=== PATIENT | female | born 1950 | race Caucasian/White ===

== ENCOUNTER 2017-03-19 12:15 | Emergency (ER) | payer MEDICARE ==
--- NOTE | 2017-03-19 12:39 | ERPHSYRPT ---
- History of Present Illness Time Seen by Provider: 03/19/17 12:31 Historian: patient, EMS Exam Limitations: no limitations Patient Subjective Stated Complaint: PT BROUGHT TO ED PER EMS-REPORTS ABD PAIN- DARK RED TO BLACK BLOOD IN STOOL YESTERDAY-BOWELS HAVE NOT MOVED SINCE THEN- REPORTS NAUSEA BUT DENIES VOMITING Triage Nursing Assessment: PT PALE WARM ET [id number] NONLABORED-ABD TENDER TO PALP-BOWEL SOUNDS HYPERACTIVE Physician History: The patient is a 66-year-old female brought in by ambulance from home complaining of 4 days of epigastric abdominal pain that was worsening today. She's had nausea without vomiting. She states she had dark red/black stools yesterday but none today. She says she's had a history of a GI bleed years ago and nothing was done. She says her father had colon cancer and she has never had a colonoscopy. The abdominal pain is relieved by eating but she has not eaten today. EMS gave her Phenergan and she is now feeling better. Her past medical history is significant for diabetes, stroke with left sided hemiparesis , congestive heart failure, hypertension, and cellulitis. Past medical surgeries include cholecystectomy and hysterectomy. Timing/Duration: day(s) (4) Activities at Onset: none Quality: aching Abdominal Pain Onset Location: epigastric Pain Radiation: no radiation Severity of Pain-Max: moderate Severity of Pain-Current: mild Associated Symptoms: nausea, No vomiting Previous symptoms: no prior history Allergies/Adverse Reactions: codeine Allergy (Intermediate, Verified 03/19/17 12:36) Nausea and Vomiting allergies validated with patient morphine Allergy (Intermediate, Verified 03/19/17 12:36) Nausea and Vomiting oxycodone [Oxycodone] Allergy (Intermediate, Verified 03/19/17 12:36) Nausea and Vomiting Home Medications: Alendronate Sodium 70 mg [Fosamax 70 MG] 70 mg PO WEEKLY 08/22/13 [History ] Clopidogrel Bisulfate 75 mg [PLAVIX 75 MG Tablet] 75 mg PO DAILY 08/22/13 [History] Fluoxetine HCl 20 mg [Prozac 20 MG] 20 mg PO DAILY 08/22/13 [History] Furosemide 20 mg [Lasix 20 mg] 20 mg PO DAILY 08/22/13 [History] Insulin Glargine [Lantus Insulin] 15 unit SQ HS 08/22/13 [History] Calcium Carbonate/Vitamin D3 [Calcium 500 + Vit D Caplet] 1 each PO BID [History] Loratadine 10 mg PO DAILY 02/18/14 [History] Potassium Chloride 10 Meq Tab* [Klor Con 10 MEQ] 10 meq PO BID 06/23/15 [ History] Fluticasone Propionate [Flonase NASAL] 2 puffs NS DAILY 03/14/16 [History] Insulin Lispro [Humalog] 10 unit SQ AC 03/14/16 [History] Naproxen [Naprosyn] 250 mg PO BID 03/14/16 [History] Hydrocodone Bit/Acetaminophen [Hydrocodon-Acetaminophen 5-325] 1 each PO UD 12/05 [History] Linagliptin [Tradjenta] 5 mg PO HS 03/19/17 [History] Metformin HCl 500 mg [Glucophage 500 MG] 500 mg PO DAILY 03/19/17 [History ] Zolpidem Tartrate [Ambien] 5 mg PO HS 03/19/17 [History] Hx Tetanus, Diphtheria Vaccination/Date Given: No Hx Influenza Vaccination/Date Given: No Hx Pneumococcal Vaccination/Date Given: No Immunizations Up to Date: Yes - Review of Systems Constitutional: No Fever, No Chills Eyes: No Symptoms Ears, Nose, & Throat: No Symptoms Respiratory: No Cough, No Dyspnea Cardiac: No Chest Pain, No Edema, No Syncope Abdominal/Gastrointestinal: Abdominal Pain, Nausea, Melena Genitourinary Symptoms: No Dysuria Musculoskeletal: No Back Pain, No Neck Pain Skin: No Rash Neurological: No Dizziness, No Focal Weakness, No Sensory Changes Psychological: No Symptoms Endocrine: No Symptoms Hematologic/Lymphatic: No Symptoms Immunological/Allergic: No Symptoms All Other Systems: Reviewed and Negative - Past Medical History Pertinent Past Medical History: Yes Neurological History: Stroke ENT History: No Pertinent History Cardiac History: Hypertension Respiratory History: No Pertinent History Endocrine Medical History: Diabetes Type II Musculoskeletal History: Arthritis, Fractures GI Medical History: No Pertinent History History: No Pertinent History Psycho-Social History: Depression Female Reproductive Disorders: No Pertinent History Other Medical History: Femur fractuce, Hip fracture, Wrist fracture, Shoulder fracture. - Past Surgical History Past Surgical History: Yes Neuro Surgical History: No Pertinent History Cardiac: No Pertinent History Respiratory: No Pertinent History Gastrointestinal: Cholecystectomy Genitourinary: No Pertinent History Musculoskeletal: Orthopedic Surgery, Other Female Surgical History: Hysterectomy Other Surgical History: left shoulder and wrist surg. - LEFT HIP PER FX - Social History Smoking Status: Never smoker Exposure to second hand smoke: No Drug Use: none Patient Lives Alone: No Significant Family History: hypertension - Female History Hx Now: No - Nursing Vital Signs Nursing Vital Signs: Initial Vital Signs Temperature 98.0 F Temperature Source Oral Pulse Rate 89 Respiratory Rate 16 Blood Pressure [Right Arm] 140/72 Pain Intensity 3 - Physical Exam General Appearance: no apparent distress, alert Eye Exam: PERRL/EOMI, eyes nml inspection Ears, Nose, Throat Exam: normal ENT inspection, pharynx normal, moist mucous membranes Neck Exam: normal inspection, non-tender, supple, full range of motion Respiratory Exam: normal breath sounds, lungs clear, No respiratory distress Cardiovascular Exam: regular rate/rhythm, normal heart sounds Gastrointestinal/Abdomen Exam: tenderness (epigastric), other (hyperactive bowel sounds) Pelvic Exam: not done Back Exam: normal inspection, normal range of motion, No CVA tenderness, No vertebral tenderness Extremity Exam: normal range of motion, pelvis stable, paralysis (There is left- sided paralysis secondary to stroke.), other (Examination of the lower extremities reveals bilateral erythema of the lower legs consistent with chronic stasis dermatitis.) Neurologic Exam: alert, oriented x 3, cooperative, normal mood/affect, nml cerebellar function, sensation nml, No motor deficits Skin Exam: normal color, warm, dry SpO2 Interpretation: normal SpO2: 94 Oxygen Delivery: Room Air - Radiology Exams Abdomen X-ray Interpretation: Teleradiologist Report, Other (nonacute nonobstructed abdomen with mild fecal stasis per Dr Bobo.) Ordered Tests: Active Orders 24 hr Category Date Time Status IV Insertion STAT Care 03/19/17 12:45 Active OBSTR/ACUTE ABDOMEN SERIES Stat Exams 03/19/17 12:45 Completed CBC W DIFF Stat Lab 03/19/17 12:55 Completed CMP Stat Lab 03/19/17 12:55 Completed LIPASE Stat Lab 03/19/17 12:55 Completed Occult Blood,Stool Other Stat Lab 03/19/17 15:00 Completed TROPONIN Stat Lab 03/19/17 12:55 Completed UA W/ MICROSCOPIC Stat Lab 03/19/17 14:00 Completed Lab/Rad Data: Laboratory Result Diagrams 03/19/17 12:55 03/19/17 12:55 Laboratory Results 03/19/17 03/19/17 03/19/17 Range/Units 15:00 14:00 12:55 WBC (4.0-10.5) K/mm3 RBC (4.1-5.4) M/mm3 Hgb (12.0-16.0) gm/dl Hct (35-47) % MCV (78-100) fl MCH (26-32) pg MCHC (32-36) g/dl RDW (11.5-14.0) % Plt Count (150-450) K/mm3 MPV (6-9.5) fl Gran % (36.0-66.0) % Lymphocytes % (24.0-44.0) % Monocytes % (0.0-12.0) % Eosinophils % (0.00-5.0) % Basophils % (0.0-0.4) % Basophils # (0-0.4) Sodium 140 (136-145) mEq/L Potassium 4.4 (3.5-5.1) mEq/L Chloride 103 (98-107) mEq/L Carbon Dioxide 29.5 (21-32) mEq/L Anion Gap 11.7 (5-15) MEQ/L BUN 28 H (9-20) mg/dL Creatinine 1.37 H (0.55-1.30) mg/dl Estimated GFR 41 ML/MIN Glucose 340 H (70-110) MG/DL Calcium 9.4 (8.5-10.1) mg/dL Total Bilirubin 0.3 (0.2-1.0) mg/dL AST 24 (15-37) U/L ALT 26 (12-78) U/L Alkaline Phosphatase 85 (46-116) U/L Troponin I < 0.017 (0.000-0.056) ng/ml Serum Total Protein 7.0 (6.4-8.2) gm/dL Albumin 2.9 L (3.4-5.0) g/dL Lipase 350 (73-393) U/L Ur Collection Type VOID Urine Color YELLOW (YELLOW) Urine Appearance CLEAR (CLEAR) Urine pH 6.5 (5-6) Ur Specific Milo 1.010 (1.005-1.025) Urine Protein TRACE (Negative) Urine Glucose (UA) 500 (NEGATIVE) mg/dL Urine Ketones NEGATIVE (NEGATIVE) Urine Nitrite NEGATIVE (NEGATIVE) Urine Bilirubin NEGATIVE (NEGATIVE) Urine Urobilinogen 0.2 (0-1) mg/dL Urine WBC (Auto) NEGATIVE (NEGATIVE) Urine RBC (Auto) NEGATIVE (0-5) Keith/ul Ur Epithelial Cells FEW (FEW) /HPF Urine Bacteria FEW (NEGATIVE) /HPF Stool Occult Blood NEGATIVE (Negative) Specimen Received 03/19/17 1400 03/19/17 Range/Units 12:55 WBC 7.8 (4.0-10.5) K/mm3 RBC 3.99 L (4.1-5.4) M/mm3 Hgb 11.0 L (12.0-16.0) gm/dl Hct 34.5 L (35-47) % MCV 86.5 (78-100) fl MCH 27.5 (26-32) pg MCHC 31.9 L (32-36) g/dl RDW 14.1 H (11.5-14.0) % Plt Count 188 (150-450) K/mm3 MPV 11.2 H (6-9.5) fl Gran % 52.8 (36.0-66.0) % Lymphocytes % 35.7 (24.0-44.0) % Monocytes % 7.1 (0.0-12.0) % Eosinophils % 4.1 (0.00-5.0) % Basophils % 0.3 (0.0-0.4) % Basophils # 0.02 (0-0.4) Sodium (136-145) mEq/L Potassium (3.5-5.1) mEq/L Chloride (98-107) mEq/L Carbon Dioxide (21-32) mEq/L Anion Gap (5-15) MEQ/L BUN (9-20) mg/dL Creatinine (0.55-1.30) mg/dl Estimated GFR ML/MIN Glucose (70-110) MG/DL Calcium (8.5-10.1) mg/dL Total Bilirubin (0.2-1.0) mg/dL AST (15-37) U/L ALT (12-78) U/L Alkaline Phosphatase (46-116) U/L Troponin I (0.000-0.056) ng/ml Serum Total Protein (6.4-8.2) gm/dL Albumin (3.4-5.0) g/dL Lipase (73-393) U/L Ur Collection Type Urine Color (YELLOW) Urine Appearance (CLEAR) Urine pH (5-6) Ur Specific Milo (1.005-1.025) Urine Protein (Negative) Urine Glucose (UA) (NEGATIVE) mg/dL Urine Ketones (NEGATIVE) Urine Nitrite (NEGATIVE) Urine Bilirubin (NEGATIVE) Urine Urobilinogen (0-1) mg/dL Urine WBC (Auto) (NEGATIVE) Urine RBC (Auto) (0-5) Keith/ul Ur Epithelial Cells (FEW) /HPF Urine Bacteria (NEGATIVE) /HPF Stool Occult Blood (Negative) Specimen Received - Progress Progress: improved Progress Note: 03/19/17 15:34 Pt feels fine and wants to go home. - Departure Time of Disposition: 15:35 Departure Disposition: Home Clinical Impression: Abdominal pain, Diabetes, Anemia Condition: Stable Critical Care Time: No
[2017-03-19 13:01] LABS: BASOPHIL % 0.3 % (0.0-0.4); Eosinophil % 4.1 % (0.00-5.0); Granulocytes % 52.8 % (36.0-66.0); Lymphocytes % 35.7 % (24.0-44.0); Mean Cell Volume 86.5 fl (78-100); Mean Platelet Volume 11.2 fl (6-9.5); Monocytes % 7.1 % (0.0-12.0); Platelet Count 188 K/mm3 (150-450); Red Blood Count 3.99 M/mm3 (4.1-5.4); Red Cell Distribution Width 14.1 % (11.5-14.0); White Blood Count 7.8 K/mm3 (4.0-10.5)
[2017-03-19 13:02] LABS: Mean Corpuscular Hemoglobin 27.5 pg (26-32)
[2017-03-19 13:46] LABS: ALBUMIN 2.9 g/dL (3.4-5.0); ALKALINE PHOSPHATASE 85 U/L (46-116); ANION GAP 11.7 MEQ/L (5-15); BILIRUBIN,TOTAL 0.3 mg/dL (0.2-1.0); BLOOD UREA NITROGEN 28 mg/dL (9-20); CHLORIDE 103 mEq/L (98-107); Carbon Dioxide 29.5 mEq/L (21-32); Glucose 340 MG/DL (70-110); LIPASE 350 U/L (73-393); Potassium 4.4 mEq/L (3.5-5.1); SGOT/AST 24 U/L (15-37); SGPT/ALT 26 U/L (12-78); SODIUM 140 mEq/L (136-145)
--- NOTE | 2017-03-19 13:51 | XRAY ---
Indication: Abdominal pain. Comparison: Portable chest March 15, 2016. Supine and left lateral decubitus abdomen demonstrates mild diffuse scattered colonic fecal debris without focal bowel dilatation or obstruction. Previous cholecystectomy. Small well-circumscribed density in the right epigastric region felt to be ingested medication/food in the GI system. Remaining solid organs unremarkable. Osseous structures intact with mild osteopenia, multilevel spinal degenerative spondylosis, and old proximal left femur fracture with intact hardware. Single AP chest demonstrates left lung base calcified granuloma. Remaining heart and lungs normal. Bony thorax intact with mild osteopenia, degenerative changes, and old left humeral fracture with intact hardware. Impression: 1. Nonacute nonobstructed abdomen with mild fecal stasis. 2. Nonacute 1 view chest with chronic findings.
[2017-03-19 13:52] LABS: TROPONIN < 0.017 ng/ml (0.000-0.056)
[2017-03-19 14:03] LABS: COMPLETE URINE MICROSCOPIC? YES; Collection Type VOID; Ph 6.5 (5-6)
[2017-03-19 14:12] LABS: Bacteria FEW /HPF (NEGATIVE); Epithelial Cells FEW /HPF (FEW)
[2017-03-19 16:47] VITALS: BP 120/71; PULSE 70; O2SAT 97
== END 2017-03-19 16:25 | disposition home or self-care (01) ==
LOC: ED 12:15
DX: R10.9 Unspecified abdominal pain (principal); E11.9 Type 2 diabetes mellitus without complications; D64.9 Anemia, unspecified; Z79.4 Long term (current) use of insulin; Z79.899 Other long term (current) drug therapy
CPT/HCPCS: 36415; 74022; 80053; 81000; 82272; 83690; 84484; 85025; 96360; 99284

== ENCOUNTER 2017-04-06 14:17 | Emergency (ER) | payer MEDICARE ==
[2017-04-06] MEDS ORDERED: Sodium Chloride 0.9% 1000 ML 1,000 ML ONE (14:28)
--- NOTE | 2017-04-06 14:29 | ERPHSYRPT ---
- History of Present Illness Time Seen by Provider: 04/06/17 14:19 Historian: patient, EMS Exam Limitations: no limitations Patient Subjective Stated Complaint: N/V/D AND LOWER ABD PAIN FOR TWO DAYS. Triage Nursing Assessment: TO ROOM PER EMS COT. SKIN W/D, COLOR NORMAL, RESP EASY. ABD SOFT, NORMAL BOWEL SOUNDS. A/O TIMES THREE Physician History: abdominal pain with N&V that started last night - 9 pm; ate hamburger at 6 pm; tasted ok; no travel; no exposure; no prior hx; no fever or chills; no prior hx ; comes and goes; epigastric without radiation; voiding ok; light liquid diarrhea today x 1; city water; N&V meds today; takes sprite ok; no trauma pain N&V gone after meds by ems; pain was 4/10 Timing/Duration: today (diarrhea x 1), yesterday (onset last night), intermittent, gradual onset, improved (after meds) Activities at Onset: rest Quality: cramping Abdominal Pain Onset Location: epigastric Pain Radiation: no radiation Severity of Pain-Max: moderate Severity of Pain-Current: none Modifying Factors: Improves With: vomiting Associated Symptoms: diarrhea, nausea, vomiting Previous symptoms: no prior history Allergies/Adverse Reactions: codeine Allergy (Intermediate, Verified 04/06/17 14:23) Nausea and Vomiting allergies validated with patient morphine Allergy (Intermediate, Verified 04/06/17 14:23) Nausea and Vomiting oxycodone [Oxycodone] Allergy (Intermediate, Verified 04/06/17 14:23) Nausea and Vomiting Home Medications: Alendronate Sodium 70 mg [Fosamax 70 MG] 70 mg PO WEEKLY 08/22/13 [History ] Clopidogrel Bisulfate 75 mg [PLAVIX 75 MG Tablet] 75 mg PO DAILY 08/22/13 [History] Fluoxetine HCl 20 mg [Prozac 20 MG] 20 mg PO DAILY 08/22/13 [History] Furosemide 20 mg [Lasix 20 mg] 20 mg PO DAILY 08/22/13 [History] Insulin Glargine [Lantus Insulin] 15 unit SQ HS 08/22/13 [History] Calcium Carbonate/Vitamin D3 [Calcium 500 + Vit D Caplet] 1 each PO BID [History] Loratadine 10 mg PO DAILY 02/18/14 [History] Potassium Chloride 10 Meq Tab* [Klor Con 10 MEQ] 10 meq PO BID 06/23/15 [ History] Fluticasone Propionate [Flonase NASAL] 2 puffs NS DAILY 03/14/16 [History] Insulin Lispro [Humalog] 10 unit SQ AC 03/14/16 [History] Naproxen [Naprosyn] 250 mg PO BID 03/14/16 [History] Hydrocodone Bit/Acetaminophen [Hydrocodon-Acetaminophen 5-325] 1 each PO UD 12/05 [History] Linagliptin [Tradjenta] 5 mg PO HS 03/19/17 [History] Metformin HCl 500 mg [Glucophage 500 MG] 500 mg PO DAILY 03/19/17 [History ] Zolpidem Tartrate [Ambien] 5 mg PO HS 03/19/17 [History] Hx Tetanus, Diphtheria Vaccination/Date Given: No Hx Influenza Vaccination/Date Given: No Hx Pneumococcal Vaccination/Date Given: No - Review of Systems Constitutional: No Symptoms Eyes: No Symptoms Ears, Nose, & Throat: No Symptoms Respiratory: No Cough, No Dyspnea, No Wheezing Cardiac: No Chest Pain, No Palpitations, No Syncope Abdominal/Gastrointestinal: Abdominal Pain, Nausea, Vomiting, Diarrhea, No Constipation, No Hematemesis, No Hematochezia, No Melena Genitourinary Symptoms: No Symptoms Musculoskeletal: No Symptoms Skin: No Symptoms Neurological: Paralysis (left side - old cva), Parasthesia (left side; old cva) Psychological: No Symptoms Endocrine: No Symptoms Hematologic/Lymphatic: No Symptoms Immunological/Allergic: No Symptoms - Past Medical History Pertinent Past Medical History: Yes Neurological History: Stroke ENT History: No Pertinent History Cardiac History: Hypertension Respiratory History: No Pertinent History Endocrine Medical History: Diabetes Type II Musculoskeletal History: Arthritis, Fractures GI Medical History: No Pertinent History History: No Pertinent History Psycho-Social History: Depression Female Reproductive Disorders: No Pertinent History Other Medical History: Femur fractuce, Hip fracture, Wrist fracture, Shoulder fracture. - Past Surgical History Past Surgical History: Yes Neuro Surgical History: No Pertinent History Cardiac: No Pertinent History Respiratory: No Pertinent History Gastrointestinal: Cholecystectomy Genitourinary: No Pertinent History Musculoskeletal: Orthopedic Surgery, Other Female Surgical History: Hysterectomy Other Surgical History: left shoulder and wrist surg. - LEFT HIP PER FX - Social History Smoking Status: Never smoker Exposure to second hand smoke: No Alcohol Use: None Drug Use: none Patient Lives Alone: No Significant Family History: hypertension - Female History Hx Now: No - Nursing Vital Signs Nursing Vital Signs: Initial Vital Signs Temperature 98.3 F Temperature Source Oral Pulse Rate 86 Respiratory Rate 16 Blood Pressure [Right Arm] 146/76 Pain Intensity 0 - Physical Exam General Appearance: mild distress, alert, obese Eye Exam: PERRL/EOMI, eyes nml inspection, No photophobia Ears, Nose, Throat Exam: normal ENT inspection, TMs normal, pharynx normal, dry mucous membranes Neck Exam: normal inspection, non-tender, supple, full range of motion, No meningismus, No JVD Respiratory Exam: normal breath sounds, lungs clear, airway intact, No chest tenderness, No respiratory distress Cardiovascular Exam: regular rate/rhythm, normal heart sounds, normal peripheral pulses, capillary refill 2-3 sec, No murmur Gastrointestinal/Abdomen Exam: soft, normal bowel sounds, No tenderness, No distention, No mass, No guarding, No pulsatile mass, No rebound, No hernia, No organomegaly Pelvic Exam: deferred Rectal Exam: deferred Back Exam: normal inspection, normal range of motion, No CVA tenderness, No vertebral tenderness, No rash Extremity Exam: normal inspection (right), normal range of motion (right), paralysis (left old cva residual) Neurologic Exam: alert, oriented x 3, cooperative, normal mood/affect, sensation nml, motor weakness (left old cva), facial droop (left old), abnormal facilities maintenance assistant II-XII (left face old cva) Skin Exam: normal color, warm, dry, No rash SpO2 Interpretation: normal SpO2: 97 - Course Nursing assessment & vital signs reviewed: Yes - Radiology Exams Abdomen X-ray Interpretation: Reviewed by me, Teleradiologist Report, Negative Ordered Tests: Active Orders 24 hr Category Date Time Status IV Insertion STAT Care 04/06/17 14:22 Active NPO (ED) STAT Care 04/06/17 14:22 Active OBSTR/ACUTE ABDOMEN SERIES Stat Exams 04/06/17 15:02 Completed AMYLASE Stat Lab 04/06/17 14:36 Completed CBC W DIFF Stat Lab 04/06/17 14:36 Completed CMP Stat Lab 04/06/17 14:36 Completed LIPASE Stat Lab 04/06/17 14:36 Completed Medication Summary Generic Name Dose Route Start Last Admin Trade Name Cassy PRN Reason Stop Dose Admin Sodium Chloride 1,000 mls @ 100 mls/hr 04/06/17 14:30 04/06/17 14:28 Sodium Chloride 0.9% 1000 Ml IV 05/06/17 14:29 100 mls/hr .Q10H EDDIE Administration Lab/Rad Data: Laboratory Result Diagrams 04/06/17 14:36 04/06/17 14:36 Laboratory Results 04/06/17 04/06/17 Range/Units 14:36 14:36 WBC 8.8 (4.0-10.5) K/mm3 RBC 3.74 L (4.1-5.4) M/mm3 Hgb 10.0 L (12.0-16.0) gm/dl Hct 32.3 L (35-47) % MCV 86.4 (78-100) fl MCH 26.7 (26-32) pg MCHC 31.0 L (32-36) g/dl RDW 15.0 H (11.5-14.0) % Plt Count 335 (150-450) K/mm3 MPV 10.4 H (6-9.5) fl Gran % 62.0 (36.0-66.0) % Lymphocytes % 30.0 (24.0-44.0) % Monocytes % 5.1 (0.0-12.0) % Eosinophils % 2.6 (0.00-5.0) % Basophils % 0.3 (0.0-0.4) % Basophils # 0.03 (0-0.4) Sodium 139 (136-145) mEq/L Potassium 3.8 (3.5-5.1) mEq/L Chloride 105 (98-107) mEq/L Carbon Dioxide 28.4 (21-32) mEq/L Anion Gap 9.0 (5-15) MEQ/L BUN 12 (9-20) mg/dL Creatinine 1.28 (0.55-1.30) mg/dl Estimated GFR 44 ML/MIN Glucose 261 H (70-110) MG/DL Calcium 8.8 (8.5-10.1) mg/dL Total Bilirubin 0.3 (0.2-1.0) mg/dL AST 19 (15-37) U/L ALT 18 (12-78) U/L Alkaline Phosphatase 80 (46-116) U/L Serum Total Protein 7.6 (6.4-8.2) gm/dL Albumin 2.9 L (3.4-5.0) g/dL Amylase 22 L (25-115) U/L Lipase 426 H (73-393) U/L reviewed - Progress Progress: improved (after meds), re-examined (after recheck) Progress Note: 04/06/17 14:30 patient with no pain now and no N&V post ems meds; will observe; check labs and recheck 04/06/17 15:00 recheck shows patient resting comfortably; no pain ; No N&V; vs ok; CBC ok wiht chronic anemia; other labs pending 04/06/17 16:38 patient continues to be pain free and no N&V and wants to go home; reviewed findings which showed a mildly elevated lipase; no hx of pancreatitis; she wants to go home and follow up with lmd; instructions given; reexamined and no abdominal tenderness Counseled pt/family regarding: lab results, diagnosis, need for follow-up, rad results - Departure Time of Disposition: 16:40 Departure Disposition: Home Clinical Impression: Abdominal pain Condition: Stable Critical Care Time: No Referrals: BENNY HUGHES [Primary Care Provider] - Instructions: Abdominal Pain-Adult Additional Instructions: clear liquids 12- 24 hours then bland diet 24 hours; follow up lmd recheck Follow-up with family doctor as directed. Call for appointment. Return if any problems. If you smoke please stop. Call or follow up with your family doctor for assistance if you need it to stop. Please wear your seatbelt when driving. Have a nice day. Thank you for allowing us to participate in your care today. :o) Dr Casey Almendarez Prescriptions: Nizatidine [Axid] 150 mg PO BID #14 capsule Ondansetron [Zofran Odt] 4 mg PO Q4-6HPRN PRN #14 tab.rapdis PRN Reason: Nausea
[2017-04-06] MEDS ORDERED: Sodium Chloride 0.9% 1000 ML 1,000 ML IV SCH (14:30)
[2017-04-06 14:41] LABS: BASOPHIL % 0.3 % (0.0-0.4); Eosinophil % 2.6 % (0.00-5.0); Mean Cell Volume 86.4 fl (78-100); Mean Corpuscular Hemoglobin 26.7 pg (26-32); Mean Platelet Volume 10.4 fl (6-9.5); Monocytes % 5.1 % (0.0-12.0); Platelet Count 335 K/mm3 (150-450); Red Blood Count 3.74 M/mm3 (4.1-5.4); White Blood Count 8.8 K/mm3 (4.0-10.5)
[2017-04-06 15:23] LABS: ALBUMIN 2.9 g/dL (3.4-5.0); BILIRUBIN,TOTAL 0.3 mg/dL (0.2-1.0); Carbon Dioxide 28.4 mEq/L (21-32); Potassium 3.8 mEq/L (3.5-5.1); Total Protein 7.6 gm/dL (6.4-8.2)
--- NOTE | 2017-04-06 16:08 | XRAY ---
Indication: Nausea and vomiting. Comparison: March 19, 2017. 2 views of the abdomen nonacute and nonobstructed with note of cholecystectomy. Stable small well-circumscribed density in the right epigastric abdominal wall as seen on CT abdomen July 15, 2015. Remaining solid organs unremarkable. Osseous structures intact with mild osteopenia, multilevel spinal degenerative spondylosis, and old proximal left femur fracture with intact hardware. Single AP chest again demonstrates normal heart and lungs with left base calcified granuloma. Bony thorax intact with mild osteopenia, degenerative changes, and old left humeral fracture with intact hardware. Impression: 1. Nonacute nonobstructed abdomen. 2. Nonacute 1 view chest with chronic findings.
[2017-04-06 18:02] VITALS: BP 124/70; PULSE 76; O2SAT 100
== END 2017-04-06 18:03 | disposition home or self-care (01) ==
LOC: ED 14:17
DX: R10.30 Lower abdominal pain, unspecified (principal); R11.2 Nausea with vomiting, unspecified; R19.7 Diarrhea, unspecified; Z79.899 Other long term (current) drug therapy; E11.9 Type 2 diabetes mellitus without complications; I10 Essential (primary) hypertension
CPT/HCPCS: 36415; 74022; 80053; 82150; 83690; 85025; 87631; 96360; 96361; 99284

== ENCOUNTER 2017-05-29 09:24 | Emergency (ER) | payer MEDICARE ==
--- NOTE | 2017-05-29 09:47 | ERPHSYRPT ---
- History of Present Illness Time Seen by Provider: 05/29/17 09:42 Historian: patient Exam Limitations: no limitations Patient Subjective Stated Complaint: PT REPORTS LEFT UPPER ABD PAIN BEGINNING LAST [id number] OF DIARHHEA-REPORTS WOKE THIS MORNING TO INTERMITTANT [facility] PAIN-VOMITED X 1 Triage Nursing Assessment: PT PINK WARM ET [id number]-SAPI EASY ET NONLABORED-NO REBOUND TENDERNESS NOTED-BOWEL SOUNDS PRESENT-AND SOFT ET NONTENDER TO PALP-PT DROWSY DURING TRIAGE Physician History: The patient is a 66-year-old female brought in by ambulance from home where she states she vomited day before yesterday and this morning had left-sided abdominal pain that has completely resolved. She doesn't hurt anywhere. She's not nauseated. She is sleepy. She said she wants to go to sleep right now. She is in no acute distress. EMS gave the patient Zofran 4 mg IV. Her past medical history is significant for diabetes, stroke with left-sided hemiparesis , congestive heart failure, hypertension, and cellulitis. Her past surgeries include cholecystectomy and hysterectomy. Timing/Duration: today Activities at Onset: none Quality: aching Abdominal Pain Onset Location: [facility] Pain Radiation: no radiation Severity of Pain-Max: mild Severity of Pain-Current: none Modifying Factors: Improves With: nothing Associated Symptoms: denies symptoms Previous symptoms: no prior history Allergies/Adverse Reactions: codeine Allergy (Intermediate, Verified 05/29/17 09:32) Nausea and Vomiting allergies validated with patient morphine Allergy (Intermediate, Verified 05/29/17 09:32) Nausea and Vomiting oxycodone [Oxycodone] Allergy (Intermediate, Verified 05/29/17 09:32) Nausea and Vomiting Home Medications: Alendronate Sodium 70 mg [Fosamax 70 MG] 70 mg PO WEEKLY 08/22/13 [History ] Clopidogrel Bisulfate 75 mg [PLAVIX 75 MG Tablet] 75 mg PO DAILY 08/22/13 [History] Fluoxetine HCl 20 mg [Prozac 20 MG] 20 mg PO DAILY 08/22/13 [History] Furosemide 20 mg [Lasix 20 mg] 20 mg PO DAILY 08/22/13 [History] Insulin Glargine [Lantus Insulin] 15 unit SQ HS 08/22/13 [History] Calcium Carbonate/Vitamin D3 [Calcium 500 + Vit D Caplet] 1 each PO BID [History] Loratadine 10 mg PO DAILY 02/18/14 [History] Potassium Chloride 10 Meq Tab* [Klor Con 10 MEQ] 10 meq PO BID 06/23/15 [ History] Fluticasone Propionate [Flonase NASAL] 2 puffs NS DAILY 03/14/16 [History] Insulin Lispro [Humalog] 10 unit SQ AC 03/14/16 [History] Naproxen [Naprosyn] 250 mg PO BID 03/14/16 [History] Hydrocodone Bit/Acetaminophen [Hydrocodon-Acetaminophen 5-325] 1 each PO UD 12/05 [History] Linagliptin [Tradjenta] 5 mg PO HS 03/19/17 [History] Metformin HCl 500 mg [Glucophage 500 MG] 500 mg PO DAILY 03/19/17 [History ] Zolpidem Tartrate [Ambien] 5 mg PO HS 03/19/17 [History] Hx Tetanus, Diphtheria Vaccination/Date Given: No Hx Influenza Vaccination/Date Given: No Hx Pneumococcal Vaccination/Date Given: No Immunizations Up to Date: Yes - Review of Systems Constitutional: No Fever, No Chills Eyes: No Symptoms Ears, Nose, & Throat: No Symptoms Respiratory: No Cough, No Dyspnea Cardiac: No Chest Pain, No Edema, No Syncope Abdominal/Gastrointestinal: Abdominal Pain, Vomiting Genitourinary Symptoms: No Dysuria Musculoskeletal: No Back Pain, No Neck Pain Skin: No Rash Neurological: No Dizziness, No Focal Weakness, No Sensory Changes Psychological: No Symptoms Endocrine: No Symptoms Hematologic/Lymphatic: No Symptoms Immunological/Allergic: No Symptoms All Other Systems: Reviewed and Negative - Past Medical History Pertinent Past Medical History: Yes Neurological History: Stroke ENT History: No Pertinent History Cardiac History: Hypertension Respiratory History: No Pertinent History Endocrine Medical History: Diabetes Type II Musculoskeletal History: Arthritis, Fractures GI Medical History: No Pertinent History History: No Pertinent History Psycho-Social History: Depression Female Reproductive Disorders: No Pertinent History Other Medical History: Femur fractuce, Hip fracture, Wrist fracture, Shoulder fracture. - Past Surgical History Past Surgical History: Yes Neuro Surgical History: No Pertinent History Cardiac: No Pertinent History Respiratory: No Pertinent History Gastrointestinal: Cholecystectomy Genitourinary: No Pertinent History Musculoskeletal: Orthopedic Surgery, Other Female Surgical History: Hysterectomy Other Surgical History: left shoulder and wrist surg. - LEFT HIP PER FX - Social History Smoking Status: Never smoker Exposure to second hand smoke: No Alcohol Use: None Drug Use: none Patient Lives Alone: No Significant Family History: hypertension - Female History Hx Now: No - Nursing Vital Signs Nursing Vital Signs: Initial Vital Signs Temperature 97.9 F Temperature Source Oral Pulse Rate 82 Respiratory Rate 16 Blood Pressure [Right Arm] 144/69 Pain Intensity 0 - Physical Exam General Appearance: no apparent distress, alert Eye Exam: PERRL/EOMI, eyes nml inspection Ears, Nose, Throat Exam: normal ENT inspection, pharynx normal, moist mucous membranes Neck Exam: normal inspection, non-tender, supple, full range of motion Respiratory Exam: normal breath sounds, lungs clear, No respiratory distress Cardiovascular Exam: regular rate/rhythm, normal heart sounds Gastrointestinal/Abdomen Exam: soft, No tenderness, No mass Pelvic Exam: not done Rectal Exam: not done Back Exam: normal inspection, normal range of motion, No CVA tenderness, No vertebral tenderness Extremity Exam: pedal edema (There is very mild pedal edema with chronic skin changes consistent with chronic stasis dermatitis.) Neurologic Exam: alert, oriented x 3, cooperative, normal mood/affect, nml cerebellar function, sensation nml, No motor deficits Skin Exam: normal color, warm, dry SpO2 Interpretation: normal SpO2: 94 Oxygen Delivery: Room Air - Radiology Exams Abdomen X-ray Interpretation: Interpreted by me, Negative (neg chest. non acute, nonobstructed abd) Ordered Tests: Active Orders 24 hr Category Date Time Status IV Insertion STAT Care 05/29/17 09:51 Active OBSTR/ACUTE ABDOMEN SERIES Stat Exams 05/29/17 09:51 Taken CBC W DIFF Stat Lab 05/29/17 10:44 Completed CMP Stat Lab 05/29/17 10:44 Completed LIPASE Stat Lab 05/29/17 10:44 Completed Lactic Acid Stat Lab 05/29/17 09:51 Completed Manual Differential NC Stat Lab 05/29/17 10:44 Completed TROPONIN Stat Lab 05/29/17 10:44 Completed UA W/RFX UR CULTURE Stat Lab 05/29/17 10:45 Completed Medication Summary Discontinued Medications Generic Name Dose Route Start Last Admin Trade Name Cassy PRN Reason Stop Dose Admin Sodium Chloride 500 mls @ 500 mls/hr 05/29/17 09:52 05/29/17 09:58 Sodium Chloride 0.9% 500 Ml IV 05/29/17 10:51 500 mls/hr .Q1H ONE Administration Sodium Chloride Confirm 05/29/17 09:55 Sodium Chloride 0.9% 1000 Ml Administered 05/29/17 09:56 Dose 1,000 mls @ ud .ROUTE .STK-MED ONE Lab/Rad Data: Laboratory Result Diagrams 05/29/17 10:44 05/29/17 10:44 Laboratory Results 05/29/17 05/29/17 05/29/17 Range/Units 10:45 10:44 10:44 WBC 8.0 (4.0-10.5) K/mm3 RBC 3.15 L (4.1-5.4) M/mm3 Hgb 7.3 L (12.0-16.0) gm/dl Hct 25.5 L (35-47) % MCV 81.0 (78-100) fl MCH 23.1 L (26-32) pg MCHC 28.6 L (32-36) g/dl RDW 16.8 H (11.5-14.0) % Plt Count 351 (150-450) K/mm3 MPV 10.6 H (6-9.5) fl Sodium 140 (136-145) mEq/L Potassium 4.6 (3.5-5.1) mEq/L Chloride 105 (98-107) mEq/L Carbon Dioxide 26.5 (21-32) mEq/L Anion Gap 12.9 (5-15) MEQ/L BUN 10 (9-20) mg/dL Creatinine 1.11 (0.55-1.30) mg/dl Estimated GFR 52 ML/MIN Glucose 239 H (70-110) MG/DL Lactic Acid (0.4-2.0) Calcium 8.5 (8.5-10.1) mg/dL Total Bilirubin 0.20 (0.2-1.0) mg/dL AST 22 (15-37) U/L ALT 12 (12-78) U/L Alkaline Phosphatase 92 (46-116) U/L Troponin I < 0.017 (0.000-0.056) ng/ml Serum Total Protein 6.9 (6.4-8.2) gm/dL Albumin 2.6 L (3.4-5.0) g/dL Lipase 133 (73-393) U/L Ur Collection Type CCMS Urine Color YELLOW (YELLOW) Urine Appearance CLEAR (CLEAR) Urine pH 7.0 (5-6) Ur Specific [place] 1.005 (1.005-1.025) Urine Protein NEGATIVE (Negative) Urine Ketones NEGATIVE (NEGATIVE) Urine Blood NEGATIVE (0-5) Keith/ul Urine Nitrite NEGATIVE (NEGATIVE) Urine Bilirubin NEGATIVE (NEGATIVE) Urine Urobilinogen NORMAL (0-1) mg/dL Ur Leukocyte Esterase NEGATIVE (NEGATIVE) Urine Glucose NEGATIVE (NEGATIVE) mg/dL Specimen Received 05/29 1115 05/29/17 Range/Units 09:51 WBC (4.0-10.5) K/mm3 RBC (4.1-5.4) M/mm3 Hgb (12.0-16.0) gm/dl Hct (35-47) % MCV (78-100) fl MCH (26-32) pg MCHC (32-36) g/dl RDW (11.5-14.0) % Plt Count (150-450) K/mm3 MPV (6-9.5) fl Sodium (136-145) mEq/L Potassium (3.5-5.1) mEq/L Chloride (98-107) mEq/L Carbon Dioxide (21-32) mEq/L Anion Gap (5-15) MEQ/L BUN (9-20) mg/dL Creatinine (0.55-1.30) mg/dl Estimated GFR ML/MIN Glucose (70-110) MG/DL Lactic Acid 1.3 (0.4-2.0) Calcium (8.5-10.1) mg/dL Total Bilirubin (0.2-1.0) mg/dL AST (15-37) U/L ALT (12-78) U/L Alkaline Phosphatase (46-116) U/L Troponin I (0.000-0.056) ng/ml Serum Total Protein (6.4-8.2) gm/dL Albumin (3.4-5.0) g/dL Lipase (73-393) U/L Ur Collection Type Urine Color (YELLOW) Urine Appearance (CLEAR) Urine pH (5-6) Ur Specific [place] (1.005-1.025) Urine Protein (Negative) Urine Ketones (NEGATIVE) Urine Blood (0-5) Keith/ul Urine Nitrite (NEGATIVE) Urine Bilirubin (NEGATIVE) Urine Urobilinogen (0-1) mg/dL Ur Leukocyte Esterase (NEGATIVE) Urine Glucose (NEGATIVE) mg/dL Specimen Received - Progress Progress: improved Counseled pt/family regarding: lab results, diagnosis, need for follow-up, rad results - Departure Time of Disposition: 11:59 Departure Disposition: Home Clinical Impression: Abdominal pain, Vomiting Condition: Stable Critical Care Time: No Additional Instructions: Last night you had abdominal pain that has completely resolved. 2 days ago you had vomiting that has resolved. You were given normal saline 500 mL by IV in the ER. He did not sleep well last night. You now states that you are completely pain free and you no longer have vomiting. All of your labs and your x-ray were normal. Take Zofran 4 mg ODT every 6 hours as needed for nausea and vomiting. Follow-up in one to 2 days. Prescriptions: Ondansetron [Zofran Odt] 4 mg PO Q6HPRN PRN #10 tab.rapdis PRN Reason: Nausea/Vomiting
[2017-05-29] MEDS ORDERED: Sodium Chloride 0.9% 500 ML 500 ML IV ONE (09:52)
[2017-05-29] MEDS ORDERED: Sodium Chloride 0.9% 1000 ML 1,000 ML ONE (09:55)
[2017-05-29 10:54] LABS: Mean Platelet Volume 10.6 fl (6-9.5); Platelet Count 351 K/mm3 (150-450); Red Blood Count 3.15 M/mm3 (4.1-5.4); Red Cell Distribution Width 16.8 % (11.5-14.0)
[2017-05-29 10:57] LABS: Mean Corpuscular Hemoglobin 23.1 pg (26-32)
[2017-05-29 11:17] LABS: ALBUMIN 2.6 g/dL (3.4-5.0); ALKALINE PHOSPHATASE 92 U/L (46-116); ANION GAP 12.9 MEQ/L (5-15); BLOOD UREA NITROGEN 10 mg/dL (9-20); CHLORIDE 105 mEq/L (98-107); Carbon Dioxide 26.5 mEq/L (21-32); Glucose 239 MG/DL (70-110); LIPASE 133 U/L (73-393); Potassium 4.6 mEq/L (3.5-5.1); SGOT/AST 22 U/L (15-37); SGPT/ALT 12 U/L (12-78); SODIUM 140 mEq/L (136-145); Total Protein 6.9 gm/dL (6.4-8.2)
[2017-05-29 11:18] LABS: TROPONIN < 0.017 ng/ml (0.000-0.056)
[2017-05-29 11:29] LABS: ADD URINE CULTURE? NO (NO); Bilirubin NEGATIVE (NEGATIVE); Blood NEGATIVE Ery/ul (0-5); COMPLETE URINE MICROSCOPIC? NO; Collection Type CCMS; Glucose NEGATIVE (NEGATIVE); Leukocyte Esterase NEGATIVE (NEGATIVE)
[2017-05-29 12:06] VITALS: BP 138/72; PULSE 76; O2SAT 98
--- NOTE | 2017-05-29 12:06 | XRAY ---
Exam: Acute abdominal series from 05/29/2017. Comparison: Acute abdominal series from 04/06/2017. Indication: Abdominal pain, vomiting. Findings: A frontal chest film, upright abdomen film, and 2 supine films of the abdomen were obtained. The transverse heart size is normal. Mild atherosclerotic vascular calcification is seen within the aortic knob. The jeremiah and mediastinal structures appear unremarkable. The lungs are adequately inflated. A small stable calcified granuloma is seen within the left costophrenic angle. No infiltrates, vascular congestion, pneumothorax, or pleural fluid is seen. A portion of a miranda with adjoining screws is seen within the left shoulder and proximal humerus shaft representing no change. Mild osteoarthritic changes are seen within the right shoulder girdle. Lower thoracic lateral osteophyte formation is seen. There is minimal mid thoracic dextroscoliosis. The bowel gas pattern appears nonspecific with a few scattered air-fluid levels within the lower left hemiabdomen on the upright image. Some gas and stool are seen distally extending to the level of the rectum. Surgical clips consistent with prior cholecystectomy are noted within the right upper quadrant. There is no free intraperitoneal air. There is an oval-shaped radiodensity noted about 6 cm to the right of midline of T12 which is unchanged from a CT abdomen and pelvis from 04/06/2017 and was previously demonstrated to represent a stable high attenuation density within the upper anterior abdominal wall to the right of midline. This is not related to the right kidney. No hepatosplenomegaly is seen. No other suspicious abdominal calcifications or calculi are seen. There is a mild rotary levoscoliosis centered at L1-L2. Moderate diffuse lower thoracolumbar spondylosis is seen. There is again an old healed fracture of the intertrochanteric region of the left hip with stable internal orthopedic gamma nail hardware partially seen. Impression: 1. No acute cardiopulmonary disease is seen. 2. Nonspecific bowel gas pattern with a few scattered air-fluid levels within the lower left hemiabdomen and upper left pelvis. Consider enteritis versus focal ileus. Gas is seen distally within the small bowel and colon which speaks against bowel obstruction. 3. No free intraperitoneal air is seen. 4. Evidence of prior cholecystectomy. Also, prior orthopedic hardware is partially seen within the proximal left humerus and proximal left femur representing no change. 5. A 2.1 cm ovoid radiodensity is seen projected over the medial aspect of the right upper quadrant which is known to lie within the anterior abdominal wall in this projection. This can be seen on a prior CT study dating back to 07/15/2015. Correlate clinically. 6. Moderately advanced degenerative changes are seen within the thoracolumbar spine. There is also mild S-shaped scoliosis.
[2017-05-29 15:13] LABS: BAND 1 % (0.0-2.0); Hypochromia 2+; Total Cells Counted 100
[2017-05-29 15:14] LABS: ANISOCYTOSIS 2+; Platelet Estimate NORMAL (NORMAL); Poikilocytosis 1+; Polychromasia 1+
== END 2017-05-29 13:19 | disposition home or self-care (01) ==
LOC: ED 09:24
DX: R10.12 Left upper quadrant pain (principal); R11.10 Vomiting, unspecified; E11.9 Type 2 diabetes mellitus without complications; I50.9 Heart failure, unspecified; I10 Essential (primary) hypertension; Z79.899 Other long term (current) drug therapy; Z79.84 Long term (current) use of oral hypoglycemic drugs; Z79.4 Long term (current) use of insulin
CPT/HCPCS: 36415; 74022; 80053; 81002; 83605; 83690; 84484; 85025; 96360; 99284

== ENCOUNTER 2017-06-02 07:41 | Emergency (ER) | payer MEDICARE ==
[2017-06-02] MEDS ORDERED: Pepcid 20 MG VIAL IV ONE ×2 (07:54→08:20)
[2017-06-02] MEDS ORDERED: Phenergan 25 MG INJ IM ONE (07:54)
[2017-06-02] MEDS ORDERED: Sodium Chloride 0.9% 1000 ML 1,000 ML IV SCH (08:00)
--- NOTE | 2017-06-02 08:01 | ERPHSYRPT ---
- History of Present Illness Time Seen by Provider: 06/02/17 07:53 Historian: patient, EMS Patient Subjective Stated Complaint: PT COMES IN BY EMS PER PT SHE HAS BEEN HAVING NAUSEA. FOR A COUPLE DAYS STATES THAT THIS AM SHE BEGAN VOMIING COMPLAINS OF SOME RIGHT AND LEFT UPPER QUAD PAIN DENIES DIARRHEA OR FEVER STATES SHE IS A DIABETIC STATES SHE WAS. HERE A COUPLE OF OF DAYS AGO FOR THE SAME THING. PT STATES SHE TOOK A ZOFRAN THIS AM Triage Nursing Assessment: PT ALERT WARM AND DRY RESP EASY NON LABORED WET [employer] NOTED. Physician History: CC: abd pain and vomiting Hx: 66 y/o patient of Dr Hughes who lives in [facility]. She has abd pain and vomiting since last night. No fever or chills or diarrhea. No chest pain. She had prior cholecystectomy. She took a zofran at 3AM without relief. Symptoms moderate. Pt arrived per EMS. Timing/Duration: yesterday Abdominal Pain Onset Location: generalized abdomen Severity of Pain-Max: moderate Severity of Pain-Current: moderate Allergies/Adverse Reactions: codeine Allergy (Intermediate, Verified 05/29/17 09:32) Nausea and Vomiting allergies validated with patient morphine Allergy (Intermediate, Verified 05/29/17 09:32) Nausea and Vomiting oxycodone [Oxycodone] Allergy (Intermediate, Verified 05/29/17 09:32) Nausea and Vomiting Home Medications: Alendronate Sodium 70 mg [Fosamax 70 MG] 70 mg PO WEEKLY 08/22/13 [History ] Clopidogrel Bisulfate 75 mg [PLAVIX 75 MG Tablet] 75 mg PO DAILY 08/22/13 [History] Fluoxetine HCl 20 mg [Prozac 20 MG] 20 mg PO DAILY 08/22/13 [History] Furosemide 20 mg [Lasix 20 mg] 20 mg PO DAILY 08/22/13 [History] Insulin Glargine [Lantus Insulin] 15 unit SQ HS 08/22/13 [History] Calcium Carbonate/Vitamin D3 [Calcium 500 + Vit D Caplet] 1 each PO BID [History] Loratadine 10 mg PO DAILY 02/18/14 [History] Potassium Chloride 10 Meq Tab* [Klor Con 10 MEQ] 10 meq PO BID 06/23/15 [ History] Fluticasone Propionate [Flonase NASAL] 2 puffs NS DAILY 03/14/16 [History] Insulin Lispro [Humalog] 10 unit SQ AC 03/14/16 [History] Naproxen [Naprosyn] 250 mg PO BID 03/14/16 [History] Hydrocodone Bit/Acetaminophen [Hydrocodon-Acetaminophen 5-325] 1 each PO UD 12/05 [History] Linagliptin [Tradjenta] 5 mg PO HS 03/19/17 [History] Metformin HCl 500 mg [Glucophage 500 MG] 500 mg PO DAILY 03/19/17 [History ] Zolpidem Tartrate [Ambien] 5 mg PO HS 03/19/17 [History] Hx Tetanus, Diphtheria Vaccination/Date Given: Yes Hx Influenza Vaccination/Date Given: No Hx Pneumococcal Vaccination/Date Given: No Immunizations Up to Date: Yes - Review of Systems Constitutional: Malaise, No Fever, No Chills Eyes: No Symptoms Ears, Nose, & Throat: No Symptoms Respiratory: No Cough, No Dyspnea Cardiac: No Chest Pain Abdominal/Gastrointestinal: Abdominal Pain, Nausea, Vomiting, No Diarrhea Genitourinary Symptoms: No Dysuria Skin: No Rash Neurological: No Headache All Other Systems: Reviewed and Negative - Past Medical History Pertinent Past Medical History: Yes Neurological History: Stroke ENT History: No Pertinent History Cardiac History: Hypertension Respiratory History: No Pertinent History Endocrine Medical History: Diabetes Type II Musculoskeletal History: Arthritis, Fractures GI Medical History: No Pertinent History History: No Pertinent History Psycho-Social History: Depression Female Reproductive Disorders: No Pertinent History Other Medical History: Femur fractuce, Hip fracture, Wrist fracture, Shoulder fracture. - Past Surgical History Past Surgical History: Yes Neuro Surgical History: No Pertinent History Cardiac: No Pertinent History Respiratory: No Pertinent History Gastrointestinal: Cholecystectomy Genitourinary: No Pertinent History Musculoskeletal: Orthopedic Surgery, Other Female Surgical History: Hysterectomy Other Surgical History: left shoulder and wrist surg. - LEFT HIP PER FX - Social History Smoking Status: Never smoker Exposure to second hand smoke: No Alcohol Use: None Drug Use: none Patient Lives Alone: No Significant Family History: hypertension - Female History Hx Last Menstrual Period: N/A Hx Now: No - Nursing Vital Signs Nursing Vital Signs: Initial Vital Signs Temperature 97.7 F Temperature Source Rectal Pulse Rate 86 Respiratory Rate 18 Blood Pressure [] 174/78 - Physical Exam General Appearance: alert Eye Exam: PERRL/EOMI Ears, Nose, Throat Exam: normal ENT inspection, moist mucous membranes Neck Exam: normal inspection, non-tender, supple Respiratory Exam: normal breath sounds, lungs clear Cardiovascular Exam: regular rate/rhythm Gastrointestinal/Abdomen Exam: soft, tenderness (RLQ with mild guarding) Extremity Exam: normal inspection, normal range of motion, pedal edema (trace) Neurologic Exam: alert, oriented x 3, cooperative, sensation nml, other (weak on left side) Skin Exam: warm, dry, No rash SpO2 Interpretation: normal SpO2: 99 Oxygen Delivery: Room Air - Course Nursing assessment & vital signs reviewed: Yes EKG Interpreted by Me: RATE (87), Sinus Rhythm, NORMAL AXIS, NORMAL INTERVALS ( QTc 457), NORMAL QRS, NORMAL ST-T - CT Exams abd/pelvis CT Interpretation: Discussed w/radiologist (stable colonic diverticulosis, artifact, otherwise negative.) Ordered Tests: Active Orders 24 hr Category Date Time Status Cath for Specimen-Straight STAT Care 06/02/17 07:54 Active EKG-ER Only STAT Care 06/02/17 07:54 Active IV Insertion STAT Care 06/02/17 07:54 Active NPO (ED) STAT Care 06/02/17 07:54 Active ABDOMEN AND PELVIS W/0 CONTRAS [CT] Stat Exams 06/02/17 07:54 Taken CBC W DIFF Stat Lab 06/02/17 08:05 Completed CMP Stat Lab 06/02/17 08:05 Completed LIPASE Stat Lab 06/02/17 08:05 Completed Lactic Acid Stat Lab 06/02/17 07:54 Completed Lactic Acid Stat Lab 06/02/17 10:14 Completed Occult Blood,Stool Other Stat Lab 06/02/17 08:45 Completed PROTIME WITH INR Stat Lab 06/02/17 08:26 Completed PTT Stat Lab 06/02/17 08:26 Completed TROPONIN Stat Lab 06/02/17 08:05 Completed UA W/ MICROSCOPIC Stat Lab 06/02/17 07:54 Completed Medication Summary Generic Name Dose Route Start Last Admin Trade Name Freq PRN Reason Stop Dose Admin Sodium Chloride 1,000 mls @ 100 mls/hr 06/02/17 08:00 06/02/17 08:22 Sodium Chloride 0.9% 1000 Ml IV 07/02/17 07:59 100 mls/hr .Q10H EDDIE Administration Discontinued Medications Generic Name Dose Route Start Last Admin Trade Name Cassy PRN Reason Stop Dose Admin Famotidine 20 mg 06/02/17 07:54 06/02/17 08:24 Pepcid 20 Mg Vial IV 06/02/17 07:55 20 mg STAT ONE Administration Famotidine Confirm 06/02/17 08:20 Pepcid 20 Mg Vial Administered 06/02/17 08:21 Dose 20 mg IV .STK-MED ONE Promethazine HCl 12.5 mg 06/02/17 07:54 06/02/17 08:25 Phenergan 25 Mg Inj IM 06/02/17 07:55 12.5 mg STAT ONE Administration Promethazine HCl Confirm 06/02/17 08:20 Phenergan 25 Mg Inj Administered 06/02/17 08:21 Dose 25 mg .ROUTE .STK-MED ONE Lab/Rad Data: Laboratory Result Diagrams 06/02/17 08:05 06/02/17 08:05 Laboratory Results 06/02/17 06/02/17 06/02/17 Range/Units 10:14 08:45 08:40 WBC (4.0-10.5) K/mm3 RBC (4.1-5.4) M/mm3 Hgb (12.0-16.0) gm/dl Hct (35-47) % MCV (78-100) fl MCH (26-32) pg MCHC (32-36) g/dl RDW (11.5-14.0) % Plt Count (150-450) K/mm3 MPV (6-9.5) fl Gran % (36.0-66.0) % Lymphocytes % (24.0-44.0) % Monocytes % (0.0-12.0) % Eosinophils % (0.00-5.0) % Basophils % (0.0-0.4) % Basophils # (0-0.4) INR (0.8-3.0) APTT (25.3-37.0) SECONDS Sodium (136-145) mEq/L Potassium (3.5-5.1) mEq/L Chloride (98-107) mEq/L Carbon Dioxide (21-32) mEq/L Anion Gap (5-15) MEQ/L BUN (9-20) mg/dL Creatinine (0.55-1.30) mg/dl Estimated GFR ML/MIN Glucose (70-110) MG/DL Lactic Acid 1.4 (0.4-2.0) Calcium (8.5-10.1) mg/dL Total Bilirubin (0.2-1.0) mg/dL AST (15-37) U/L ALT (12-78) U/L Alkaline Phosphatase (46-116) U/L Troponin I (0.000-0.056) ng/ml Serum Total Protein (6.4-8.2) gm/dL Albumin (3.4-5.0) g/dL Lipase (73-393) U/L Ur Collection Type Urine Color (YELLOW) Urine Appearance (CLEAR) Urine pH (5-6) Ur Specific [place] (1.005-1.025) Urine Protein (Negative) Urine Ketones (NEGATIVE) Urine Blood (0-5) Keith/ul Urine Nitrite (NEGATIVE) Urine Bilirubin (NEGATIVE) Urine Urobilinogen (0-1) mg/dL Ur Leukocyte Esterase (NEGATIVE) Urine Microscopic RBC (0-2) /HPF Urine Microscopic WBC (0-5) /HPF Ur Epithelial Cells (FEW) /HPF Urine Bacteria (NEGATIVE) /HPF Urine Glucose (NEGATIVE) mg/dL Stool Occult Blood NEGATIVE (Negative) Slides for Path Review Specimen Received ABO Group AB Rh Factor NEGATIVE Antibody Screen NEGATIVE (NEGATIVE) 06/02/17 06/02/17 06/02/17 Range/Units 08:26 08:05 08:05 WBC 7.5 (4.0-10.5) K/mm3 RBC 3.11 L (4.1-5.4) M/mm3 Hgb 7.1 L (12.0-16.0) gm/dl Hct 24.7 L (35-47) % MCV 79.4 (78-100) fl MCH 22.8 L (26-32) pg MCHC 28.7 L (32-36) g/dl RDW 16.4 H (11.5-14.0) % Plt Count 364 (150-450) K/mm3 MPV 10.0 H (6-9.5) fl Gran % 56.1 (36.0-66.0) % Lymphocytes % 32.0 (24.0-44.0) % Monocytes % 8.3 (0.0-12.0) % Eosinophils % 3.3 (0.00-5.0) % Basophils % 0.3 (0.0-0.4) % Basophils # 0.02 (0-0.4) INR 1.01 (0.8-3.0) APTT 28.7 (25.3-37.0) SECONDS Sodium 139 (136-145) mEq/L Potassium 4.0 (3.5-5.1) mEq/L Chloride 103 (98-107) mEq/L Carbon Dioxide 29.5 (21-32) mEq/L Anion Gap 10.9 (5-15) MEQ/L BUN 8 L (9-20) mg/dL Creatinine 1.21 (0.55-1.30) mg/dl Estimated GFR 47 ML/MIN Glucose 237 H (70-110) MG/DL Lactic Acid (0.4-2.0) Calcium 8.4 L (8.5-10.1) mg/dL Total Bilirubin 0.20 (0.2-1.0) mg/dL AST 20 (15-37) U/L ALT 16 (12-78) U/L Alkaline Phosphatase 87 (46-116) U/L Troponin I < 0.017 (0.000-0.056) ng/ml Serum Total Protein 6.6 (6.4-8.2) gm/dL Albumin 2.5 L (3.4-5.0) g/dL Lipase 161 (73-393) U/L Ur Collection Type Urine Color (YELLOW) Urine Appearance (CLEAR) Urine pH (5-6) Ur Specific [place] (1.005-1.025) Urine Protein (Negative) Urine Ketones (NEGATIVE) Urine Blood (0-5) Keith/ul Urine Nitrite (NEGATIVE) Urine Bilirubin (NEGATIVE) Urine Urobilinogen (0-1) mg/dL Ur Leukocyte Esterase (NEGATIVE) Urine Microscopic RBC (0-2) /HPF Urine Microscopic WBC (0-5) /HPF Ur Epithelial Cells (FEW) /HPF Urine Bacteria (NEGATIVE) /HPF Urine Glucose (NEGATIVE) mg/dL Stool Occult Blood (Negative) Slides for Path Review YES Specimen Received ABO Group Rh Factor Antibody Screen (NEGATIVE) 06/02/17 06/02/17 Range/Units 07:54 07:54 WBC (4.0-10.5) K/mm3 RBC (4.1-5.4) M/mm3 Hgb (12.0-16.0) gm/dl Hct (35-47) % MCV (78-100) fl MCH (26-32) pg MCHC (32-36) g/dl RDW (11.5-14.0) % Plt Count (150-450) K/mm3 MPV (6-9.5) fl Gran % (36.0-66.0) % Lymphocytes % (24.0-44.0) % Monocytes % (0.0-12.0) % Eosinophils % (0.00-5.0) % Basophils % (0.0-0.4) % Basophils # (0-0.4) INR (0.8-3.0) APTT (25.3-37.0) SECONDS Sodium (136-145) mEq/L Potassium (3.5-5.1) mEq/L Chloride (98-107) mEq/L Carbon Dioxide (21-32) mEq/L Anion Gap (5-15) MEQ/L BUN (9-20) mg/dL Creatinine (0.55-1.30) mg/dl Estimated GFR ML/MIN Glucose (70-110) MG/DL Lactic Acid 2.0 (0.4-2.0) Calcium (8.5-10.1) mg/dL Total Bilirubin (0.2-1.0) mg/dL AST (15-37) U/L ALT (12-78) U/L Alkaline Phosphatase (46-116) U/L Troponin I (0.000-0.056) ng/ml Serum Total Protein (6.4-8.2) gm/dL Albumin (3.4-5.0) g/dL Lipase (73-393) U/L Ur Collection Type CATH Urine Color YELLOW (YELLOW) Urine Appearance HAZY (CLEAR) Urine pH 7.0 (5-6) Ur Specific [place] 1.010 (1.005-1.025) Urine Protein TRACE (Negative) Urine Ketones NEGATIVE (NEGATIVE) Urine Blood NEGATIVE (0-5) Keith/ul Urine Nitrite NEGATIVE (NEGATIVE) Urine Bilirubin NEGATIVE (NEGATIVE) Urine Urobilinogen NORMAL (0-1) mg/dL Ur Leukocyte Esterase NEGATIVE (NEGATIVE) Urine Microscopic RBC 0-2 (0-2) /HPF Urine Microscopic WBC 0-2 (0-5) /HPF Ur Epithelial Cells FEW (FEW) /HPF Urine Bacteria RARE (NEGATIVE) /HPF Urine Glucose 500 (NEGATIVE) mg/dL Stool Occult Blood (Negative) Slides for Path Review Specimen Received 06/02/17 0900 ABO Group Rh Factor Antibody Screen (NEGATIVE) - Progress Progress Note: 06/02/17 12:04 Hg low but stable. She has no vomiting here. She has some aide, help at home, educational coordinator services, and a nurse check her. Consulted foreign exchange services manager Zander Rosen who met with pt. Pt does not meet IP criteria. She does not want to go to the MD. She likely needs colonoscopy and EGD. She reports fam hx of colonc CA in her father. Will release to home. Discussed with : Balbir Will see patient in: office Counseled pt/family regarding: lab results, diagnosis, need for follow-up, rad results - Departure Time of Disposition: 12:05 Departure Disposition: Home Clinical Impression: Diabetes, Left hemiparesis, Vomiting, Anemia Condition: Stable Critical Care Time: No Referrals: BENNY HUGHES [Primary Care Provider] - Instructions: Vomiting -- Adult, Prevent Falls Additional Instructions: Take care not to fall. You likely need EGD and colonoscopy. Continue your zofran as needed. Continue axid.
[2017-06-02 08:19] LABS: BASOPHIL % 0.3 % (0.0-0.4); Eosinophil % 3.3 % (0.00-5.0); Granulocytes % 56.1 % (36.0-66.0); Mean Cell Volume 79.4 fl (78-100); Mean Corpuscular Hemoglobin 22.8 pg (26-32); Monocytes % 8.3 % (0.0-12.0); Platelet Count 364 K/mm3 (150-450); Red Blood Count 3.11 M/mm3 (4.1-5.4); Red Cell Distribution Width 16.4 % (11.5-14.0); White Blood Count 7.5 K/mm3 (4.0-10.5)
[2017-06-02] MEDS ORDERED: Sodium Chloride 0.9% 1000 ML 1,000 ML ONE (08:20)
[2017-06-02] MEDS ORDERED: Phenergan 25 MG INJ ONE (08:20)
[2017-06-02 08:33] LABS: INR 1.01 (0.8-3.0); PROTIME 11.4 SECONDS (9.95-12.35)
[2017-06-02 08:35] LABS: PTT 28.7 SECONDS (25.3-37.0)
[2017-06-02 08:44] LABS: ALBUMIN 2.5 g/dL (3.4-5.0); ALKALINE PHOSPHATASE 87 U/L (46-116); ANION GAP 10.9 MEQ/L (5-15); BLOOD UREA NITROGEN 8 mg/dL (9-20); CHLORIDE 103 mEq/L (98-107); Carbon Dioxide 29.5 mEq/L (21-32); Glucose 237 MG/DL (70-110); LIPASE 161 U/L (73-393); SGOT/AST 20 U/L (15-37); SGPT/ALT 16 U/L (12-78); SODIUM 139 mEq/L (136-145); Total Protein 6.6 gm/dL (6.4-8.2)
[2017-06-02 08:52] LABS: TROPONIN < 0.017 ng/ml (0.000-0.056)
[2017-06-02 09:30] LABS: Bacteria RARE /HPF (NEGATIVE); Bilirubin NEGATIVE (NEGATIVE); Blood NEGATIVE Ery/ul (0-5); COMPLETE URINE MICROSCOPIC? YES; Collection Type CATH; Epithelial Cells FEW /HPF (FEW); Glucose 500 mg/dL (NEGATIVE); Leukocyte Esterase NEGATIVE (NEGATIVE); WBC 0-2 /HPF (0-5)
[2017-06-02 09:31] LABS: ADD URINE CULTURE? NO (NO)
[2017-06-02 13:41] VITALS: BP 167/75; PULSE 80; O2SAT 97
--- NOTE | 2017-06-02 16:15 | XRAY ---
Indication: Abdominal pain and vomiting. Multiple contiguous axial images obtained through the abdomen and pelvis without contrast as ordered. Comparison: July 15, 2015. There is beam artifact from patient's left wrist and proximal left femur orthopedic hardware. Lung bases demonstrate again minimal bibasilar atelectasis and left lung base calcified granuloma. No consolidation or large effusion. The heart is not enlarged. Noncontrasted stomach and bowel loops appear nonobstructed. Again scattered descending and sigmoid diverticulosis without diverticulitis. Normal appendix. No free fluid or air. Again previous cholecystectomy, hysterectomy, and stable small fatty umbilical hernia. Remaining liver, pancreas, spleen, adrenal glands, kidneys, ureters, and bladder appear unremarkable for noncontrast exam. There remains mild scattered calcifications of the aortoiliac vessels without AAA. Osseous structures intact again with degenerative changes throughout the spine. IMPRESSION: Stable colonic diverticulosis and small fatty umbilical hernia. No new or acute intra-abdominal/pelvic abnormalities on this noncontrast exam. CTDI 23.68
== END 2017-06-02 13:41 | disposition home or self-care (01) ==
LOC: ED 07:41
DX: E11.9 Type 2 diabetes mellitus without complications (principal); G81.94 Hemiplegia, unspecified affecting left nondominant side; R11.10 Vomiting, unspecified; D64.9 Anemia, unspecified; R11.2 Nausea with vomiting, unspecified; R10.12 Left upper quadrant pain; R10.11 Right upper quadrant pain; Z79.899 Other long term (current) drug therapy; Z79.84 Long term (current) use of oral hypoglycemic drugs; Z79.4 Long term (current) use of insulin
CPT/HCPCS: 96372; 96374; 99284; 96360; 96361; 93005; 81000; 85610; 85730; 36415; 82272; 83690; 85025; 80053; 84484; 86850; 86900; 86901; 74176; 83605; P9612; J2550

== ENCOUNTER 2017-06-12 21:02 | Inpatient (IN) | payer MEDICARE ==
[2017-06-12] MEDS ORDERED: Pepcid 20 MG VIAL IV ONE ×2 (21:20→21:28)
--- NOTE | 2017-06-12 21:27 | ERPHSYRPT ---
- History of Present Illness Time Seen by Provider: 06/12/17 21:16 Historian: patient, EMS (FD gave 4 baby ASA tonite) Patient Subjective Stated Complaint: chest pain began @ 6 pm tonite no nausea or vomitting states she had abdominal pain and diarhea last nite Triage Nursing Assessment: pt ambualtes with walker, alert and orientedx3, skin warm dry and intact, bruising to left ac, pulses present bilateral radius , pupils perrla2, lung sounds clear, bowel sounds present x4, pitting edema noted lower extremities. Physician History: CC: chest pain Hx: 66 y/o patient of Dr Hughes. She has known anemia. Prior heart disease. She reports chest pain around 6:30 PM. FD gave ASA. Pain better now. She has had some black stools and is not on iron. No abd pain. No diarrhea. EMS reported some abd pain but pt denies at present. No fever or chills. She has been here recently for vomiting. She has zofran to use. She declined [facility] admission at last visit and lives at her [facility] with [facility]. Timing/Duration: today Severity of Pain-Max: moderate Severity of Pain-Current: none Nitro Today/Relief: no nitro taken today Aspirin Treatment Today: 81 mg x 4, provided by EMS Allergies/Adverse Reactions: codeine Allergy (Intermediate, Verified 05/29/17 09:32) Nausea and Vomiting allergies validated with patient morphine Allergy (Intermediate, Verified 05/29/17 09:32) Nausea and Vomiting oxycodone [Oxycodone] Allergy (Intermediate, Verified 05/29/17 09:32) Nausea and Vomiting Home Medications: Alendronate Sodium 70 mg [Fosamax 70 MG] 70 mg PO WEEKLY 08/22/13 [History ] Clopidogrel Bisulfate 75 mg [PLAVIX 75 MG Tablet] 75 mg PO DAILY 08/22/13 [History] Fluoxetine HCl 20 mg [Prozac 20 MG] 20 mg PO DAILY 08/22/13 [History] Furosemide 20 mg [Lasix 20 mg] 20 mg PO DAILY 08/22/13 [History] Insulin Glargine [Lantus Insulin] 15 unit SQ HS 08/22/13 [History] Calcium Carbonate/Vitamin D3 [Calcium 500 + Vit D Caplet] 1 each PO BID [History] Loratadine 10 mg PO DAILY 02/18/14 [History] Potassium Chloride 10 Meq Tab* [Klor Con 10 MEQ] 10 meq PO BID 06/23/15 [ History] Fluticasone Propionate [Flonase NASAL] 2 puffs NS DAILY 03/14/16 [History] Insulin Lispro [Humalog] 10 unit SQ AC 03/14/16 [History] Naproxen [Naprosyn] 250 mg PO BID 03/14/16 [History] Hydrocodone Bit/Acetaminophen [Hydrocodon-Acetaminophen 5-325] 1 each PO UD 12/05 [History] Linagliptin [Tradjenta] 5 mg PO HS 03/19/17 [History] Metformin HCl 500 mg [Glucophage 500 MG] 500 mg PO DAILY 03/19/17 [History ] Zolpidem Tartrate [Ambien] 5 mg PO HS 03/19/17 [History] Hx Tetanus, Diphtheria Vaccination/Date Given: Yes Hx Influenza Vaccination/Date Given: No Hx Pneumococcal Vaccination/Date Given: No Immunizations Up to Date: Yes - Review of Systems Constitutional: Malaise, No Fever, No Chills Eyes: No Symptoms Ears, Nose, & Throat: No Symptoms Respiratory: No Cough, No Dyspnea Cardiac: Chest Pain, Edema, No Syncope Abdominal/Gastrointestinal: Nausea, Melena (black stools), No Abdominal Pain, No Diarrhea Musculoskeletal: No Fall Skin: No Rash Neurological: No Headache All Other Systems: Reviewed and Negative - Past Medical History Pertinent Past Medical History: Yes Neurological History: Stroke ENT History: No Pertinent History Cardiac History: Hypertension Respiratory History: No Pertinent History Endocrine Medical History: Diabetes Type II Musculoskeletal History: Arthritis, Fractures GI Medical History: No Pertinent History History: No Pertinent History Psycho-Social History: Depression Female Reproductive Disorders: No Pertinent History Other Medical History: Femur fractuce, Hip fracture, Wrist fracture, Shoulder fracture. - Past Surgical History Past Surgical History: Yes Neuro Surgical History: No Pertinent History Cardiac: No Pertinent History Respiratory: No Pertinent History Gastrointestinal: Cholecystectomy Genitourinary: No Pertinent History Musculoskeletal: Orthopedic Surgery, Other Female Surgical History: Hysterectomy Other Surgical History: left shoulder and wrist surg. - LEFT HIP PER FX - Social History Smoking Status: Never smoker Exposure to second hand smoke: No Alcohol Use: None Drug Use: none Patient Lives Alone: No Significant Family History: hypertension - Female History Hx Now: No - Nursing Vital Signs Nursing Vital Signs: Initial Vital Signs Temperature 98.2 F 06/12/17 21:02 Pulse Rate 88 06/12/17 21:02 Respiratory Rate 16 06/12/17 21:02 Blood Pressure 184/84 06/12/17 21:02 O2 Sat by Pulse Oximetry 96 06/12/17 21:02 Pain Scale Pain Intensity 0 - Physical Exam General Appearance: alert Eye Exam: PERRL/EOMI Ears, Nose, Throat Exam: normal ENT inspection, moist mucous membranes Neck Exam: normal inspection, non-tender, supple Respiratory Exam: lungs clear, diminished breath sounds Cardiovascular Exam: regular rate/rhythm Gastrointestinal/Abdomen Exam: soft, No tenderness, No distention Extremity Exam: normal inspection, pedal edema Neurologic Exam: alert, oriented x 3, cooperative, sensation nml, No motor deficits Skin Exam: warm, dry, No rash SpO2 Interpretation: normal SpO2: 96 Oxygen Delivery: Room Air - Course Nursing assessment & vital signs reviewed: Yes EKG Interpreted by Me: RATE (95), Sinus Rhythm, NORMAL AXIS, NORMAL INTERVALS ( QTc 456), NORMAL QRS, NORMAL ST-T - Radiology Exams cxr X-ray Interpretation: Reviewed by me (low lung volumes) Ordered Tests: Active Orders 24 hr Category Date Time Status Clean Catch Urine Specimen STAT Care 06/12/17 21:20 Active EKG-ER Only STAT Care 06/12/17 21:20 Active IV Insertion STAT Care 06/12/17 21:20 Active CHEST 1 VIEW (PORTABLE) Stat Exams 06/12/17 21:20 Taken CBC W DIFF Stat Lab 06/12/17 22:00 Completed CMP Stat Lab 06/12/17 22:00 Completed LIPASE Stat Lab 06/12/17 22:00 Completed NT PRO BNP Stat Lab 06/12/17 22:00 Completed Occult Blood,Stool Other Stat Lab 06/12/17 22:10 Completed TROPONIN Q3H Lab 06/12/17 22:00 Completed TROPONIN Q3H Lab 06/13/17 00:30 Ordered TROPONIN Q3H Lab 06/13/17 03:30 Ordered TROPONIN Q3H Lab 06/13/17 06:30 Ordered TROPONIN Q3H Lab 06/13/17 09:30 Ordered UA W/RFX UR CULTURE Stat Lab 06/12/17 21:20 Completed Medication Summary Discontinued Medications Generic Name Dose Route Start Last Admin Trade Name Cassy PRN Reason Stop Dose Admin Famotidine 20 mg 06/12/17 21:20 06/12/17 21:57 Pepcid 20 Mg Vial IV 06/12/17 21:21 20 mg STAT ONE Administration Famotidine Confirm 06/12/17 21:28 Pepcid 20 Mg Vial Administered 06/12/17 21:29 Dose 20 mg IV .STMy Dog Bowl-MED ONE Lab/Rad Data: Laboratory Result Diagrams 06/12/17 22:00 06/12/17 22:00 Laboratory Results 06/12/17 06/12/17 06/12/17 Range/Units 22:10 22:00 22:00 WBC (4.0-10.5) K/mm3 RBC (4.1-5.4) M/mm3 Hgb (12.0-16.0) gm/dl Hct (35-47) % MCV (78-100) fl MCH (26-32) pg MCHC (32-36) g/dl RDW (11.5-14.0) % Plt Count (150-450) K/mm3 MPV (6-9.5) fl Gran % (36.0-66.0) % Lymphocytes % (24.0-44.0) % Monocytes % (0.0-12.0) % Eosinophils % (0.00-5.0) % Basophils % (0.0-0.4) % Basophils # (0-0.4) Sodium (136-145) mEq/L Potassium (3.5-5.1) mEq/L Chloride (98-107) mEq/L Carbon Dioxide (21-32) mEq/L Anion Gap (5-15) MEQ/L BUN (9-20) mg/dL Creatinine (0.55-1.30) mg/dl Estimated GFR ML/MIN Glucose (70-110) MG/DL Calcium (8.5-10.1) mg/dL Total Bilirubin (0.2-1.0) mg/dL AST (15-37) U/L ALT (12-78) U/L Alkaline Phosphatase (46-116) U/L Troponin I < 0.017 (0.000-0.056) ng/ml NT-Pro-B Natriuret Pep 498 H (0-125) pg/ml Serum Total Protein (6.4-8.2) gm/dL Albumin (3.4-5.0) g/dL Lipase (73-393) U/L Ur Collection Type Urine Color (YELLOW) Urine Appearance (CLEAR) Urine pH (5-6) Ur Specific [place] (1.005-1.025) Urine Protein (Negative) Urine Ketones (NEGATIVE) Urine Blood (0-5) Keith/ul Urine Nitrite (NEGATIVE) Urine Bilirubin (NEGATIVE) Urine Urobilinogen (0-1) mg/dL Ur Leukocyte Esterase (NEGATIVE) Urine Glucose (NEGATIVE) mg/dL Stool Occult Blood NEGATIVE (Negative) Specimen Received 06/12/17 06/12/17 06/12/17 Range/Units 22:00 22:00 21:20 WBC 8.9 (4.0-10.5) K/mm3 RBC 3.31 L (4.1-5.4) M/mm3 Hgb 7.4 L (12.0-16.0) gm/dl Hct 25.9 L (35-47) % MCV 78.2 (78-100) fl MCH 22.3 L (26-32) pg MCHC 28.6 L (32-36) g/dl RDW 17.7 H (11.5-14.0) % Plt Count 394 (150-450) K/mm3 MPV 9.9 H (6-9.5) fl Gran % 58.7 (36.0-66.0) % Lymphocytes % 30.7 (24.0-44.0) % Monocytes % 7.8 (0.0-12.0) % Eosinophils % 2.6 (0.00-5.0) % Basophils % 0.2 (0.0-0.4) % Basophils # 0.02 (0-0.4) Sodium 141 (136-145) mEq/L Potassium 3.7 (3.5-5.1) mEq/L Chloride 104 (98-107) mEq/L Carbon Dioxide 28.9 (21-32) mEq/L Anion Gap 11.3 (5-15) MEQ/L BUN 11 (9-20) mg/dL Creatinine 1.16 (0.55-1.30) mg/dl Estimated GFR 50 ML/MIN Glucose 228 H (70-110) MG/DL Calcium 8.7 (8.5-10.1) mg/dL Total Bilirubin 0.30 (0.2-1.0) mg/dL AST 22 (15-37) U/L ALT 19 (12-78) U/L Alkaline Phosphatase 106 (46-116) U/L Troponin I (0.000-0.056) ng/ml NT-Pro-B Natriuret Pep (0-125) pg/ml Serum Total Protein 7.4 (6.4-8.2) gm/dL Albumin 2.8 L (3.4-5.0) g/dL Lipase 119 (73-393) U/L Ur Collection Type CLEAN CATCH Urine Color LT.YELLOW (YELLOW) Urine Appearance CLEAR (CLEAR) Urine pH 7.0 (5-6) Ur Specific [place] 1.010 (1.005-1.025) Urine Protein NEGATIVE (Negative) Urine Ketones NEGATIVE (NEGATIVE) Urine Blood NEGATIVE (0-5) Keith/ul Urine Nitrite NEGATIVE (NEGATIVE) Urine Bilirubin NEGATIVE (NEGATIVE) Urine Urobilinogen NORMAL (0-1) mg/dL Ur Leukocyte Esterase NEGATIVE (NEGATIVE) Urine Glucose 1000 (NEGATIVE) mg/dL Stool Occult Blood (Negative) Specimen Received 06/12/172119 - Progress Progress Note: 06/12/17 22:04 sono guided PIV right upper arm 20 ga X 2 sticks. Blood drawn and lab placed blood band. 06/12/17 22:49 Pt stable. She is very weak when up to commode. Hg stable and actually a little improved. No more chest pain. She is agreeable to go to the rehab. Called Dr Chadwick for [facility] and will place in obs. Counseled pt/family regarding: lab results, diagnosis, need for follow-up, rad results - Departure Time of Disposition: 22:51 Departure Disposition: Observation Clinical Impression: Uncontrolled type 2 diabetes mellitus, Chest pain Condition: Fair Critical Care Time: No Referrals: BENNY HUGHES [Primary Care Provider] -
[2017-06-12 22:07] LABS: BASOPHIL % 0.2 % (0.0-0.4); Eosinophil % 2.6 % (0.00-5.0); Granulocytes % 58.7 % (36.0-66.0); Lymphocytes % 30.7 % (24.0-44.0); Mean Cell Volume 78.2 fl (78-100); Mean Platelet Volume 9.9 fl (6-9.5); Monocytes % 7.8 % (0.0-12.0); Platelet Count 394 K/mm3 (150-450); Red Blood Count 3.31 M/mm3 (4.1-5.4); Red Cell Distribution Width 17.7 % (11.5-14.0); White Blood Count 8.9 K/mm3 (4.0-10.5)
[2017-06-12 22:09] LABS: Mean Corpuscular Hemoglobin 22.3 pg (26-32)
[2017-06-12 22:28] LABS: Collection Type CLEAN CATCH
[2017-06-12 22:29] LABS: ADD URINE CULTURE? NO (NO); Bilirubin NEGATIVE (NEGATIVE); Blood NEGATIVE Ery/ul (0-5); COMPLETE URINE MICROSCOPIC? NO; Glucose 1000 mg/dL (NEGATIVE); Leukocyte Esterase NEGATIVE (NEGATIVE)
[2017-06-12 22:30] LABS: ALBUMIN 2.8 g/dL (3.4-5.0); ANION GAP 11.3 MEQ/L (5-15); BILIRUBIN,TOTAL 0.3 mg/dL (0.2-1.0); Carbon Dioxide 28.9 mEq/L (21-32); Potassium 3.7 mEq/L (3.5-5.1); Total Protein 7.4 gm/dL (6.4-8.2)
[2017-06-12] MEDS ORDERED: Senokot-S Tablet PO PRN (23:45)
[2017-06-12] MEDS ORDERED: Zofran 4 MG/2 ML VIAL IV PRN (23:45)
[2017-06-12] MEDS ORDERED: MAALOX ES 30 ML UNIT DOSE PO PRN (23:45)
[2017-06-12] MEDS ORDERED: MILK OF MAGNESIA 30 ML PO PRN (23:45)
[2017-06-13] MEDS: TYLENOL 325 MG PO PRN (01:33)
[2017-06-13 07:18] LABS: Cholesterol 141 mg/dL (100-200); LDL, DIRECT 81 mg/dL (5-99); TRIGLYCERIDE 152 mg/dL (30-200)
[2017-06-13 07:21] LABS: TROPONIN < 0.017 ng/ml (0.000-0.056)
[2017-06-13] MEDS: NovoLOG Insulin SQ PRN ×3 (07:53→18:00)
--- NOTE | 2017-06-13 08:22 | PCM.HP ---
History of Present Illness - Chief Complaint Chief Complaint: Symptomatic anemia, GI bleeding Date: 06/13/17 History of Present Illness: is a 66 year old female. who has right hemiparesis after an old stroke and is noncompliant at home with her diabetes care and has htn. She was having black bloody stools for the last several weeks and vomiting. She actually came to the ED twice for similar symptoms in the last month and was d/ c home with zofran and doing better and the stools were actually less black the last few days but last night she developed sudden chest pain on the left side radiating around the abdomen. She has had some weakness no shortness of breath or diaphoresis. She has improved since last night with no chest pain now and is tolerating po. - Review of Systems Constitutional: No Fever, No Chills Eyes: No Symptoms Ears, Nose, & Throat: No Symptoms Respiratory: No Cough, No Short Of Breath Cardiac: Chest Pain, No Edema, No Syncope Abdominal/Gastrointestinal: Nausea, Vomiting, Melena, No Abdominal Pain, No Diarrhea Genitourinary Symptoms: No Dysuria Musculoskeletal: No Back Pain, No Neck Pain Skin: No Rash Neurological: No Dizziness, No Focal Weakness, No Sensory Changes Psychological: No Symptoms Endocrine: No Symptoms Hematologic/Lymphatic: No Symptoms Immunological/Allergic: No Symptoms Medications & Allergies Home Medications: Home Medication List Alendronate Sodium 70 mg [Fosamax 70 MG] 70 mg PO WEEKLY 08/22/13 [ History Confirmed 06/13/17] Clopidogrel Bisulfate 75 mg [PLAVIX 75 MG Tablet] 75 mg PO DAILY 08/22/13 [History Confirmed 06/13/17] Fluoxetine HCl 20 mg [Prozac 20 MG] 20 mg PO DAILY 08/22/13 [History Confirmed 06/13/17] Furosemide 20 mg [Lasix 20 mg] 20 mg PO DAILY 08/22/13 [History Confirmed 06/13/17] Insulin Glargine [Lantus Insulin] 15 unit SQ HS 08/22/13 [History Confirmed 06/13/17] Calcium Carbonate/Vitamin D3 [Calcium 500 + Vit D Caplet] 1 tablet PO BID [History Confirmed 06/13/17] Loratadine 10 mg PO DAILY 02/18/14 [History Confirmed 06/13/17] Potassium Chloride 10 Meq Tab* [Klor Con 10 MEQ] 10 meq PO BID 06/23/15 [ History Confirmed 06/13/17] Fluticasone Propionate [Flonase NASAL] 2 puffs NS DAILY 03/14/16 [History Confirmed 06/13/17] Naproxen [Naprosyn] 250 mg PO BID 03/14/16 [History Confirmed 06/13/17] Hydrocodone Bit/Acetaminophen [Hydrocodon-Acetaminophen 5-325] 5 - 325 tablet PO BID PRN PRN 03/19/17 [History Confirmed 06/13/17] Linagliptin [Tradjenta] 5 mg PO HS 03/19/17 [History Confirmed 06/13/17] Metformin HCl 500 mg [Glucophage 500 MG] 500 mg PO BID 03/19/17 [History Confirmed 06/13/17] Zolpidem Tartrate [Ambien] 5 mg PO HS 03/19/17 [History Confirmed 06/13/17] Ondansetron [Zofran Odt] 4 mg PO Q6HPRN PRN #10 tab.rapdis 05/29/17 [Rx Confirmed 06/13/17] Amlodipine Besylate 5 mg [Norvasc 5 mg] 10 mg PO DAILY 06/13/17 [History Confirmed 06/13/17] Insulin Lispro [Humalog] 4 units SUBDERMAL BREAKFAST 06/13/17 [History Confirmed 06/13/17] Insulin Lispro [Humalog] 6 units SUBDERMAL EVENING MEAL 06/13/17 [History Confirmed 06/13/17] Nizatidine [Axid] 150 mg PO Q12H PRN PRN 06/13/17 [History Confirmed 06/13/17] Allergies/Adverse Reactions: Allergies Allergy/AdvReac Type Severity Reaction Status Date / Time lisinopril Allergy Severe Swelling Verified 06/13/17 01:25 codeine Allergy Intermediate Nausea and Verified 06/12/17 23:52 Vomiting morphine Allergy Intermediate Nausea and Verified 06/12/17 23:52 Vomiting oxycodone [Oxycodone] Allergy Intermediate Nausea and Verified 06/12/17 23:52 Vomiting - Past Medical History Past Medical History: Yes Neurological History: Stroke ENT History: Other Cardiac History: Angina, Hypertension Respiratory History: No Pertinent History Endocrine Medical History: Diabetes Type II Musculoskelatal History: Other GI Medical History: Gallbladder Disease History: Other Pyscho-Social History: No Pertinent History Reproductive Disorders: No Pertinent History Comment: wears glasses, full set of dentures (not at bedside), incontinence, left arm flaccid and contracted, left hand contracture - Female History Are you now?: No - Past Surgical History Past Surgical History: Yes Neuro Surgical History: No Pertinent History Cardiac History: No Pertinent History Respiratory Surgery: No Pertinent History GI Surgical History: Cholecystectomy Genitourinary Surgical Hx: No Pertinent History Musculskeletal Surgical Hx: No Pertinent History Female Surgical History: Section Other Surgical History: left shoulder and wrist surg. - LEFT HIP PER FX - Social History Smoking Status: Never smoker Exposure to second hand smoke: No Alcohol: None Drug Use: none Significant Family History: hypertension - Physical Exam Vital Signs: Vital Signs - 24 hr Temp Pulse Pulse Resp BP Pulse Ox 06/13/17 07:02 97.8 F 80 20 146/68 96 06/13/17 04:00 98.5 F 75 16 145/65 98 06/12/17 23:33 98 F 85 12 193/91 98 06/12/17 23:04 80 16 138/64 97 06/12/17 22:51 96 06/12/17 22:47 88 18 165/79 98 06/12/17 21:52 89 12 150/69 98 06/12/17 21:02 98.2 F 95 H 88 16 184/84 96 General Appearance: no apparent distress, alert Neurologic Exam: alert, oriented x 3, cooperative, normal mood/affect, other ( right hemiparesis) Eye Exam: PERRL/EOMI, eyes nml inspection Ears, Nose, Throat Exam: normal ENT inspection, pharynx normal, moist mucous membranes Neck Exam: normal inspection, non-tender, supple, full range of motion Respiratory Exam: normal breath sounds, lungs clear, No respiratory distress Cardiovascular Exam: regular rate/rhythm, normal heart sounds, normal peripheral pulses Gastrointestinal/Abdomen Exam: soft, normal bowel sounds, No tenderness, No mass Back Exam: normal inspection, normal range of motion, No CVA tenderness, No vertebral tenderness Extremity Exam: normal inspection, normal range of motion, pelvis stable Skin Exam: normal color, warm, dry, No rash Lymphatic Exam: No adenopathy Results - Labs Lab/Micro Results: Accuchecks Accucheck Value: 168 Lab Results-Last 24 Hours 06/13/17 06/13/17 06/13/17 Range/Units 01:00 03:39 06:47 Troponin I < 0.017 < 0.017 < 0.017 (0.000-0.056) ng/ml Triglycerides 152 (30-200) mg/dL Cholesterol 141 (100-200) mg/dL LDL Cholesterol 81 (5-99) mg/dL HDL Cholesterol 43 (35-60) mg/dL Heart Disease Risk Ratio 3.3 Accuchecks Accucheck Value: 168 - Other Procedures and Tests Respiratory Therapy 06/14/17 05:00 EKG ROUTINE 06/15/17 05:00 EKG ROUTINE 06/16/17 05:00 EKG ROUTINE Assessment/Plan (1) Symptomatic anemia Current Visit: Yes Status: Acute Assessment & Plan: she had sudden drop prior to this month and has been at 7 with nausea and vomiting and black stools that improved the chest pain is improved now. With the pain more typical of possible GI origin stop nsaid and restart ppi. troponins were negative type and cross transfuse for <7 or <8 with any persistent symptoms she has never had upper or lower scope. With her hemiparesis she would not be able to do the prep at home on her own. will consult surgery see if we can get upper and lower scopes with her inpatient Continue to work on diabetes control she is noncompliant with her injections at home but otherwise ususally does well at home with home health will continue to evaluate if needs rehab stay or back home with home health after evaluation for the scopes. Code(s): D64.9 - ANEMIA, UNSPECIFIED (2) Uncontrolled type 2 diabetes mellitus Current Visit: Yes Status: Acute Code(s): E11.65 - TYPE 2 DIABETES MELLITUS WITH HYPERGLYCEMIA (3) Hemiparesis Current Visit: Yes Status: Chronic Code(s): G81.90 - HEMIPLEGIA, UNSPECIFIED AFFECTING UNSPECIFIED SIDE (4) Hypertension Current Visit: Yes Status: Acute Code(s): I10 - ESSENTIAL (PRIMARY) HYPERTENSION (5) Coronary artery disease Current Visit: Yes Status: Acute Code(s): I25.10 - ATHSCL HEART DISEASE OF [place] CORONARY ARTERY W/O ANG PCTRS (6) Chest pain Current Visit: Yes Status: Acute Code(s): R07.9 - CHEST PAIN, UNSPECIFIED (7) GERD (gastroesophageal reflux disease) Current Visit: Yes Status: Acute Code(s): K21.9 - GASTRO-ESOPHAGEAL REFLUX DISEASE WITHOUT ESOPHAGITIS
--- NOTE | 2017-06-13 08:42 | XRAY ---
Indication: Chest pain. Comparison: May 29, 2017. Portable chest is underinflated today again without focal infiltrate, consolidation, or large effusion. Heart is not enlarged. No new/acute findings. Impression: Nonacute underinflated chest.
[2017-06-13] MEDS ORDERED: ZOFRAN ODT 4 MG PO PRN (08:49)
[2017-06-13] MEDS ORDERED: MEDICATION INTERVENTION MC PRN (09:00)
[2017-06-13 09:42] LABS: Platelet Count 344 K/mm3 (150-450); Red Blood Count 3.09 M/mm3 (4.1-5.4); Red Cell Distribution Width 17.6 % (11.5-14.0); White Blood Count 6.3 K/mm3 (4.0-10.5)
[2017-06-13 09:43] LABS: Mean Corpuscular Hemoglobin 22.6 pg (26-32)
[2017-06-13] MEDS: PLAVIX 75 MG Tablet PO SCH (11:18)
[2017-06-13] MEDS: Ecotrin 325 MG PO SCH (11:18)
[2017-06-13] MEDS: NORVASC 5 MG PO SCH (11:20)
[2017-06-13] MEDS: Pepcid 20 MG PO SCH ×2 (11:20→21:35)
[2017-06-13] MEDS: Prozac 20 MG PO SCH (11:20)
[2017-06-13] MEDS: FEOSOL 325 MG PO SCH ×3 (11:21→21:35)
[2017-06-13] MEDS: Klor Con 10 MEQ PO SCH ×2 (11:21→21:35)
[2017-06-13] MEDS: Flonase NASAL NS SCH (11:21)
[2017-06-13] MEDS: LASIX 20 MG PO SCH (11:21)
[2017-06-13] MEDS: CLARITIN 10 MG PO SCH (11:21)
[2017-06-13] MEDS: Glucophage 500 MG PO SCH ×2 (11:24→17:01)
[2017-06-13] MEDS: Sodium Chloride 0.9% 500 ML 500 ML IV SCH ×2 (11:27→14:15)
[2017-06-13] MEDS ORDERED: DULCOLAX 5 MG PO ONE (12:00)
[2017-06-13] MEDS ORDERED: Golytely Solution 4000 ML PO ONE (14:00)
[2017-06-13] MEDS ORDERED: CITROMA 296 ML PO ONE (16:09)
[2017-06-13] MEDS: NORCO 5/325 MG PO PRN (16:40)
[2017-06-13] MEDS: NovoLOG Insulin SQ SCH (17:59)
[2017-06-13] MEDS ORDERED: INSULIN LISPRO 6 UNIT SUBDERMAL SCH (18:00)
[2017-06-13] MEDS: Lantus Insulin SQ SCH (21:15)
[2017-06-13] MEDS: Ambien 5 MG Tablet PO SCH (21:35)
[2017-06-13] MEDS ORDERED: NON-FORMULARY ITEM (Linagliptin [Tradjenta] 5 MG) PO SCH (22:00)
[2017-06-13] MEDS: NYSTOP POWDER 15 GM TP SCH (23:30)
[2017-06-14] MEDS: TYLENOL 325 MG PO PRN ×2 (02:41→23:04)
[2017-06-14 05:20] LABS: Mean Cell Volume 78.8 fl (78-100); Mean Platelet Volume 9.8 fl (6-9.5); Platelet Count 347 K/mm3 (150-450); Red Cell Distribution Width 17.7 % (11.5-14.0); White Blood Count 6.9 K/mm3 (4.0-10.5)
[2017-06-14 05:43] LABS: ANION GAP 9.6 MEQ/L (5-15); Carbon Dioxide 30.3 mEq/L (21-32); Potassium 3.4 mEq/L (3.5-5.1)
[2017-06-14] MEDS ORDERED: Pepcid 20 MG VIAL IV SCH (06:00)
[2017-06-14] MEDS ORDERED: Lactated Ringers 1,000 ML IV SCH (06:00)
[2017-06-14] MEDS ORDERED: INSULIN LISPRO 4 UNIT SUBDERMAL SCH (08:00)
--- NOTE | 2017-06-14 08:52 | PCM.NOTE ---
Date and Time: 06/14/17 0847 Subjective Assessment: Pt not complaining of abdominal pain this morning. Initially on exam she was difficult to awaken, eventually she does open her eyes briefly, cooperates with rolling to the side for lung auscultation, but complains throughout "I'm tired, " and asking me to leave. Blood glucose wnl, BP 150s systolic, pulse ox 94-96% on room air. Pt did have 5mg ambien last night. She was also up going to the bathroom much of the day yesterday, and RN from yesterday notes she was already tired. Pt knows she is getting and EGD and colonoscopy today. - Review of Systems Constitutional: No Fever Objective Exam General Appearance: no apparent distress, other (somnolent, but does wake to voice briefly) Neurologic Exam: cooperative, disoriented (not oriented to place) Skin Exam: normal color, warm, dry Respiratory Exam: normal breath sounds, lungs clear, No crackles/rales, No rhonchi, No wheezing Cardiovascular Exam: regular rate/rhythm, normal heart sounds, No murmur Gastrointestinal/Abdomen Exam: soft, normal bowel sounds, No tenderness (but tells me "stop that"), No distention Extremity Exam: No pedal edema, No swelling Back Exam: normal inspection OBJECTIVE DATA Vital Signs: Vital Signs - 24 hr Temp Pulse Resp BP Pulse Ox 06/14/17 04:47 98.4 F 86 16 141/67 92 L 06/14/17 04:00 98.4 F 80 16 141/67 91 L 06/14/17 00:00 16 06/13/17 23:40 98.4 F 80 16 153/70 96 06/13/17 20:00 98.5 F 68 18 149/67 96 06/13/17 17:10 175/79 06/13/17 17:09 98 F 06/13/17 13:49 98.1 F 81 20 194/85 97 06/13/17 12:17 97.4 F 78 20 140/68 97 Pain Assessment - Last Documented Pain Intensity 4 Pain Scale Used 0-10 Pain Scale Intake and Output: Intake & Output 06/11/17 06/12/17 06/13/17 06/14/17 11:59 11:59 11:59 11:59 Intake Total 120 360 Output Total 200 Balance -80 360 Weight 86.727 kg Lab Results: Accuchecks Date 06/14/17 Date 06/13/17 Time 21:30 Time 11:30 Accucheck Value: 85 Accucheck Value: 213 Lab Results-Last 24 Hours 06/13/17 06/13/17 06/13/17 Range/Units 09:38 09:38 09:38 WBC 6.3 (4.0-10.5) K/mm3 RBC 3.09 L (4.1-5.4) M/mm3 Hgb 7.0 L (12.0-16.0) gm/dl Hct 24.4 L (35-47) % MCV 79.0 (78-100) fl MCH 22.6 L (26-32) pg MCHC 28.7 L (32-36) g/dl RDW 17.6 H (11.5-14.0) % Plt Count 344 (150-450) K/mm3 MPV 10.0 H (6-9.5) fl Sodium (136-145) mEq/L Potassium (3.5-5.1) mEq/L Chloride (98-107) mEq/L Carbon Dioxide (21-32) mEq/L Anion Gap (5-15) MEQ/L BUN (9-20) mg/dL Creatinine (0.55-1.30) mg/dl Estimated GFR ML/MIN Glucose (70-110) MG/DL Calcium (8.5-10.1) mg/dL Iron (50-175) ug/dl TIBC (250-450) ug/dl Iron Saturation (20-39) % Ferritin 8 (8-388) Troponin I < 0.017 (0.000-0.056) ng/ml Vitamin B12 121 L (193-986) Folic Acid 18.2 (8.6-58.9) Slides for Path Review YES Crossmatch (COMPATIBLE) 06/13/17 06/13/17 06/13/17 Range/Units 09:38 09:46 09:46 WBC (4.0-10.5) K/mm3 RBC (4.1-5.4) M/mm3 Hgb (12.0-16.0) gm/dl Hct (35-47) % MCV (78-100) fl MCH (26-32) pg MCHC (32-36) g/dl RDW (11.5-14.0) % Plt Count (150-450) K/mm3 MPV (6-9.5) fl Sodium (136-145) mEq/L Potassium (3.5-5.1) mEq/L Chloride (98-107) mEq/L Carbon Dioxide (21-32) mEq/L Anion Gap (5-15) MEQ/L BUN (9-20) mg/dL Creatinine (0.55-1.30) mg/dl Estimated GFR ML/MIN Glucose (70-110) MG/DL Calcium (8.5-10.1) mg/dL Iron 17 L (50-175) ug/dl TIBC 278 (250-450) ug/dl Iron Saturation 6.1 L (20-39) % Ferritin (8-388) Troponin I (0.000-0.056) ng/ml Vitamin B12 (193-986) Folic Acid (8.6-58.9) Slides for Path Review Crossmatch COMPATIBLE COMPATIBLE (COMPATIBLE) 06/13/17 06/14/17 06/14/17 Range/Units 18:25 05:08 05:08 WBC 6.9 (4.0-10.5) K/mm3 RBC 4.00 L (4.1-5.4) M/mm3 Hgb 10.8 L 9.6 L (12.0-16.0) gm/dl Hct 35.5 31.5 L (35-47) % MCV 78.8 (78-100) fl MCH 24.0 L (26-32) pg MCHC 30.5 L (32-36) g/dl RDW 17.7 H (11.5-14.0) % Plt Count 347 (150-450) K/mm3 MPV 9.8 H (6-9.5) fl Sodium 141 (136-145) mEq/L Potassium 3.4 L (3.5-5.1) mEq/L Chloride 104 (98-107) mEq/L Carbon Dioxide 30.3 (21-32) mEq/L Anion Gap 9.6 (5-15) MEQ/L BUN 8 L (9-20) mg/dL Creatinine 1.21 (0.55-1.30) mg/dl Estimated GFR 47 ML/MIN Glucose 129 H (70-110) MG/DL Calcium 8.6 (8.5-10.1) mg/dL Iron (50-175) ug/dl TIBC (250-450) ug/dl Iron Saturation (20-39) % Ferritin (8-388) Troponin I (0.000-0.056) ng/ml Vitamin B12 (193-986) Folic Acid (8.6-58.9) Slides for Path Review Crossmatch (COMPATIBLE) Multi-Disciplinary Progress Notes: Multi-Disciplinary Progress Notes 06/13/17 10:00 (created 06/13/17 10:25) Case Management Note by Rin Rosen DISCHARGE PLAN REVIEWED, INTERESTED IN SKILLED REHAB STAY ON DISCHARGE. REQUESTS REFERRAL TO [facility]. REFERRAL MADE AT THIS TIME. SPOKE WITH [employer]. FAXED PERTINENT DOCUMENTS TO [phone]. Initialized on 06/13/17 10:25 - END OF NOTE Assessment/Plan (1) Symptomatic anemia Current Visit: Yes Status: Acute Assessment & Plan: EGD and colonoscopy today. Code(s): D64.9 - ANEMIA, UNSPECIFIED (2) Chest pain Current Visit: Yes Status: Resolved Qualifiers: Chest pain type: unspecified Qualified Code(s): R07.9 - Chest pain, unspecified Assessment & Plan: no complaint this morning. PR ruled out yesterday. On telemetry. Code(s): R07.9 - CHEST PAIN, UNSPECIFIED (3) GERD (gastroesophageal reflux disease) Current Visit: Yes Status: Chronic Qualifiers: Esophagitis presence: esophagitis presence not specified Qualified Code(s) : K21.9 - Gastro-esophageal reflux disease without esophagitis Code(s): K21.9 - GASTRO-ESOPHAGEAL REFLUX DISEASE WITHOUT ESOPHAGITIS (4) Hypertension Current Visit: Yes Status: Acute Assessment & Plan: not out of control currently; on home meds. Code(s): I10 - ESSENTIAL (PRIMARY) HYPERTENSION (5) Uncontrolled type 2 diabetes mellitus Current Visit: Yes Status: Acute Qualifiers: Diabetes mellitus complication status: with unspecified complications Diabetes mellitus assisted insulin use: with keno terminal operator use Qualified Code(s) : E11.8 - Type 2 diabetes mellitus with unspecified complications; E11.65 - Type 2 diabetes mellitus with hyperglycemia; Z79.4 - computer terminal operator (current) use of insulin Assessment & Plan: insulin held yesterday as pt NPO today. Code(s): E11.65 - TYPE 2 DIABETES MELLITUS WITH HYPERGLYCEMIA (6) Hemiparesis Current Visit: Yes Status: Chronic Qualifiers: Hemiparesis etiology: cerebrovascular etiology Cerebrovascular disease type : unspecified Code(s): G81.90 - HEMIPLEGIA, UNSPECIFIED AFFECTING UNSPECIFIED SIDE
[2017-06-14] MEDS: CLARITIN 10 MG PO SCH (10:35)
[2017-06-14] MEDS: Prozac 20 MG PO SCH (10:35)
[2017-06-14] MEDS: NORVASC 5 MG PO SCH (10:35)
[2017-06-14] MEDS: Klor Con 10 MEQ PO SCH ×2 (10:35→21:34)
[2017-06-14] MEDS: FEOSOL 325 MG PO SCH ×3 (10:35→21:34)
[2017-06-14] MEDS: Flonase NASAL NS SCH (10:36)
[2017-06-14] MEDS: Vitamin B-12 500 MCG PO SCH (10:36)
[2017-06-14] MEDS: NYSTOP POWDER 15 GM TP SCH ×2 (10:36→21:34)
[2017-06-14] MEDS: NovoLOG Insulin SQ SCH ×2 (10:45→17:56)
[2017-06-14] MEDS: Ecotrin 325 MG PO SCH (10:46)
[2017-06-14] MEDS: Pepcid 20 MG PO SCH ×2 (10:46→21:34)
[2017-06-14] MEDS: Glucophage 500 MG PO SCH ×2 (10:46→17:53)
[2017-06-14] MEDS: PLAVIX 75 MG Tablet PO SCH (10:47)
[2017-06-14] MEDS: Sodium Chloride 0.9% 10 ML FLUSH Syringe IV SCH ×2 (10:47→21:55)
[2017-06-14] MEDS: Sodium Chloride 0.9% 500 ML 500 ML IV SCH ×2 (10:58→18:57)
[2017-06-14] MEDS: LASIX 20 MG PO SCH (10:59)
[2017-06-14] MEDS ORDERED: VERSED 5 MG/5 ML IV ONE (15:00)
[2017-06-14] MEDS ORDERED: DEMEROL 50 MG IV ONE (15:00)
[2017-06-14] MEDS: Lantus Insulin SQ SCH (21:34)
[2017-06-14] MEDS: Ambien 5 MG Tablet PO SCH (21:34)
[2017-06-14] MEDS: NovoLOG Insulin SQ PRN (21:35)
[2017-06-15] MEDS: Sodium Chloride 0.9% 10 ML FLUSH Syringe IV SCH ×3 (05:21→21:18)
[2017-06-15 05:31] LABS: BASOPHIL % 0.3 % (0.0-0.4); Eosinophil % 3.6 % (0.00-5.0); Granulocytes % 55.6 % (36.0-66.0); Lymphocytes % 32.1 % (24.0-44.0); Mean Cell Volume 80.2 fl (78-100); Mean Corpuscular Hemoglobin 23.8 pg (26-32); Mean Platelet Volume 9.9 fl (6-9.5); Monocytes % 8.4 % (0.0-12.0); Platelet Count 354 K/mm3 (150-450); Red Blood Count 3.99 M/mm3 (4.1-5.4); Red Cell Distribution Width 17.8 % (11.5-14.0); White Blood Count 7.2 K/mm3 (4.0-10.5)
[2017-06-15 05:45] LABS: ANION GAP 13.1 MEQ/L (5-15); Carbon Dioxide 26.7 mEq/L (21-32); Potassium 3.7 mEq/L (3.5-5.1)
--- NOTE | 2017-06-15 07:38 | CONS ---
CONSULT DATE: 06/13/2017 HISTORY: This is a 66 year-old female who presents to the hospital with anemia as well as some epigastric abdominal pain. She has had pain in this region as well as some epigastric abdominal pain. She has had pain in this region off and on. She also had noted some blood intermittently in her stool. She did present to the hospital for work up approximately one to two weeks ago as well and her hemoglobin appears to be relatively stable in comparison to one week ago. However a few months ago her hemoglobin was higher at 10 and now it is around 7 so over the past few months she has decreased in blood count. The patient has no vomiting. She does not have any other bowel symptoms. She has never had a colonoscopy before. She does have a family history of colon cancer. PAST MEDICAL/SURGICAL HISTORY: Includes diabetes, hypertension, stroke, hysterectomy, open cholecystectomy. She has residual let-sided weakness from her stroke. MEDICATIONS: Includes Plavix and aspirin. The rest of her medications were reviewed in the medication reconciliation. ALLERGIES: Allergies are reviewed as well. SOCIAL HISTORY: No current alcohol use. FAMILY HISTORY: Father with colon cancer. PHYSICAL EXAMINATION: GENERAL: No acute distress. Her vitals are all stable. CVS: Regular. ABDOMEN: Soft, mild tenderness to palpation epigastric region. No rebound, no guarding. Well healed midline as well as right upper quadrant incision. NEURO: The patient is alert, awake, does not appear to be in any distress. She is very stable. EXTREMITIES: Normal at baseline for patient. LAB DATA AND TESTS: White blood cell count 8.9, hemoglobin 7.4 and now 7. She is currently getting transfused. PLT count 394,000. Occult stool was negative. CT scan approximately one and a half weeks ago was negative from a GI standpoint. ASSESSMENT AND PLAN: This is a 66 year-old female who has had some bleeding in her bowel movements as well as epigastric pain. She has been tolerating clear liquids today. We will start a bowel prep and plan for EGD and colonoscopy tomorrow with my partner, Dr. Dennis Webber. I have discussed all the risks, benefits, alternatives regarding the procedure with the patient. She would like to proceed. She is getting a unit of blood currently. She will have labs as well in the morning. She has had her Plavix and aspirin held as well.
--- NOTE | 2017-06-15 07:52 | OP ---
SURGERY DATE/TIME: 06/14/2017 1550 PREOPERATIVE DIAGNOSIS: Anemia. Family history of colon cancer. POSTOPERATIVE DIAGNOSES: 1) Major duodenal ulcer with healing and is getting to the major healing stage now with probably no possibility of bleeding currently but this has a very large duodenal ulcer and has bled substantially in the very near past. 2) Active ileocolonic valve ulceration which has bled substantially. It looks like it is majorly trying to resolve at this time probably minimal bleeding at this time. 3) Large sigmoid polyp. 4) Small cecal polyp. PROCEDURES: 1) Colonoscopy complete to cecum with hot snare polypectomy x1 and hot forceps polyp x1 and biopsy cold x1. 2) EGD for DRAKE-test. SURGEON: Dennis Webber M.D. ANESTHESIA: IV sedation. COMPLICATIONS: None. CONDITION: Stable. INDICATION: The patient has anemia. She is on the floor and presents for evaluation. DESCRIPTION OF PROCEDURE: Taken to the endoscopy. Left lateral decubitus position. After suitable sedation obtained the scope introduced. The esophagus is normal down to gastroesophageal junction. The gastroesophageal junction satisfactory. No hiatal hernia. The fundus, body and antrum normal. Pylorus normal. The duodenal bulb there was a 1 cm ulcer certainly has been bleeding recently but not bleeding now and it looks like there is a pinpoint bleeder in the bottom of this ulcer which is just about to cover over at this location. Second portion satisfactory. The scope was withdrawn. Anal digital examination satisfactory. The scope advanced to the cecum. On the anterior leading edge of the ileocecal valve is a large 1 cm ulceration. It is also trying to heal. There was an 8 mm polyp at the base of the cecum taken with hot biopsy forceps. The ileocecal ulceration area was biopsied for pathology. On circumferential withdraw the rest of the colon was satisfactory. In the mid sigmoid a 1.4 cm polypoid mass was taken with hot snare biopsy. Rectal satisfactory. Anus satisfactory. The patient tolerated the procedure satisfactorily. No family present.
[2017-06-15] MEDS: NovoLOG Insulin SQ SCH ×2 (07:57→18:53)
[2017-06-15] MEDS: Glucophage 500 MG PO SCH ×2 (07:57→16:07)
[2017-06-15] MEDS: NovoLOG Insulin SQ PRN (07:58)
--- NOTE | 2017-06-15 09:33 | PCM.DS ---
Discharge Summary Date of Admission: 06/13/17 08:15 Admitting Physician: BENNY HUGHES Primary Care Provider: BENNY HUGHES Allergies Allergies lisinopril Allergy (Severe, Verified 06/13/17 01:25) Swelling codeine Allergy (Intermediate, Verified 06/12/17 23:52) Nausea and Vomiting allergies validated with patient morphine Allergy (Intermediate, Verified 06/12/17 23:52) Nausea and Vomiting oxycodone [Oxycodone] Allergy (Intermediate, Verified 06/12/17 23:52) Nausea and Vomiting Hospital Summary - Hospital Course Hospital Course: Pt was admitted with GI bleed and Hgb around 7 - transfused 2 units PRBC and EGD /colonoscopy done. There was a note of healing duodenal ulcer; await final surgery report. She is denying any abdominal pain at this time. Hgb stable since transfusion. She would like to be discharged home today. - Vitals & Intake/Output Vital Signs: Vital Signs Temperature 98 F 06/15/17 07:07 Pulse Rate 71 06/15/17 07:07 Respiratory Rate 22 06/15/17 07:50 Blood Pressure 160/70 06/15/17 07:07 O2 Sat by Pulse Oximetry 95 06/15/17 07:07 Intake & Output: Intake & Output 06/12/17 06/13/17 06/14/17 06/15/17 11:59 11:59 11:59 11:59 Intake Total 120 360 730 Output Total 200 450 450 Balance -80 -90 280 Weight 91.898 kg 92.079 kg - Lab Result Diagrams: 06/15/17 05:08 06/15/17 05:08 Lab Results-Last 24 Hrs: Accuchecks Date 06/15/17 Date 06/14/17 Date 06/14/17 Date 06/14/17 Time 07:30 Time 21:23 Time 17:58 Time 11:30 Accucheck Value: 194 Accucheck Value: 183 Accucheck Value: 152 Lab Results-Last 24 Hours 06/15/17 06/15/17 Range/Units 05:08 05:08 WBC 7.2 (4.0-10.5) K/mm3 RBC 3.99 L (4.1-5.4) M/mm3 Hgb 9.5 L (12.0-16.0) gm/dl Hct 32.0 L (35-47) % MCV 80.2 (78-100) fl MCH 23.8 L (26-32) pg MCHC 29.7 L (32-36) g/dl RDW 17.8 H (11.5-14.0) % Plt Count 354 (150-450) K/mm3 MPV 9.9 H (6-9.5) fl Gran % 55.6 (36.0-66.0) % Lymphocytes % 32.1 (24.0-44.0) % Monocytes % 8.4 (0.0-12.0) % Eosinophils % 3.6 (0.00-5.0) % Basophils % 0.3 (0.0-0.4) % Basophils # 0.02 (0-0.4) Sodium 141 (136-145) mEq/L Potassium 3.7 (3.5-5.1) mEq/L Chloride 105 (98-107) mEq/L Carbon Dioxide 26.7 (21-32) mEq/L Anion Gap 13.1 (5-15) MEQ/L BUN 9 (9-20) mg/dL Creatinine 1.23 (0.55-1.30) mg/dl Estimated GFR 47 ML/MIN Glucose 186 H (70-110) MG/DL Calcium 9.0 (8.5-10.1) mg/dL Micro Results-Entire Visit: Accuchecks Date 06/15/17 Date 06/14/17 Date 06/14/17 Date 06/14/17 Time 07:30 Time 21:23 Time 17:58 Time 11:30 Accucheck Value: 194 Accucheck Value: 183 Accucheck Value: 152 Discharge Exam General Appearance: no apparent distress (sitting up on side of bed, drinking coffee) Neurologic Exam: alert (conversant; pleasant), oriented x 3, cooperative Skin Exam: normal color, warm, dry Respiratory Exam: normal breath sounds, lungs clear, No crackles/rales, No rhonchi, No wheezing Cardiovascular Exam: regular rate/rhythm, normal heart sounds, No murmur Gastrointestinal/Abdomen Exam: soft, No tenderness, No distention, No guarding, No rebound Extremity Exam: swelling (trace LE edema on L, none on R) Final Diagnosis/Problem List - Final Discharge Diagnosis/Problem (1) Duodenal ulcer Current Visit: Yes Status: Chronic Assessment & Plan: Healing. will send pt home today on po carafate. (2) Symptomatic anemia Current Visit: Yes Status: Acute Assessment & Plan: Hgb 9+ consistently after transfusion. Will have it rechecked in 1 wk. (3) Chest pain Current Visit: Yes Status: Resolved (4) GERD (gastroesophageal reflux disease) Current Visit: Yes Status: Chronic (5) Hypertension Current Visit: Yes Status: Chronic Assessment & Plan: Some elevated BP today in the 160s systolic. Would have her monitor this at home, call or go to ER for BP > 180 systolic or > 110 diastolic. Otherwise f/u outpatient with Dr. Hughes in 1 week. (6) Uncontrolled type 2 diabetes mellitus Current Visit: Yes Status: Chronic (7) Hemiparesis Current Visit: Yes Status: Chronic - Discharge Disposition: Home, Self-Care Condition: Stable Prescriptions: New Sucralfate 1 gm [Carafate 1 GM] 1 g PO QID #60 tablet Ferrous Sulfate 325 mg [Feosol 325 mg] 325 mg PO BID #60 tablet Nystatin Powder 15 gm [Nystop Powder 15 gm] 1 gm TP BID #1 powder Cyanocobalamin 500 Mcg [Vitamin B-12 500 MCG] 1,000 mcg PO DAILY #0 tablet Continue Clopidogrel Bisulfate 75 mg [PLAVIX 75 MG Tablet] 75 mg PO DAILY Insulin Glargine [Lantus Insulin] 15 unit SQ HS Furosemide 20 mg [Lasix 20 mg] 20 mg PO DAILY Fluoxetine HCl 20 mg [Prozac 20 MG] 20 mg PO DAILY Loratadine 10 mg PO DAILY Calcium Carbonate/Vitamin D3 [Calcium 500 + Vit D Caplet] 1 tablet PO BID Potassium Chloride 10 Meq Tab* [Klor Con 10 MEQ] 10 meq PO BID Fluticasone Propionate [Flonase NASAL] 2 puffs NS DAILY Zolpidem Tartrate [Ambien] 5 mg PO HS Linagliptin [Tradjenta] 5 mg PO HS Hydrocodone Bit/Acetaminophen [Hydrocodon-Acetaminophen 5-325] 5 - 325 tablet PO BID PRN PRN PRN Reason: Pain Metformin HCl 500 mg [Glucophage 500 MG] 500 mg PO BID Ondansetron [Zofran Odt] 4 mg PO Q6HPRN PRN #10 tab.rapdis PRN Reason: Nausea/Vomiting Insulin Lispro [Humalog] 4 units SUBDERMAL BREAKFAST Nizatidine [Axid] 150 mg PO Q12H PRN PRN PRN Reason: UPSET STOMACH Insulin Lispro [Humalog] 6 units SUBDERMAL EVENING MEAL Amlodipine Besylate 5 mg [Norvasc 5 mg] 10 mg PO DAILY Discontinued Alendronate Sodium 70 mg [Fosamax 70 MG] 70 mg PO WEEKLY Naproxen [Naprosyn] 250 mg PO BID Follow up with: BENNY HUGHES [Primary Care Provider] - JANAY ZUNIGA [ACTIVE STAFF] - 1 Week
[2017-06-15] MEDS: Flonase NASAL NS SCH (10:55)
[2017-06-15] MEDS: NORVASC 5 MG PO SCH (10:56)
[2017-06-15] MEDS: Ecotrin 325 MG PO SCH (10:56)
[2017-06-15] MEDS: Klor Con 10 MEQ PO SCH ×2 (10:56→21:17)
[2017-06-15] MEDS: CLARITIN 10 MG PO SCH (10:56)
[2017-06-15] MEDS: Pepcid 20 MG PO SCH ×2 (10:56→21:17)
[2017-06-15] MEDS: Prozac 20 MG PO SCH (10:56)
[2017-06-15] MEDS: PLAVIX 75 MG Tablet PO SCH (10:57)
[2017-06-15] MEDS: LASIX 20 MG PO SCH (10:57)
[2017-06-15] MEDS: NYSTOP POWDER 15 GM TP SCH ×2 (10:57→21:18)
[2017-06-15] MEDS: FEOSOL 325 MG PO SCH ×3 (10:57→21:17)
[2017-06-15] MEDS: Vitamin B-12 500 MCG PO SCH (10:58)
[2017-06-15] MEDS ORDERED: Sodium Chloride 0.9% 1000 ML 1,000 ML IV SCH (13:00)
[2017-06-15] MEDS: Ambien 5 MG Tablet PO SCH (21:17)
[2017-06-15] MEDS: Lantus Insulin SQ SCH (21:17)
[2017-06-15] MEDS: NORCO 5/325 MG PO PRN (21:18)
[2017-06-15] MEDS ORDERED: Januvia 50 MG PO SCH (22:00)
[2017-06-16] MEDS: Sodium Chloride 0.9% 10 ML FLUSH Syringe IV SCH (05:55)
[2017-06-16] MEDS: NORCO 5/325 MG PO PRN (06:00)
[2017-06-16] MEDS: Glucophage 500 MG PO SCH (07:58)
[2017-06-16] MEDS: NovoLOG Insulin SQ SCH (07:59)
[2017-06-16] MEDS: NovoLOG Insulin SQ PRN ×2 (07:59→12:20)
--- NOTE | 2017-06-16 10:54 | PCM.DS ---
Discharge Summary Date of Admission: 06/13/17 08:15 Admitting Physician: BENNY HUGHES Primary Care Provider: BENNY HUGHES Allergies Allergies lisinopril Allergy (Severe, Verified 06/13/17 01:25) Swelling codeine Allergy (Intermediate, Verified 06/12/17 23:52) Nausea and Vomiting allergies validated with patient morphine Allergy (Intermediate, Verified 06/12/17 23:52) Nausea and Vomiting oxycodone [Oxycodone] Allergy (Intermediate, Verified 06/12/17 23:52) Nausea and Vomiting Hospital Summary - Hospital Course Hospital Course: Pt admitted with Hgb around 7, given 2 units of PRBC with good response. hgb has been stable at 9.5-10. EGD and colonoscopy done; she has a healing duodenal ulcer. She has hx CVA and HTN, had BP up to 170 systolic so coreg po is being started on discharge. Home on plavix but not aspirin. - Vitals & Intake/Output Vital Signs: Vital Signs Temperature 98.2 F 06/16/17 07:05 Pulse Rate 77 06/16/17 07:05 Respiratory Rate 18 06/16/17 08:00 Blood Pressure 149/70 06/16/17 07:05 O2 Sat by Pulse Oximetry 93 L 06/16/17 07:05 Intake & Output: Intake & Output 06/13/17 06/14/17 06/15/17 06/16/17 11:59 11:59 11:59 11:59 Intake Total [phone] [id number] Output Total 200 450 450 900 Balance -80 -90 280 280 Weight 91.898 kg 92.079 kg - Lab Result Diagrams: 06/16/17 05:21 06/15/17 05:08 Lab Results-Last 24 Hrs: Accuchecks Date 06/16/17 Date 06/15/17 Date 06/15/17 Date 06/15/17 Time 07:30 Time 22:00 Time 17:16 Time 11:30 Accucheck Value: 155 Accucheck Value: 146 Accucheck Value: 162 Accucheck Value: 116 Lab Results-Last 24 Hours 06/15/17 06/16/17 Range/Units 20:14 05:21 Hgb 9.8 L 10.4 L (12.0-16.0) gm/dl Hct 33.2 L 34.8 L (35-47) % Micro Results-Entire Visit: Accuchecks Date 06/16/17 Date 06/15/17 Date 06/15/17 Date 06/15/17 Time 07:30 Time 22:00 Time 17:16 Time 11:30 Accucheck Value: 155 Accucheck Value: 146 Accucheck Value: 162 Accucheck Value: 116 Discharge Exam General Appearance: no apparent distress Neurologic Exam: alert, oriented x 3, cooperative Skin Exam: normal color, warm, dry Respiratory Exam: normal breath sounds, lungs clear, No crackles/rales, No rhonchi, No wheezing Cardiovascular Exam: regular rate/rhythm, normal heart sounds, No murmur Gastrointestinal/Abdomen Exam: soft, No tenderness, No distention Extremity Exam: swelling (1+ pretibial edema bilat) Final Diagnosis/Problem List - Final Discharge Diagnosis/Problem (1) Duodenal ulcer Current Visit: Yes Status: Chronic Assessment & Plan: Stop aspirin, re-evaluate in the next month or two by PCP. Continue plavix. Carafate. (2) Symptomatic anemia Current Visit: Yes Status: Acute Assessment & Plan: Stable since transfusion. Hgb 10.4 this morning. (3) Chest pain Current Visit: Yes Status: Resolved (4) GERD (gastroesophageal reflux disease) Current Visit: Yes Status: Chronic (5) Hypertension Current Visit: Yes Status: Chronic Assessment & Plan: adding coreg 3.125 mg po BID to her amlodipine regimen. (6) Uncontrolled type 2 diabetes mellitus Current Visit: Yes Status: Chronic (7) Hemiparesis Current Visit: Yes Status: Chronic - Discharge Disposition: Home, Self-Care Condition: Stable Prescriptions: New Sucralfate 1 gm [Carafate 1 GM] 1 g PO QID #60 tablet Ferrous Sulfate 325 mg [Feosol 325 mg] 325 mg PO BID #60 tablet Nystatin Powder 15 gm [Nystop Powder 15 gm] 1 gm TP BID #1 powder Cyanocobalamin 500 Mcg [Vitamin B-12 500 MCG] 1,000 mcg PO DAILY #0 tablet Carvedilol 3.125 mg [Coreg 3.125 MG] 3.125 mg PO BID #60 tablet Continue Clopidogrel Bisulfate 75 mg [PLAVIX 75 MG Tablet] 75 mg PO DAILY Insulin Glargine [Lantus Insulin] 15 unit SQ HS Furosemide 20 mg [Lasix 20 mg] 20 mg PO DAILY Fluoxetine HCl 20 mg [Prozac 20 MG] 20 mg PO DAILY Loratadine 10 mg PO DAILY Calcium Carbonate/Vitamin D3 [Calcium 500 + Vit D Caplet] 1 tablet PO BID Potassium Chloride 10 Meq Tab* [Klor Con 10 MEQ] 10 meq PO BID Fluticasone Propionate [Flonase NASAL] 2 puffs NS DAILY Zolpidem Tartrate [Ambien] 5 mg PO HS Linagliptin [Tradjenta] 5 mg PO HS Hydrocodone Bit/Acetaminophen [Hydrocodon-Acetaminophen 5-325] 5 - 325 tablet PO BID PRN PRN PRN Reason: Pain Metformin HCl 500 mg [Glucophage 500 MG] 500 mg PO BID Ondansetron [Zofran Odt] 4 mg PO Q6HPRN PRN #10 tab.rapdis PRN Reason: Nausea/Vomiting Insulin Lispro [Humalog] 4 units SUBDERMAL BREAKFAST Nizatidine [Axid] 150 mg PO Q12H PRN PRN PRN Reason: UPSET STOMACH Insulin Lispro [Humalog] 6 units SUBDERMAL EVENING MEAL Amlodipine Besylate 5 mg [Norvasc 5 mg] 10 mg PO DAILY Discontinued Alendronate Sodium 70 mg [Fosamax 70 MG] 70 mg PO WEEKLY Naproxen [Naprosyn] 250 mg PO BID Instructions: [place] Diet, Iron Deficiency Anemia Additional Instructions: Follow up with at [facility] on 06/28/17@ 3:05p.m. Follow up with: BENNY HUGHES [Primary Care Provider] - 06/25/17 10:00 am JANAY ZUNIGA [ACTIVE STAFF] - 06/28/17 3:05 pm (at specialty clinic) Forms: Patient Portal Information
[2017-06-16] MEDS: Prozac 20 MG PO SCH (11:04)
[2017-06-16] MEDS: Ecotrin 325 MG PO SCH (11:04)
[2017-06-16] MEDS: NORVASC 5 MG PO SCH (11:04)
[2017-06-16] MEDS: Pepcid 20 MG PO SCH (11:05)
[2017-06-16] MEDS: Klor Con 10 MEQ PO SCH (11:05)
[2017-06-16] MEDS: PLAVIX 75 MG Tablet PO SCH (11:05)
[2017-06-16] MEDS: Flonase NASAL NS SCH (11:05)
[2017-06-16] MEDS: CLARITIN 10 MG PO SCH (11:05)
[2017-06-16] MEDS: FEOSOL 325 MG PO SCH (11:05)
[2017-06-16] MEDS: Vitamin B-12 500 MCG PO SCH (11:06)
[2017-06-16] MEDS: LASIX 20 MG PO SCH (11:11)
[2017-06-16] MEDS: NYSTOP POWDER 15 GM TP SCH (11:14)
[2017-06-16 11:28] VITALS: BP 172/77; PULSE 88; O2SAT 94
== END 2017-06-16 12:25 | DRG 384 ==
LOC: ED 21:02 → MED SURG 23:33 → OBSVTOIN 06-13 08:15
PROVIDERS: ADMIT Family Medicine; ATTEND Family Medicine
PROC: 0DBN8ZX Excision of Sigmoid Colon, Via Natural or Artificial Opening Endoscopic, Diagnostic (ICD-10-PCS; principal; 2017-06-14)
PROC: 0DBH8ZX Excision of Cecum, Via Natural or Artificial Opening Endoscopic, Diagnostic (ICD-10-PCS; 2017-06-14)
PROC: 0DBC8ZX Excision of Ileocecal Valve, Via Natural or Artificial Opening Endoscopic, Diagnostic (ICD-10-PCS; 2017-06-14)
PROC: 0DB78ZX Excision of Stomach, Pylorus, Via Natural or Artificial Opening Endoscopic, Diagnostic (ICD-10-PCS; 2017-06-14)
DX: K26.9 Duodenal ulcer, unspecified as acute or chronic, without hemorrhage or perforation (principal); K63.3 Ulcer of intestine; G81.91 Hemiplegia, unspecified affecting right dominant side; D64.9 Anemia, unspecified; R07.9 Chest pain, unspecified; K21.9 Gastro-esophageal reflux disease without esophagitis; I10 Essential (primary) hypertension; K92.2 Gastrointestinal hemorrhage, unspecified; K82.9 Disease of gallbladder, unspecified; I25.10 Atherosclerotic heart disease of native coronary artery without angina pectoris; E11.65 Type 2 diabetes mellitus with hyperglycemia; Z79.4 Long term (current) use of insulin; Z79.899 Other long term (current) drug therapy; Z80.0 Family history of malignant neoplasm of digestive organs; D12.0 Benign neoplasm of cecum; D12.5 Benign neoplasm of sigmoid colon; Z86.73 Personal history of transient ischemic attack (TIA), and cerebral infarction without residual deficits
CPT/HCPCS: 36000; 36415; 36430; 71010; 80048; 80053; 80061; 81002; 82272; 82607; 82728; 82746; 82962; 83540; 83550; 83690; 83721; 83880; 84484; 85014; 85018; 85025; 85027; 86850; 86900; 86901; 86922; 87081; 88305; 93005; 93268; 96374; 99284; G0378; J2175; J2250; J2405; P9016; Q0162; A9270-GY

== ENCOUNTER 2017-07-13 11:14 | Emergency (ER) | payer MEDICARE ==
[2017-07-13] MEDS ORDERED: BACIGUENT PACKET TP ONE (11:17)
[2017-07-13] MEDS ORDERED: Adacel Vial IM ONE ×2 (11:17→11:31)
--- NOTE | 2017-07-13 11:24 | ERPHSYRPT ---
- History of Present Illness Time Seen by Provider: 07/13/17 11:16 Source: patient, EMS (E4) Physician History: CC: fall Hx: 66 y/o patient of Dr [facility] She fell while on commode. She still needs to urinate. She hit her head and has some head and neck pain. Cut to the back of the head. C-collar placed per EMS. No active bleeding from cut on head. Denies other pain or injury. In the past she has had anemia from PUD and required transfusion last month. Unsure last tetanus vaccine. Occurred: just prior to arrival Loss of Consciousness: no loss of consciousness Allergies/Adverse Reactions: lisinopril Allergy (Severe, Verified 07/13/17 11:25) Swelling codeine Allergy (Intermediate, Verified 07/13/17 11:25) Nausea and Vomiting allergies validated with patient morphine Allergy (Intermediate, Verified 07/13/17 11:25) Nausea and Vomiting oxycodone [Oxycodone] Allergy (Intermediate, Verified 07/13/17 11:25) Nausea and Vomiting Home Medications: Clopidogrel Bisulfate 75 mg [PLAVIX 75 MG Tablet] 75 mg PO DAILY 08/22/13 [History] Fluoxetine HCl 20 mg [Prozac 20 MG] 20 mg PO DAILY 08/22/13 [History] Furosemide 20 mg [Lasix 20 mg] 20 mg PO DAILY 08/22/13 [History] Insulin Glargine [Lantus Insulin] 15 unit SQ HS 08/22/13 [History] Calcium Carbonate/Vitamin D3 [Calcium 500 + Vit D Caplet] 1 tablet PO BID [History] Loratadine 10 mg PO DAILY 02/18/14 [History] Potassium Chloride 10 Meq Tab* [Klor Con 10 MEQ] 10 meq PO BID 06/23/15 [ History] Fluticasone Propionate [Flonase NASAL] 2 puffs NS DAILY 03/14/16 [History] Hydrocodone Bit/Acetaminophen [Hydrocodon-Acetaminophen 5-325] 5 - 325 tablet PO BID PRN PRN 03/19/17 [History] Linagliptin [Tradjenta] 5 mg PO HS 03/19/17 [History] Metformin HCl 500 mg [Glucophage 500 MG] 500 mg PO BID 03/19/17 [History] Zolpidem Tartrate [Ambien] 5 mg PO HS 03/19/17 [History] Amlodipine Besylate 5 mg [Norvasc 5 mg] 10 mg PO DAILY 06/13/17 [History] Insulin Lispro [Humalog] 4 units SUBDERMAL BREAKFAST 06/13/17 [History] Insulin Lispro [Humalog] 6 units SUBDERMAL EVENING MEAL 06/13/17 [History] Nizatidine [Axid] 150 mg PO Q12H PRN PRN 06/13/17 [History] Hx Tetanus, Diphtheria Vaccination/Date Given: Yes Hx Influenza Vaccination/Date Given: No Hx Pneumococcal Vaccination/Date Given: No - Review of Systems Constitutional: No Fever Eyes: No Vision Changes Respiratory: No Dyspnea Cardiac: No Chest Pain Abdominal/Gastrointestinal: No Nausea, No Vomiting Musculoskeletal: Neck Pain, Fall, No Back Pain Skin: Skin Lesions (scalp lac), No Rash Neurological: Headache, No Focal Weakness All Other Systems: Reviewed and Negative - Past Medical History Pertinent Past Medical History: Yes Neurological History: Stroke ENT History: Other Cardiac History: Angina, Hypertension Respiratory History: No Pertinent History Endocrine Medical History: Diabetes Type II Musculoskeletal History: Other GI Medical History: Gallbladder Disease History: Other Psycho-Social History: No Pertinent History Female Reproductive Disorders: No Pertinent History Other Medical History: wears glasses, full set of dentures (not at bedside), incontinence, left arm flaccid and contracted, left hand contracture - Past Surgical History Past Surgical History: Yes Neuro Surgical History: No Pertinent History Cardiac: No Pertinent History Respiratory: No Pertinent History Gastrointestinal: Cholecystectomy Genitourinary: No Pertinent History Musculoskeletal: No Pertinent History Female Surgical History: Section Other Surgical History: left shoulder and wrist surg. - LEFT HIP PER FX - Social History Smoking Status: Never smoker Exposure to second hand smoke: No Alcohol Use: None Drug Use: none Patient Lives Alone: No ([place] assisted living apt) Significant Family History: hypertension - Female History Hx Now: No - Nursing Vital Signs Nursing Vital Signs: Initial Vital Signs Temperature 98.4 F 07/13/17 11:14 Pulse Rate 94 H 07/13/17 11:14 Respiratory Rate 20 07/13/17 11:14 Blood Pressure 190/101 08/25/17 11:14 O2 Sat by Pulse Oximetry 98 07/13/17 11:14 Pain Scale Pain Intensity 2 - [place] Coma Score Best Eye Response ([place]): (4) open spontaneously Best Verbal Response ([place]): (5) oriented Best Motor Response ([place]): (6) obeys commands [place] Total: 15 - Physical Exam General Appearance: alert Head Injury: lacerations (occipital) ENT Exam: airway nml Neck Exam: c-collar in place Respiratory/Chest Exam: normal breath sounds, No chest tenderness Cardiovascular Exam: normal heart sounds, regular rate/rhythm Gastrointestinal Exam: soft, No tenderness, No distention Back Exam: normal inspection Extremity Exam: pedal edema (trace) Neurologic Exam: alert, oriented x 3, cooperative, motor deficits (chronic weakness post stroke) Skin Exam: warm, dry - Course Nursing assessment & vital signs reviewed: Yes - Radiology Exams cxr, pelvis X-ray Interpretation: Teleradiologist Report, Negative - CT Exams head CT Interpretation: Tele-radiologist Report (left posterior scalp hematoma, no ICH or fx) cervical CT Interpretation: Tele-radiologist Report, No Fracture Ordered Tests: Active Orders 24 hr Category Date Time Status Cath for Specimen-Straight STAT Care 07/13/17 11:17 Active IV Insertion STAT Care 07/13/17 11:16 Active Wound Care STAT Care 07/13/17 11:17 Active CERVICAL SPINE WO CONTRAST [CT] Stat Exams 07/13/17 11:16 Completed CHEST 1 VIEW (PORTABLE) Stat Exams 07/13/17 11:16 Completed HEAD WITHOUT CONTRAST [CT] Stat Exams 07/13/17 11:16 Completed PELVIS (1 OR 2 VIEWS) Stat Exams 07/13/17 11:16 Completed CBC W DIFF Stat Lab 07/13/17 11:42 Completed CMP Stat Lab 07/13/17 11:42 Completed UA W/ MICROSCOPIC Stat Lab 07/13/17 11:42 Completed Medication Summary Discontinued Medications Generic Name Dose Route Start Last Admin Trade Name Freq PRN Reason Stop Dose Admin Bacitracin 0.9 gm 07/13/17 11:17 Baciguent Packet TP 07/13/17 11:18 STAT ONE Bacitracin Confirm 07/13/17 11:31 Baciguent Packet Administered 07/13/17 11:32 Dose 1 gm .ROUTE .STK-MED ONE Diphtheria/Tetanus/Acell Pertussis 0.5 ml 07/13/17 11:17 07/13/17 11:40 Adacel Vial IM 07/13/17 11:18 0.5 ml .ONCE ONE Administration Diphtheria/Tetanus/Acell Pertussis Confirm 07/13/17 11:31 Adacel Vial Administered 07/13/17 11:32 Dose 0.5 ml IM .STK-MED ONE Lab/Rad Data: Laboratory Result Diagrams 07/13/17 11:42 07/13/17 11:42 Laboratory Results 07/13/17 07/13/17 07/13/17 Range/Units 11:42 11:42 11:42 WBC 6.7 (4.0-10.5) K/mm3 RBC 5.32 (4.1-5.4) M/mm3 Hgb 13.2 (12.0-16.0) gm/dl Hct 41.9 (35-47) % MCV 78.8 (78-100) fl MCH 24.8 L (26-32) pg MCHC 31.5 L (32-36) g/dl RDW 19.8 H (11.5-14.0) % Plt Count 215 (150-450) K/mm3 MPV 11.0 H (6-9.5) fl Gran % 50.9 (36.0-66.0) % Lymphocytes % 38.7 (24.0-44.0) % Monocytes % 6.8 (0.0-12.0) % Eosinophils % 3.3 (0.00-5.0) % Basophils % 0.3 (0.0-0.4) % Basophils # 0.02 (0-0.4) Sodium 141 (136-145) mEq/L Potassium 3.7 (3.5-5.1) mEq/L Chloride 103 (98-107) mEq/L Carbon Dioxide 28.7 (21-32) mEq/L Anion Gap 13.2 (5-15) MEQ/L BUN 10 (9-20) mg/dL Creatinine 1.21 (0.55-1.30) mg/dl Estimated GFR 47 ML/MIN Glucose 150 H (70-110) MG/DL Calcium 10.0 (8.5-10.1) mg/dL Total Bilirubin 0.30 (0.2-1.0) mg/dL AST 22 (15-37) U/L ALT 18 (12-78) U/L Alkaline Phosphatase 84 (46-116) U/L Serum Total Protein 7.6 (6.4-8.2) gm/dL Albumin 3.0 L (3.4-5.0) g/dL Ur Collection Type VOID Urine Color COLORLESS (YELLOW) Urine Appearance CLEAR (CLEAR) Urine pH 7.0 (5-6) Ur Specific [place] 1.005 (1.005-1.025) Urine Protein TRACE (Negative) Urine Ketones NEGATIVE (NEGATIVE) Urine Blood NEGATIVE (0-5) Keith/ul Urine Nitrite NEGATIVE (NEGATIVE) Urine Bilirubin NEGATIVE (NEGATIVE) Urine Urobilinogen NORMAL (0-1) mg/dL Ur Leukocyte Esterase NEGATIVE (NEGATIVE) Ur Epithelial Cells RARE (FEW) /HPF Urine Bacteria FEW (NEGATIVE) /HPF Urine Glucose NEGATIVE (NEGATIVE) mg/dL Specimen Received 07/13/17 1150 - Progress Progress Note: 07/13/17 12:35 The patient is stable. She was up to [place] with assistance. She has limited help at home but refuses NH or addl help. 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 Scalp has abrasion but no need of repair. Counseled pt/family regarding: lab results, diagnosis, need for follow-up, rad results - Departure Time of Disposition: 12:36 Departure Disposition: Home Clinical Impression: Accidental fall from commode Qualifiers: Encounter type: initial encounter Qualified Code(s): W18.11XA - Fall from or off toilet without subsequent striking against object, initial encounter Head contusion Qualifiers: Encounter type: initial encounter Laterality: right Condition: Stable Critical Care Time: No Referrals: BENNY HUGHES [Primary Care Provider] - Instructions: Contusion, Prevent Falls Additional Instructions: HEAD INJURY 1. A responsible person should observe the patient at home for 24 hours. 2. If any of the following signs or symptoms are observed or occur, call your family physician or return to the emergency department: A. Behavior change B. Persistent vomiting C. Unequal pupils D. Increasing drowsiness E. Difficulty in arousing the patient F. Severe headache G. Lump on head increasing in size
[2017-07-13] MEDS ORDERED: BACIGUENT PACKET ONE (11:31)
[2017-07-13 11:48] LABS: BASOPHIL % 0.3 % (0.0-0.4); Eosinophil % 3.3 % (0.00-5.0); Granulocytes % 50.9 % (36.0-66.0); Lymphocytes % 38.7 % (24.0-44.0); Mean Cell Volume 78.8 fl (78-100); Mean Corpuscular Hemoglobin 24.8 pg (26-32); Monocytes % 6.8 % (0.0-12.0); Platelet Count 215 K/mm3 (150-450); Red Blood Count 5.32 M/mm3 (4.1-5.4); Red Cell Distribution Width 19.8 % (11.5-14.0); White Blood Count 6.7 K/mm3 (4.0-10.5)
[2017-07-13 11:56] LABS: Bilirubin NEGATIVE (NEGATIVE); Blood NEGATIVE Ery/ul (0-5); COMPLETE URINE MICROSCOPIC? YES; Collection Type VOID; Epithelial Cells RARE /HPF (FEW); Glucose NEGATIVE (NEGATIVE); Leukocyte Esterase NEGATIVE (NEGATIVE)
[2017-07-13 11:57] LABS: ADD URINE CULTURE? NO (NO); Bacteria FEW /HPF (NEGATIVE)
[2017-07-13 12:03] LABS: ANION GAP 13.2 MEQ/L (5-15); BILIRUBIN,TOTAL 0.3 mg/dL (0.2-1.0); Carbon Dioxide 28.7 mEq/L (21-32); Potassium 3.7 mEq/L (3.5-5.1); Total Protein 7.6 gm/dL (6.4-8.2)
--- NOTE | 2017-07-13 12:17 | XRAY ---
Indication: Posterior pain following fall. Multiple contiguous axial images obtained through the head without contrast. Comparison: September 16, 2015. New small left posterior scalp hematoma near the vertex. Stable large old right MCA infarct. Again no acute intracranial hemorrhage, hydrocephalus, or mass effect. Osseous structures intact. Visualized paranasal sinuses and mastoid air cells clear. Impression: 1. Left posterior scalp hematoma. No underlying fracture or acute intracranial abnormalities. 2. Stable old right MCA infarct. CT DI 51.98
--- NOTE | 2017-07-13 12:23 | XRAY ---
Indication: Neck pain following fall. Multiple contiguous axial images obtained through the cervical spine. Sagittal and coronal reformatted images obtained. Comparison: September 16, 2015. 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 Again no acute fracture, suspicious bony lesions, or spinal canal stenosis. Sagittal and coronal reformatted images again demonstrate slight straightening of the cervical lordosis, positional versus paraspinal muscular spasm. Stable minimal multilevel degenerative disc space narrowing. No acute compression fracture, subluxation, or jumped facet. Normal-appearing craniocervical junction. Visualized noncontrasted soft tissues again demonstrates moderate scattered carotid calcifications bilaterally. Lung apices clear. CT brain reported separately. Impression: 1. Again negative for acute fracture/subluxation. Stable lordotic straightening, positional versus paraspinal spasm. 2. Stable incidental findings. CT DI 107.56
--- NOTE | 2017-07-13 12:25 | XRAY ---
Indication: Status post fall. Head injury. Comparison: June 12, 2017. Portable apical lordotic chest remains clear. Heart and mediastinal structures stable and within normal limits. Stable bony osteopenia, degenerative changes, and old left humeral fracture. No new/acute findings.
--- NOTE | 2017-07-13 12:26 | XRAY ---
Indication: Pain following fall. Comparison: September 16, 2015. AP pelvis unchanged again demonstrating osteopenia, lower lumbar degenerative changes, and old left proximal femur fracture with hardware. No new or acute findings.
[2017-07-13 12:51] VITALS: O2SAT 97
[2017-07-13 14:01] VITALS: BP 174/84; PULSE 82
== END 2017-07-13 14:01 | disposition home or self-care (01) ==
LOC: ED 11:14
DX: S00.93XA Contusion of unspecified part of head, initial encounter (principal); R51 Headache; M54.2 Cervicalgia; E11.9 Type 2 diabetes mellitus without complications; I10 Essential (primary) hypertension; S00.01XA Abrasion of scalp, initial encounter; W18.11XA Fall from or off toilet without subsequent striking against object, initial encounter; Z79.899 Other long term (current) drug therapy
CPT/HCPCS: 99284; 81000; 36415; 85025; 80053; 71010; 72170; 70450; 72125; P9612; 90471; 90715; 96372; A9270-GY

== ENCOUNTER 2017-12-15 00:57 | Emergency (ER) | payer MEDICARE ==
[2017-12-15] MEDS ORDERED: Zofran 4 MG/2 ML VIAL IV ONE (01:06)
[2017-12-15] MEDS ORDERED: Hydromorphone 1 mg/ml Ampule IV ONE (01:07)
--- NOTE | 2017-12-15 01:10 | ERPHSYRPT ---
- History of Present Illness Time Seen by Provider: 12/15/17 01:00 Historian: patient Exam Limitations: no limitations Patient Subjective Stated Complaint: Left Rib Pain Triage Nursing Assessment: Pt presents to the ED by EMS with complaints of left sided rib pain, beginning yesterday and worse with movemement. Pt vague with complaints but states hx of coughing, pain worse with deep breathing, denies chest pain. Pt is A&O x4, no distress noted, skin PWD. Physician History: 67 y/o female brought in by ambulance for left sided chest pain that started this afternoon. Pt states that the pain has gotten worse. Pt describes the pain as sharp, constant, worse with inspiration, 06/28 and pt has not taken any pain meds. Pt denies any injury to the ribs and has not fallen since July. Pt admits to cough but denies any fever, chills, shortness of breath or wheezing. Timing/Duration: yesterday Activities at Onset: none Quality: sharpness Location: other (left sided chest pain) Chest Pain Radiation: no radiation Severity of Pain-Max: severe Severity of Pain-Current: severe Modifying Factors: Improves With: nothing Associated Symptoms: cough, No shortness of breath Nitro Today/Relief: no nitro taken today Aspirin Treatment Today: no aspirin today Allergies/Adverse Reactions: lisinopril Allergy (Severe, Verified 07/13/17 11:25) Swelling codeine Allergy (Intermediate, Verified 07/13/17 11:25) Nausea and Vomiting allergies validated with patient morphine Allergy (Intermediate, Verified 07/13/17 11:25) Nausea and Vomiting oxycodone [Oxycodone] Allergy (Intermediate, Verified 07/13/17 11:25) Nausea and Vomiting Home Medications: Clopidogrel Bisulfate 75 mg [PLAVIX 75 MG Tablet] 75 mg PO DAILY 08/22/13 [History] Fluoxetine HCl 20 mg [Prozac 20 MG] 20 mg PO DAILY 08/22/13 [History] Furosemide 20 mg [Lasix 20 mg] 20 mg PO DAILY 08/22/13 [History] Insulin Glargine [Lantus Insulin] 15 unit SQ HS 08/22/13 [History] Calcium Carbonate/Vitamin D3 [Calcium 500 + Vit D Caplet] 1 tablet PO BID [History] Loratadine 10 mg PO DAILY 02/18/14 [History] Potassium Chloride 10 Meq Tab* [Klor Con 10 MEQ] 10 meq PO BID 06/23/15 [ History] Fluticasone Propionate [Flonase NASAL] 2 puffs NS DAILY 03/14/16 [History] Hydrocodone Bit/Acetaminophen [Hydrocodon-Acetaminophen 5-325] 5 - 325 tablet PO BID PRN PRN 03/19/17 [History] Linagliptin [Tradjenta] 5 mg PO HS 03/19/17 [History] Metformin HCl 500 mg [Glucophage 500 MG] 500 mg PO BID 03/19/17 [History] Zolpidem Tartrate [Ambien] 5 mg PO HS 03/19/17 [History] Amlodipine Besylate 5 mg [Norvasc 5 mg] 10 mg PO DAILY 06/13/17 [History] Insulin Lispro [Humalog] 4 units SUBDERMAL BREAKFAST 06/13/17 [History] Insulin Lispro [Humalog] 6 units SUBDERMAL EVENING MEAL 06/13/17 [History] Nizatidine [Axid] 150 mg PO Q12H PRN PRN 06/13/17 [History] Hx Tetanus, Diphtheria Vaccination/Date Given: Yes Hx Influenza Vaccination/Date Given: Yes Hx Pneumococcal Vaccination/Date Given: Yes Immunizations Up to Date: Yes - Review of Systems Constitutional: No Fever, No Chills Eyes: No Symptoms Ears, Nose, & Throat: No Symptoms Respiratory: Cough, No Dyspnea Cardiac: Chest Pain, No Edema, No Syncope Abdominal/Gastrointestinal: No Abdominal Pain, No Nausea, No Vomiting, No Diarrhea Genitourinary Symptoms: No Dysuria Musculoskeletal: No Back Pain, No Neck Pain Skin: No Rash Neurological: No Dizziness, No Focal Weakness, No Sensory Changes Psychological: No Symptoms Endocrine: No Symptoms All Other Systems: Reviewed and Negative - Past Medical History Pertinent Past Medical History: Yes Neurological History: Stroke ENT History: Other Cardiac History: Angina, Hypertension Respiratory History: No Pertinent History Endocrine Medical History: Diabetes Type II Musculoskeletal History: Other GI Medical History: Gallbladder Disease History: Other Psycho-Social History: No Pertinent History Female Reproductive Disorders: No Pertinent History Other Medical History: wears glasses, full set of dentures (not at bedside), incontinence, left arm flaccid and contracted, left hand contracture - Past Surgical History Past Surgical History: Yes Neuro Surgical History: No Pertinent History Cardiac: No Pertinent History Respiratory: No Pertinent History Gastrointestinal: Cholecystectomy Genitourinary: No Pertinent History Musculoskeletal: No Pertinent History Female Surgical History: Section Other Surgical History: left shoulder and wrist surg. - LEFT HIP PER FX - Social History Smoking Status: Never smoker Exposure to second hand smoke: No Alcohol Use: None Drug Use: none Patient Lives Alone: No Significant Family History: hypertension - Female History Hx Now: No - Nursing Vital Signs Nursing Vital Signs: Initial Vital Signs Temperature 98.1 F 12/15/17 01:01 Pulse Rate 70 12/15/17 01:01 Respiratory Rate 16 12/15/17 01:01 Blood Pressure 141/73 12/15/17 01:01 O2 Sat by Pulse Oximetry 94 L 12/15/17 01:01 Pain Scale Pain Intensity 3 - Physical Exam General Appearance: mild distress, alert Eye Exam: PERRL/EOMI, eyes nml inspection Ears, Nose, Throat Exam: normal ENT inspection, moist mucous membranes Neck Exam: normal inspection, non-tender, supple, full range of motion Respiratory Exam: normal breath sounds, chest tenderness, lungs clear, No respiratory distress Cardiovascular Exam: regular rate/rhythm, normal heart sounds, normal peripheral pulses, edema Gastrointestinal/Abdomen Exam: soft, No tenderness, No mass Back Exam: normal inspection, No CVA tenderness, No vertebral tenderness Extremity Exam: normal inspection, normal range of motion Neurologic Exam: alert, oriented x 3, cooperative, normal mood/affect, sensation nml, No motor deficits Skin Exam: normal color, warm, dry, ecchymosis SpO2: 94 Oxygen Delivery: Room Air - Course Nursing assessment & vital signs reviewed: Yes EKG Interpreted by Me: RATE (HR 82), NORMAL AXIS, NORMAL INTERVALS, NORMAL QRS Ordered Tests: Active Orders 24 hr Category Date Time Status Structural Steel 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 Care 12/15/17 01:06 Active EKG-ER Only STAT Care 12/15/17 01:06 Active IV Insertion STAT Care 12/15/17 01:06 Active ABDOMEN AND PELVIS W/0 CONTRAS [CT] Stat Exams 12/15/17 03:17 Taken CHEST WITHOUT CONTRAST [CT] Stat Exams 12/15/17 03:17 Taken CBC W DIFF Stat Lab 12/15/17 01:42 Completed CK-Creatinine Phosphokinase Stat Lab 12/15/17 01:42 Completed CMP Stat Lab 12/15/17 01:42 Completed Manual Differential NC Stat Lab 12/15/17 01:42 Completed PROTIME WITH INR Stat Lab 12/15/17 01:42 Completed PTT Stat Lab 12/15/17 01:42 Completed TROPONIN Q3H Lab 12/15/17 01:42 Completed Medication Summary Generic Name Dose Route Start Last Admin Trade Name Cassy PRN Reason Stop Dose Admin Sodium Chloride 1,000 mls @ 999 mls/hr 12/15/17 05:11 Sodium Chloride 0.9% 1000 Ml IV 12/15/17 06:11 .Q1H1M STA Discontinued Medications Generic Name Dose Route Start Last Admin Trade Name Cassy PRN Reason Stop Dose Admin Hydromorphone HCl 1 mg 12/15/17 01:07 12/15/17 01:34 Hydromorphone 1 Mg/Ml Ampule IV 12/15/17 01:08 1 mg STAT ONE Administration Hydromorphone HCl Confirm 12/15/17 01:34 Hydromorphone 1 Mg/Ml Ampule Administered 12/15/17 01:35 Dose 1 mg .ROUTE .STK-MED ONE Ondansetron HCl 4 mg 12/15/17 01:06 12/15/17 01:35 Zofran 4 Mg/2 Ml Vial IV 12/15/17 01:07 4 mg STAT ONE Administration Ondansetron HCl Confirm 12/15/17 01:34 Zofran 4 Mg/2 Ml Vial Administered 12/15/17 01:35 Dose 4 mg .ROUTE .STK-MED ONE Lab/Rad Data: Laboratory Result Diagrams 12/15/17 01:42 12/15/17 01:42 Laboratory Results 12/15/17 12/15/17 12/15/17 Range/Units 01:42 01:42 01:42 WBC (4.0-10.5) K/mm3 RBC (4.1-5.4) M/mm3 Hgb (12.0-16.0) gm/dl Hct (35-47) % MCV (78-100) fl MCH (26-32) pg MCHC (32-36) g/dl RDW (11.5-14.0) % Plt Count (150-450) K/mm3 MPV (6-9.5) fl Segmented Neutrophils (36.0-66.0) % Lymphocytes (Manual) (24-44) % Monocytes (Manual) (0.0-12.0) % Eosinophils (Manual) (0.00-3.0) % Differential Comment Platelet Estimate (NORMAL) INR 1.01 (0.8-3.0) APTT 24.4 L (25.3-37.0) SECONDS Sodium 139 (136-145) mEq/L Potassium 4.2 (3.5-5.1) mEq/L Chloride 103 (98-107) mEq/L Carbon Dioxide 30.3 (21-32) mEq/L Anion Gap 9.6 (5-15) MEQ/L BUN 11 (9-20) mg/dL Creatinine 1.27 (0.55-1.30) mg/dl Estimated GFR 45 ML/MIN Glucose 328 H (70-110) MG/DL Calcium 9.2 (8.5-10.1) mg/dL Total Bilirubin 0.30 (0.2-1.0) mg/dL AST 25 (15-37) U/L ALT 25 (12-78) U/L Alkaline Phosphatase 102 (46-116) U/L Creatine Kinase 33 (26-192) U/L Troponin I < 0.017 (0.000-0.056) ng/ml Serum Total Protein 8.0 (6.4-8.2) gm/dL Albumin 3.3 L (3.4-5.0) g/dL 12/15/17 Range/Units 01:42 WBC 9.3 (4.0-10.5) K/mm3 RBC 5.04 (4.1-5.4) M/mm3 Hgb 15.1 (12.0-16.0) gm/dl Hct 46.8 (35-47) % MCV 92.9 (78-100) fl MCH 30.0 (26-32) pg MCHC 32.3 (32-36) g/dl RDW 13.2 (11.5-14.0) % Plt Count 154 (150-450) K/mm3 MPV 11.5 H (6-9.5) fl Segmented Neutrophils 58 (36.0-66.0) % Lymphocytes (Manual) 35 (24-44) % Monocytes (Manual) 6 (0.0-12.0) % Eosinophils (Manual) 1 (0.00-3.0) % Differential Comment NORMAL Platelet Estimate DECREASED (NORMAL) INR (0.8-3.0) APTT (25.3-37.0) SECONDS Sodium (136-145) mEq/L Potassium (3.5-5.1) mEq/L Chloride (98-107) mEq/L Carbon Dioxide (21-32) mEq/L Anion Gap (5-15) MEQ/L BUN (9-20) mg/dL Creatinine (0.55-1.30) mg/dl Estimated GFR ML/MIN Glucose (70-110) MG/DL Calcium (8.5-10.1) mg/dL Total Bilirubin (0.2-1.0) mg/dL AST (15-37) U/L ALT (12-78) U/L Alkaline Phosphatase (46-116) U/L Creatine Kinase (26-192) U/L Troponin I (0.000-0.056) ng/ml Serum Total Protein (6.4-8.2) gm/dL Albumin (3.4-5.0) g/dL - Progress Progress: improved Progress Note: 12/15/17 05:[address] chest shows features of bronchitis. The CT abd/pelvis does not show any acute findings. The rest of the labs are within normal limits, except for glucose of 328. Pt will be given a liter of fluids and will be d/c home. Pt will be treated with azithromycin for 5 days for bronchitis. - Departure Time of Disposition: 05:15 Departure Disposition: Home Clinical Impression: Bronchitis, Hyperglycemia Condition: Stable Critical Care Time: No Instructions: Acute Bronchitis, Adult (DC), Hyperglycemia, Adult (DC) Additional Instructions: Follow up with your primary care doctor for elevated blood glucose and finish the antibiotics until completion. Prescriptions: Azithromycin 250 mg [Zithromax 250 MG TABLET] 250 mg PO DAILY #4 tablet
[2017-12-15] MEDS ORDERED: Zofran 4 MG/2 ML VIAL ONE (01:34)
[2017-12-15] MEDS ORDERED: Hydromorphone 1 mg/ml Ampule ONE (01:34)
[2017-12-15 02:30] LABS: Granulocyte Absolute (ANC) 5.21 (1.4-6.9); Hematocrit 46.8 % (35-47); Hemoglobin 15.1 gm/dl (12.0-16.0); Mean Cell Volume 92.9 fl (78-100); Mean Corpuscular Hgb Concent. 32.3 g/dl (32-36); Mean Platelet Volume 11.5 fl (6-9.5); Platelet Count 154 K/mm3 (150-450); Red Blood Count 5.04 M/mm3 (4.1-5.4); Red Cell Distribution Width 13.2 % (11.5-14.0); White Blood Count 9.3 K/mm3 (4.0-10.5)
[2017-12-15 02:39] LABS: INR 1.01 (0.8-3.0)
[2017-12-15 02:41] LABS: PTT 24.4 SECONDS (25.3-37.0)
[2017-12-15 02:48] LABS: ALBUMIN 3.3 g/dL (3.4-5.0); ANION GAP 9.6 MEQ/L (5-15); BILIRUBIN,TOTAL 0.3 mg/dL (0.2-1.0); Calcium 9.2 mg/dL (8.5-10.1); Carbon Dioxide 30.3 mEq/L (21-32); Creatinine 1 1.27 mg/dl (0.55-1.30); Potassium 4.2 mEq/L (3.5-5.1)
[2017-12-15 05:04] LABS: Eosinophil 1 % (0.00-3.0); Lymphocytes 35 % (24-44); Monocyte 6 % (0.0-12.0); Neutrophils 58 % (36.0-66.0); Total Cells Counted 100
[2017-12-15 05:05] LABS: Platelet Estimate DECREASED (NORMAL)
[2017-12-15] MEDS ORDERED: Sodium Chloride 0.9% 1000 ML 1,000 ML IV STA (05:11)
[2017-12-15] MEDS ORDERED: Zithromax 250 MG TABLET PO ONE (05:12)
[2017-12-15 05:17] VITALS: O2SAT 94
[2017-12-15] MEDS ORDERED: Zithromax 250 MG TABLET ONE (05:32)
[2017-12-15] MEDS ORDERED: Sodium Chloride 0.9% 1000 ML 1,000 ML ONE (05:33)
[2017-12-15 08:44] VITALS: BP 124/76; PULSE 92
--- NOTE | 2017-12-15 10:23 | XRAY ---
Indication: Left-sided chest pain. Cough and short of breath. Multiple contiguous axial images obtained through the chest without contrast as ordered. Comparison: February 27, 2008. Lungs are underinflated again with bilateral dependent atelectasis. New bibasilar patchy/streaky atelectasis versus infiltrates. Tiny right middle lobe and left base calcified granulomas. No suspicious pulmonary mass, infiltrate, or effusion. Heart is not enlarged. Aorta is mildly arteriosclerotic without aneurysmal dilatation. No pathologic mediastinal lymphadenopathy. Osseous structures demonstrates new finding for old left humeral fracture with intact orthopedic hardware. Stable old left rib fractures and flowing osteophytes throughout the spine. CT abdomen reported separately. Impression: Underinflated lungs with bibasilar infiltrates versus atelectasis. Correlate clinically. Comment: Preliminary interpretation was made by [facility]. No critical discrepancy. CTDI 21.10
--- NOTE | 2017-12-15 10:29 | XRAY ---
Indication: Left upper quadrant abdominal pain 2 days. Multiple contiguous axial images obtained through the abdomen and pelvis without contrast as ordered. Comparison: June 02, 2017. CT chest reported separately. Noncontrasted stomach and bowel loops appear nonobstructed. Normal appendix. Again sigmoid diverticulosis without diverticulitis. Again previous cholecystectomy and hysterectomy. No free fluid/air. Remaining liver, pancreas, spleen, adrenal glands, kidneys, ureters, and bladder appear unremarkable for noncontrast exam. Stable mild aortoiliac calcifications without AAA. Osseous structures intact again with degenerative changes throughout the spine and old left proximal femur fracture with intact orthopedic hardware. Stable small fatty umbilical hernia. Impression: 1. Stable colonic diverticulosis without diverticulitis. 2. Stable small fatty umbilical hernia. 3. No new or acute intra-abdominal/pelvic abnormalities on this noncontrast exam. Comment: Preliminary interpretation was made by C. No discrepancy. CTDI 28.13
== END 2017-12-15 08:44 | disposition home or self-care (01) ==
LOC: ED 00:57
DX: J40 Bronchitis, not specified as acute or chronic (principal); E11.65 Type 2 diabetes mellitus with hyperglycemia; Z79.4 Long term (current) use of insulin; I10 Essential (primary) hypertension; R07.81 Pleurodynia; R07.9 Chest pain, unspecified; Z79.899 Other long term (current) drug therapy; Z86.73 Personal history of transient ischemic attack (TIA), and cerebral infarction without residual deficits
CPT/HCPCS: 36000; 36415; 71250; 74176; 80053; 82550; 84484; 85025; 85610; 85730; 93005; 93041; 96360; 96374; 96375; 99284; J1170; J2405; A9270-GY

== ENCOUNTER 2018-08-26 14:52 | Emergency (ER) | payer MEDICARE ==
--- NOTE | 2018-08-26 15:05 | ERPHSYRPT ---
- History of Present Illness Time Seen by Provider: 08/26/18 14:59 Source: patient, EMS Exam Limitations: no limitations Physician History: The patient is a 68-year-old female brought in by ambulance from home with a home health nurse checked on her today, calling her physician who then requested her to be seen because the patient fell Sunday and again on Sunday. The patient complains of left knee pain. Patient did not hit her head. Her past medical history is significant for numerous recent falls, stroke, diabetes , congestive heart failure, hypertension, and asthma. Occurred: days ago (3) Reason for Fall: lost balance, fell from standing pos Injuries/Pain Location: lower extremity (left knee) Loss of Consciousness: no loss of consciousness Quality: aching Severity of Pain-Max: moderate Severity of Pain-Current: moderate Modifying Factors: Improves With: nothing Associated Symptoms (Fall): trouble walking Allergies/Adverse Reactions: lisinopril Allergy (Severe, Verified 08/26/18 15:00) Swelling codeine Allergy (Intermediate, Verified 08/26/18 15:00) Nausea and Vomiting allergies validated with patient morphine Allergy (Intermediate, Verified 08/26/18 15:00) Nausea and Vomiting oxycodone [Oxycodone] Allergy (Intermediate, Verified 08/26/18 15:00) Nausea and Vomiting Home Medications: Clopidogrel Bisulfate 75 mg [PLAVIX 75 MG Tablet] 75 mg PO DAILY 08/22/13 [History] Fluoxetine HCl 20 mg [Prozac 20 MG] 20 mg PO DAILY 08/22/13 [History] Furosemide 20 mg [Lasix 20 mg] 20 mg PO DAILY 08/22/13 [History] Insulin Glargine [Lantus Insulin] 15 unit SQ HS 08/22/13 [History] Calcium Carbonate/Vitamin D3 [Calcium 500 + Vit D Caplet] 1 tablet PO BID [History] Loratadine 10 mg PO DAILY 02/18/14 [History] Potassium Chloride 10 Meq Tab* [Klor Con 10 MEQ] 10 meq PO BID 06/23/15 [ History] Fluticasone Propionate [Flonase NASAL] 2 puffs NS DAILY 03/14/16 [History] Hydrocodone Bit/Acetaminophen [Hydrocodon-Acetaminophen 5-325] 5 - 325 tablet PO BID PRN PRN 03/19/17 [History] Linagliptin [Tradjenta] 5 mg PO HS 03/19/17 [History] Metformin HCl 500 mg [Glucophage 500 MG] 500 mg PO BID 03/19/17 [History] Zolpidem Tartrate [Ambien] 5 mg PO HS 03/19/17 [History] Amlodipine Besylate 5 mg [Norvasc 5 mg] 10 mg PO DAILY 06/13/17 [History] Insulin Lispro [Humalog] 4 units SUBDERMAL BREAKFAST 06/13/17 [History] Insulin Lispro [Humalog] 6 units SUBDERMAL EVENING MEAL 06/13/17 [History] Nizatidine [Axid] 150 mg PO Q12H PRN PRN 06/13/17 [History] Hx Tetanus, Diphtheria Vaccination/Date Given: Yes Hx Influenza Vaccination/Date Given: Yes Hx Pneumococcal Vaccination/Date Given: Yes - Review of Systems Constitutional: No Fever, No Chills Eyes: No Symptoms Ears, Nose, & Throat: No Symptoms Respiratory: No Cough, No Dyspnea Cardiac: No Chest Pain, No Edema, No Syncope Abdominal/Gastrointestinal: No Abdominal Pain, No Nausea, No Vomiting, No Diarrhea Genitourinary Symptoms: No Dysuria Musculoskeletal: Fall, Injury, Joint Pain, Joint Swelling Skin: No Rash Neurological: No Dizziness, No Focal Weakness, No Sensory Changes Psychological: No Symptoms Endocrine: No Symptoms Hematologic/Lymphatic: No Symptoms Immunological/Allergic: No Symptoms All Other Systems: Reviewed and Negative - Past Medical History Pertinent Past Medical History: Yes Neurological History: Stroke ENT History: Other Cardiac History: Angina, Hypertension Respiratory History: No Pertinent History Endocrine Medical History: Diabetes Type II Musculoskeletal History: Other GI Medical History: Gallbladder Disease History: Other Psycho-Social History: No Pertinent History Female Reproductive Disorders: No Pertinent History Other Medical History: wears glasses, full set of dentures (not at bedside), incontinence, left arm flaccid and contracted, left hand contracture - Past Surgical History Past Surgical History: Yes Neuro Surgical History: No Pertinent History Cardiac: No Pertinent History Respiratory: No Pertinent History Gastrointestinal: Cholecystectomy Genitourinary: No Pertinent History Musculoskeletal: No Pertinent History Female Surgical History: Section Other Surgical History: left shoulder and wrist surg. - LEFT HIP PER FX - Social History Smoking Status: Never smoker Exposure to second hand smoke: No Alcohol Use: None Drug Use: none Patient Lives Alone: No Significant Family History: hypertension - Nursing Vital Signs Nursing Vital Signs: Initial Vital Signs Temperature 97.0 F 08/26/18 14:53 Pulse Rate 73 08/26/18 14:53 Respiratory Rate 16 08/26/18 14:53 Blood Pressure 165/84 08/26/18 14:53 O2 Sat by Pulse Oximetry 95 08/26/18 14:53 Pain Scale Pain Intensity 4 - Arnoldo Coma Score Best Eye Response ([place]): (4) open spontaneously Best Verbal Response ([place]): (5) oriented Best Motor Response (Arnoldo): (6) obeys commands [place] Total: 15 - Physical Exam General Appearance: no apparent distress, alert Head Injury: no evidence of injury Eye Exam: PERRL/EOMI ENT Exam: airway nml Neck Exam: normal inspection, No tenderness Respiratory/Chest Exam: normal breath sounds, No chest tenderness, No respiratory distress Cardiovascular Exam: normal heart sounds, regular rate/rhythm Gastrointestinal Exam: soft, No tenderness, No distention, No guarding, No ecchymosis Rectal Exam: not done Back Exam: normal inspection, No vertebral tenderness Extremity Exam: limited range of motion, pain with movement, swelling, tenderness, other (The patient has moderate swelling to the left knee and a small abrasion with redness to the left knee. She has pain with movement of her left knee. She also has pain to palpation of her left hip. She is able to walk but complains of pain.) Neurologic Exam: alert, oriented x 3, cooperative, sensation nml, No motor deficits Skin Exam: abrasion SpO2 Interpretation: normal Oxygen Delivery: Room Air - Course EKG Interpreted by Me: RATE, Sinus Rhythm, NORMAL AXIS, NORMAL INTERVALS, NORMAL QRS, NORMAL ST-T - Radiology Exams Left Hip X-ray Interpretation: Reviewed by me, Teleradiologist Report (per Dr Bobo), Negative, No Fracture Pelvis X-ray Interpretation: Reviewed by me, Teleradiologist Report (per Dr Bobo), Negative, No Fracture Left Knee X-ray Interpretation: Reviewed by me, Teleradiologist Report (per Dr Bobo), Negative, No Fracture - CT Exams Head CT Interpretation: Tele-radiologist Report (pler Dr Bobo), No/Intracranial Hemorrhag, Old Stroke Cervical Spine CT Interpretation: Tele-radiologist Report (Per Dr Bobo), No Fracture, No Subluxation Ordered Tests: Active Orders 24 hr Category Date Time Status Cold Application STAT Care 08/26/18 15:07 Active EKG-ER Only STAT Care 08/26/18 15:08 Active IV Insertion STAT Care 08/26/18 15:08 Active CERVICAL SPINE WO CONTRAST [CT] Stat Exams 08/26/18 15:08 Completed HEAD WITHOUT CONTRAST [CT] Stat Exams 08/26/18 15:08 Completed HIP UNI (2V) INCL PEL IF DONE Stat Exams 08/26/18 15:07 Completed KNEE (3 VIEWS) Stat Exams 08/26/18 15:07 Completed CBC W DIFF Stat Lab 08/26/18 16:29 Completed CMP Stat Lab 08/26/18 16:29 Completed CULTURE,URINE Stat Lab 08/26/18 15:40 Received TROPONIN Q3H Lab 08/26/18 16:29 Received TROPONIN Q3H Lab 08/26/18 18:15 Ordered TROPONIN Q3H Lab 08/26/18 21:15 Ordered TROPONIN Q3H Lab 08/27/18 00:15 Ordered TROPONIN Q3H Lab 08/27/18 03:15 Ordered UA W/RFX UR CULTURE Stat Lab 08/26/18 15:40 Completed Lab/Rad Data: Laboratory Result Diagrams 08/26/18 16:29 08/26/18 16:29 Laboratory Results 08/26/18 08/26/18 08/26/18 Range/Units 16:29 16:29 15:40 WBC 8.2 (4.0-10.5) K/mm3 RBC 5.41 H (4.1-5.4) M/mm3 Hgb 16.7 H (12.0-16.0) gm/dl Hct 48.6 H (35-47) % MCV 89.8 (78-100) fl MCH 30.8 (26-32) pg MCHC 34.4 (32-36) g/dl RDW 13.1 (11.5-14.0) % Plt Count 134 L (150-450) K/mm3 MPV 11.9 H (6-9.5) fl Gran % 58.3 (36.0-66.0) % Eos # (Auto) 0.11 (0-0.5) Absolute Lymphs (auto) 2.75 (1.0-4.6) Absolute Monos (auto) 0.53 (0.0-1.3) Lymphocytes % 33.7 (24.0-44.0) % Monocytes % 6.5 (0.0-12.0) % Eosinophils % 1.3 (0.00-5.0) % Basophils % 0.2 (0.0-0.4) % Absolute Granulocytes 4.75 (1.4-6.9) Basophils # 0.02 (0-0.4) Sodium 140 (137-145) mmol/L Potassium 4.4 (3.5-5.1) mmol/L Chloride 102 (98-107) mmol/L Carbon Dioxide 29 (22-30) mmol/L Anion Gap 12.9 (5-15) MEQ/L BUN 15 (7-17) mg/dL Creatinine 0.92 (0.52-1.04) mg/dL Estimated GFR > 60.0 ML/MIN Glucose 189 H (74-106) mg/dL Calcium 9.7 (8.4-10.2) mg/dL Total Bilirubin 0.70 (0.2-1.3) mg/dL AST 29 (14-36) U/L ALT 23 (0-35) U/L Alkaline Phosphatase 111 (38-126) U/L Serum Total Protein 7.7 (6.3-8.2) g/dL Albumin 3.9 (3.5-5.0) g/dL Urine Color YELLOW (YELLOW) Urine Appearance SLIGHTLY CLOUDY (CLEAR) Urine pH 8.0 (5-6) Ur Specific [place] 1.016 (1.005-1.025) Urine Protein 100 (Negative) Urine Ketones NEGATIVE (NEGATIVE) Urine Blood SMALL (0-5) Keith/ul Urine Nitrite NEGATIVE (NEGATIVE) Urine Bilirubin NEGATIVE (NEGATIVE) Urine Urobilinogen 2 (0-1) mg/dL Ur Leukocyte Esterase MODERATE (NEGATIVE) Urine WBC (Auto) >100 (0-5) /HPF Urine RBC (Auto) 0-2 (0-2) /HPF U Epithel Cells (Auto) RARE (FEW) /HPF Urine Bacteria (Auto) FEW (NEGATIVE) /HPF Unidentified Crystals 2-5 (NEGATIVE) /HPF Urine Mucus (Auto) SLIGHT (NEGATIVE) /HPF Urine Culture Reflexed YES (NO) Urine Glucose 100 (NEGATIVE) mg/dL - Progress Progress: improved Counseled pt/family regarding: lab results, diagnosis, need for follow-up, rad results - Departure Time of Disposition: 17:17 Departure Disposition: Home Clinical Impression: Fall, UTI (urinary tract infection), Contusion of left knee Condition: Stable Critical Care Time: No Referrals: BENNY HUGHES [Primary Care Provider] - Additional Instructions: You had a fall resulting in a contusion to your left knee. You also have a UTI. Take Keflex 500 mg 4 times a day for 7 days. Stay well hydrated. Follow- up with your primary medical doctor in a couple of days. Prescriptions: Cephalexin Mh 500 mg [Keflex 500 mg] 1 cap PO QID #28 capsule
--- NOTE | 2018-08-26 16:16 | XRAY ---
Indication: Pain following fall. Multiple contiguous axial images obtained through the cervical spine. Sagittal and coronal reformatted images obtained. Comparison: July 13, 2017. Axial images again demonstrates nonunited posterior arch of C1, normal variant. No acute fracture, suspicious bony lesions, or spinal canal stenosis. Sagittal and coronal reformatted images demonstrates normal alignment with vertebral body heights and disc spaces maintained. No acute compression fracture, subluxation, or jumped facet. Normal-appearing craniocervical junction. Visualized noncontrasted soft tissues again demonstrates mild scattered carotid calcifications left greater than right. Lung apices clear. CT head reported separately. Impression: Again negative acute fracture/subluxation. CTDI 58.14
--- NOTE | 2018-08-26 16:16 | XRAY ---
Indication: Status post fall. Multiple contiguous axial images obtained through the head without contrast. Comparison: July 13, 2017. Stable large old right MCA infarct. Again no acute intracranial hemorrhage, hydrocephalus, or mass effect. Fourth ventricle is midline. Bony calvarium intact. Visualized paranasal sinuses and mastoid air cells are clear. Impression: Stable large old right MCA infarct. No new or acute intracranial abnormalities. CTDI 51.27
--- NOTE | 2018-08-26 16:21 | XRAY ---
Indication: Pain following fall. Comparison: None 3 views of the left knee demonstrates osteopenia, advanced tricompartmental degenerative changes, mild scattered vascular calcifications, and partially visualized distal femur intramedullary miranda/screw. No other bony, articular, or soft tissue abnormalities.
--- NOTE | 2018-08-26 16:24 | XRAY ---
Indication: Pain following fall. Comparison: Pelvis exam July 13, 2017. AP pelvis and 2 views of the left hip again demonstrates osteopenia, moderate/advanced lower lumbar degenerative spondylosis, and old proximal left femur fracture with intact orthopedic hardware and surrounding heterotopic ossifications. No new/acute findings.
[2018-08-26 16:31] LABS: BASOPHIL % 0.2 % (0.0-0.4); Basophil (Absolute #) 0.02 (0-0.4); Eosinophil % 1.3 % (0.00-5.0); Eosinophil (Absolute #) 0.11 (0-0.5); Granulocyte Absolute (ANC) 4.75 (1.4-6.9); Granulocytes % 58.3 % (36.0-66.0); Hematocrit 48.6 % (35-47); Hemoglobin 16.7 gm/dl (12.0-16.0); Lymphocyte (Absolute #) 2.75 (1.0-4.6); Lymphocytes % 33.7 % (24.0-44.0); Mean Cell Volume 89.8 fl (78-100); Mean Corpuscular Hgb Concent. 34.4 g/dl (32-36); Mean Platelet Volume 11.9 fl (6-9.5); Monocyte (Absolute #) 0.53 (0.0-1.3); Monocytes % 6.5 % (0.0-12.0); Platelet Count 134 K/mm3 (150-450); Red Blood Count 5.41 M/mm3 (4.1-5.4); Red Cell Distribution Width 13.1 % (11.5-14.0); White Blood Count 8.2 K/mm3 (4.0-10.5)
[2018-08-26 16:36] LABS: Appearance SLIGHTLY CLOUDY (CLEAR); Bilirubin NEGATIVE (NEGATIVE); Blood SMALL Ery/ul (0-5); Ketones NEGATIVE (NEGATIVE); Leukocyte Esterase MODERATE (NEGATIVE); Nitrite NEGATIVE (NEGATIVE); Protein,Urine Dip 100 (Negative); Specific Gravity 1.016 (1.005-1.025); Urobilinogen 2 mg/dL (0-1)
[2018-08-26 16:38] LABS: Glucose 100 mg/dL (NEGATIVE)
[2018-08-26 16:39] LABS: Mean Corpuscular Hemoglobin 30.8 pg (26-32)
[2018-08-26 16:56] LABS: ALBUMIN 3.9 g/dL (3.5-5.0); ALKALINE PHOSPHATASE 111 U/L (38-126); ANION GAP 12.9 MEQ/L (5-15); BLOOD UREA NITROGEN 15 mg/dL (7-17); CHLORIDE 102 mmol/L (98-107); Calcium 9.7 mg/dL (8.4-10.2); Carbon Dioxide 29 mmol/L (22-30); Creatinine 1 0.92 mg/dL (0.52-1.04); Glucose 189 mg/dL (74-106); Potassium 4.4 mmol/L (3.5-5.1); SGOT/AST 29 U/L (14-36); SGPT/ALT 23 U/L (0-35); SODIUM 140 mmol/L (137-145); Total Protein 7.7 g/dL (6.3-8.2)
[2018-08-26 17:46] VITALS: BP 180/85; PULSE 88; O2SAT 98
== END 2018-08-26 17:46 | disposition home or self-care (01) ==
LOC: ED 14:52
DX: S80.02XA Contusion of left knee, initial encounter (principal); W18.39XA Other fall on same level, initial encounter; Z91.81 History of falling; Y93.89 Activity, other specified; Y92.9 Unspecified place or not applicable; M25.562 Pain in left knee; E11.9 Type 2 diabetes mellitus without complications; Z79.4 Long term (current) use of insulin; I10 Essential (primary) hypertension; I50.9 Heart failure, unspecified; J45.909 Unspecified asthma, uncomplicated; Z86.73 Personal history of transient ischemic attack (TIA), and cerebral infarction without residual deficits
CPT/HCPCS: 36000; 36415; 70450; 72125; 73502; 73562; 80053; 81001; 84484; 85025; 87077; 87086; 87186; 93005; 99284

== ENCOUNTER 2019-11-20 14:20 | Emergency (ER) | payer MEDICARE ==
[2019-11-20] MEDS ORDERED: TORAdol 30 mg Injection IM ONE (15:14)
[2019-11-20] MEDS ORDERED: TORAdol 30 mg Injection ONE (15:17)
--- NOTE | 2019-11-20 16:26 | XRAY ---
Indication: Heel pain. Comparison: February 26, 2013. 3 nonweightbearing views of the left foot unchanged again demonstrating osteopenia, small heel spurs, and diffuse soft tissue swelling. No new/acute findings.
--- NOTE | 2019-11-20 17:10 | ERPHSYRPT ---
- History of Present Illness Time Seen by Provider: 11/20/19 15:40 Source: patient, EMS Exam Limitations: no limitations Patient Subjective Stated Complaint: Pt states"I am having left foot pain. I was seen at [facility] on [address] and they think it is plantar fascitis. All I know is sometimes it hurts and sometimes it does not. It cramps on me." Triage Nursing Assessment: Ptpresented alert and oriented X 3, skin pwd Pt able to stand with assistance, able to speakin clear full sentences PT left foot slightly swollen, dry. Physician History: Patient has posterior left heel pain. Patient was brought in by EMS due to the pain. Patient was seen at an outside hospital and diagnosed with plantar fasciitis, but she denies pain on the sole of her foot today. Method of Injury: unknown Occurred: last week Quality: intermittent, stabbing Severity of Pain-Max: severe Severity of Pain-Current: moderate Lower Extremities Pain: heel: left (posterior aspect only) Modifying Factors: Improves With: rest. Worsens With: movement Associated Symptoms: No unable to bear weight, No fainted, No snapping sensation , No popping sensation Allergies/Adverse Reactions: lisinopril Allergy (Severe, Verified 08/26/18 15:00) Swelling codeine Allergy (Intermediate, Verified 08/26/18 15:00) Nausea and Vomiting allergies validated with patient morphine Allergy (Intermediate, Verified 08/26/18 15:00) Nausea and Vomiting oxycodone [Oxycodone] Allergy (Intermediate, Verified 08/26/18 15:00) Nausea and Vomiting Home Medications: Clopidogrel Bisulfate 75 mg [PLAVIX 75 MG Tablet] 75 mg PO DAILY 08/22/13 [History] Fluoxetine HCl 20 mg [Prozac 20 MG] 20 mg PO DAILY 08/22/13 [History] Furosemide 20 mg [Lasix 20 mg] 20 mg PO DAILY 08/22/13 [History] Insulin Glargine [Lantus Insulin] 15 unit SQ HS 08/22/13 [History] Calcium Carbonate/Vitamin D3 [Calcium 500 + Vit D Caplet] 1 tablet PO BID [History] Loratadine 10 mg PO DAILY 02/18/14 [History] Potassium Chloride 10 Meq Tab* [Klor Con 10 MEQ] 10 meq PO BID 06/23/15 [ History] Fluticasone Propionate [Flonase NASAL] 2 puffs NS DAILY 03/14/16 [History] Hydrocodone Bit/Acetaminophen [Hydrocodon-Acetaminophen 5-325] 5 - 325 tablet PO BID PRN PRN 03/19/17 [History] Linagliptin [Tradjenta] 5 mg PO HS 03/19/17 [History] Metformin HCl 500 mg [Glucophage 500 MG] 500 mg PO BID 03/19/17 [History] Zolpidem Tartrate [Ambien] 5 mg PO HS 03/19/17 [History] Amlodipine Besylate 5 mg [Norvasc 5 mg] 10 mg PO DAILY 06/13/17 [History] Insulin Lispro [Humalog] 4 units SUBDERMAL BREAKFAST 06/13/17 [History] Insulin Lispro [Humalog] 6 units SUBDERMAL EVENING MEAL 06/13/17 [History] Nizatidine [Axid] 150 mg PO Q12H PRN PRN 06/13/17 [History] Hx Tetanus, Diphtheria Vaccination/Date Given: Yes Hx Influenza Vaccination/Date Given: Yes Hx Pneumococcal Vaccination/Date Given: No Immunizations Up to Date: Yes - Review of Systems Constitutional: No Fever, No Chills Eyes: No Symptoms Ears, Nose, & Throat: No Symptoms Respiratory: No Cough, No Dyspnea Cardiac: No Chest Pain, No Edema, No Syncope Abdominal/Gastrointestinal: No Abdominal Pain, No Nausea, No Vomiting, No Diarrhea Genitourinary Symptoms: No Dysuria, No Hematuria Musculoskeletal: No Back Pain, No Neck Pain, No Fall Skin: No Pruritis, No Rash Neurological: No Dizziness, No Focal Weakness, No Headache, No Sensory Changes Psychological: No Anxiety Endocrine: No Excessive Sweating All Other Systems: Reviewed and Negative - Past Medical History Pertinent Past Medical History: Yes Neurological History: Stroke ENT History: Other Cardiac History: Angina, Hypertension Respiratory History: No Pertinent History Endocrine Medical History: Diabetes Type II Musculoskeletal History: Other GI Medical History: Gallbladder Disease History: Other Psycho-Social History: No Pertinent History Female Reproductive Disorders: No Pertinent History Other Medical History: wears glasses, full set of dentures (not at bedside), incontinence, left arm flaccid and contracted, left hand contracture - Past Surgical History Past Surgical History: Yes Neuro Surgical History: No Pertinent History Cardiac: No Pertinent History Respiratory: No Pertinent History Gastrointestinal: Cholecystectomy Genitourinary: No Pertinent History Musculoskeletal: No Pertinent History Female Surgical History: Section Other Surgical History: left shoulder and wrist surg. - LEFT HIP PER FX - Social History Smoking Status: Former smoker Exposure to second hand smoke: Yes Alcohol Use: None Drug Use: none Patient Lives Alone: Yes Significant Family History: hypertension - Female History Hx Now: No - Nursing Vital Signs Nursing Vital Signs: Initial Vital Signs Temperature 98.7 F 11/20/19 14:30 Pulse Rate 72 11/20/19 14:30 Respiratory Rate 18 11/20/19 14:30 Blood Pressure 172/85 11/20/19 14:30 O2 Sat by Pulse Oximetry 94 L 11/20/19 14:30 Pain Scale Pain Intensity 5 - Physical Exam General Appearance: no apparent distress, alert Eyes, Ears, Nose, Throat Exam: moist mucous membranes Neck Exam: non-tender, supple Cardiovascular/Respiratory Exam: chest non-tender, normal breath sounds, regular rate/rhythm, no respiratory distress Gastrointestinal/Abdominal Exam: non-tender, soft, guarding, No tenderness Back Exam: normal inspection, No CVA tenderness, No vertebral tenderness Hips Exam: bilateral: non-tender, normal inspection, normal range of motion Legs Exam: bilateral leg: non-tender, normal inspection, normal range of motion Knees Exam: bilateral knee: non-tender, normal inspection, normal range of motion Ankle Exam: bilateral ankle: non-tender, normal inspection, normal range of motion Foot Exam: right foot: non-tender, left foot: bone tenderness (posterior aspect only), bilateral foot: normal inspection, normal range of motion, no evidence of injury Neuro/Tendon Exam: normal sensation, normal motor functions Mental Status Exam: alert, oriented x 3, cooperative Skin Exam: normal color, warm, dry, No abrasion, No laceration SpO2 Interpretation: normal SpO2: 97 O2 Delivery: Room Air - Course Nursing assessment & vital signs reviewed: Yes - Radiology Exams Left Foot X-ray Interpretation: Other (per radiologist interpretation: In comparison to 08/2013: Left foot on change again demonstrating osteopenia, small heel spurs, and diffuse soft tissue swelling. No new/acute findings.) Ordered Tests: Active Orders 24 hr Category Date Time Status FOOT (MINIMUM 3 VIEWS) Stat Exams 11/20/19 16:07 Completed Medication Summary Discontinued Medications Generic Name Dose Route Start Last Admin Trade Name Cassy PRTrish Reason Stop Dose Admin Ketorolac Tromethamine 30 mg 11/20/19 15:14 11/20/19 15:18 Toradol 30 Mg Injection IM 11/20/19 15:15 30 mg STAT ONE Administration Ketorolac Tromethamine Confirm 11/20/19 15:17 Toradol 30 Mg Injection Administered 11/20/19 15:18 Dose 30 mg .ROUTE [employer] - Progress Progress: improved Progress Note: 11/20/19 17:18 ppatient sleeping comfortably and denying any pain. Patient aroused and notified of her x-ray results shown a small heel spurs which is probably exacerbating her pain in the posterior left foot. Counseled pt/family regarding: diagnosis, need for follow-up, rad results - Departure Departure Disposition: Home Clinical Impression: Heel spur, Essential hypertension Heel pain Qualifiers: Laterality: left Qualified Code(s): M79.672 - Pain in left foot Condition: Good Critical Care Time: No Referrals: TRU VILLAFUERTE MD [Primary Care Provider] - Instructions: High Blood Pressure (DC), Heel Pain (Caused by Plantar Fasciitis ) (DC), Heel Spurs (DC) Additional Instructions: Discharge/Care Plan CHITO BOATENG was seen on 11/20/19 in the Emergency Room. The patient was counseled regarding Diagnosis,Imaging studies, need for follow up and when to return to the Emergency Room. Prescriptions given: Mobic 7.5mg PO once daily as needed for pain Discharge Note I have spoken with the patient. I have explained the patient's condition, diagnosis and treatment plan based on the information available to me at this time. I have answered the patient's questions and addressed any concerns. The patient and/or caregivers have as good understanding of the patient's diagnosis , condition and treatment plan as can be expected at this point. The vital signs have been stable. The patient's condition is stable and appropriate for discharge from the emergency department. The patient will pursue further outpatient evaluation with the primary care physician or other designated or consulting physician as outlined in the discharge instructions. The patient is agreeable to this plan of care and follow -up instructions have been explained in detail. The patient has received these instruction. The patient is aware that any significant change in condition or worsening of symptoms should prompt an immediate return to this or the closest emergency department or call 911. Prescriptions: Meloxicam 7.5 mg [Mobic 7.5 MG] 7.5 mg PO DAILY PRN #14 tablet PRN Reason: Pain
[2019-11-20 19:21] VITALS: BP 169/79; PULSE 63; O2SAT 94
== END 2019-11-20 20:04 | disposition home or self-care (01) ==
LOC: ED 14:20
DX: M77.32 Calcaneal spur, left foot (principal); M72.2 Plantar fascial fibromatosis; I10 Essential (primary) hypertension; M79.672 Pain in left foot; E11.9 Type 2 diabetes mellitus without complications; Z79.4 Long term (current) use of insulin; Z79.899 Other long term (current) drug therapy
CPT/HCPCS: 73630; 96372; 99284; J1885

== ENCOUNTER 2020-06-17 12:42 | Observation (INO) | payer MEDICARE ==
--- NOTE | 2020-06-17 13:03 | ERPHSYRPT ---
- History of Present Illness Time Seen by Provider: 06/17/20 12:50 Patient Subjective Stated Complaint: Pt had went to [facility] this AM due to severe left foot pain, pt was given IM Morphine 6mg and sent home, pt was found lethargic and EMS was called, Narcan 1 mg was given and pt responded but went unresponsive again and was given another mg of Narcan and the pt responded Triage Nursing Assessment: Pt brought to the ER by EMS, pt answering questions, vitals wnl, denies pain at this time, left left and foot swollen and darkened in color, pt unable to walk at this time but does usually ambulate with a walker, pulses normal, pt on 4L at this time but does not wear oxygen at home, EMS found pt to be at 80% upon arrival and is now at 97% Physician History: Patient is a 69-year-old female presents to our ED for evaluation of altered mental status. Patient states she has been experiencing pain at her left foot for the past day. Patient went to [facility] where she received 6 mg morphine IM. Patient also received an x-ray. We are in the process of obtaining the imaging studies performed from [facility]. Upon arrival to her home patient's home health nurse observed patient was lethargic. 911 was called. EMS found the patient was hypoxic and lethargic. Patient was hypoxic down to approximately 80%. Patient was put on 4 L nasal cannula. EMS reports they administered 1 mg of Narcan and patient's mental status improved. Shortly thereafter she required a second dose which also improved her mental status. Upon arrival to our ED patient was alert and oriented x4. Patient is reporting to staff that she request admission for detention placement. Patient currently lives independently. However this is becoming progressively difficult for her. Patient denies chest pain shortness of breath. No fever. No nausea vomiting or diaphoresis. Patient has a history of a stroke causing left-sided hemiparesis with residual deficits. Allergies/Adverse Reactions: lisinopril Allergy (Severe, Verified 06/17/20 12:58) Swelling codeine Allergy (Intermediate, Verified 06/17/20 12:58) Nausea and Vomiting allergies validated with patient morphine Allergy (Intermediate, Verified 06/17/20 12:58) Nausea and Vomiting oxycodone [Oxycodone] Allergy (Intermediate, Verified 06/17/20 12:58) Nausea and Vomiting Home Medications: Clopidogrel Bisulfate 75 mg [PLAVIX 75 MG Tablet] 75 mg PO DAILY 08/22/13 [History] Fluoxetine HCl 20 mg [Prozac 20 MG] 20 mg PO DAILY 08/22/13 [History] Furosemide 20 mg [Lasix 20 mg] 20 mg PO DAILY 08/22/13 [History] Insulin Glargine [Lantus Insulin] 35 unit SQ HS 08/22/13 [History] Loratadine 10 mg PO DAILY 02/18/14 [History] Potassium Chloride 10 Meq Tab* [Klor Con 10 MEQ] 10 meq PO BID 06/23/15 [H istory] Fluticasone Propionate [Flonase NASAL] 2 puffs NS DAILY 03/14/16 [History] Linagliptin [Tradjenta] 5 mg PO HS 03/19/17 [History] Metformin HCl 500 mg [Glucophage 500 MG] 500 mg PO BID 03/19/17 [History] Amlodipine Besylate 5 mg [Norvasc 5 mg] 10 mg PO DAILY 06/13/17 [History] Insulin Lispro [Humalog] 4 units SUBDERMAL BREAKFAST 06/13/17 [History] Insulin Lispro [Humalog] 6 units SUBDERMAL EVENING MEAL 06/13/17 [History] Alendronate Sodium 70 mg [Fosamax 70 MG] 1 ea DAILY 06/17/20 [History] Aspirin 81 gm Chew [Baby Aspirin 81 mg Chew] 1 ea DAILY 06/17/20 [History] Gabapentin 300 mg TID 06/17/20 [History] Glipizide 5 mg [Glucotrol 5 MG] 1 ea DAILY 06/17/20 [History] Melatonin 1 ea DAILY 06/17/20 [History] Omeprazole 1 ea DAILY 06/17/20 [History] Hx Tetanus, Diphtheria Vaccination/Date Given: Yes Hx Influenza Vaccination/Date Given: Yes Hx Pneumococcal Vaccination/Date Given: No Travel Risk - International Travel Have you traveled outside of the country in past 3 weeks: No - Coronavirus Screening Are you exhibiting any of the following symptoms?: No Close contact with a COVID-19 positive Pt in past 14-21 Days: No - Review of Systems Constitutional: No Symptoms, No Fever, No Chills Eyes: No Symptoms Ears, Nose, & Throat: No Symptoms Respiratory: No Symptoms, No Cough, No Dyspnea Cardiac: No Symptoms, No Chest Pain, No Edema, No Syncope Abdominal/Gastrointestinal: No Symptoms, No Abdominal Pain, No Nausea, No Vomiting, No Diarrhea Genitourinary Symptoms: No Symptoms, No Dysuria Musculoskeletal: No Symptoms, No Back Pain, No Neck Pain Skin: No Symptoms, No Rash Neurological: No Symptoms, No Dizziness, No Focal Weakness, No Sensory Changes Psychological: No Symptoms Endocrine: No Symptoms Hematologic/Lymphatic: No Symptoms Immunological/Allergic: No Symptoms All Other Systems: Reviewed and Negative - Past Medical History Pertinent Past Medical History: Yes Neurological History: Stroke ENT History: Other Cardiac History: Angina, Hypertension Respiratory History: No Pertinent History Endocrine Medical History: Diabetes Type II Musculoskeletal History: Other GI Medical History: Gallbladder Disease History: Other Psycho-Social History: No Pertinent History Female Reproductive Disorders: No Pertinent History Other Medical History: wears glasses, full set of dentures (not at bedside), incontinence, left arm flaccid and contracted, left hand contracture - Past Surgical History Past Surgical History: Yes Neuro Surgical History: No Pertinent History Cardiac: No Pertinent History Respiratory: No Pertinent History Gastrointestinal: Cholecystectomy Genitourinary: No Pertinent History Musculoskeletal: No Pertinent History Female Surgical History: Section Other Surgical History: left shoulder and wrist surg. - LEFT HIP PER FX - Social History Smoking Status: Former smoker Exposure to second hand smoke: Yes Alcohol Use: None Drug Use: none Patient Lives Alone: Yes Significant Family History: hypertension - Female History Hx Now: No - Nursing Vital Signs Nursing Vital Signs: Initial Vital Signs Temperature 99.4 F 06/17/20 12:45 Pulse Rate 84 06/17/20 12:45 Blood Pressure 147/86 06/17/20 12:45 O2 Sat by Pulse Oximetry 96 06/17/20 12:45 Pain Scale Pain Intensity 5 - Physical Exam General Appearance: no apparent distress, alert Eye Exam: PERRL/EOMI, eyes nml inspection Ears, Nose, Throat Exam: normal ENT inspection, TMs normal, pharynx normal, moist mucous membranes Neck Exam: normal inspection, non-tender, supple, full range of motion Respiratory Exam: normal breath sounds, lungs clear, No respiratory distress Cardiovascular Exam: regular rate/rhythm, normal heart sounds, normal peripheral pulses Gastrointestinal/Abdomen Exam: soft, normal bowel sounds, No tenderness, No mass Pelvic Exam: not done Rectal Exam: deferred Back Exam: normal inspection, normal range of motion, No CVA tenderness, No vertebral tenderness Extremity Exam: normal inspection, normal range of motion, pelvis stable, other (Left lower extremity is swollen. There are chronic venous stasis dermal changes. 1+ pulses equal bilaterally. Compartments are soft. The extremity is warm. No lymphangitis observed. ) Neurologic Exam: alert, oriented x 3, cooperative, normal mood/affect, nml cerebellar function, nml station & gait, sensation nml, No motor deficits Skin Exam: normal color, warm, dry, No rash Lymphatic Exam: No adenopathy SpO2 Interpretation: normal SpO2: 96 O2 Delivery: Room Air - Course Nursing assessment & vital signs reviewed: Yes EKG Interpreted by Me: RATE (81), Sinus Rhythm, NORMAL AXIS, NORMAL INTERVALS - Radiology Exams Chest X-ray Interpretation: Teleradiologist Report (New bilateral mid to lower lung subsegmental atelectasis/scarring. Left base calcified granuloma. Bony thorax intact osteopenia with degenerative changes and old left humerus fracture. No acute findings.) - CT Exams Head CT Interpretation: Tele-radiologist Report (Stable large old right MCA infarct. Again no acute intracranial hemorrhage. No hydrocephalus or mass-effect. Fourth ventricle is midline. Bony calvarium intact. Visualized paranasal sinuses and mastoid air cells are clear.) - Radiology Ultrasound Exam Venous Lower Extremity Ultrasound: discussed w/radiologist (Per orientor no DVT.) Ordered Tests: Active Orders 24 hr Category Date Time Status Compressor Repairer STAT Care 06/17/20 12:59 Active EKG-ER Only STAT Care 06/17/20 12:58 Active IV Insertion STAT Care 06/17/20 12:58 Active Pulse Oximetry (ED) STAT Care 06/17/20 12:58 Active CHEST 1 VIEW (PORTABLE) Stat Exams 06/17/20 12:59 Completed CHEST WITH CONTRAST [CT] Stat Exams 06/17/20 15:21 Completed HEAD WITHOUT CONTRAST [CT] Stat Exams 06/17/20 13:01 Completed VENOUS UNILAT/LIMITED EXTREMIT [US] Stat Exams 06/17/20 13:15 Completed ABG [ARTERIAL BLOOD GASES] Stat Lab 06/17/20 13:20 Completed BLOOD CULTURE Stat Lab 06/17/20 13:35 Received CBC W DIFF Stat Lab 06/17/20 13:25 Completed CMP Stat Lab 06/17/20 13:25 Completed CULTURE,URINE Stat Lab 06/17/20 13:22 Received ETHYL ALCOHOL Stat Lab 06/17/20 13:25 Completed Lactic Acid Stat Lab 06/17/20 13:20 Completed MAGNESIUM Stat Lab 06/17/20 13:25 Completed TROPONIN Q3H Lab 06/17/20 13:25 Completed TROPONIN Q3H Lab 06/17/20 16:13 Completed TROPONIN Q3H Lab 06/17/20 19:00 Ordered TROPONIN Q3H Lab 06/17/20 22:00 Ordered TROPONIN Q3H Lab 06/18/20 01:00 Ordered UA W/RFX UR CULTURE Stat Lab 06/17/20 13:22 Completed Urine Triage Profile Stat Lab 06/17/20 13:22 Completed Transfer Order Routine Transfer 06/17/20 Ordered Lab/Rad Data: Laboratory Result Diagrams 06/17/20 13:25 06/17/20 13:25 Laboratory Results 06/17/20 06/17/20 06/17/20 Range/Units 16:13 13:25 13:25 WBC (4.0-10.5) K/mm3 RBC (4.1-5.4) M/mm3 Hgb (12.0-16.0) gm/dl Hct (35-47) % MCV (78-100) fl MCH (26-32) pg MCHC (32-36) g/dl RDW (11.5-14.0) % Plt Count (150-450) K/mm3 MPV (7.5-11.0) fl Gran % (36.0-66.0) % Eos # (Auto) (0-0.5) Absolute Lymphs (auto) (1.0-4.6) Absolute Monos (auto) (0.0-1.3) Lymphocytes % (24.0-44.0) % Monocytes % (0.0-12.0) % Eosinophils % (0.00-5.0) % Basophils % (0.0-0.4) % Absolute Granulocytes (1.4-6.9) Basophils # (0-0.4) Puncture Site pCO2 (35-45) mmHg pO2 (75-100) mmHg Base Excess (-2.0-2.0) O2 Saturation (94-100) g/dF ABG pH (7.35-7.45) ABG HCO3 (22-28) ABG O2 Sat (Measured) (95-100) % Mele Test A-a Gradient a/A Ratio Hemoglobin Carboxyhemoglobin (0.0-6.9) % THgb Methemoglobin (1.4-1.5) % Potassium 5.1 (3.5-5.1) Temperature C POC O2 Flow Rate % Sodium 138 (137-145) mmol/L Chloride 99 (98-107) mmol/L Carbon Dioxide 31 H (22-30) mmol/L Anion Gap 12.9 (5-15) MEQ/L BUN 23 H (7-17) mg/dL Creatinine 1.11 H (0.52-1.04) mg/dL Estimated GFR 52.0 ML/MIN Glucose 228 H (74-106) mg/dL Lactic Acid (0.4-2.0) Calcium 8.3 L (8.4-10.2) mg/dL Magnesium 1.7 (1.6-2.3) mg/dL Total Bilirubin 0.80 (0.2-1.3) mg/dL AST 131 H (14-36) U/L ALT 48 H (0-35) U/L Alkaline Phosphatase 155 H (38-126) U/L Troponin I < 0.012 < 0.012 (0.000-0.034) ng/mL Serum Total Protein 8.2 (6.3-8.2) g/dL Albumin 3.9 (3.5-5.0) g/dL Urine Color (YELLOW) Urine Appearance (CLEAR) Urine pH (5-6) Ur Specific [place] (1.005-1.025) Urine Protein (Negative) Urine Ketones (NEGATIVE) Urine Blood (0-5) Keith/ul Urine Nitrite (NEGATIVE) Urine Bilirubin (NEGATIVE) Urine Urobilinogen (0-1) mg/dL Ur Leukocyte Esterase (NEGATIVE) Urine WBC (Auto) (0-5) /HPF Urine RBC (Auto) (0-2) /HPF U Hyaline Cast (Auto) (0-2) /LPF U Epithel Cells (Auto) (FEW) /HPF Urine Bacteria (Auto) (NEGATIVE) /HPF Amorphous Crystals (NEGATIVE) /HPF Urine Mucus (Auto) (NEGATIVE) /HPF Urine Culture Reflexed (NO) Urine Glucose (NEGATIVE) mg/dL Urine Opiates Level (NEGATIVE) Ur Methadone (NEGATIVE) Urine Barbiturates (NEGATIVE) Ur Phencyclidine (PCP) (NEGATIVE) Urine Amphetamine (NEGATIVE) U Benzodiazepine Level (NEGATIVE) Urine Cocaine (NEGATIVE) Urine Marijuana (THC) (NEGATIVE) Ethyl Alcohol < 10 (0-10) mg/dL 06/17/20 06/17/20 06/17/20 Range/Units 13:25 13:22 13:22 WBC 7.6 (4.0-10.5) K/mm3 RBC 4.26 (4.1-5.4) M/mm3 Hgb 13.3 (12.0-16.0) gm/dl Hct 42.3 (35-47) % MCV 99.3 (78-100) fl MCH 31.2 (26-32) pg MCHC 31.4 L (32-36) g/dl RDW 14.4 H (11.5-14.0) % Plt Count 168 (150-450) K/mm3 MPV 10.9 (7.5-11.0) fl Gran % 63.1 (36.0-66.0) % Eos # (Auto) 0.13 (0-0.5) Absolute Lymphs (auto) 2.02 (1.0-4.6) Absolute Monos (auto) 0.64 (0.0-1.3) Lymphocytes % 26.5 (24.0-44.0) % Monocytes % 8.4 (0.0-12.0) % Eosinophils % 1.7 (0.00-5.0) % Basophils % 0.3 (0.0-0.4) % Absolute Granulocytes 4.81 (1.4-6.9) Basophils # 0.02 (0-0.4) Puncture Site pCO2 (35-45) mmHg pO2 (75-100) mmHg Base Excess (-2.0-2.0) O2 Saturation (94-100) g/dF ABG pH (7.35-7.45) ABG HCO3 (22-28) ABG O2 Sat (Measured) (95-100) % Mele Test A-a Gradient a/A Ratio Hemoglobin Carboxyhemoglobin (0.0-6.9) % THgb Methemoglobin (1.4-1.5) % Potassium (3.5-5.1) Temperature C POC O2 Flow Rate % Sodium (137-145) mmol/L Chloride (98-107) mmol/L Carbon Dioxide (22-30) mmol/L Anion Gap (5-15) MEQ/L BUN (7-17) mg/dL Creatinine (0.52-1.04) mg/dL Estimated GFR ML/MIN Glucose (74-106) mg/dL Lactic Acid (0.4-2.0) Calcium (8.4-10.2) mg/dL Magnesium (1.6-2.3) mg/dL Total Bilirubin (0.2-1.3) mg/dL AST (14-36) U/L ALT (0-35) U/L Alkaline Phosphatase (38-126) U/L Troponin I (0.000-0.034) ng/mL Serum Total Protein (6.3-8.2) g/dL Albumin (3.5-5.0) g/dL Urine Color SERGIO (YELLOW) Urine Appearance SLIGHTLY CLOUDY (CLEAR) Urine pH 5.0 (5-6) Ur Specific [place] 1.019 (1.005-1.025) Urine Protein 100 (Negative) Urine Ketones NEGATIVE (NEGATIVE) Urine Blood MODERATE (0-5) Keith/ul Urine Nitrite POSITIVE (NEGATIVE) Urine Bilirubin NEGATIVE (NEGATIVE) Urine Urobilinogen 4 (0-1) mg/dL Ur Leukocyte Esterase NEGATIVE (NEGATIVE) Urine WBC (Auto) 0-2 (0-5) /HPF Urine RBC (Auto) 3-5 (0-2) /HPF U Hyaline Cast (Auto) 6-10 (0-2) /LPF U Epithel Cells (Auto) RARE (FEW) /HPF Urine Bacteria (Auto) MANY (NEGATIVE) /HPF Amorphous Crystals FEW (NEGATIVE) /HPF Urine Mucus (Auto) SLIGHT (NEGATIVE) /HPF Urine Culture Reflexed YES (NO) Urine Glucose 150 (NEGATIVE) mg/dL Urine Opiates Level POSITIVE (NEGATIVE) Ur Methadone NEGATIVE (NEGATIVE) Urine Barbiturates NEGATIVE (NEGATIVE) Ur Phencyclidine (PCP) NEGATIVE (NEGATIVE) Urine Amphetamine NEGATIVE (NEGATIVE) U Benzodiazepine Level NEGATIVE (NEGATIVE) Urine Cocaine NEGATIVE (NEGATIVE) Urine Marijuana (THC) NEGATIVE (NEGATIVE) Ethyl Alcohol (0-10) mg/dL 06/17/20 06/17/20 Range/Units 13:20 13:20 WBC (4.0-10.5) K/mm3 RBC (4.1-5.4) M/mm3 Hgb (12.0-16.0) gm/dl Hct (35-47) % MCV (78-100) fl MCH (26-32) pg MCHC (32-36) g/dl RDW (11.5-14.0) % Plt Count (150-450) K/mm3 MPV (7.5-11.0) fl Gran % (36.0-66.0) % Eos # (Auto) (0-0.5) Absolute Lymphs (auto) (1.0-4.6) Absolute Monos (auto) (0.0-1.3) Lymphocytes % (24.0-44.0) % Monocytes % (0.0-12.0) % Eosinophils % (0.00-5.0) % Basophils % (0.0-0.4) % Absolute Granulocytes (1.4-6.9) Basophils # (0-0.4) Puncture Site RIGHT RADIAL pCO2 48 H (35-45) mmHg pO2 94 (75-100) mmHg Base Excess 8.1 H (-2.0-2.0) O2 Saturation 94.9 (94-100) g/dF ABG pH 7.45 (7.35-7.45) ABG HCO3 33.4 H* (22-28) ABG O2 Sat (Measured) 97.6 (95-100) % Mele Test YES A-a Gradient 103 a/A Ratio 0.48 Hemoglobin 13.6 Carboxyhemoglobin 2.0 (0.0-6.9) % THgb Methemoglobin 0.8 L (1.4-1.5) % Potassium 5.1 (3.5-5.1) Temperature 37.0 C POC O2 Flow Rate 36 % Sodium (137-145) mmol/L Chloride (98-107) mmol/L Carbon Dioxide (22-30) mmol/L Anion Gap (5-15) MEQ/L BUN (7-17) mg/dL Creatinine (0.52-1.04) mg/dL Estimated GFR ML/MIN Glucose (74-106) mg/dL Lactic Acid 1.3 (0.4-2.0) Calcium (8.4-10.2) mg/dL Magnesium (1.6-2.3) mg/dL Total Bilirubin (0.2-1.3) mg/dL AST (14-36) U/L ALT (0-35) U/L Alkaline Phosphatase (38-126) U/L Troponin I (0.000-0.034) ng/mL Serum Total Protein (6.3-8.2) g/dL Albumin (3.5-5.0) g/dL Urine Color (YELLOW) Urine Appearance (CLEAR) Urine pH (5-6) Ur Specific [place] (1.005-1.025) Urine Protein (Negative) Urine Ketones (NEGATIVE) Urine Blood (0-5) Keith/ul Urine Nitrite (NEGATIVE) Urine Bilirubin (NEGATIVE) Urine Urobilinogen (0-1) mg/dL Ur Leukocyte Esterase (NEGATIVE) Urine WBC (Auto) (0-5) /HPF Urine RBC (Auto) (0-2) /HPF U Hyaline Cast (Auto) (0-2) /LPF U Epithel Cells (Auto) (FEW) /HPF Urine Bacteria (Auto) (NEGATIVE) /HPF Amorphous Crystals (NEGATIVE) /HPF Urine Mucus (Auto) (NEGATIVE) /HPF Urine Culture Reflexed (NO) Urine Glucose (NEGATIVE) mg/dL Urine Opiates Level (NEGATIVE) Ur Methadone (NEGATIVE) Urine Barbiturates (NEGATIVE) Ur Phencyclidine (PCP) (NEGATIVE) Urine Amphetamine (NEGATIVE) U Benzodiazepine Level (NEGATIVE) Urine Cocaine (NEGATIVE) Urine Marijuana (THC) (NEGATIVE) Ethyl Alcohol (0-10) mg/dL - Progress Progress: improved Progress Note: Case discussed with Dr. Winchester who accepts admission to observation. Plan of care discussed with patient. She request admission on a social basis. Patient lives independently however she is having progressive difficulty with ADLs in light of her left foot pain. Her foot was [facility] at [facility]. X- ray of her foot and ankle were negative for acute pathology. We did have medical records forwarded to us today. Dr. Winchester requests basic labs and chest x-ray for the morning. He also requests a 6-hour troponin. Plan of care discussed with patient. She agrees to admission to [facility] for further evaluation and treatment. 06/17/20 17:48 Discussed with : Caleb Counseled pt/family regarding: lab results, diagnosis, need for follow-up, rad results - Departure Departure Disposition: Extended Care Facility, Release to OR/IAC Clinical Impression: Hypokalemia, Microcytic anemia, Thrombocytosis, Prolonged QT interval, Generalized weakness, Falls Condition: Stable Critical Care Time: No Referrals: TRU VILLAFUERTE MD [Primary Care Provider] -
[2020-06-17 13:29] LABS: A-aADO2 103; ABG HEMOGLOBIN 13.6; ABG POTASSIUM 5.1 (3.5-5.1); ABG SITE RIGHT RADIAL; ALLEN TEST OK? YES; ARTERIAL BLD GAS O2 SATURATION 97.6 % (95-100); ARTERIAL BLOOD GAS BASE EXCESS 8.1 (-2.0-2.0); ARTERIAL BLOOD GAS FIO2 36 %; ARTERIAL BLOOD GAS PCO2 48 mmHg (35-45); ARTERIAL BLOOD GAS PO2 94 mmHg (75-100); ARTERIAL BLOOD GAS pH 7.45 (7.35-7.45); HCO3- 33.4 (22-28); HGB O2 SAT 94.9 g/dF (94-100); Methhemoglobin 0.8 % (1.4-1.5); paO2 pAO1 0.48
--- NOTE | 2020-06-17 13:44 | XRAY ---
Indication: Altered mental status. Comparison: July 13, 2017. Portable chest demonstrates new bilateral mid to lower lung subsegmental atelectasis/scarring. Remaining heart and lungs unremarkable again with incidental left base calcified granuloma. Bony thorax intact again with osteopenia, degenerative changes, and old left humerus fracture.
[2020-06-17 13:48] LABS: Absolute Neutrophil Ct (ANC) 4.81 (1.4-6.9); BASOPHIL % 0.3 % (0.0-0.4); Basophil (Absolute #) 0.02 (0-0.4); Eosinophil % 1.7 % (0.00-5.0); Eosinophil (Absolute #) 0.13 (0-0.5); Hematocrit 42.3 % (35-47); Hemoglobin 13.3 gm/dl (12.0-16.0); Lymphocyte (Absolute #) 2.02 (1.0-4.6); Lymphocytes % 26.5 % (24.0-44.0); Mean Cell Volume 99.3 fl (78-100); Mean Corpuscular Hemoglobin 31.2 pg (26-32); Mean Corpuscular Hgb Concent. 31.4 g/dl (32-36); Mean Platelet Volume 10.9 fl (7.5-11.0); Monocyte (Absolute #) 0.64 (0.0-1.3); Monocytes % 8.4 % (0.0-12.0); Neutrophil % 63.1 % (36.0-66.0); Platelet Count 168 K/mm3 (150-450); Red Blood Count 4.26 M/mm3 (4.1-5.4); Red Cell Distribution Width 14.4 % (11.5-14.0); White Blood Count 7.6 K/mm3 (4.0-10.5)
[2020-06-17 14:03] LABS: Amourphous Crystal FEW /HPF (NEGATIVE); Appearance SLIGHTLY CLOUDY (CLEAR); Bacteria MANY /HPF (NEGATIVE); Bilirubin NEGATIVE (NEGATIVE); Blood MODERATE Ery/ul (0-5); Epithelial Cells RARE /HPF (FEW); Glucose 150 mg/dL (NEGATIVE); Ketones NEGATIVE (NEGATIVE); Leukocyte Esterase NEGATIVE (NEGATIVE); Mucus SLIGHT /HPF (NEGATIVE); Nitrite POSITIVE (NEGATIVE); Protein,Urine Dip 100 (Negative); Specific Gravity 1.019 (1.005-1.025); Urobilinogen 4 mg/dL (0-1); WBC 0-2 /HPF (0-5)
[2020-06-17 14:11] LABS: Amphetamine,Urine NEGATIVE (NEGATIVE); Barbiturate,Urine NEGATIVE (NEGATIVE); Benzodiazepine,Urine NEGATIVE (NEGATIVE); Cocaine,Urine NEGATIVE (NEGATIVE); Methadone,Urine NEGATIVE (NEGATIVE); Opiate,Urine POSITIVE (NEGATIVE); PCP,Urine NEGATIVE (NEGATIVE); THC,Urine NEGATIVE (NEGATIVE)
[2020-06-17 14:12] LABS: ALBUMIN 3.9 g/dL (3.5-5.0); ALKALINE PHOSPHATASE 155 U/L (38-126); ANION GAP 12.9 MEQ/L (5-15); BLOOD UREA NITROGEN 23 mg/dL (7-17); CHLORIDE 99 mmol/L (98-107); Calcium 8.3 mg/dL (8.4-10.2); Carbon Dioxide 31 mmol/L (22-30); Creatinine 1 1.11 mg/dL (0.52-1.04); Glucose 228 mg/dL (74-106); MAGNESIUM 1.7 mg/dL (1.6-2.3); Potassium 5.1 mmol/L (3.5-5.1); SGOT/AST 131 U/L (14-36); SGPT/ALT 48 U/L (0-35); SODIUM 138 mmol/L (137-145); Total Protein 8.2 g/dL (6.3-8.2)
[2020-06-17 14:14] LABS: ETHYL ALCOHOL < 10 mg/dL (0-10)
--- NOTE | 2020-06-17 14:41 | XRAY ---
Indication: DVT. Current blood thinner therapy. Two-dimensional sonogram and color Doppler imaging of the major venous vessels of the left leg performed. Comparison: None No thrombus seen in the examined deep venous vessels of the left leg including greater saphenous vein. Veins demonstrate normal compressibility. Venous waveforms are normal with and without augmentation. Impression: Left leg negative for DVT.
--- NOTE | 2020-06-17 14:51 | XRAY ---
Indication: Altered mental status. Multiple contiguous axial images obtained through the head without contrast. Comparison: August 26, 2018. Stable large old right MCA infarct. Again no acute intracranial hemorrhage, hydrocephalus, or mass effect. Fourth ventricle is midline. Bony calvarium intact. Visualized paranasal sinuses and mastoid air cells are clear. Impression: Stable large old right MCA infarct. No new or acute intracranial abnormalities.
--- NOTE | 2020-06-17 17:17 | XRAY ---
Indication: Hypoxemia. Pulmonary embolus. Multiple contiguous axial images obtained through the chest using 3 cc Isovue-370 contrast and PE protocol. Comparison: CT chest without contrast exam December 15, 2017. There is good opacification of the pulmonary arteries to include the lobar and segmental branches. However mild respiration artifact limits evaluation of the more distal lobar and segmental branches. No central pulmonary embolus. Heart is now enlarged. Aorta remains mildly arteriosclerotic without aneurysm/dissection. No pathologic mediastinal/hilar lymphadenopathy. Lungs again demonstrates bibasilar subsegmental atelectasis/scarring. Stable tiny right middle and left lower lobe calcified granulomas. No suspicious pulmonary mass, infiltrate, or effusion. Bony thorax again demonstrates osteopenia, degenerative changes throughout the spine, and old left proximal humerus fracture. Limited upper abdomen again demonstrates fatty liver. Impression: 1. Pulmonary embolus evaluation limited by respiration artifact. No obvious central pulmonary embolus. 2. New cardiomegaly without CT features for CHF. 3. Again incidental scattered atelectasis/scarring, old granulomatous disease, fatty liver, and chronic bony findings.
[2020-06-17] MEDS ORDERED: ROCEPHIN 1 Gm-D5w 50 ml Bag** 1 G/50 ML IVPB IV SCH (18:35)
[2020-06-17] MEDS ORDERED: NEURONTIN 300 MG PO PRN (20:20)
[2020-06-17] MEDS: FEOSOL 325 MG PO SCH (21:27)
[2020-06-17] MEDS: Klor Con 10 MEQ PO SCH (21:27)
[2020-06-17] MEDS: Coreg 3.125 MG PO SCH (21:27)
[2020-06-17] MEDS: NYSTOP POWDER 15 GM TP SCH (21:27)
[2020-06-17] MEDS: HUMALOG SQ PRN (21:28)
[2020-06-17] MEDS ORDERED: Lantus Insulin SQ SCH (22:00)
[2020-06-17] MEDS ORDERED: Prozac 20 MG PO SCH (22:00)
[2020-06-18 05:18] LABS: Hematocrit 40.4 % (35-47); Hemoglobin 12.5 gm/dl (12.0-16.0); Mean Cell Volume 100.7 fl (78-100); Mean Corpuscular Hemoglobin 31.2 pg (26-32); Mean Corpuscular Hgb Concent. 30.9 g/dl (32-36); Mean Platelet Volume 11.1 fl (7.5-11.0); Platelet Count 138 K/mm3 (150-450); Red Blood Count 4.01 M/mm3 (4.1-5.4); Red Cell Distribution Width 14.2 % (11.5-14.0); White Blood Count 6.9 K/mm3 (4.0-10.5)
[2020-06-18 05:34] LABS: ALBUMIN 3.6 g/dL (3.5-5.0); BILIRUBIN,TOTAL 0.6 mg/dL (0.2-1.3); Calcium 8.5 mg/dL (8.4-10.2); Creatinine 1 1.15 mg/dL (0.52-1.04); Potassium 4.5 mmol/L (3.5-5.1); Total Protein 7.6 g/dL (6.3-8.2)
[2020-06-18] MEDS ORDERED: Glucophage 500 MG PO SCH (08:00)
[2020-06-18] MEDS ORDERED: Glucotrol 5 MG PO SCH (08:00)
--- NOTE | 2020-06-18 08:41 | XRAY ---
Indication: Hypoxia. Weakness. Comparison: One day earlier. Portable chest now underinflated accentuating cardiopulmonary structures with stable bilateral subsegmental atelectasis/scarring and left base calcified granuloma. Query new right infrahilar infiltrate versus atelectasis. Heart borderline enlarged. Remaining chest unremarkable.
[2020-06-18] MEDS: FEOSOL 325 MG PO SCH (09:14)
[2020-06-18] MEDS: Klor Con 10 MEQ PO SCH (09:14)
[2020-06-18] MEDS: Coreg 3.125 MG PO SCH (09:14)
[2020-06-18] MEDS: NYSTOP POWDER 15 GM TP SCH (09:42)
[2020-06-18] MEDS ORDERED: ECOTRIN 81 MG PO SCH (10:00)
[2020-06-18] MEDS ORDERED: Fosamax 70 MG PO SCH (10:00)
[2020-06-18] MEDS ORDERED: PLAVIX 75 MG Tablet PO SCH (10:00)
[2020-06-18] MEDS ORDERED: LASIX 20 MG PO SCH (10:00)
[2020-06-18] MEDS ORDERED: OMEPRAZOLE PO SCH (10:00)
[2020-06-18] MEDS ORDERED: NORVASC 5 MG PO SCH (10:00)
[2020-06-18] MEDS ORDERED: CLARITIN 10 MG PO SCH (10:00)
[2020-06-18] MEDS ORDERED: Protonix 40MG Tablet PO SCH (10:00)
[2020-06-18 11:27] VITALS: BP 165/70; PULSE 79; O2SAT 92
[2020-06-18] MEDS: HUMALOG SQ PRN (11:31)
[2020-06-18] MEDS ORDERED: ROCEPHIN 1 Gm-D5w 50 ml Bag** 1 G/50 ML IVPB IV SCH (18:00)
[2020-06-18] MEDS ORDERED: Januvia 50 MG PO SCH (22:00)
[2020-06-18] MEDS ORDERED: MELATONIN PO SCH (22:00)
[2020-06-18] MEDS ORDERED: NON-FORMULARY ITEM (Linagliptin [Tradjenta] 5 MG) PO SCH (22:00)
--- NOTE | 2020-07-03 11:27 | PCM.SSS ---
History of Present Illness - Chief Complaint Chief Complaint: hypoxia. L ft pain, UTI Date: 06/18/20 History of Present Illness: is a 69 year old female. Presented to ER after discharged from [facility] ER and given morphine for her pain, pt. later became hypoxic and decreased responsiveness, the patient was given narcan with good results, her initial complaint was for left foot pain, past cva and difficulty with ADL's requesting fdc admission. Work-up including u/s of leg and x-rays were negative for acute pathology. - Review of Systems Constitutional: No Fever, No Chills Eyes: No Symptoms Ears, Nose, & Throat: No Symptoms Respiratory: No Cough, No Short Of Breath Cardiac: No Chest Pain, No Edema, No Syncope Abdominal/Gastrointestinal: No Abdominal Pain, No Nausea, No Vomiting, No Diarrhea Genitourinary Symptoms: No Dysuria Musculoskeletal: Myalgias (left foot pain) Skin: No Rash Neurological: No Dizziness, No Focal Weakness, No Sensory Changes Psychological: No Symptoms Endocrine: No Symptoms Hematologic/Lymphatic: No Symptoms Immunological/Allergic: No Symptoms Medications & Allergies Home Medications: Home Medication List Clopidogrel Bisulfate 75 mg [PLAVIX 75 MG Tablet] 75 mg PO DAILY 08/22/13 [History Confirmed 06/17/20] Fluoxetine HCl 20 mg [Prozac 20 MG] 20 mg PO HS 08/22/13 [History Confirmed 06/17/20] Furosemide 20 mg [Lasix 20 mg] 20 mg PO DAILY 08/22/13 [History Confirmed 06/17/20] Insulin Glargine [Lantus Insulin] 35 unit SQ HS 08/22/13 [History Confirmed 06/17/20] Loratadine 10 mg PO DAILY 02/18/14 [History Confirmed 06/17/20] Potassium Chloride 10 Meq Tab* [Klor Con 10 MEQ] 10 meq PO BID 06/23/15 [History Confirmed 06/17/20] Linagliptin [Tradjenta] 5 mg PO HS 03/19/17 [History Confirmed 06/17/20] Metformin HCl 500 mg [Glucophage 500 MG] 500 mg PO BID 03/19/17 [History C onfirmed 06/17/20] Amlodipine Besylate 5 mg [Norvasc 5 mg] 10 mg PO DAILY 06/13/17 [History Confirmed 06/17/20] Ferrous Sulfate 325 mg [Feosol 325 mg] 325 mg PO BID #60 tablet 06/15/17 [Rx Confirmed 06/17/20] Carvedilol 3.125 mg [Coreg 3.125 MG] 3.125 mg PO BID #60 tablet 06/16/17 [Rx Confirmed 06/17/20] Alendronate Sodium 70 mg [Fosamax 70 MG] 1 ea PO DAILY 06/17/20 [History Confirmed 06/17/20] Aspirin 81 gm Chew [Baby Aspirin 81 mg Chew] 1 ea DAILY 06/17/20 [History Confirmed 06/17/20] Gabapentin 300 mg PO TID PRN 06/17/20 [History Confirmed 06/17/20] Glipizide 5 mg [Glucotrol 5 MG] 1 ea PO BID 06/17/20 [History Confirmed 06/17/20] Melatonin 1 ea PO HS 06/17/20 [History Confirmed 06/17/20] Omeprazole 1 ea PO DAILY 06/17/20 [History Confirmed 06/17/20] Cephalexin Mh 500 mg [Keflex 500 mg] 500 mg PO TID #30 capsule 06/18/20 [Rx] Nystatin Powder 15 gm [Nystop Powder 15 gm] 1 gm TP BID powder 06/18/20 [Rx] Allergies/Adverse Reactions: Allergies Allergy/AdvReac Type Severity Reaction Status Date / Time lisinopril Allergy Severe Swelling Verified 06/17/20 12:58 codeine Allergy Intermediate Nausea and Verified 06/17/20 12:58 Vomiting morphine Allergy Intermediate Nausea and Verified 06/17/20 12:58 Vomiting oxycodone [Oxycodone] Allergy Intermediate Nausea and Verified 06/17/20 12:58 Vomiting - Past Medical History Past Medical History: Yes Neurological History: Stroke ENT History: Cataracts, Other Cardiac History: Angina, Hypertension Respiratory History: No Pertinent History Endocrine Medical History: Diabetes Type II Musculoskelatal History: Other GI Medical History: Gallbladder Disease History: Other Pyscho-Social History: No Pertinent History Reproductive Disorders: No Pertinent History Comment: wears glasses, full set of dentures (not at bedside), incontinence, left arm flaccid and contracted, left hand contracture. BLE cellulitis. - Female History Are you now?: No - Past Surgical History Past Surgical History: Yes Neuro Surgical History: No Pertinent History Cardiac History: No Pertinent History Respiratory Surgery: No Pertinent History GI Surgical History: Cholecystectomy Genitourinary Surgical Hx: No Pertinent History Musculskeletal Surgical Hx: No Pertinent History Female Surgical History: Section Other Surgical History: left shoulder and wrist surg. - LEFT HIP PER FX - Social History Smoking Status: Former smoker Exposure to second hand smoke: Yes Alcohol: None Drug Use: none Significant Family History: hypertension - Physical Exam General Appearance: no apparent distress (morbid obesity), alert Neurologic Exam: alert, oriented x 3, cooperative, normal mood/affect, nml cerebellar function, nml station & gait, sensation nml, No motor deficits Eye Exam: PERRL/EOMI, eyes nml inspection Ears, Nose, Throat Exam: normal ENT inspection, TMs normal, pharynx normal, moist mucous membranes Neck Exam: normal inspection, non-tender, supple, full range of motion Respiratory Exam: normal breath sounds, lungs clear, No respiratory distress Cardiovascular Exam: regular rate/rhythm, normal heart sounds, normal peripheral pulses Gastrointestinal/Abdomen Exam: soft, normal bowel sounds, No tenderness, No mass Back Exam: normal inspection, normal range of motion, No CVA tenderness, No vertebral tenderness Extremity Exam: normal inspection, normal range of motion, pedal edema, tenderness (left foot greater than right) Skin Exam: normal color, warm, dry, No rash Lymphatic Exam: No adenopathy Results - Labs Lab/Micro Results: Microbiology 06/17/20 13:35 Blood Culture Gram Stain - Final Blood Not Reportable Blood Culture - Final NO GROWTH 06/17/20 13:25 Blood Culture Gram Stain - Final Blood Not Reportable Blood Culture - Final NO GROWTH 06/17/20 13:22 Urine Culture - Final Urine, Catheterized Escherichia Coli Assessment/Plan (1) Heel pain Status: Acute Assessment & Plan: Pt. will be treated judiciously with pain medication, and placement in NH will be obtained. Code(s): M79.673 - PAIN IN UNSPECIFIED FOOT (2) UTI (urinary tract infection) Status: Acute Assessment & Plan: Treating with iv abx Code(s): N39.0 - URINARY TRACT INFECTION, SITE NOT SPECIFIED Hospital Summary - Hospital Course Hospital Course: Pt. admitted for treatment of UTI, and pain control, fdc admission was obtained and patient was discharged to fdc for continued care. - Vitals & Intake/Output Vital Signs: Vital Signs Temperature 98.3 F 06/18/20 11:26 Pulse Rate 79 06/18/20 11:26 Respiratory Rate 18 06/18/20 12:00 Blood Pressure 165/70 06/18/20 11:26 O2 Sat by Pulse Oximetry 92 L 06/18/20 11:26 - Lab Result Diagrams: 06/18/20 05:00 06/18/20 05:00 Micro Results-Entire Visit: Microbiology 06/17/20 13:35 Blood Culture Gram Stain - Final Blood Not Reportable Blood Culture - Final NO GROWTH 06/17/20 13:25 Blood Culture Gram Stain - Final Blood Not Reportable Blood Culture - Final NO GROWTH 06/17/20 13:22 Urine Culture - Final Urine, Catheterized Escherichia Coli - Procedures and Test Procedures and Tests throughout Hospitalization: Therapy Orders & Screens 06/17/20 18:11 Oxygen Oxymask LPM 4 lpm Comment: 06/17/20 19:12 OT Screen per Nursing Assess ONCE Comment: Protocol Order Physician Instructions: Greater than 3 points order OT Admission Screening Reason For Exam: Triggered on Admission Diagnosis: hypoxia. L ft pain. Open Wound/Cellutlitis/Pressure Ulcers: Yes Acute Fx/ORIF/Change in wt bearing status: No Severe MUSCULOSKELETAL pain: Yes ADL Dysfunction: No Acute CVA w/Hemiparesis/Hemiplegia: No Decreased Functional Mobility/Strength: No Sprain/Strain: No Acute Post-op Mobility Dysfunction: No Total Points: 10 PT Screen per Nursing Assess ONCE Comment: Protocol Order Physician Instructions: Greater than 3 points order PT Admission Screenin Reason For Exam: Triggered on Admission Diagnosis: hypoxia. L ft pain. Open Wound/Cellutlitis/Pressure Ulcers: Yes Acute Fx/ORIF/Change in wt bearing status: No Severe MUSCULOSKELETAL pain: Yes ADL Dysfunction: No Acute CVA w/Hemiparesis/Hemiplegia: No Decreased Functional Mobility/Strength: No Sprain/Strain: No Acute Post-op Mobility Dysfunction: No Total Points: 10 - Discharge Discharge Date: 06/18/20 Disposition: DC TO ANY "OTHER" [facility] Condition: Stable Prescriptions: New Cephalexin Mh 500 mg [Keflex 500 mg] 500 mg PO TID #30 capsule Nystatin Powder 15 gm [Nystop Powder 15 gm] 1 gm TP BID powder Continue Clopidogrel Bisulfate 75 mg [PLAVIX 75 MG Tablet] 75 mg PO DAILY Insulin Glargine [Lantus Insulin] 35 unit SQ HS Furosemide 20 mg [Lasix 20 mg] 20 mg PO DAILY Fluoxetine HCl 20 mg [Prozac 20 MG] 20 mg PO HS Loratadine 10 mg PO DAILY Potassium Chloride 10 Meq Tab* [Klor Con 10 MEQ] 10 meq PO BID Linagliptin [Tradjenta] 5 mg PO HS Metformin HCl 500 mg [Glucophage 500 MG] 500 mg PO BID Amlodipine Besylate 5 mg [Norvasc 5 mg] 10 mg PO DAILY Ferrous Sulfate 325 mg [Feosol 325 mg] 325 mg PO BID #60 tablet Carvedilol 3.125 mg [Coreg 3.125 MG] 3.125 mg PO BID #60 tablet Aspirin 81 gm Chew [Baby Aspirin 81 mg Chew] 1 ea DAILY Omeprazole 1 ea PO DAILY Glipizide 5 mg [Glucotrol 5 MG] 1 ea PO BID Gabapentin 300 mg PO TID PRN Alendronate Sodium 70 mg [Fosamax 70 MG] 1 ea PO DAILY Melatonin 1 ea PO HS Additional Instructions: [facility] ORDERS: -PT/OT EVAL AND TREAT. -DIABETIC DIET -ACCUCHECKS AC/HS -SEE ATTACHED MEDICATION LIST FOR MEDICATION ORDERS. Follow up with: TRU VILLAFUERTE MD [Primary Care Provider] - 1 Week
== END 2020-06-18 13:35 ==
LOC: ED 12:42 → MED SURG 18:06
PROVIDERS: ADMIT Family Medicine; ATTEND Family Medicine
DX: M79.672 Pain in left foot (principal); N39.0 Urinary tract infection, site not specified; R41.82 Altered mental status, unspecified; E11.9 Type 2 diabetes mellitus without complications; I10 Essential (primary) hypertension; E87.6 Hypokalemia; L03.116 Cellulitis of left lower limb; L03.115 Cellulitis of right lower limb; Z79.01 Long term (current) use of anticoagulants; Z79.899 Other long term (current) drug therapy; Z86.73 Personal history of transient ischemic attack (TIA), and cerebral infarction without residual deficits
CPT/HCPCS: 36000; 36415; 36600; 70450; 71045; 71260; 80053; 80307; 81001; 82375; 82803; 82962; 83036; 83605; 83735; 84484; 85025; 85027; 87040; 87077; 87086; 87186; 93005; 93041; 93268; 93971; 94760; 99285; G0378; G0480; J0696; J1817; A9270-GY

== ENCOUNTER 2020-07-09 21:27 | Inpatient (IN) | payer MEDICARE ==
--- NOTE | 2020-07-09 21:35 | ERPHSYRPT ---
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 Site reportedly was 3 weeks ago. The patient endorsed having sharp pain with some tenderness associated to the right lower quadrant that is been constant nonradiating and is mild in severity. She currently resides in an [facility] and the physician at that location and decided she needed to be examined in the emergency department. She is not taking anything for pain and endorsed that she has had some nausea vomiting associated with the pain. She denies fever, chills, diarrhea and constipation and denies any symptoms consistent with a UTI. Timing/Duration: week(s) (3) Activities at Onset: none Quality: sharpness Abdominal Pain Onset Location: RLQ Pain Radiation: no radiation Severity of Pain-Max: mild Severity of Pain-Current: mild Allergies/Adverse Reactions: lisinopril Allergy (Severe, Verified 07/09/20 21:52) Swelling codeine Allergy (Intermediate, Verified 07/09/20 21:52) Nausea and Vomiting allergies validated with patient morphine Allergy (Intermediate, Verified 07/09/20 21:52) Nausea and Vomiting oxycodone [Oxycodone] Allergy (Intermediate, Verified 07/09/20 21:52) Nausea and Vomiting Home Medications: Clopidogrel Bisulfate 75 mg [PLAVIX 75 MG Tablet] 75 mg PO DAILY 08/22/13 [History] Furosemide 20 mg [Lasix 20 mg] 20 mg PO DAILY 08/22/13 [History] Insulin Glargine [Lantus Insulin] 40 unit SQ HS 08/22/13 [History] Loratadine 10 mg PO DAILY 02/18/14 [History] Potassium Chloride 10 Meq Tab* [Klor Con 10 MEQ] 10 meq PO BID 06/23/15 [History] Linagliptin [Tradjenta] 5 mg PO HS 03/19/17 [History] Metformin HCl 500 mg [Glucophage 500 MG] 500 mg PO BID 03/19/17 [History] Amlodipine Besylate 5 mg [Norvasc 5 mg] 10 mg PO DAILY 06/13/17 [History] Alendronate Sodium 70 mg [Fosamax 70 MG] 1 ea PO DAILY 06/17/20 [History] Aspirin 81 gm Chew [Baby Aspirin 81 mg Chew] 1 ea DAILY 06/17/20 [History] Gabapentin 300 mg PO QID 06/17/20 [History] Melatonin 5 ea PO HS 06/17/20 [History] Carvedilol 3.125 mg [Coreg 3.125 MG] 1 tab PO BID 07/10/20 [History] Sucralfate 1 gm [Carafate 1 GM] 1 tab PO QID 07/10/20 [History] Hx Tetanus, Diphtheria Vaccination/Date Given: Yes Hx Influenza Vaccination/Date Given: Yes Hx Pneumococcal Vaccination/Date Given: No Travel Risk - International Travel Have you traveled outside of the country in past 3 weeks: No - Coronavirus Screening Are you exhibiting any of the following symptoms?: No Close contact with a COVID-19 positive Pt in past 14-21 Days: No - Review of Systems Constitutional: No Symptoms Eyes: No Symptoms Ears, Nose, & Throat: No Symptoms Respiratory: No Symptoms Cardiac: No Symptoms Abdominal/Gastrointestinal: Abdominal Pain, Nausea, Vomiting, No Constipation, No Hematemesis, No Hematochezia, No Melena, No Dysphagia, No Appetite Changes Genitourinary Symptoms: No Symptoms, No Dysuria, No Frequency, No Hematuria Musculoskeletal: No Symptoms Skin: No Symptoms Neurological: No Symptoms Psychological: No Symptoms Endocrine: No Symptoms Hematologic/Lymphatic: No Symptoms Immunological/Allergic: No Symptoms All Other Systems: Reviewed and Negative - Past Medical History Pertinent Past Medical History: Yes Neurological History: Stroke ENT History: Cataracts, Other Cardiac History: Angina, Hypertension Respiratory History: No Pertinent History Endocrine Medical History: Diabetes Type II Musculoskeletal History: Other GI Medical History: Gallbladder Disease History: Other Psycho-Social History: No Pertinent History Female Reproductive Disorders: No Pertinent History Other Medical History: wears glasses, full set of dentures (not at bedside), incontinence, left arm flaccid and contracted, left hand contracture. BLE cellulitis. - Past Surgical History Past Surgical History: Yes Neuro Surgical History: No Pertinent History Cardiac: No Pertinent History Respiratory: No Pertinent History Gastrointestinal: Cholecystectomy Genitourinary: No Pertinent History Musculoskeletal: No Pertinent History Female Surgical History: Section Other Surgical History: left shoulder and wrist surg. - LEFT HIP PER FX - Social History Smoking Status: Former smoker Exposure to second hand smoke: Yes Alcohol Use: None Drug Use: none Patient Lives Alone: Yes Significant Family History: hypertension - Nursing Vital Signs Nursing Vital Signs: Initial Vital Signs Temperature 98.4 F 07/09/20 21:34 Pulse Rate 89 07/09/20 21:34 Respiratory Rate 24 07/09/20 21:34 Blood Pressure 150/65 07/09/20 21:34 O2 Sat by Pulse Oximetry 93 L 07/09/20 21:34 Pain Scale Pain Intensity 6 - Physical Exam General Appearance: no apparent distress, alert, obese, other (Chronically ill- appearing female) Eye Exam: PERRL/EOMI, eyes nml inspection Ears, Nose, Throat Exam: normal ENT inspection Neck Exam: normal inspection Respiratory Exam: normal breath sounds, diminished breath sounds, other (Currently on 2-3 LPM via NC ), No respiratory distress Cardiovascular Exam: regular rate/rhythm, normal heart sounds, capillary refill <2 sec, No murmur, No friction rub, No gallop Gastrointestinal/Abdomen Exam: soft, tenderness (Mild RLQ tenderness with no rebound tenderness or guarding) Pelvic Exam: not done Rectal Exam: deferred Back Exam: normal inspection Extremity Exam: normal inspection, pedal edema Neurologic Exam: alert, oriented x 3, cooperative, other (Left hemiparesis noted in upper and lower extremities) Skin Exam: normal color, warm, dry, other (Dried skin and flaking noted to lower extremities ) O2 Delivery: Nasal Cannula - Course Nursing assessment & vital signs reviewed: Yes EKG Interpreted by Me: RATE, Sinus Rhythm, NORMAL AXIS, NORMAL INTERVALS, NORMAL ST-T, Other (Negative for STEMI or evidence of acute myocardial ischemia) - CT Exams Abdomen/Pelvis CT Interpretation: Other (Free intraperitoneal gas possibly secondary to perforation fo the ascending colon near the hepatic flexure. There is moderate wall thickening and infectious, inflammatory, or neoplastic disease of the ascending colon should be considered. Moderate amout of minimally complex p erihepatic free fluid ) Ordered Tests: Active Orders 24 hr Category Date Time Status Cath for Specimen-Straight STAT Care 07/09/20 22:20 Active EKG-ER Only STAT Care 07/09/20 21:34 Active IV Insertion STAT Care 07/09/20 21:34 Active IV Insertion-2nd Peripheral STAT Care 07/10/20 00:22 Active NPO Diet 07/10/20 00:05 Active ABDOMEN AND PELVIS W/0 CONTRAS [CT] Stat Exams 07/09/20 22:20 Taken CHEST 1 VIEW (PORTABLE) Stat Exams 07/10/20 04:35 Taken ARTERIAL BLOOD GASES Stat Lab 07/10/20 02:00 Completed ARTERIAL BLOOD GASES Stat Lab 07/10/20 03:26 Completed BLOOD CULTURE Stat Lab 07/10/20 01:00 Ordered BMP Stat Lab 07/09/20 22:03 Completed CBC W DIFF Stat Lab 07/09/20 22:03 Completed CULTURE,URINE Stat Lab 07/09/20 22:44 Received Hepatic Function Panel Stat Lab 07/09/20 22:03 Completed LIPASE Stat Lab 07/09/20 22:03 Completed Lactic Acid Stat Lab 07/10/20 00:03 Completed Lactic Acid Stat Lab 07/10/20 01:58 Completed Lactic Acid Stat Lab 07/10/20 03:09 Received Lactic Acid Stat Lab 07/10/20 03:31 Completed PROTIME WITH INR Stat Lab 07/10/20 01:00 Completed PTT Stat Lab 07/10/20 01:00 Completed UA W/RFX UR CULTURE Stat Lab 07/09/20 22:44 Completed Medication Summary Generic Name Dose Route Start Last Admin Trade Name Freq PRN Reason Stop Dose Admin Lactated Ringer's 1,000 mls @ 150 mls/hr 07/10/20 00:30 07/10/20 04:57 Lactated Ringers IV 08/09/20 00:29 150 mls/hr .Q6H40M EDDIE Administration Propofol 100 mls @ 2.892 mls/hr 07/10/20 04:20 07/10/20 04:20 Propofol 1000 Mg/100 Ml Bottle IV 08/09/20 04:19 2.892 mls/hr .Q24H PRN Administration AGITATION Protocol 5 MCG/KG/MIN Lactated Ringer's 1,000 mls @ 150 mls/hr 07/10/20 04:54 Lactated Ringers IV 07/10/20 11:33 .Q6H40M ONE Piperacillin Sod/Tazobactam 100 mls @ 200 mls/hr 07/10/20 06:00 Sod 3.375 gm/ Sodium Chloride IV 08/09/20 05:59 Q6HT EDDIE Insulin Human Lispro 0 unit 07/10/20 04:57 Humalog SQ 08/09/20 04:56 UD PRN HYPERGLYCEMIA Metoprolol Tartrate 5 mg 07/10/20 05:15 Lopressor 5 Mg/5 Ml Injection IV 08/09/20 05:14 Q6H EDDIE Pantoprazole Sodium 80 mg 07/10/20 06:00 Protonix 40 Mg Iv IV 08/09/20 05:59 Q12H EDDIE Discontinued Medications Generic Name Dose Route Start Last Admin Trade Name Freq PRN Reason Stop Dose Admin Albuterol Sulfate Confirm 07/10/20 02:34 Proair Hfa Mdi Administered 07/10/20 02:35 Dose 8.5 gm IH .STK-MED ONE Fentanyl Citrate 25 mcg 07/10/20 00:07 07/10/20 00:24 Sublimaze 100 Mcg/2 Ml IV 07/10/20 00:08 25 mcg STAT ONE Administration Fentanyl Citrate Confirm 07/10/20 00:10 Sublimaze 100 Mcg/2 Ml Administered 07/10/20 00:11 Dose 100 mcg .ROUTE .STK-MED ONE Fentanyl Citrate Confirm 07/10/20 01:02 Sublimaze 250 Mcg/5 Ml Administered 07/10/20 01:03 Dose 250 mcg .ROUTE .STK-MED ONE Piperacillin Sod/Tazobactam 100 mls @ 200 mls/hr 07/10/20 00:04 07/10/20 00:20 Sod 4.5 gm/ Sodium Chloride IV 07/10/20 00:33 200 mls/hr STAT ONE Administration Lactated Ringer's 1,000 mls @ 999 mls/hr 07/10/20 00:05 07/10/20 00:23 Lactated Ringers IV 07/10/20 01:05 999 mls/hr .Q1H1M ONE Administration Sodium Chloride Confirm 07/10/20 00:11 Sodium Chloride 100ml Mini-Bag Plus Administered 07/10/20 00:12 Dose 100 mls @ ud IV .STK-MED ONE Dextrose Confirm 07/10/20 02:06 Dextrose 5%/Water Iv Soln. 250 Ml Administered 07/10/20 02:07 Dose 250 mls @ ud IV .STK-MED ONE Sodium Chloride Confirm 07/10/20 03:01 Sodium Chloride 0.9% 1000 Ml Administered 07/10/20 03:02 Dose 4,000 mls @ ud .ROUTE .STK-MED ONE Midazolam HCl Confirm 07/10/20 01:02 Versed 2 Mg/2 Ml Injection Administered 07/10/20 01:03 Dose 2 mg .ROUTE .STK-MED ONE Morphine Sulfate 2 mg 07/10/20 00:06 07/10/20 00:39 Morphine Sulfate 2 Mg Inj IV 07/10/20 00:07 Not Given STAT ONE Ondansetron HCl 4 mg 07/10/20 00:06 07/10/20 00:13 Zofran 4 Mg/2 Ml Vial IV 07/10/20 00:07 4 mg STAT ONE Administration Ondansetron HCl Confirm 07/10/20 00:10 Zofran 4 Mg/2 Ml Vial Administered 07/10/20 00:11 Dose 4 mg .ROUTE .STK-MED ONE Phenylephrine HCl Confirm 07/10/20 02:06 Phenylephrine Hcl Administered 07/10/20 02:07 Dose 10 mg .ROUTE .STK-MED ONE Piperacillin Sod/Tazobactam Sod Confirm 07/10/20 00:10 Zosyn Inj Administered 07/10/20 00:11 Dose 4.5 gm IV .STK-MED ONE Propofol Confirm 07/10/20 01:02 Diprivan 200 Mg/20 Ml Administered 07/10/20 01:03 Dose 200 mg IV .STK-MED ONE Rocuronium [place] Confirm 07/10/20 01:02 Zemuron 100 Mg/10 Ml Administered 07/10/20 01:03 Dose 50 mg .ROUTE .STK-MED ONE Rocuronium [place] Confirm 07/10/20 03:38 Zemuron 100 Mg/10 Ml Administered 07/10/20 03:39 Dose 20 mg .ROUTE .STK-MED ONE Succinylcholine Chloride Confirm 07/10/20 01:02 Quelicin Fliptop 200 Mg/10 Ml Administered 07/10/20 01:03 Dose 160 mg .ROUTE .STK-MED ONE Lab/Rad Data: Laboratory Result Diagrams 07/09/20 22:03 07/09/20 22:03 Laboratory Results 07/10/20 07/10/20 07/10/20 Range/Units 03:31 03:26 02:02 WBC (4.0-10.5) K/mm3 RBC (4.1-5.4) M/mm3 Hgb (12.0-16.0) gm/dl Hct (35-47) % MCV (78-100) fl MCH (26-32) pg MCHC (32-36) g/dl RDW (11.5-14.0) % Plt Count (150-450) K/mm3 MPV (7.5-11.0) fl Gran % (36.0-66.0) % Eos # (Auto) (0-0.5) Absolute Lymphs (auto) (1.0-4.6) Absolute Monos (auto) (0.0-1.3) Lymphocytes % (24.0-44.0) % Monocytes % (0.0-12.0) % Eosinophils % (0.00-5.0) % Basophils % (0.0-0.4) % Absolute Granulocytes (1.4-6.9) Basophils # (0-0.4) PT (9.95-12.35) SECONDS INR (0.8-3.0) APTT (25.3-37.0) SECONDS Puncture Site Not Reportable pCO2 35 (35-45) mmHg pO2 202 H* (75-100) mmHg Base Excess -3.1 L (-2.0-2.0) O2 Saturation 97.0 (94-100) g/dF ABG pH 7.39 (7.35-7.45) ABG HCO3 21.2 L (22-28) ABG O2 Sat (Measured) 98.6 (95-100) % Mele Test Not Reportable A-a Gradient -96 a/A Ratio 1.91 Hemoglobin 8.1 Carboxyhemoglobin 0.8 (0.0-6.9) % THgb Methemoglobin 0.8 L (1.4-1.5) % Temperature 37.0 C POC O2 Flow Rate 21 % Sodium (137-145) mmol/L Potassium 4.7 (3.5-5.1) mmol/L Chloride (98-107) mmol/L Carbon Dioxide (22-30) mmol/L Anion Gap (5-15) MEQ/L BUN (7-17) mg/dL Creatinine (0.52-1.04) mg/dL Estimated GFR ML/MIN Glucose (74-106) mg/dL Lactic Acid 1.4 (0.4-2.0) Calcium (8.4-10.2) mg/dL Total Bilirubin (0.2-1.3) mg/dL Direct Bilirubin (0.0-0.4) mg/dL AST (14-36) U/L ALT (0-35) U/L Alkaline Phosphatase (38-126) U/L Serum Total Protein (6.3-8.2) g/dL Albumin (3.5-5.0) g/dL Lipase (23-300) U/L Urine Color (YELLOW) Urine Appearance (CLEAR) Urine pH (5-6) Ur Specific [place] (1.005-1.025) Urine Protein (Negative) Urine Ketones (NEGATIVE) Urine Blood (0-5) Keith/ul Urine Nitrite (NEGATIVE) Urine Bilirubin (NEGATIVE) Urine Urobilinogen (0-1) mg/dL Ur Leukocyte Esterase (NEGATIVE) Urine WBC (Auto) (0-5) /HPF Urine RBC (Auto) (0-2) /HPF U Hyaline Cast (Auto) (0-2) /LPF U Epithel Cells (Auto) (FEW) /HPF Urine Bacteria (Auto) (NEGATIVE) /HPF Urine Mucus (Auto) (NEGATIVE) /HPF Urine Culture Reflexed (NO) Urine Glucose (NEGATIVE) mg/dL SARS-CoV-2 (PCR) NEGATIVE (NEGATIVE) ABO Group Rh Factor Antibody Screen (NEGATIVE) 07/10/20 07/10/20 07/10/20 Range/Units 02:00 01:58 01:00 WBC (4.0-10.5) K/mm3 RBC (4.1-5.4) M/mm3 Hgb (12.0-16.0) gm/dl Hct (35-47) % MCV (78-100) fl MCH (26-32) pg MCHC (32-36) g/dl RDW (11.5-14.0) % Plt Count (150-450) K/mm3 MPV (7.5-11.0) fl Gran % (36.0-66.0) % Eos # (Auto) (0-0.5) Absolute Lymphs (auto) (1.0-4.6) Absolute Monos (auto) (0.0-1.3) Lymphocytes % (24.0-44.0) % Monocytes % (0.0-12.0) % Eosinophils % (0.00-5.0) % Basophils % (0.0-0.4) % Absolute Granulocytes (1.4-6.9) Basophils # (0-0.4) PT (9.95-12.35) SECONDS INR (0.8-3.0) APTT (25.3-37.0) SECONDS Puncture Site ART LINE pCO2 49 H (35-45) mmHg pO2 66 L (75-100) mmHg Base Excess -1.4 (-2.0-2.0) O2 Saturation 91.3 L (94-100) g/dF ABG pH 7.32 L (7.35-7.45) ABG HCO3 25.2 (22-28) ABG O2 Sat (Measured) 93.8 L (95-100) % Mele Test Not Reportable A-a Gradient 22 a/A Ratio 0.75 Hemoglobin 8.9 Carboxyhemoglobin 1.9 (0.0-6.9) % THgb Methemoglobin 0.8 L (1.4-1.5) % Temperature 37.0 C POC O2 Flow Rate 21 % Sodium (137-145) mmol/L Potassium 5.2 H (3.5-5.1) mmol/L Chloride (98-107) mmol/L Carbon Dioxide (22-30) mmol/L Anion Gap (5-15) MEQ/L BUN (7-17) mg/dL Creatinine (0.52-1.04) mg/dL Estimated GFR ML/MIN Glucose (74-106) mg/dL Lactic Acid 1.8 (0.4-2.0) Calcium (8.4-10.2) mg/dL Total Bilirubin (0.2-1.3) mg/dL Direct Bilirubin (0.0-0.4) mg/dL AST (14-36) U/L ALT (0-35) U/L Alkaline Phosphatase (38-126) U/L Serum Total Protein (6.3-8.2) g/dL Albumin (3.5-5.0) g/dL Lipase (23-300) U/L Urine Color (YELLOW) Urine Appearance (CLEAR) Urine pH (5-6) Ur Specific [place] (1.005-1.025) Urine Protein (Negative) Urine Ketones (NEGATIVE) Urine Blood (0-5) Keith/ul Urine Nitrite (NEGATIVE) Urine Bilirubin (NEGATIVE) Urine Urobilinogen (0-1) mg/dL Ur Leukocyte Esterase (NEGATIVE) Urine WBC (Auto) (0-5) /HPF Urine RBC (Auto) (0-2) /HPF U Hyaline Cast (Auto) (0-2) /LPF U Epithel Cells (Auto) (FEW) /HPF Urine Bacteria (Auto) (NEGATIVE) /HPF Urine Mucus (Auto) (NEGATIVE) /HPF Urine Culture Reflexed (NO) Urine Glucose (NEGATIVE) mg/dL SARS-CoV-2 (PCR) (NEGATIVE) ABO Group AB Rh Factor NEGATIVE Antibody Screen NEGATIVE (NEGATIVE) 07/10/20 07/10/20 07/09/20 Range/Units 01:00 00:03 22:44 WBC (4.0-10.5) K/mm3 RBC (4.1-5.4) M/mm3 Hgb (12.0-16.0) gm/dl Hct (35-47) % MCV (78-100) fl MCH (26-32) pg MCHC (32-36) g/dl RDW (11.5-14.0) % Plt Count (150-450) K/mm3 MPV (7.5-11.0) fl Gran % (36.0-66.0) % Eos # (Auto) (0-0.5) Absolute Lymphs (auto) (1.0-4.6) Absolute Monos (auto) (0.0-1.3) Lymphocytes % (24.0-44.0) % Monocytes % (0.0-12.0) % Eosinophils % (0.00-5.0) % Basophils % (0.0-0.4) % Absolute Granulocytes (1.4-6.9) Basophils # (0-0.4) PT 14.8 H (9.95-12.35) SECONDS INR 1.31 (0.8-3.0) APTT 32.5 (25.3-37.0) SECONDS Puncture Site pCO2 (35-45) mmHg pO2 (75-100) mmHg Base Excess (-2.0-2.0) O2 Saturation (94-100) g/dF ABG pH (7.35-7.45) ABG HCO3 (22-28) ABG O2 Sat (Measured) (95-100) % Mele Test A-a Gradient a/A Ratio Hemoglobin Carboxyhemoglobin (0.0-6.9) % THgb Methemoglobin (1.4-1.5) % Temperature C POC O2 Flow Rate % Sodium (137-145) mmol/L Potassium (3.5-5.1) mmol/L Chloride (98-107) mmol/L Carbon Dioxide (22-30) mmol/L Anion Gap (5-15) MEQ/L BUN (7-17) mg/dL Creatinine (0.52-1.04) mg/dL Estimated GFR ML/MIN Glucose (74-106) mg/dL Lactic Acid 2.6 H (0.4-2.0) Calcium (8.4-10.2) mg/dL Total Bilirubin (0.2-1.3) mg/dL Direct Bilirubin (0.0-0.4) mg/dL AST (14-36) U/L ALT (0-35) U/L Alkaline Phosphatase (38-126) U/L Serum Total Protein (6.3-8.2) g/dL Albumin (3.5-5.0) g/dL Lipase (23-300) U/L Urine Color SERGIO (YELLOW) Urine Appearance CLOUDY (CLEAR) Urine pH 5.0 (5-6) Ur Specific [place] 1.024 (1.005-1.025) Urine Protein 30 (Negative) Urine Ketones NEGATIVE (NEGATIVE) Urine Blood SMALL (0-5) Keith/ul Urine Nitrite NEGATIVE (NEGATIVE) Urine Bilirubin SMALL (NEGATIVE) Urine Urobilinogen 2 (0-1) mg/dL Ur Leukocyte Esterase SMALL (NEGATIVE) Urine WBC (Auto) 16-25 (0-5) /HPF Urine RBC (Auto) 6-10 (0-2) /HPF U Hyaline Cast (Auto) 3-5 (0-2) /LPF U Epithel Cells (Auto) RARE (FEW) /HPF Urine Bacteria (Auto) PACKED (NEGATIVE) /HPF Urine Mucus (Auto) SLIGHT (NEGATIVE) /HPF Urine Culture Reflexed YES (NO) Urine Glucose NEGATIVE (NEGATIVE) mg/dL SARS-CoV-2 (PCR) (NEGATIVE) ABO Group Rh Factor Antibody Screen (NEGATIVE) 07/09/20 07/09/20 Range/Units 22:03 22:03 WBC 17.2 H (4.0-10.5) K/mm3 RBC 3.17 L (4.1-5.4) M/mm3 Hgb 10.0 L (12.0-16.0) gm/dl Hct 31.5 L (35-47) % MCV 99.4 (78-100) fl MCH 31.5 (26-32) pg MCHC 31.7 L (32-36) g/dl RDW 14.9 H (11.5-14.0) % Plt Count 252 (150-450) K/mm3 MPV 11.3 H (7.5-11.0) fl Gran % 75.9 H (36.0-66.0) % Eos # (Auto) 0.01 (0-0.5) Absolute Lymphs (auto) 2.75 (1.0-4.6) Absolute Monos (auto) 1.36 H (0.0-1.3) Lymphocytes % 16.0 L (24.0-44.0) % Monocytes % 7.9 (0.0-12.0) % Eosinophils % 0.1 (0.00-5.0) % Basophils % 0.1 (0.0-0.4) % Absolute Granulocytes 13.09 H (1.4-6.9) Basophils # 0.02 (0-0.4) PT (9.95-12.35) SECONDS INR (0.8-3.0) APTT (25.3-37.0) SECONDS Puncture Site pCO2 (35-45) mmHg pO2 (75-100) mmHg Base Excess (-2.0-2.0) O2 Saturation (94-100) g/dF ABG pH (7.35-7.45) ABG HCO3 (22-28) ABG O2 Sat (Measured) (95-100) % Mele Test A-a Gradient a/A Ratio Hemoglobin Carboxyhemoglobin (0.0-6.9) % THgb Methemoglobin (1.4-1.5) % Temperature C POC O2 Flow Rate % Sodium 133 L (137-145) mmol/L Potassium 5.3 H (3.5-5.1) mmol/L Chloride 100 (98-107) mmol/L Carbon Dioxide 25 (22-30) mmol/L Anion Gap 12.6 (5-15) MEQ/L BUN 37 H (7-17) mg/dL Creatinine 1.60 H (0.52-1.04) mg/dL Estimated GFR 34.1 ML/MIN Glucose 268 H (74-106) mg/dL Lactic Acid (0.4-2.0) Calcium 8.8 (8.4-10.2) mg/dL Total Bilirubin 0.60 (0.2-1.3) mg/dL Direct Bilirubin 0.2 (0.0-0.4) mg/dL AST 23 (14-36) U/L ALT 18 (0-35) U/L Alkaline Phosphatase 73 (38-126) U/L Serum Total Protein 7.1 (6.3-8.2) g/dL Albumin 3.5 (3.5-5.0) g/dL Lipase 32 (23-300) U/L Urine Color (YELLOW) Urine Appearance (CLEAR) Urine pH (5-6) Ur Specific [place] (1.005-1.025) Urine Protein (Negative) Urine Ketones (NEGATIVE) Urine Blood (0-5) Keith/ul Urine Nitrite (NEGATIVE) Urine Bilirubin (NEGATIVE) Urine Urobilinogen (0-1) mg/dL Ur Leukocyte Esterase (NEGATIVE) Urine WBC (Auto) (0-5) /HPF Urine RBC (Auto) (0-2) /HPF U Hyaline Cast (Auto) (0-2) /LPF U Epithel Cells (Auto) (FEW) /HPF Urine Bacteria (Auto) (NEGATIVE) /HPF Urine Mucus (Auto) (NEGATIVE) /HPF Urine Culture Reflexed (NO) Urine Glucose (NEGATIVE) mg/dL SARS-CoV-2 (PCR) (NEGATIVE) ABO Group Rh Factor Antibody Screen (NEGATIVE) - Progress Progress Note: 07/09/20 23:45 CT reviewed and there appears to be possible stranding in the right lower quadrant where this is difficult to discern given this is a noncontrasted CT. Her white blood cell count is also 17 however she is afebrile. 07/10/20 00:15 General surgery currently paged. 07/10/20 00:15 CT scan of the abdomen and pelvis is showing evidence of a bowel per which appears to be to the a sending colon along the hepatic flexure with evidence of free air and possible fluid that could be blood or perihepatic ascites. 07/10/20 00:[address] Eleuterio Webber, general surgery, and discussed the case with him. He agreed to take the patient to the OR. Requested that we call in the OR team and have the patient's primary physician consulted for medical management. 07/10/20 00:[address] Winchester who agreed to consult for medical management. Discussed with : Paula (Will take to OR tonight and request medicine physician to consult for medical management and to call in the OR team) Will see patient in: ED Counseled pt/family regarding: lab results, diagnosis, rad results - Departure Departure Disposition: Release to OR/ALC Clinical Impression: Large bowel perforation, [id number] kidney injury, Hypertension, History of CVA (cerebrovascular accident), Lactic acidosis, Intra-abdominal fluid, Pneumoperitoneum Condition: Stable Critical Care Time: Yes Critical Care Time(excluding separately billable procedures): Critical 30-74 mins
[2020-07-09 22:06] LABS: Absolute Neutrophil Ct (ANC) 13.09 (1.4-6.9); BASOPHIL % 0.1 % (0.0-0.4); Basophil (Absolute #) 0.02 (0-0.4); Eosinophil % 0.1 % (0.00-5.0); Eosinophil (Absolute #) 0.01 (0-0.5); Hematocrit 31.5 % (35-47); Lymphocyte (Absolute #) 2.75 (1.0-4.6); Mean Cell Volume 99.4 fl (78-100); Mean Corpuscular Hemoglobin 31.5 pg (26-32); Mean Corpuscular Hgb Concent. 31.7 g/dl (32-36); Mean Platelet Volume 11.3 fl (7.5-11.0); Monocyte (Absolute #) 1.36 (0.0-1.3); Monocytes % 7.9 % (0.0-12.0); Neutrophil % 75.9 % (36.0-66.0); Platelet Count 252 K/mm3 (150-450); Red Blood Count 3.17 M/mm3 (4.1-5.4); Red Cell Distribution Width 14.9 % (11.5-14.0); White Blood Count 17.2 K/mm3 (4.0-10.5)
[2020-07-09 22:18] LABS: ALBUMIN 3.5 g/dL (3.5-5.0); ANION GAP 12.6 MEQ/L (5-15); BILIRUBIN,TOTAL 0.6 mg/dL (0.2-1.3); Calcium 8.8 mg/dL (8.4-10.2); Creatinine 1 1.6 mg/dL (0.52-1.04); Direct Bilirubin 0.2 mg/dL (0.0-0.4); EST GLOMERULAR FILTRATION RATE 34.1 ML/MIN; Potassium 5.3 mmol/L (3.5-5.1); Total Protein 7.1 g/dL (6.3-8.2)
[2020-07-09 23:18] LABS: Appearance CLOUDY (CLEAR); Bacteria PACKED /HPF (NEGATIVE); Bilirubin SMALL (NEGATIVE); Blood SMALL Ery/ul (0-5); Epithelial Cells RARE /HPF (FEW); Glucose NEGATIVE (NEGATIVE); Ketones NEGATIVE (NEGATIVE); Leukocyte Esterase SMALL (NEGATIVE); Mucus SLIGHT /HPF (NEGATIVE); Nitrite NEGATIVE (NEGATIVE); Protein,Urine Dip 30 (Negative); Specific Gravity 1.024 (1.005-1.025); Urobilinogen 2 mg/dL (0-1)
[2020-07-10] MEDS ORDERED: Zosyn INJ 4.5 GM in Sodium Chloride 100ML MINI-BAG PLUS 100 ML IV ONE (00:04)
[2020-07-10] MEDS ORDERED: Lactated Ringers 1,000 ML IV ONE ×3 (00:05→06:00)
[2020-07-10] MEDS ORDERED: Zofran 4 MG/2 ML VIAL IV ONE (00:06)
[2020-07-10] MEDS ORDERED: MORPHINE SULFATE 2 MG INJ IV ONE (00:06)
[2020-07-10] MEDS ORDERED: SUBLIMAZE 100 MCG/2 ML IV ONE (00:07)
[2020-07-10] MEDS ORDERED: SUBLIMAZE 100 MCG/2 ML ONE (00:10)
[2020-07-10] MEDS ORDERED: Zofran 4 MG/2 ML VIAL ONE (00:10)
[2020-07-10] MEDS ORDERED: Zosyn INJ IV ONE (00:10)
[2020-07-10] MEDS ORDERED: Sodium Chloride 100ML MINI-BAG PLUS 100 ML IV ONE (00:11)
[2020-07-10] MEDS ORDERED: DIPRIVAN 200 MG/20 ML IV ONE (01:02)
[2020-07-10] MEDS ORDERED: SUBLIMAZE 250 MCG/5 ML ONE (01:02)
[2020-07-10] MEDS ORDERED: Quelicin Fliptop 200 MG/10 ML ONE (01:02)
[2020-07-10] MEDS ORDERED: Zemuron 100 MG/10 ML ONE ×2 (01:02→03:38)
[2020-07-10] MEDS ORDERED: Versed 2 MG/2 ML Injection ONE (01:02)
[2020-07-10 01:26] LABS: INR 1.31 (0.8-3.0); PROTIME 14.8 SECONDS (9.95-12.35)
[2020-07-10 01:28] LABS: PTT 32.5 SECONDS (25.3-37.0)
[2020-07-10 02:03] LABS: A-aADO2 22; ABG HEMOGLOBIN 8.9; ABG POTASSIUM 5.2 (3.5-5.1); ARTERIAL BLD GAS O2 SATURATION 93.8 % (95-100); ARTERIAL BLOOD GAS BASE EXCESS -1.4 (-2.0-2.0); ARTERIAL BLOOD GAS FIO2 21 %; ARTERIAL BLOOD GAS PCO2 49 mmHg (35-45); ARTERIAL BLOOD GAS PO2 66 mmHg (75-100); ARTERIAL BLOOD GAS pH 7.32 (7.35-7.45); CARBOXYHEMOGLOBIN 1.9 % THgb (0.0-6.9); HCO3- 25.2 (22-28); HGB O2 SAT 91.3 g/dF (94-100); Methhemoglobin 0.8 % (1.4-1.5); paO2 pAO1 0.75
[2020-07-10] MEDS ORDERED: PHENYLEPHRINE HCL ONE (02:06)
[2020-07-10] MEDS ORDERED: Dextrose 5%/Water IV Soln. 250 ML 250 ML IV ONE (02:06)
[2020-07-10 02:08] LABS: ABO TYPING AB; Antibody Screen NEGATIVE (NEGATIVE); RH TYPING NEGATIVE
[2020-07-10 02:28] LABS: ABG SITE ART LINE
[2020-07-10] MEDS ORDERED: Proair Hfa MDI IH ONE (02:34)
[2020-07-10 03:28] LABS: A-aADO2 -96; ABG HEMOGLOBIN 8.1; ABG POTASSIUM 4.7 (3.5-5.1); ARTERIAL BLD GAS O2 SATURATION 98.6 % (95-100); ARTERIAL BLOOD GAS BASE EXCESS -3.1 (-2.0-2.0); ARTERIAL BLOOD GAS FIO2 21 %; ARTERIAL BLOOD GAS PCO2 35 mmHg (35-45); ARTERIAL BLOOD GAS PO2 202 mmHg (75-100); ARTERIAL BLOOD GAS pH 7.39 (7.35-7.45); CARBOXYHEMOGLOBIN 0.8 % THgb (0.0-6.9); HCO3- 21.2 (22-28); Methhemoglobin 0.8 % (1.4-1.5); paO2 pAO1 1.91
[2020-07-10] MEDS: Propofol 1000 mg/100 ml Bottle 100 ML IV PRN ×3 (04:20→17:07)
[2020-07-10] MEDS ORDERED: HUMALOG SQ PRN (04:57)
[2020-07-10] MEDS: Lactated Ringers 1,000 ML IV SCH ×4 (04:57→18:18)
[2020-07-10 05:41] LABS: A-aADO2 224; ABG HEMOGLOBIN 9.8; ABG POTASSIUM 4.9 (3.5-5.1); ARTERIAL BLD GAS O2 SATURATION 94.9 % (95-100); ARTERIAL BLD GAS TIDAL VOLUME 500 cc; ARTERIAL BLOOD GAS BASE EXCESS -6.1 (-2.0-2.0); ARTERIAL BLOOD GAS FIO2 50 %; ARTERIAL BLOOD GAS PCO2 47 mmHg (35-45); ARTERIAL BLOOD GAS PEEP 5 cmH2O; ARTERIAL BLOOD GAS PO2 74 mmHg (75-100); ARTERIAL BLOOD GAS VENT MODE A/C; ARTERIAL BLOOD GAS VENT RATE 16 /MIN; ARTERIAL BLOOD GAS pH 7.26 (7.35-7.45); CARBOXYHEMOGLOBIN 1.5 % THgb (0.0-6.9); HCO3- 21.1 (22-28); Methhemoglobin 0.5 % (1.4-1.5); paO2 pAO1 0.25
[2020-07-10 05:42] LABS: ABG SITE ARTLINE
[2020-07-10 05:56] LABS: Hematocrit 27.4 % (35-47); Hemoglobin 8.5 gm/dl (12.0-16.0); Mean Cell Volume 101.1 fl (78-100); Mean Corpuscular Hemoglobin 31.4 pg (26-32); Mean Platelet Volume 11.5 fl (7.5-11.0); Platelet Count 234 K/mm3 (150-450); Red Blood Count 2.71 M/mm3 (4.1-5.4); Red Cell Distribution Width 14.9 % (11.5-14.0); White Blood Count 16.6 K/mm3 (4.0-10.5)
[2020-07-10 06:02] LABS: ALBUMIN 2.6 g/dL (3.5-5.0); ANION GAP 11.1 MEQ/L (5-15); Calcium 7.2 mg/dL (8.4-10.2); Creatinine 1 1.6 mg/dL (0.52-1.04); EST GLOMERULAR FILTRATION RATE 34.1 ML/MIN; Potassium 4.9 mmol/L (3.5-5.1); Total Protein 5.8 g/dL (6.3-8.2)
[2020-07-10 06:06] LABS: Amourphous Crystal FEW /HPF (NEGATIVE); Appearance CLOUDY (CLEAR); Bacteria MODERATE /HPF (NEGATIVE); Bilirubin NEGATIVE (NEGATIVE); Blood SMALL Ery/ul (0-5); Epithelial Cells RARE /HPF (FEW); Glucose NEGATIVE (NEGATIVE); Ketones NEGATIVE (NEGATIVE); Leukocyte Esterase SMALL (NEGATIVE); Nitrite NEGATIVE (NEGATIVE); Protein,Urine Dip 30 (Negative); Specific Gravity 1.026 (1.005-1.025); Urobilinogen NEGATIVE mg/dL (0-1)
[2020-07-10] MEDS: LOPRESSOR 5 MG/5 ML INJECTION IV SCH ×2 (06:10→09:15)
[2020-07-10] MEDS ORDERED: Zosyn 3.375 GM Vial IV ONE (06:12)
[2020-07-10] MEDS ORDERED: Sodium Chloride 0.9% 100 ML IVPB 100 ML IV ONE (06:15)
[2020-07-10] MEDS: PROTONIX 40 MG IV IV SCH ×2 (06:17→17:05)
[2020-07-10] MEDS: Zosyn 3.375 GM Vial 3.375 GM in Sodium Chloride 100ML MINI-BAG PLUS 100 ML IV SCH ×4 (06:18→23:16)
[2020-07-10] MEDS ORDERED: Sodium Chloride 0.9% 1000 ML 1,000 ML ONE (06:36)
--- NOTE | 2020-07-10 07:52 | XRAY ---
Indication: Right lower quadrant pain. History of diverticulitis. Multiple contiguous axial images obtained through the abdomen and pelvis without contrast as ordered. Comparison: December 15, 2017. Study degraded by respiration artifact throughout. Lung bases again demonstrates bibasilar atelectasis/scarring worsened on the right. New small right effusion. Heart is not enlarged. Noncontrasted stomach and bowel loops appear nonobstructed. Normal appendix. Ascending colon now demonstrates mild wall thickening with mild pericolonic stranding presumed inflammatory. Also new small right upper quadrant free fluid and free air concerning for perforated bowel. Query perforated descending duodenum. Stable cholecystectomy and hysterectomy. Remaining liver, pancreas, spleen, adrenal glands, kidneys, ureters, and bladder appear unremarkable for noncontrast exam. Stable mild aortoiliac calcifications without AAA. Osseous structures again demonstrate some osteopenia, degenerative changes throughout the spine, and old left proximal femur fracture with orthopedic hardware. Impression: 1. Respiration artifact. 2. New right upper quadrant free fluid and free air favoring perforated bowel. Query perforated descending duodenum. 3. New ascending colon wall thickening with pericolonic stranding favoring colitis. Comment: Preliminary interpretation was made by [facility]. No critical discrepancy.
[2020-07-10] MEDS: PHENYLEPHRINE HCL 10 MG in Dextrose 5%/Water IV Soln. 250 ML 250 ML IV PRN ×2 (08:04→11:35)
--- NOTE | 2020-07-10 08:04 | XRAY ---
Indication: Tube placement. Comparison: June 18, 2020. Portable chest demonstrates new endotracheal tube tip 1.2 cm above russell, NG tube tip in the stomach, right IJ central venous access catheter tip projecting right atrium, and partially visualized right mid abdomen surgical drainage tubing. Lungs remain underinflated with worsening bibasilar subsegmental atelectasis. No pneumothorax. Comment: Preliminary interpretation was made by [facility]. No critical discrepancy.
[2020-07-10] MEDS ORDERED: Sodium Chloride 0.9% 250 ML 250 ML IV ONE (08:38)
[2020-07-10] MEDS ORDERED: Sodium Chloride 0.9% 250 ML 250 ML IV SCH (08:45)
[2020-07-10] MEDS: Lactated Ringers 1,000 ML IV ONE ×2 (08:57→11:19)
[2020-07-10] MEDS ORDERED: LOPRESSOR 5 MG/5 ML INJECTION IV PRN (09:53)
[2020-07-10] MEDS: HUMALOG SQ PRN ×3 (11:33→16:19)
[2020-07-10 11:49] LABS: ANISOCYTOSIS 1+; BAND 3 % (0.0-2.0); Hypochromia 1+; Lymphocytes 16 % (24-44); Microcytosis 1+; Monocyte 2 % (0.0-12.0); Neutrophils 79 % (36.0-66.0); Platelet Estimate NORMAL (NORMAL); Poikilocytosis 1+; Polychromasia 1+; Total Cells Counted 100; Toxic Granulation 1+
[2020-07-10 12:01] LABS: A-aADO2 173; ABG HEMOGLOBIN 8.6; ABG POTASSIUM 4.4 (3.5-5.1); ARTERIAL BLD GAS O2 SATURATION 99.1 % (95-100); ARTERIAL BLD GAS TIDAL VOLUME 550 cc; ARTERIAL BLOOD GAS BASE EXCESS -5.3 (-2.0-2.0); ARTERIAL BLOOD GAS FIO2 50 %; ARTERIAL BLOOD GAS PCO2 33 mmHg (35-45); ARTERIAL BLOOD GAS PO2 142 mmHg (75-100); ARTERIAL BLOOD GAS VENT MODE A/C; ARTERIAL BLOOD GAS pH 7.37 (7.35-7.45); HCO3- 19.1 (22-28); HGB O2 SAT 97.4 g/dF (94-100); Methhemoglobin 0.7 % (1.4-1.5); paO2 pAO1 0.45
[2020-07-10 12:02] LABS: ABG SITE ALINE; ARTERIAL BLOOD GAS VENT RATE 20 /MIN
[2020-07-10] MEDS: LEVOPHED 4 MG/4 ML 4,000 MCG in Dextrose 5%/Water IV Soln. 500 ML 500 ML IV PRN (12:49)
[2020-07-10 14:40] LABS: Calcium 7.4 mg/dL (8.4-10.2); Creatinine 1 1.56 mg/dL (0.52-1.04); EST GLOMERULAR FILTRATION RATE 35.1 ML/MIN; Potassium 4.3 mmol/L (3.5-5.1)
[2020-07-10] MEDS ORDERED: BUMEX 1 MG IV SCH (15:00)
[2020-07-10 17:48] LABS: A-aADO2 205; ABG HEMOGLOBIN 8.9; ABG POTASSIUM 4.2 (3.5-5.1); ABG SITE ALINE; ARTERIAL BLD GAS O2 SATURATION 99.2 % (95-100); ARTERIAL BLD GAS TIDAL VOLUME 550 cc; ARTERIAL BLOOD GAS BASE EXCESS -4.2 (-2.0-2.0); ARTERIAL BLOOD GAS FIO2 50 %; ARTERIAL BLOOD GAS PCO2 34 mmHg (35-45); ARTERIAL BLOOD GAS PO2 109 mmHg (75-100); ARTERIAL BLOOD GAS VENT MODE A/C; ARTERIAL BLOOD GAS pH 7.38 (7.35-7.45); HCO3- 20.1 (22-28); HGB O2 SAT 97.8 g/dF (94-100); Methhemoglobin 0.4 % (1.4-1.5); paO2 pAO1 0.35
[2020-07-10] MEDS: DILAUDID 2 MG INJECTION IV PRN (23:16)
[2020-07-11] MEDS: Propofol 1000 mg/100 ml Bottle 100 ML IV PRN ×2 (00:16→07:58)
[2020-07-11] MEDS: DILAUDID 2 MG INJECTION IV PRN ×7 (02:38→21:48)
[2020-07-11] MEDS: Lactated Ringers 1,000 ML IV SCH ×3 (02:43→13:52)
[2020-07-11] MEDS: LEVOPHED 4 MG/4 ML 4,000 MCG in Dextrose 5%/Water IV Soln. 500 ML 500 ML IV PRN (04:08)
[2020-07-11] MEDS: Zosyn 3.375 GM Vial 3.375 GM in Sodium Chloride 100ML MINI-BAG PLUS 100 ML IV SCH ×4 (05:05→23:16)
[2020-07-11] MEDS: PROTONIX 40 MG IV IV SCH ×2 (05:05→17:01)
[2020-07-11] MEDS: HUMALOG SQ PRN ×4 (05:24→22:56)
[2020-07-11 06:04] LABS: A-aADO2 188; ABG HEMOGLOBIN 14.4; ABG POTASSIUM 3.6 (3.5-5.1); ARTERIAL BLD GAS O2 SATURATION 99.1 % (95-100); ARTERIAL BLD GAS TIDAL VOLUME 550 cc; ARTERIAL BLOOD GAS BASE EXCESS -2.1 (-2.0-2.0); ARTERIAL BLOOD GAS FIO2 50 %; ARTERIAL BLOOD GAS PCO2 30 mmHg (35-45); ARTERIAL BLOOD GAS PO2 131 mmHg (75-100); ARTERIAL BLOOD GAS pH 7.45 (7.35-7.45); CARBOXYHEMOGLOBIN 0.8 % THgb (0.0-6.9); HCO3- 20.9 (22-28); HGB O2 SAT 97.6 g/dF (94-100); Methhemoglobin 0.6 % (1.4-1.5); paO2 pAO1 0.41
[2020-07-11 06:05] LABS: ABG SITE LEFT RADIAL; ALLEN TEST OK? YES
[2020-07-11 07:24] LABS: Hematocrit 25.1 % (35-47); Mean Corpuscular Hemoglobin 31.3 pg (26-32); Mean Corpuscular Hgb Concent. 31.9 g/dl (32-36); Mean Platelet Volume 11.6 fl (7.5-11.0); Platelet Count 223 K/mm3 (150-450); Red Blood Count 2.56 M/mm3 (4.1-5.4); Red Cell Distribution Width 14.7 % (11.5-14.0); White Blood Count 14.8 K/mm3 (4.0-10.5)
[2020-07-11 07:33] LABS: ALBUMIN 2.4 g/dL (3.5-5.0); ANION GAP 11.3 MEQ/L (5-15); BILIRUBIN,TOTAL 0.8 mg/dL (0.2-1.3); Calcium 7.7 mg/dL (8.4-10.2); Creatinine 1 1.46 mg/dL (0.52-1.04); EST GLOMERULAR FILTRATION RATE 37.9 ML/MIN; Potassium 3.6 mmol/L (3.5-5.1); Total Protein 5.6 g/dL (6.3-8.2)
[2020-07-11] MEDS ORDERED: PHARMACY DOSING REQUEST MC ONE (08:37)
[2020-07-11 09:39] LABS: A-aADO2 156; ABG HEMOGLOBIN 8.7; ABG POTASSIUM 3.4 (3.5-5.1); ABG SITE ALINE; ARTERIAL BLD GAS O2 SATURATION 98.1 % (95-100); ARTERIAL BLD GAS TIDAL VOLUME 550 cc; ARTERIAL BLOOD GAS BASE EXCESS -2.1 (-2.0-2.0); ARTERIAL BLOOD GAS FIO2 40 %; ARTERIAL BLOOD GAS PCO2 24 mmHg (35-45); ARTERIAL BLOOD GAS PO2 99 mmHg (75-100); ARTERIAL BLOOD GAS VENT MODE A/C; ARTERIAL BLOOD GAS pH 7.51 (7.35-7.45); CARBOXYHEMOGLOBIN 0.5 % THgb (0.0-6.9); HCO3- 19.2 (22-28); Methhemoglobin 0.6 % (1.4-1.5); paO2 pAO1 0.39
[2020-07-11] MEDS ORDERED: Magnesium Sulfate 1 GM/2 ML VIAL*** 2 GM in Sodium Chloride 0.9% 100 ML IVPB 100 ML IV ONE (10:00)
[2020-07-11 11:04] LABS: A-aADO2 147; ABG HEMOGLOBIN 12.5; ABG POTASSIUM 3.8 (3.5-5.1); ART BLD GAS PRESSURE SUPPORT 12; ARTERIAL BLD GAS O2 SATURATION 93.8 % (95-100); ARTERIAL BLOOD GAS BASE EXCESS -5.9 (-2.0-2.0); ARTERIAL BLOOD GAS FIO2 40 %; ARTERIAL BLOOD GAS PCO2 51 mmHg (35-45); ARTERIAL BLOOD GAS PO2 74 mmHg (75-100); CARBOXYHEMOGLOBIN 1.2 % THgb (0.0-6.9); HCO3- 21.9 (22-28); Methhemoglobin 0.7 % (1.4-1.5); paO2 pAO1 0.33
[2020-07-11 11:05] LABS: ARTERIAL BLOOD GAS pH 7.24 (7.35-7.45)
[2020-07-11 11:11] LABS: ABG SITE ALINE
[2020-07-11 12:28] LABS: A-aADO2 138; ABG HEMOGLOBIN 8.4; ABG POTASSIUM 3.7 (3.5-5.1); ART BLD GAS PRESSURE SUPPORT 12; ARTERIAL BLD GAS O2 SATURATION 97.8 % (95-100); ARTERIAL BLOOD GAS BASE EXCESS -5.3 (-2.0-2.0); ARTERIAL BLOOD GAS FIO2 40 %; ARTERIAL BLOOD GAS PCO2 44 mmHg (35-45); ARTERIAL BLOOD GAS PO2 92 mmHg (75-100); ARTERIAL BLOOD GAS pH 7.29 (7.35-7.45); CARBOXYHEMOGLOBIN 0.9 % THgb (0.0-6.9); HCO3- 21.2 (22-28); HGB O2 SAT 96.8 g/dF (94-100)
[2020-07-11 12:29] LABS: ABG SITE ALINE
[2020-07-11] MEDS ORDERED: [UNRECOGNIZED DRUG - NUTRITION] IV SCH ×6 (14:00)
[2020-07-11 14:32] LABS: A-aADO2 93; ABG HEMOGLOBIN 8.6; ABG POTASSIUM 3.6 (3.5-5.1); ARTERIAL BLD GAS O2 SATURATION 96.1 % (95-100); ARTERIAL BLOOD GAS BASE EXCESS -5.1 (-2.0-2.0); ARTERIAL BLOOD GAS FIO2 32 %; ARTERIAL BLOOD GAS PCO2 48 mmHg (35-45); ARTERIAL BLOOD GAS PO2 75 mmHg (75-100); ARTERIAL BLOOD GAS pH 7.27 (7.35-7.45); CARBOXYHEMOGLOBIN 1.2 % THgb (0.0-6.9); HGB O2 SAT 94.2 g/dF (94-100); Methhemoglobin 0.8 % (1.4-1.5); paO2 pAO1 0.45
[2020-07-11 14:33] LABS: ABG SITE ALINE
[2020-07-11] MEDS: ENOXAPARIN SODIUM SQ SCH (17:01)
[2020-07-11 17:04] LABS: A-aADO2 135; ABG HEMOGLOBIN 8.7; ABG POTASSIUM 3.8 (3.5-5.1); ARTERIAL BLD GAS O2 SATURATION 97.4 % (95-100); ARTERIAL BLOOD GAS BASE EXCESS -5.2 (-2.0-2.0); ARTERIAL BLOOD GAS FIO2 40 %; ARTERIAL BLOOD GAS PCO2 51 mmHg (35-45); ARTERIAL BLOOD GAS PO2 86 mmHg (75-100); ARTERIAL BLOOD GAS VENT MODE BiPAP; CARBOXYHEMOGLOBIN 1.2 % THgb (0.0-6.9); HCO3- 22.4 (22-28); HGB O2 SAT 95.5 g/dF (94-100); Methhemoglobin 0.8 % (1.4-1.5); paO2 pAO1 0.39
[2020-07-11 17:05] LABS: ABG SITE ALINE; ARTERIAL BLOOD GAS pH 7.25 (7.35-7.45)
[2020-07-12] MEDS: DILAUDID 2 MG INJECTION IV PRN ×3 (01:42→06:41)
[2020-07-12] MEDS: Zosyn 3.375 GM Vial 3.375 GM in Sodium Chloride 100ML MINI-BAG PLUS 100 ML IV SCH ×4 (05:20→23:56)
[2020-07-12] MEDS: PROTONIX 40 MG IV IV SCH ×2 (05:20→17:14)
[2020-07-12 05:46] LABS: Hematocrit 26.5 % (35-47); Mean Cell Volume 101.1 fl (78-100); Mean Corpuscular Hemoglobin 30.5 pg (26-32); Mean Corpuscular Hgb Concent. 30.2 g/dl (32-36); Mean Platelet Volume 11.7 fl (7.5-11.0); Platelet Count 215 K/mm3 (150-450); Red Blood Count 2.62 M/mm3 (4.1-5.4); Red Cell Distribution Width 14.6 % (11.5-14.0); White Blood Count 15.7 K/mm3 (4.0-10.5)
[2020-07-12 06:02] LABS: ALBUMIN 2.6 g/dL (3.5-5.0); ANION GAP 9.9 MEQ/L (5-15); Calcium 8.2 mg/dL (8.4-10.2); Creatinine 1 1.67 mg/dL (0.52-1.04); EST GLOMERULAR FILTRATION RATE 32.4 ML/MIN; MAGNESIUM 2.4 mg/dL (1.6-2.3); Potassium 4.3 mmol/L (3.5-5.1)
[2020-07-12] MEDS: HUMALOG SQ PRN ×4 (07:12→15:32)
[2020-07-12] MEDS ORDERED: DUONEB 0.5-3 MG/3 ml Neb IH ONE (07:24)
[2020-07-12] MEDS: DUONEB 0.5-3 MG/3 ml Neb IH SCH ×5 (07:30→22:36)
[2020-07-12 07:36] LABS: A-aADO2 225; ABG HEMOGLOBIN 9.3; ABG POTASSIUM 4.4 (3.5-5.1); ARTERIAL BLD GAS O2 SATURATION 96.8 % (95-100); ARTERIAL BLOOD GAS BASE EXCESS -5.6 (-2.0-2.0); ARTERIAL BLOOD GAS FIO2 55 %; ARTERIAL BLOOD GAS PO2 78 mmHg (75-100); ARTERIAL BLOOD GAS VENT MODE BiPAP; ARTERIAL BLOOD GAS pH 7.15 (7.35-7.45); CARBOXYHEMOGLOBIN 0.8 % THgb (0.0-6.9); HCO3- 24.7 (22-28); HGB O2 SAT 95.5 g/dF (94-100); Methhemoglobin 0.4 % (1.4-1.5); paO2 pAO1 0.26
[2020-07-12 07:37] LABS: ARTERIAL BLOOD GAS PCO2 71 mmHg (35-45)
[2020-07-12 07:38] LABS: ALLEN TEST OK? no
[2020-07-12] MEDS: Sodium Chloride 0.9% 500 ML 500 ML IV SCH (07:48)
--- NOTE | 2020-07-12 07:48 | CONS ---
CONSULT DATE: 07/10/2020 REASON FOR CONSULT: Abdominal pain. HISTORY: This patient presents with abdominal pain that has been going on for approximately three weeks. It is more in the right side in the lower abdomen but over the last day it has become diffuse. The pain became very severe yesterday. She came to the emergency room from her extended care facility today this evening. She also complained of shortness of breath the last few weeks requiring oxygen at her nursing facility. She cannot move her left side very much at all due to a stroke. She is difficult to obtain history from as she is in moderate distress and does not recall much of her history. PAST MEDICAL HISTORY: Diabetes, hypertension, stroke. PAST SURGICAL HISTORY: Cholecystectomy. Colonoscopy. MEDICATIONS: Alendronate, amlodipine, aspirin, carvedilol, Plavix, iron, furosemide, gabapentin, insulin, loratadine, Tradjenta, melatonin, Metformin, Nystatin, potassium chloride, Carafate. ALLERGIES: LISINOPRIL. CODEINE. MORPHINE. OXYCODONE. SOCIAL HISTORY: Denies tobacco. FAMILY HISTORY: Noncontributory. PHYSICAL EXAMINATION: GENERAL: In moderate acute distress. HEENT: Sclera nonicteric. Extraocular movements intact. NECK: Supple. No JVD. CHEST: Clear to auscultation bilaterally. ABDOMEN: Rigid, diffuse tenderness, diffusely peritoneal. EXTREMITIES: 2+ lower extremity edema. NEURO: Awake, alert, oriented. PSYCH: Appropriate mood and affect with noticeable distress. LAB DATA AND TESTS: CT scan with free air consistent with perforated viscus. Radiologist interpretation does site concern for perforation of the ascending colon. I personally reviewed the imaging and really cannot definitively say where the perforation is from. It could even be from a perforated ulcer or really any etiology. Laboratory studies significant for a leukocytosis and mildly elevated creatinine. ASSESSMENT AND PLAN: Perforated viscus. Risks and benefits of surgery discussed in depth with the patient the life threatening situation discussed with the patient. Potential need for ostomy discussed with the patient. The patient would like to proceed with exploratory laparotomy and repair of her perforated viscus. She is aware of the risk and would like to proceed with surgery.
[2020-07-12] MEDS ORDERED: SUBLIMAZE 100 MCG/2 ML IV STA (08:10)
[2020-07-12] MEDS ORDERED: VERSED 5 MG/5 ML IV STA (08:10)
[2020-07-12] MEDS ORDERED: Zemuron 100 MG/10 ML IV STA (08:10)
[2020-07-12] MEDS ORDERED: SUBLIMAZE 100 MCG/2 ML ONE (08:14)
[2020-07-12] MEDS: SUBLIMAZE 1000 Mcg/ 20 Ml*** 1,500 MCG in Sodium Chloride 0.9% 150 ML 120 ML IV SCH (08:30)
[2020-07-12] MEDS: Versed 50 MG/ 10 Ml MDV*** 50 MG in Sodium Chloride 0.9% 250 ML 240 ML IV PRN ×2 (08:43→19:46)
--- NOTE | 2020-07-12 08:47 | XRAY ---
Indication: Endotracheal tube placement. Comparison: July 10, 2020. Portable chest demonstrates endotracheal tube advancement with tip now in right mainstem bronchus and subsequent left lung atelectasis. NG tube tip remains in the stomach and right IJ central venous access catheter projects over the right atrium. Right lung remains moderately inflated again with subsegmental atelectasis. Impression: Endotracheal tube tip now in right main stem bronchus with resulting left lung atelectasis. Recommend withdrawal at least 4 cm with repeat chest radiograph.
[2020-07-12] MEDS ORDERED: VERSED 5 MG/5 ML IV PRN (08:58)
[2020-07-12 09:00] LABS: A-aADO2 406; ABG POTASSIUM 4.3 (3.5-5.1); ARTERIAL BLD GAS O2 SATURATION 99.3 % (95-100); ARTERIAL BLOOD GAS BASE EXCESS -6.9 (-2.0-2.0); ARTERIAL BLOOD GAS FIO2 100 %; ARTERIAL BLOOD GAS PO2 218 mmHg (75-100); CARBOXYHEMOGLOBIN 0.8 % THgb (0.0-6.9); HCO3- 23.6 (22-28); HGB O2 SAT 97.6 g/dF (94-100); Methhemoglobin 0.8 % (1.4-1.5); paO2 pAO1 0.35
[2020-07-12 09:02] LABS: ABG HEMOGLOBIN 7.2; ARTERIAL BLD GAS TIDAL VOLUME 500 cc; ARTERIAL BLOOD GAS PCO2 71 mmHg (35-45); ARTERIAL BLOOD GAS VENT MODE AC; ARTERIAL BLOOD GAS VENT RATE 16 /MIN
[2020-07-12 09:03] LABS: ABG SITE ART LINE; ARTERIAL BLOOD GAS PEEP 5 cmH2O
[2020-07-12] MEDS: ENOXAPARIN SODIUM SQ SCH (09:12)
[2020-07-12] MEDS: Lubrifresh P.M. 3.5 gm Ointment OP SCH ×2 (09:18→20:56)
--- NOTE | 2020-07-12 09:26 | XRAY ---
Indication: Endotracheal tube adjustment. Comparison: Taken earlier in the day. Portable chest demonstrates endotracheal tube tip withdrawal with tip now 3 cm above russell with reinflation of left lung. Remaining support catheter/tubing in good position. Worsening right lung subsegmental atelectasis. Heart is not enlarged.
[2020-07-12 10:17] LABS: ARTERIAL BLOOD GAS pH 7.13 (7.35-7.45)
[2020-07-12] MEDS ORDERED: BUMEX 1 MG IV ONE ×2 (10:25→12:03)
[2020-07-12 11:14] LABS: A-aADO2 251; ABG POTASSIUM 4.3 (3.5-5.1); ARTERIAL BLD GAS O2 SATURATION 99.3 % (95-100); ARTERIAL BLOOD GAS BASE EXCESS -2.6 (-2.0-2.0); ARTERIAL BLOOD GAS FIO2 90 %; ARTERIAL BLOOD GAS PCO2 29 mmHg (35-45); ARTERIAL BLOOD GAS PO2 354 mmHg (75-100); ARTERIAL BLOOD GAS pH 7.45 (7.35-7.45); CARBOXYHEMOGLOBIN 0.5 % THgb (0.0-6.9); HCO3- 20.2 (22-28); HGB O2 SAT 97.8 g/dF (94-100); paO2 pAO1 0.59
[2020-07-12 11:16] LABS: ABG HEMOGLOBIN 6.7; ARTERIAL BLD GAS TIDAL VOLUME 550 cc; ARTERIAL BLOOD GAS PEEP 8 cmH2O; ARTERIAL BLOOD GAS VENT MODE AC; ARTERIAL BLOOD GAS VENT RATE 24 /MIN
[2020-07-12 11:17] LABS: ABG SITE ART LINE
--- NOTE | 2020-07-12 11:21 | CONS ---
CONSULT DATE: 07/10/2020 REASON FOR CONSULT: Post-operative vent management. HISTORY: Rea Gerardo is a 69 year old who has been hospitalized with complaints of abdominal pain. The patient had CT abdomen that showed free intraperitoneal gas from perforation of ascending colon near hepatic flexure. The patient was taken to surgery and had this surgically corrected by Dr. Eleuterio Webber. Postoperatively the patient was placed on mechanical ventilator. Her initial set of ABG's showed metabolic acidosis which was corrected by increasing respiratory and tidal volume. The patient's gas exchange also has been stable. She has been requiring pressors and was on andreina drip which was switched to Levophed. The patient has had significant improvement in blood pressure and her current blood pressure is 134/70 on 5 mcg of Levophed. The patient has also been receiving IV fluids. She was treated with one dose of Bumex and since has been putting out more than 100 cc of urine per hour. She is currently sedated on Diprivan and appears comfortable. PAST MEDICAL HISTORY: Past medical history was reviewed. PAST SURGICAL HISTORY: As above. PERSONAL AND SOCIAL HISTORY: Currently not available. MEDICATIONS: Home and current medications are reviewed. ALLERGIES: ALLERGIES NOTED. PHYSICAL EXAMINATION: This is an elderly woman who is intubated and sedated, appears comfortable. VITAL SIGNS: Heart rate 74, blood pressure 130/74. Saturating 100%. HEENT: Normocephalic. Oral exam is limited. ET tube is in place. NECK: Neck is short. CVS: First and second heart sounds are normal, regular, rhythmic. RESPIRATORY: Shows diminished breath sounds, clear to auscultation. ABDOMEN: Midline dressing along with two JEIMY drains. EXTREMITIES: Lower extremities show trace edema. LABORATORY DATA AND TESTS: Currently she is on assist control rate of 20, tidal volume of 550, FIO2 of 50%, PEEP 5. The pH 7.38, pCO2 34, pO2 of 109. Sodium 133, potassium 4.3, chloride 106, bicarb 19, glucose 225, BUN 39, creatinine 1.5. White count 16.6, hemoglobin 8.5, hematocrit 27, PLT 234,000. Chest x-ray reviewed. ASSESSMENT: 1) This is a 69 year old woman admitted after undergoing emergency laparotomy for perforated bowel with acute respiratory failure. 2) Septic shock secondary to peritonitis from perforation improving hemodynamically. 3) Renal insufficiency likely acute. 4) Acidemia, corrected. RECOMMENDATIONS: 1) Continue present care. 2) The patient has shown normalization of pH. 3) Advise to wean pressors keeping mean arterial pressure above 70. 4) Continue antibiotics. 5) Monitor urinary output. 6) Repeat labs in the a.m. 7) The patient appears to have improved from clinical standpoint, will continue close monitoring. 8) Will likely initiate weaning trials tomorrow morning followed by extubation. I will be available if needed. Thank you for allowing me to participate in the care of Rea Gerardo.
[2020-07-12 11:53] LABS: Hematocrit 25.7 % (35-47)
--- NOTE | 2020-07-12 13:48 | OP ---
SURGERY DATE/TIME: 07/10/2020 0141 PREOPERATIVE DIAGNOSIS: Perforated viscus. POSTOPERATIVE DIAGNOSES: Perforated duodenal ulcer. PROCEDURES: Exploratory laparotomy with Tavo patch of perforated duodenal ulcer with creation of omental flap. SURGEON: Eleuterio Webber M.D. ANESTHESIA: General. SPECIMEN: None. ESTIMATED BLOOD LOSS: 50 cc. COMPLICATIONS: None. FINDINGS: A 1 cm hole in the bulb within duodenum. Extensive adhesions from prior open cholecystectomy. PATIENT PRESENTATION: This patient presents with severe onset of abdominal pain after three weeks of milder abdominal pain. She has been in severe pain for [address] scan concerning for perforated viscus. After discussing risks, benefits of exploration the patient wished to proceed. DESCRIPTION OF PROCEDURE: The patient was brought to the OR, placed supine on operating table, placed under general anesthesia. Anesthesia placed arterial line and central venous line. The abdomen was prepped and draped in sterile fashion. A midline laparotomy was performed in the upper abdomen from umbilicus to xiphoid process and the abdomen opened with scalpel and electrocautery. The peritoneum was opened sharply with scalpel. Remainder of peritoneum was opened under direct visualization with electrocautery. The abdomen was explored. There were numerous adhesions in the right upper quadrant from prior open cholecystectomy. These were carefully taken down. Primarily omental adhesions to the abdominal wall as well as some small bowel adhesions to omentum and after getting into the right upper quadrant there was murky fluid throughout the right upper quadrant. This was suctioned out and irrigated and suctioned dry. There was significant fluid at right lobe of the liver. Some additional adhesions were taken down between the liver and the omentum eventually these were quite dense and right angle dissector was used for a portion as well as sharp dissection with Metzenbaum scissors as well as electrocautery and eventually the mass adhesions were cleared off of this area to visualize her old gallbladder fossa and also to find the hole in the duodenum. There is a 1 cm hole what appeared to be at the first portion of the duodenum and fairly difficult to access area more posteriorly but not really totally posteriorly with some additional adhesions in the umbilicus area and it could not be easily identified whether the adhesions involve the miguel hepatis as it was very densely scarred here and these could not be taken down safely without potential injury to the miguel hepatis but enough of this area was cleared off to get a view of the ulcer although exposure was less than ideal to this area. A Bookwalter retractor had been placed for retraction. Two - 3-0 PDS sutures were placed across the ulcer and more healthy tissue away from the ulcer and next omental fat was fashioned. This was freed off of the transverse colon with electrocautery and ties with 2-0 Vicryl between clamps and enough omentum was freed up to create a flap that was then brought over to the right upper quadrant and placed into the ulcer bed in between the duodenum and liver. The 3-0 PDS sutures were tied and cut. The abdomen was irrigated with some more. The NG tube was positioned in the stomach. Two JEIMY drains were placed in the right upper quadrant one at the superior aspect over the patch and one at the inferior aspect below the patch and sutured to the skin with suture. The abdomen was closed with running 0 loop PDS suture. The skin was irrigated and loosely closed with jason. Quarter inch Iodoform Wick's were placed. The patient was left on the ventilator on some vasopressor and taken to the ICU in critical condition.
[2020-07-12] MEDS ORDERED: [UNRECOGNIZED DRUG - NUTRITION] IV SCH ×6 (14:00)
[2020-07-12] MEDS: LEVOPHED 4 MG/4 ML 4,000 MCG in Dextrose 5%/Water IV Soln. 500 ML 500 ML IV PRN (16:13)
[2020-07-13] MEDS: HUMALOG SQ PRN ×6 (00:36→18:06)
[2020-07-13] MEDS: Sodium Chloride 0.9% 500 ML 500 ML IV SCH ×2 (02:22→17:28)
[2020-07-13] MEDS: DUONEB 0.5-3 MG/3 ml Neb IH SCH ×6 (02:54→23:11)
[2020-07-13 05:07] LABS: A-aADO2 121; ABG POTASSIUM 3.8 (3.5-5.1); ARTERIAL BLD GAS O2 SATURATION 98.6 % (95-100); ARTERIAL BLD GAS TIDAL VOLUME 550 cc; ARTERIAL BLOOD GAS BASE EXCESS -0.9 (-2.0-2.0); ARTERIAL BLOOD GAS FIO2 35 %; ARTERIAL BLOOD GAS PCO2 28 mmHg (35-45); ARTERIAL BLOOD GAS PO2 94 mmHg (75-100); ARTERIAL BLOOD GAS VENT MODE A/C; ARTERIAL BLOOD GAS pH 7.49 (7.35-7.45); CARBOXYHEMOGLOBIN 0.7 % THgb (0.0-6.9); HCO3- 21.3 (22-28); HGB O2 SAT 97.5 g/dF (94-100); Methhemoglobin 0.4 % (1.4-1.5); paO2 pAO1 0.44
[2020-07-13 05:08] LABS: ABG HEMOGLOBIN 5.8; ABG SITE ARTERIAL LINE; ARTERIAL BLOOD GAS VENT RATE 24 /MIN
[2020-07-13] MEDS ORDERED: Sodium Chloride 100ML MINI-BAG PLUS 0 ML IV ONE (05:27)
[2020-07-13] MEDS: PROTONIX 40 MG IV IV SCH ×2 (05:34→17:04)
[2020-07-13 05:36] LABS: Hematocrit 29.6 % (35-47); Hemoglobin 9.7 gm/dl (12.0-16.0); Mean Cell Volume 93.7 fl (78-100); Mean Corpuscular Hemoglobin 30.7 pg (26-32); Mean Corpuscular Hgb Concent. 32.8 g/dl (32-36); Mean Platelet Volume 11.6 fl (7.5-11.0); Platelet Count 197 K/mm3 (150-450); Red Blood Count 3.16 M/mm3 (4.1-5.4); Red Cell Distribution Width 14.3 % (11.5-14.0); White Blood Count 9.3 K/mm3 (4.0-10.5)
[2020-07-13 05:37] LABS: ALBUMIN 2.3 g/dL (3.5-5.0); ANION GAP 10.1 MEQ/L (5-15); BILIRUBIN,TOTAL 0.7 mg/dL (0.2-1.3); Calcium 8.7 mg/dL (8.4-10.2); Creatinine 1 1.48 mg/dL (0.52-1.04); EST GLOMERULAR FILTRATION RATE 37.3 ML/MIN; Potassium 3.4 mmol/L (3.5-5.1); Total Protein 5.7 g/dL (6.3-8.2)
[2020-07-13] MEDS: Zosyn 3.375 GM Vial 3.375 GM in Sodium Chloride 100ML MINI-BAG PLUS 100 ML IV SCH ×3 (05:38→17:04)
[2020-07-13] MEDS: Versed 50 MG/ 10 Ml MDV*** 50 MG in Sodium Chloride 0.9% 250 ML 240 ML IV PRN ×2 (06:52→17:22)
[2020-07-13 07:12] LABS: BAND 10 % (0.0-2.0); Eosinophil 8 % (0.00-3.0); Lymphocytes 13 % (24-44); Monocyte 8 % (0.0-12.0); Neutrophils 61 % (36.0-66.0); Nucleated Red Blood Cell 1 %; Platelet Estimate NORMAL (NORMAL); Total Cells Counted 100
[2020-07-13 07:14] LABS: Absolute Neutrophil Ct (ANC) 6.63 (1.4-6.9)
[2020-07-13] MEDS: BUMEX 1 MG IV PRN (08:41)
[2020-07-13] MEDS: SUBLIMAZE 1000 Mcg/ 20 Ml*** 1,500 MCG in Sodium Chloride 0.9% 150 ML 120 ML IV SCH ×2 (08:47→17:28)
--- NOTE | 2020-07-13 08:52 | XRAY ---
Indication: Intubation. Comparison: Taken one day earlier. Portable chest demonstrates endotracheal tube manipulation with tip now 5 cm above russell. Heart is not enlarged with stable right central venous access catheter and NG tube tip in stomach. Worsening diffuse right lung infiltrate/atelectasis/effusion with stable left base infiltrate/atelectasis. Comment: Preliminary interpretation was made by [facility]. No critical discrepancy.
[2020-07-13] MEDS: ENOXAPARIN SODIUM SQ SCH (09:16)
[2020-07-13] MEDS: Lubrifresh P.M. 3.5 gm Ointment OP SCH ×2 (09:20→21:26)
[2020-07-13] MEDS: ROCEPHIN 1 Gm-D5w 50 ml Bag** 1 G/50 ML IVPB IV SCH (12:49)
[2020-07-13] MEDS: Zithromax 500 MG/ 250 ML NaCl Premix 500 MG/250 ML IVPB IV SCH (13:33)
[2020-07-13] MEDS ORDERED: [UNRECOGNIZED DRUG - NUTRITION] IV SCH ×6 (14:00)
[2020-07-13] MEDS: LEVOPHED 4 MG/4 ML 4,000 MCG in Dextrose 5%/Water IV Soln. 500 ML 500 ML IV PRN (18:48)
[2020-07-14] MEDS: Zosyn 3.375 GM Vial 3.375 GM in Sodium Chloride 100ML MINI-BAG PLUS 100 ML IV SCH ×5 (00:07→23:53)
[2020-07-14] MEDS: BUMEX 1 MG IV PRN ×3 (00:10→23:53)
[2020-07-14] MEDS: HUMALOG SQ PRN ×3 (00:20→18:07)
[2020-07-14] MEDS: DUONEB 0.5-3 MG/3 ml Neb IH SCH ×6 (03:01→23:07)
[2020-07-14] MEDS ORDERED: Sodium Chloride 3 ML UD NEBULES IH ONE (03:04)
[2020-07-14] MEDS: Sodium Chloride 0.9% 500 ML 500 ML IV SCH (04:13)
[2020-07-14 05:16] LABS: Hematocrit 21.5 % (35-47); Mean Corpuscular Hemoglobin 29.9 pg (26-32); Mean Corpuscular Hgb Concent. 31.2 g/dl (32-36); Mean Platelet Volume 11.5 fl (7.5-11.0); Platelet Count 224 K/mm3 (150-450); Red Blood Count 2.24 M/mm3 (4.1-5.4); Red Cell Distribution Width 14.7 % (11.5-14.0); White Blood Count 10.1 K/mm3 (4.0-10.5)
[2020-07-14 05:27] LABS: Hemoglobin 6.7 gm/dl (12.0-16.0)
[2020-07-14] MEDS: PROTONIX 40 MG IV IV SCH ×2 (05:40→17:54)
[2020-07-14 05:41] LABS: ALBUMIN 2.3 g/dL (3.5-5.0); ANION GAP 10.9 MEQ/L (5-15); BILIRUBIN,TOTAL 0.5 mg/dL (0.2-1.3); Calcium 8.9 mg/dL (8.4-10.2); Creatinine 1 1.45 mg/dL (0.52-1.04); EST GLOMERULAR FILTRATION RATE 38.2 ML/MIN; MAGNESIUM 1.9 mg/dL (1.6-2.3); Potassium 3.7 mmol/L (3.5-5.1); Total Protein 5.6 g/dL (6.3-8.2)
[2020-07-14 05:45] LABS: A-aADO2 133; ABG HEMOGLOBIN 13.3; ABG POTASSIUM 3.9 (3.5-5.1); ABG SITE RIGHT BRACHIAL; ARTERIAL BLD GAS O2 SATURATION 97.2 % (95-100); ARTERIAL BLD GAS TIDAL VOLUME 550 cc; ARTERIAL BLOOD GAS FIO2 35 %; ARTERIAL BLOOD GAS PCO2 32 mmHg (35-45); ARTERIAL BLOOD GAS PO2 77 mmHg (75-100); ARTERIAL BLOOD GAS VENT MODE A/C; ARTERIAL BLOOD GAS VENT RATE 20 /MIN; ARTERIAL BLOOD GAS pH 7.45 (7.35-7.45); CARBOXYHEMOGLOBIN 1.4 % THgb (0.0-6.9); HCO3- 22.2 (22-28); HGB O2 SAT 95.1 g/dF (94-100); Methhemoglobin 0.8 % (1.4-1.5); paO2 pAO1 0.37
[2020-07-14] MEDS ORDERED: WATER IV ONE (07:57)
[2020-07-14] MEDS ORDERED: DEXTROSE IV ONE (07:57)
--- NOTE | 2020-07-14 08:36 | XRAY ---
Indication: Intubation and NG tube for GI perforation. Comparison: One day earlier. Portable chest demonstrates mild clearing of previous diffuse right lung infiltrate/atelectasis/effusion with stable left base infiltrate/atelectasis. Heart is not enlarged. Support catheter/tubing remain in situ and in good position. No new cardiopulmonary abnormalities.
[2020-07-14 08:52] LABS: Hematocrit 20.4 % (35-47)
[2020-07-14 08:56] LABS: Hemoglobin 6.4 gm/dl (12.0-16.0)
[2020-07-14] MEDS: ROCEPHIN 1 Gm-D5w 50 ml Bag** 1 G/50 ML IVPB IV SCH (09:28)
[2020-07-14] MEDS: Zithromax 500 MG/ 250 ML NaCl Premix 500 MG/250 ML IVPB IV SCH (09:28)
[2020-07-14] MEDS: ENOXAPARIN SODIUM SQ SCH (09:29)
[2020-07-14] MEDS: Lubrifresh P.M. 3.5 gm Ointment OP SCH ×2 (09:29→21:01)
[2020-07-14 09:52] LABS: Hemoglobin 6.6 gm/dl (12.0-16.0)
[2020-07-14 11:53] LABS: ABO TYPING AB
[2020-07-14 11:54] LABS: Antibody Screen NEGATIVE (NEGATIVE); RH TYPING NEGATIVE
[2020-07-14 11:58] LABS: CROSS MATCH (PRBC) COMPATIBLE (COMPATIBLE)
[2020-07-14] MEDS ORDERED: [UNRECOGNIZED DRUG - NUTRITION] IV SCH ×6 (14:00)
[2020-07-14] MEDS: SUBLIMAZE 1000 Mcg/ 20 Ml*** 1,500 MCG in Sodium Chloride 0.9% 150 ML 120 ML IV SCH ×2 (15:02→18:33)
[2020-07-14] MEDS: Versed 50 MG/ 10 Ml MDV*** 50 MG in Sodium Chloride 0.9% 250 ML 240 ML IV PRN (15:36)
--- NOTE | 2020-07-14 15:44 | CONS ---
FOLLOW UP CONSULT DATE: 07/14/2020 HISTORY: Rea Gerarod is a 69 year old woman who was admitted with abdominal pain and free air, having undergone emergency laparotomy with repair of perforated colon, who was evaluated by me on Sunday evening. The patient has been on mechanical ventilator. She was being treated with antibiotics for peritoneal sepsis. She self-extubated Sunday morning and was given a trial of noninvasive ventilation which initially appeared okay but the patient subsequently had drop in pH requiring re-intubation. Since then she has been maintained on mechanical ventilator with sedation and analgesics. The patient has also been started on TPN. She has been putting out good amount of urine. Her labs today showed drop in hemoglobin and she is currently receiving transfusion. She otherwise appears comfortable. Events were discussed with nursing staff at bedside as well. PHYSICAL EXAMINATION: She is afebrile. Heart rate is 68, blood pressure 134/72. Saturating 99%. HEENT: Normocephalic. Oral exam is limited. ET tube in place. NECK: Supple. CVS: First and second heart sounds are normal, regular, rhythmic. RESPIRATORY: Shows diminished breath sounds. ABDOMEN: Obese. Incisions look good. JEIMY drains are in place. Beatty catheter in place. EXTREMITIES: Lower extremities show no significant edema. LABORATORY DATA AND TESTS: Chest x-ray reviewed. On assist control rate of 20 tidal volume of 550, FIO2 35% and PEEP 8, pH 7.45, pCO2 32, pO2 77. Sodium 137, potassium 3.7, chloride 108, bicarb 22, BUN 32, creatinine 1.5, glucose 311. Cultures remained negative. Chest x-ray noted. ASSESSMENT: This is a 69 year old woman admitted with: 1) Acute respiratory failure. 2) Sepsis status post septic shock, weaned off pressors. 3) Acute renal failure, improving. 4) Hyperglycemia likely from TPN. 5) Status post abdominal surgery for colonic perforation. RECOMMENDATIONS: 1) Continue mechanical ventilator. 2) Will attempt CPAP with pressure support weaning trials as tolerated today. 3) The patient will be receiving transfusion. 4) Continue antibiotics. 5) Deep venous thrombosis and GI prophylaxis. 6) The patient has shown improvement in gas exchange will likely wean/extubate in the next 24 hours or so, continue supportive care, monitor labs. I discussed at length with respiratory therapy as well as nursing staff. I will continue to follow.
[2020-07-14 20:07] LABS: Hematocrit 27.8 % (35-47)
[2020-07-14 20:08] LABS: Hemoglobin 8.8 gm/dl (12.0-16.0)
[2020-07-15] MEDS: HUMALOG SQ PRN ×5 (00:18→23:31)
[2020-07-15] MEDS: Versed 50 MG/ 10 Ml MDV*** 50 MG in Sodium Chloride 0.9% 250 ML 240 ML IV PRN (01:32)
[2020-07-15] MEDS: DUONEB 0.5-3 MG/3 ml Neb IH SCH ×6 (02:54→23:30)
[2020-07-15] MEDS: Sodium Chloride 0.9% 500 ML 500 ML IV SCH (05:11)
[2020-07-15] MEDS: PROTONIX 40 MG IV IV SCH ×2 (05:15→17:42)
[2020-07-15] MEDS: Zosyn 3.375 GM Vial 3.375 GM in Sodium Chloride 100ML MINI-BAG PLUS 100 ML IV SCH ×4 (05:42→23:20)
[2020-07-15 06:03] LABS: Hematocrit 27.2 % (35-47); Hemoglobin 8.9 gm/dl (12.0-16.0); Mean Cell Volume 92.2 fl (78-100); Mean Corpuscular Hemoglobin 30.2 pg (26-32); Mean Corpuscular Hgb Concent. 32.7 g/dl (32-36); Mean Platelet Volume 11.5 fl (7.5-11.0); Platelet Count 227 K/mm3 (150-450); Red Blood Count 2.95 M/mm3 (4.1-5.4); Red Cell Distribution Width 15.7 % (11.5-14.0); White Blood Count 10.7 K/mm3 (4.0-10.5)
[2020-07-15 06:03] LABS: A-aADO2 107; ABG HEMOGLOBIN 10.5; ABG POTASSIUM 3.6 (3.5-5.1); ABG SITE ARTERIAL LINE; ARTERIAL BLD GAS O2 SATURATION 98.5 % (95-100); ARTERIAL BLD GAS TIDAL VOLUME 550 cc; ARTERIAL BLOOD GAS BASE EXCESS -0.8 (-2.0-2.0); ARTERIAL BLOOD GAS FIO2 35 %; ARTERIAL BLOOD GAS PCO2 27 mmHg (35-45); ARTERIAL BLOOD GAS PO2 109 mmHg (75-100); ARTERIAL BLOOD GAS VENT MODE A/C; ARTERIAL BLOOD GAS VENT RATE 20 /MIN; CARBOXYHEMOGLOBIN 0.7 % THgb (0.0-6.9); HCO3- 21.1 (22-28); HGB O2 SAT 96.8 g/dF (94-100)
[2020-07-15 06:15] LABS: ANION GAP 11.5 MEQ/L (5-15); BILIRUBIN,TOTAL 0.7 mg/dL (0.2-1.3); Calcium 8.7 mg/dL (8.4-10.2); Creatinine 1 1.29 mg/dL (0.52-1.04); EST GLOMERULAR FILTRATION RATE 43.7 ML/MIN; Potassium 3.7 mmol/L (3.5-5.1)
[2020-07-15] MEDS: SUBLIMAZE 1000 Mcg/ 20 Ml*** 1,500 MCG in Sodium Chloride 0.9% 150 ML 120 ML IV SCH ×2 (08:03→17:41)
--- NOTE | 2020-07-15 08:51 | XRAY ---
Indication: Follow-up endotracheal tube placement. Comparison: One day earlier. Portable chest unchanged again demonstrating support catheter/tubing in situ all in good position, diffuse right lung infiltrate/atelectasis/effusion, mild left base infiltrate/atelectasis, and a few tiny calcified granulomas. Heart is not enlarged. No new cardiopulmonary abnormalities.
[2020-07-15] MEDS: Zithromax 500 MG/ 250 ML NaCl Premix 500 MG/250 ML IVPB IV SCH (09:44)
[2020-07-15] MEDS: ENOXAPARIN SODIUM SQ SCH (09:46)
[2020-07-15] MEDS: Lubrifresh P.M. 3.5 gm Ointment OP SCH ×2 (09:50→21:29)
[2020-07-15] MEDS: ROCEPHIN 1 Gm-D5w 50 ml Bag** 1 G/50 ML IVPB IV SCH (10:57)
--- NOTE | 2020-07-15 11:32 | CONS ---
FOLLOW UP CONSULT DATE: 07/15/2020 Events noted. HISTORY: The patient tolerated CPAP plus high pressure support of 20 all day yesterday. Rested overnight on assist control and this morning back on CPAP as sedation has been placed on hold. Seems to be tolerating this well, maintaining good hemodynamics. PHYSICAL EXAMINATION: Afebrile, heart rate 80, blood pressure 134/70. Saturation 99%. HEENT: Normocephalic. Oral exam is limited. ET tube and NG tube are in place. CVS: First and second heart sounds are normal, regular, rhythmic. RESPIRATORY: Shows diminished breath sounds, fairly clear anteriorly. ABDOMEN: Status post-surgery. Edema has improved. LABORATORY DATA AND TESTS: Sodium 137, potassium 3.7, chloride 110, bicarb 19, BUN 34, creatinine 1.3, magnesium 1.8. The pH 7.02, pCO2 27, pO2 of 109 on assist control rate of 20. Tidal volume 550. FIO2 35%. PEEP 8. Currently on PEEP of 8 and pressure support of 20. White count 10.7, hemoglobin 8.9, hematocrit 27, PLT 227,000. Chest x-ray showed some patchy infiltrate mainly in the right lung. ASSESSMENT: A 69 year old woman admitted with: 1) Postoperative respiratory failure. 2) Right lung infiltrate suggestive of pneumonia, improving. 3) Status post sepsis from peritonitis from perforated bowel having surgically corrected. 4) Acute renal failure improving. 5) Hyperglycemia secondary to underlying diabetes. RECOMMENDATIONS: 1) The patient is tolerating CPAP with pressure support well. 2) Will reduce pressure support down to 6 and obtain blood gas, if acceptable consider extubation. 3) Continue antibiotics. 4) Correction of hyperglycemia per primary care. 5) Continue antibiotics for total duration of ten days. The patient appears clinically stable and has significantly improved, will continue to follow. Thank you for allowing me to participate in the care of this patient.
[2020-07-15 12:05] LABS: A-aADO2 114; ABG HEMOGLOBIN 10.7; ABG POTASSIUM 3.9 (3.5-5.1); ART BLD GAS PRESSURE SUPPORT 10; ARTERIAL BLD GAS O2 SATURATION 93.4 % (95-100); ARTERIAL BLOOD GAS BASE EXCESS -6.5 (-2.0-2.0); ARTERIAL BLOOD GAS FIO2 35 %; ARTERIAL BLOOD GAS PCO2 53 mmHg (35-45); ARTERIAL BLOOD GAS PO2 69 mmHg (75-100); ARTERIAL BLOOD GAS VENT MODE CPAP; CARBOXYHEMOGLOBIN 1.4 % THgb (0.0-6.9); HCO3- 21.7 (22-28); HGB O2 SAT 91.6 g/dF (94-100); Methhemoglobin 0.6 % (1.4-1.5); paO2 pAO1 0.38
[2020-07-15 12:06] LABS: ABG SITE ARTLINE; ARTERIAL BLOOD GAS pH 7.22 (7.35-7.45)
[2020-07-15] MEDS ORDERED: [UNRECOGNIZED DRUG - NUTRITION] IV SCH ×6 (14:00)
[2020-07-15] MEDS: BUMEX 1 MG IV PRN (15:39)
[2020-07-16] MEDS: DUONEB 0.5-3 MG/3 ml Neb IH SCH ×4 (02:56→14:42)
[2020-07-16 05:45] LABS: A-aADO2 104; ABG SITE ART LINE; ALLEN TEST OK? NO; ARTERIAL BLD GAS O2 SATURATION 99.3 % (95-100); ARTERIAL BLD GAS TIDAL VOLUME 550 cc; ARTERIAL BLOOD GAS BASE EXCESS -3.4 (-2.0-2.0); ARTERIAL BLOOD GAS FIO2 35 %; ARTERIAL BLOOD GAS PCO2 32 mmHg (35-45); ARTERIAL BLOOD GAS PO2 106 mmHg (75-100); ARTERIAL BLOOD GAS VENT MODE A/C; ARTERIAL BLOOD GAS pH 7.41 (7.35-7.45); CARBOXYHEMOGLOBIN 4.4 % THgb (0.0-6.9); HCO3- 20.3 (22-28); HGB O2 SAT 94.2 g/dF (94-100); Methhemoglobin 0.7 % (1.4-1.5)
[2020-07-16] MEDS: Zosyn 3.375 GM Vial 3.375 GM in Sodium Chloride 100ML MINI-BAG PLUS 100 ML IV SCH ×3 (05:52→17:33)
[2020-07-16] MEDS: PROTONIX 40 MG IV IV SCH ×2 (05:55→17:33)
[2020-07-16 06:12] LABS: ALBUMIN 2.5 g/dL (3.5-5.0); ANION GAP 10.9 MEQ/L (5-15); BILIRUBIN,TOTAL 0.6 mg/dL (0.2-1.3); Calcium 9.3 mg/dL (8.4-10.2); Creatinine 1 1.5 mg/dL (0.52-1.04); EST GLOMERULAR FILTRATION RATE 36.7 ML/MIN; Potassium 3.8 mmol/L (3.5-5.1); Total Protein 6.1 g/dL (6.3-8.2)
[2020-07-16] MEDS: BUMEX 1 MG IV PRN (07:19)
--- NOTE | 2020-07-16 08:43 | XRAY ---
Indication: Follow-up endotracheal tube. Comparison: One day earlier. Portable chest now underinflated accentuating previous diffuse right and left base lung infiltrate/atelectasis. Interval worsening small right effusion. Remaining chest including support catheter/tubing unchanged.
--- NOTE | 2020-07-16 09:10 | XRAY ---
Indication: Unresponsive. Multiple contiguous axial images obtained through the head without contrast. Comparison: June 17, 2020. Stable large old right MCA infarct. Again no acute intracranial hemorrhage, hydrocephalus, or mass effect. Fourth ventricle is midline. Bony calvarium intact. Visualized paranasal sinuses are clear. There is now near-complete opacification of both mastoid air cells presumed inflammatory. New partially visualized NG tube and endotracheal tube. Impression: 1. Stable large old right MCA infarct. 2. New opacification both mastoid air cells presumed inflammatory. 3. No acute intracranial abnormalities.
[2020-07-16] MEDS: Sodium Chloride 0.9% 500 ML 500 ML IV SCH ×2 (09:22→09:23)
[2020-07-16] MEDS: SUBLIMAZE 1000 Mcg/ 20 Ml*** 1,500 MCG in Sodium Chloride 0.9% 150 ML 120 ML IV SCH ×2 (09:23→17:34)
[2020-07-16] MEDS: Lubrifresh P.M. 3.5 gm Ointment OP SCH (09:24)
[2020-07-16] MEDS: Zithromax 500 MG/ 250 ML NaCl Premix 500 MG/250 ML IVPB IV SCH (09:24)
[2020-07-16] MEDS: ENOXAPARIN SODIUM SQ SCH (09:24)
--- NOTE | 2020-07-16 09:27 | XRAY ---
Indication: Unresponsive. Multiple contiguous axial images obtained through the chest without contrast as ordered. Comparison: June 17, 2020. Study degraded by respiration artifact throughout. New large right effusion with compressive atelectasis greatest near the base. Left lung demonstrates moderate dependent atelectasis. Remaining lungs demonstrates diffuse patchy consolidating airspace opacities. Heart is not enlarged. No pericardial effusion. Aorta is mildly atherosclerotic without aneurysmal dilatation. Right IJ central venous access catheter, endotracheal tube, and NG tube in situ. No pathologic mediastinal lymphadenopathy. Bony thorax intact again with flowing osteophytes throughout the spine, old left 10 rib fracture, and old left humerus fracture with fixation hardware. Limited upper abdomen demonstrates incompletely visualized tiny perihepatic fluid, right upper quadrant surgical drainage tubing, and subcutaneous anasarca. Impression: 1. Respiration artifact. 2. New large right effusion with compressive atelectasis. 3. New diffuse patchy consolidating airspace disease. 4. New abdominal anasarca. 5. New incompletely visualized perihepatic fluid with right upper quadrant surgical drainage tubing in situ.
[2020-07-16] MEDS: ROCEPHIN 1 Gm-D5w 50 ml Bag** 1 G/50 ML IVPB IV SCH (10:00)
[2020-07-16 10:01] LABS: A-aADO2 128; ABG HEMOGLOBIN 9.3; ABG POTASSIUM 3.9 (3.5-5.1); ABG SITE ART LINE; ART BLD GAS PRESSURE SUPPORT 20; ARTERIAL BLD GAS O2 SATURATION 95.3 % (95-100); ARTERIAL BLOOD GAS BASE EXCESS -5.5 (-2.0-2.0); ARTERIAL BLOOD GAS FIO2 35 %; ARTERIAL BLOOD GAS PCO2 42 mmHg (35-45); ARTERIAL BLOOD GAS PO2 69 mmHg (75-100); ARTERIAL BLOOD GAS VENT MODE CPAP; CARBOXYHEMOGLOBIN 1.3 % THgb (0.0-6.9); HCO3- 20.7 (22-28); HGB O2 SAT 93.1 g/dF (94-100); paO2 pAO1 0.35
[2020-07-16] MEDS ORDERED: [UNRECOGNIZED DRUG - NUTRITION] IV SCH ×6 (14:00)
[2020-07-16 14:45] VITALS: O2SAT 97
--- NOTE | 2020-07-16 16:23 | PCM.HP ---
History of Present Illness - Chief Complaint Chief Complaint: Perforated Duodenal Ulcer Date: 07/10/20 History of Present Illness: is a 69 year old female, brought to ER for evaluation of worsening RLQ abdominal pain, pt. had been having some Nausea and vomiting prior to being sent to ER for further evaluation, no reported fevers noted. Pt. found to have perforated viscus in ER and subsequently sent to surgery for exploration and repair - Review of Systems Constitutional: No Fever, No Chills Eyes: No Symptoms Ears, Nose, & Throat: No Symptoms Respiratory: No Cough, No Short Of Breath Cardiac: No Chest Pain, No Edema, No Syncope Abdominal/Gastrointestinal: Abdominal Pain, Nausea, Vomiting, No Diarrhea Genitourinary Symptoms: No Dysuria Musculoskeletal: No Back Pain, No Neck Pain Skin: No Rash Neurological: No Dizziness, No Focal Weakness, No Sensory Changes Psychological: No Symptoms Endocrine: No Symptoms Hematologic/Lymphatic: No Symptoms Immunological/Allergic: No Symptoms Medications & Allergies Home Medications: Home Medication List Clopidogrel Bisulfate 75 mg [PLAVIX 75 MG Tablet] 75 mg PO DAILY 08/22/13 [History Confirmed 07/10/20] Furosemide 20 mg [Lasix 20 mg] 20 mg PO DAILY 08/22/13 [History Confirmed 07/10/20] Insulin Glargine [Lantus Insulin] 40 unit SQ HS 08/22/13 [History Confirmed 07/10/20] Loratadine 10 mg PO DAILY 02/18/14 [History Confirmed 07/10/20] Potassium Chloride 10 Meq Tab* [Klor Con 10 MEQ] 10 meq PO BID 06/23/15 [History Confirmed 07/10/20] Linagliptin [Tradjenta] 5 mg PO DAILY 03/19/17 [History Confirmed 07/12/20] Metformin HCl 500 mg [Glucophage 500 MG] 500 mg PO BID 03/19/17 [History Confirmed 07/10/20] Amlodipine Besylate 5 mg [Norvasc 5 mg] 10 mg PO DAILY 06/13/17 [History Confirmed 07/10/20] Ferrous Sulfate 325 mg [Feosol 325 mg] 325 mg PO BID #60 tablet 06/15/17 [Rx Confirmed 07/10/20] Alendronate Sodium 70 mg [Fosamax 70 MG] 1 ea PO WEEKLY 06/17/20 [History Confirmed 07/12/20] Aspirin 81 gm Chew [Baby Aspirin 81 mg Chew] 1 ea DAILY 06/17/20 [History Confirmed 07/10/20] Gabapentin 300 mg PO QID 06/17/20 [History Confirmed 07/10/20] Melatonin 5 ea PO HS 06/17/20 [History Confirmed 07/10/20] Nystatin Powder 15 gm [Nystop Powder 15 gm] 1 gm TP BID powder 06/18/20 [Rx Confirmed 07/10/20] Carvedilol 3.125 mg [Coreg 3.125 MG] 1 tab PO BID 07/10/20 [History Confirmed 07/10/20] Sucralfate 1 gm [Carafate 1 GM] 1 tab PO QID 07/10/20 [History Confirmed 07/10/20] Allergies/Adverse Reactions: Allergies Allergy/AdvReac Type Severity Reaction Status Date / Time lisinopril Allergy Severe Swelling Verified 07/09/20 21:52 codeine Allergy Intermediate Nausea and Verified 07/09/20 21:52 Vomiting morphine Allergy Intermediate Nausea and Verified 07/09/20 21:52 Vomiting oxycodone [Oxycodone] Allergy Intermediate Nausea and Verified 07/09/20 21:52 Vomiting - Past Medical History Past Medical History: Yes Neurological History: Stroke ENT History: Cataracts, Other Cardiac History: Angina, Hypertension Respiratory History: No Pertinent History Endocrine Medical History: Diabetes Type II Musculoskelatal History: Other GI Medical History: Gallbladder Disease History: Other Pyscho-Social History: No Pertinent History Reproductive Disorders: No Pertinent History Comment: wears glasses, full set of dentures (not at bedside), incontinence, left arm flaccid and contracted, left hand contracture. BLE cellulitis. - Female History Are you now?: No - Past Surgical History Past Surgical History: Yes Neuro Surgical History: No Pertinent History Cardiac History: No Pertinent History Respiratory Surgery: No Pertinent History GI Surgical History: Cholecystectomy Genitourinary Surgical Hx: No Pertinent History Musculskeletal Surgical Hx: No Pertinent History Female Surgical History: Section Other Surgical History: left shoulder and wrist surg. - LEFT HIP PER FX - Social History Smoking Status: Former smoker Exposure to second hand smoke: Yes Alcohol: None Drug Use: none Significant Family History: hypertension - Physical Exam Vital Signs: Vital Signs - 24 hr Temp Pulse Resp BP BP BP Pulse Ox 07/16/20 15:56 99.7 F 77 16 135/45 160/56 97 07/16/20 15:00 77 16 112/50 150/57 97 07/16/20 14:43 72 16 97 07/16/20 14:00 66 12 149/50 112/50 145/57 95 07/16/20 13:00 72 12 136/52 145/59 95 07/16/20 11:59 99 F 72 17 148/60 95 07/16/20 11:00 76 34 H 137/60 95 07/16/20 10:42 75 28 H 97 07/16/20 09:50 70 25 H 134/55 134/56 96 07/16/20 09:00 98.9 F 69 33 H 126/56 128/48 100 07/16/20 08:00 99.5 F 82 16 126/78 100 07/16/20 07:32 82 07/16/20 07:00 71 16 126/78 100 07/16/20 06:45 78 16 100 07/16/20 06:00 71 16 110/87 138/88 100 07/16/20 05:00 68 16 143/55 137/47 100 07/16/20 04:00 99.5 F 69 16 126/56 138/50 100 07/16/20 03:00 64 16 141/54 100 07/16/20 02:56 62 16 99 07/16/20 01:52 66 16 137/51 139/53 135/50 99 07/16/20 01:00 66 16 126/56 135/50 98 07/16/20 00:01 73 07/16/20 00:00 99.9 F 71 16 125/56 137/52 99 07/15/20 23:30 74 16 98 07/15/20 23:00 73 16 132/57 136/51 98 07/15/20 22:00 70 16 135/51 132/59 135/51 98 07/15/20 21:00 63 16 123/48 99 07/15/20 20:00 99.0 F 66 16 139/54 126/50 99 07/15/20 19:04 65 16 99 07/15/20 18:50 66 16 118/47 99 07/15/20 18:00 68 16 115/49 125/47 110/47 99 07/15/20 17:00 71 16 125/61 99 Oxygen-Last 24 hours Oxygen Flowrate (L/min)-RT 35 Oxygen Flowrate (L/min)-RT 35 Oxygen Flowrate (L/min)-RT 35 Oxygen Flowrate (L/min)-RT 35 Oxygen Flowrate (L/min)-RT 35 General Appearance: no apparent distress Neurologic Exam: other (intubated) Eye Exam: eyes nml inspection Ears, Nose, Throat Exam: normal ENT inspection Neck Exam: normal inspection Respiratory Exam: normal breath sounds, diminished breath sounds, No chest tenderness Cardiovascular Exam: regular rate/rhythm, normal heart sounds Gastrointestinal/Abdomen Exam: soft, No normal bowel sounds, No tenderness Pelvic Exam: not done Rectal Exam: deferred Extremity Exam: normal inspection Skin Exam: normal color, warm, dry, No rash, No petechiae Wound Assessment: Skin/Wound Assessment Wound/Incision Assessment Start: 07/10/20 05:04 Text: Status: Active Freq: Q4H Protocol: Document 07/16/20 15:56 MISSY (Rec: 07/16/20 15:59 [id number]) Wound/Incision Assessment Anterior Abdomen Wound Assessment Shift Assessment Wound Type Incision Wound Stage Non Pressure Wound Dressing Status Dry & Intact Drainage Amount None Drainage Odor None/Absent General Appearance Well Approximated,Asymptomatic ,Rodger Intact,Clean/Dry Primary Dressing [place] bandaid Comment midline abdominal dressing dry and intact. Right Anterior Lateral Abdomen Drain Type JEIMY drain Drainage Description Serous Odor None/Absent Comment JEIMY#1 Right Anterior Distal Abdomen Drain Type JEIMY drain Drainage Description Serous Odor None/Absent Comment JEIMY # 2 Wound Photo Photo Taken No Lymphatic Exam: No adenopathy Results - Labs Lab/Micro Results: Accuchecks Date 07/16/20 Date 07/16/20 Date 07/15/20 Time 06:00 Time 06:00 Time 17:45 Accucheck Value: 180 Accucheck Value: 131 Accucheck Value: 164 Accucheck Value: 262 Lab Results-Last 24 Hours 07/16/20 07/16/20 07/16/20 Range/Units 05:30 05:38 05:38 Puncture Site ART LINE pCO2 32 L (35-45) mmHg pO2 106 H (75-100) mmHg Base Excess -3.4 L (-2.0-2.0) O2 Saturation 94.2 (94-100) g/dF ABG pH 7.41 (7.35-7.45) ABG HCO3 20.3 L (22-28) ABG O2 Sat (Measured) 99.3 (95-100) % Mele Test NO A-a Gradient 104 a/A Ratio 0.50 Hemoglobin 9.0 Carboxyhemoglobin 4.4 (0.0-6.9) % THgb Methemoglobin 0.7 L (1.4-1.5) % Potassium 4.0 3.8 (3.5-5.1) Temperature 37.0 C POC O2 Flow Rate 35 % Vent Mode A/C Tidal Volume 550 cc PEEP 6.0 cmH2O Pressure Support Sodium 138 (137-145) mmol/L Chloride 111 H (98-107) mmol/L Carbon Dioxide 19 L (22-30) mmol/L Anion Gap 10.9 (5-15) MEQ/L BUN 39 H (7-17) mg/dL Creatinine 1.50 H (0.52-1.04) mg/dL Estimated GFR 36.7 ML/MIN Glucose 144 H (74-106) mg/dL Calcium 9.3 (8.4-10.2) mg/dL Magnesium 1.9 (1.6-2.3) mg/dL Total Bilirubin 0.60 (0.2-1.3) mg/dL AST 20 (14-36) U/L ALT 11 (0-35) U/L Alkaline Phosphatase 136 H (38-126) U/L Serum Total Protein 6.1 L (6.3-8.2) g/dL Albumin 2.5 L (3.5-5.0) g/dL 07/16/20 Range/Units 10:00 Puncture Site ART LINE pCO2 42 (35-45) mmHg pO2 69 L (75-100) mmHg Base Excess -5.5 L (-2.0-2.0) O2 Saturation 93.1 L (94-100) g/dF ABG pH 7.30 L (7.35-7.45) ABG HCO3 20.7 L (22-28) ABG O2 Sat (Measured) 95.3 (95-100) % Mele Test NOT APPLICABLE A-a Gradient 128 a/A Ratio 0.35 Hemoglobin 9.3 Carboxyhemoglobin 1.3 (0.0-6.9) % THgb Methemoglobin 1.0 L (1.4-1.5) % Potassium 3.9 (3.5-5.1) Temperature 37.0 C POC O2 Flow Rate 35 % Vent Mode CPAP Tidal Volume cc PEEP 8.0 cmH2O Pressure Support 20 Sodium (137-145) mmol/L Chloride (98-107) mmol/L Carbon Dioxide (22-30) mmol/L Anion Gap (5-15) MEQ/L BUN (7-17) mg/dL Creatinine (0.52-1.04) mg/dL Estimated GFR ML/MIN Glucose (74-106) mg/dL Calcium (8.4-10.2) mg/dL Magnesium (1.6-2.3) mg/dL Total Bilirubin (0.2-1.3) mg/dL AST (14-36) U/L ALT (0-35) U/L Alkaline Phosphatase (38-126) U/L Serum Total Protein (6.3-8.2) g/dL Albumin (3.5-5.0) g/dL Microbiology 07/16/20 08:15 Gram Stain - Final Sputum - Expectorant 07/10/20 01:00 Blood Culture Gram Stain - Final Blood Not Reportable Blood Culture - Final NO GROWTH 07/09/20 21:40 Blood Culture Gram Stain - Final Blood Not Reportable Blood Culture - Final NO GROWTH 07/09/20 22:44 Urine Culture - Final Urine, Catheterized Escherichia Coli 07/10/20 02:04 Urine Culture - Final Urine, Catheterized <10K NORMAL SKIN ALYSSA PROBABLE SKIN CONTAMINANT Accuchecks Date 07/16/20 Date 07/16/20 Date 07/15/20 Time 06:00 Time 06:00 Time 17:45 Accucheck Value: 180 Accucheck Value: 131 Accucheck Value: 164 Accucheck Value: 262 - Radiology Impressions Radiology Exams & Impressions: Radiology Procedures Category Date Time Status CHEST 1 VIEW (PORTABLE) Stat Exams 07/16/20 07:44 Completed CHEST WITHOUT CONTRAST [CT] Stat Exams 07/16/20 07:59 Completed HEAD WITHOUT CONTRAST [CT] Stat Exams 07/16/20 07:59 Completed Portable Chest [CHEST 1 VIEW (PORTABLE)] DAILY Exams 07/15/20 06:00 Completed Assessment/Plan (1) Ventilator dependence Current Visit: Yes Status: Acute Assessment & Plan: currently post-operative and remaining on ventilator at this time Code(s): Z99.11 - DEPENDENCE ON RESPIRATOR [VENTILATOR] STATUS (2) Intra-abdominal fluid Current Visit: Yes Status: Acute Assessment & Plan: Pt. had repair of perforated abdominal viscus. Code(s): R18.8 - OTHER ASCITES
--- NOTE | 2020-07-16 16:27 | PCM.NOTE ---
Date and Time: 07/10/20 8874 Subjective Assessment: Pt. remains on ventilator this am, requiring pressors to maintain blood pressure, minimal urine output noted, will bolus 250 to improve kidney perfusion - Review of Systems Constitutional: No Symptoms Eyes: No Symptoms Respiratory: No Symptoms Cardiac: No Symptoms Abdominal/Gastrointestinal: Other (no bs noted this am), No Nausea, No Vomiting Neurological: No Symptoms Objective Exam General Appearance: no apparent distress Wound Assessment: Skin/Wound Assessment Wound/Incision Assessment Start: 07/10/20 05:04 Text: Status: Active Freq: Q4H Protocol: Document 07/16/20 15:56 MISSY (Rec: 07/16/20 15:59 [email or web address] [id number]) Wound/Incision Assessment Anterior Abdomen Wound Assessment Shift Assessment Wound Type Incision Wound Stage Non Pressure Wound Dressing Status Dry & Intact Drainage Amount None Drainage Odor None/Absent General Appearance Well Approximated,Asymptomatic ,[place] Intact,Clean/Dry Primary Dressing [place] bandaid Comment midline abdominal dressing dry and intact. Right Anterior Lateral Abdomen Drain Type JEIMY drain Drainage Description Serous Odor None/Absent Comment JEIMY#1 Right Anterior Distal Abdomen Drain Type JEIMY drain Drainage Description Serous Odor None/Absent Comment JEIMY # 2 Wound Photo Photo Taken No Eye Exam: eyes nml inspection Ears, Nose, Throat Exam: normal ENT inspection Neck Exam: normal inspection Respiratory Exam: diminished breath sounds Cardiovascular Exam: regular rate/rhythm Gastrointestinal/Abdomen Exam: soft, No normal bowel sounds Extremity Exam: normal inspection OBJECTIVE DATA Vital Signs: Vital Signs - 24 hr Temp Pulse Resp BP BP BP Pulse Ox 07/16/20 15:56 99.7 F 77 16 135/45 160/56 97 07/16/20 15:00 77 16 112/50 150/57 97 07/16/20 14:43 72 16 97 07/16/20 14:00 66 12 149/50 112/50 145/57 95 07/16/20 13:00 72 12 136/52 145/59 95 07/16/20 11:59 99 F 72 17 148/60 95 07/16/20 11:00 76 34 H 137/60 95 07/16/20 10:42 75 28 H 97 07/16/20 09:50 70 25 H 134/55 134/56 96 07/16/20 09:00 98.9 F 69 33 H 126/56 128/48 100 07/16/20 08:00 99.5 F 82 16 126/78 100 07/16/20 07:32 82 07/16/20 07:00 71 16 126/78 100 07/16/20 06:45 78 16 100 07/16/20 06:00 71 16 110/87 138/88 100 07/16/20 05:00 68 16 143/55 137/47 100 07/16/20 04:00 99.5 F 69 16 126/56 138/50 100 07/16/20 03:00 64 16 141/54 100 07/16/20 02:56 62 16 99 07/16/20 01:52 66 16 137/51 139/53 135/50 99 07/16/20 01:00 66 16 126/56 135/50 98 07/16/20 00:01 73 07/16/20 00:00 99.9 F 71 16 125/56 137/52 99 07/15/20 23:30 74 16 98 07/15/20 23:00 73 16 132/57 136/51 98 07/15/20 22:00 70 16 135/51 132/59 135/51 98 07/15/20 21:00 63 16 123/48 99 07/15/20 20:00 99.0 F 66 16 139/54 126/50 99 07/15/20 19:04 65 16 99 07/15/20 18:50 66 16 118/47 99 07/15/20 18:00 68 16 115/49 125/47 110/47 99 07/15/20 17:00 71 16 125/61 99 Oxygen-Last 24 hours Oxygen Flowrate (L/min)-RT 35 Oxygen Flowrate (L/min)-RT 35 Oxygen Flowrate (L/min)-RT 35 Oxygen Flowrate (L/min)-RT 35 Oxygen Flowrate (L/min)-RT 35 Pain Assessment - Last Documented Pain Intensity 0 Pain Scale Used FLACC Intake and Output: Intake & Output 07/14/20 07/15/20 07/16/20 07/17/20 11:59 11:59 11:59 11:59 Intake Total 1705 6088 3232 Output Total 2160 4330 2480 Balance -453 1567 192 Weight 100 kg 101.7 kg 102.8 kg Lab Results: Accuchecks Date 07/16/20 Date 07/16/20 Date 07/15/20 Time 06:00 Time 06:00 Time 17:45 Accucheck Value: 180 Accucheck Value: 131 Accucheck Value: 164 Accucheck Value: 262 Lab Results-Last 24 Hours 07/16/20 07/16/20 07/16/20 Range/Units 05:30 05:38 05:38 Puncture Site ART LINE pCO2 32 L (35-45) mmHg pO2 106 H (75-100) mmHg Base Excess -3.4 L (-2.0-2.0) O2 Saturation 94.2 (94-100) g/dF ABG pH 7.41 (7.35-7.45) ABG HCO3 20.3 L (22-28) ABG O2 Sat (Measured) 99.3 (95-100) % Mele Test NO A-a Gradient 104 a/A Ratio 0.50 Hemoglobin 9.0 Carboxyhemoglobin 4.4 (0.0-6.9) % THgb Methemoglobin 0.7 L (1.4-1.5) % Potassium 4.0 3.8 (3.5-5.1) Temperature 37.0 C POC O2 Flow Rate 35 % Vent Mode A/C Tidal Volume 550 cc PEEP 6.0 cmH2O Pressure Support Sodium 138 (137-145) mmol/L Chloride 111 H (98-107) mmol/L Carbon Dioxide 19 L (22-30) mmol/L Anion Gap 10.9 (5-15) MEQ/L BUN 39 H (7-17) mg/dL Creatinine 1.50 H (0.52-1.04) mg/dL Estimated GFR 36.7 ML/MIN Glucose 144 H (74-106) mg/dL Calcium 9.3 (8.4-10.2) mg/dL Magnesium 1.9 (1.6-2.3) mg/dL Total Bilirubin 0.60 (0.2-1.3) mg/dL AST 20 (14-36) U/L ALT 11 (0-35) U/L Alkaline Phosphatase 136 H (38-126) U/L Serum Total Protein 6.1 L (6.3-8.2) g/dL Albumin 2.5 L (3.5-5.0) g/dL 07/16/20 Range/Units 10:00 Puncture Site ART LINE pCO2 42 (35-45) mmHg pO2 69 L (75-100) mmHg Base Excess -5.5 L (-2.0-2.0) O2 Saturation 93.1 L (94-100) g/dF ABG pH 7.30 L (7.35-7.45) ABG HCO3 20.7 L (22-28) ABG O2 Sat (Measured) 95.3 (95-100) % Mele Test NOT APPLICABLE A-a Gradient 128 a/A Ratio 0.35 Hemoglobin 9.3 Carboxyhemoglobin 1.3 (0.0-6.9) % THgb Methemoglobin 1.0 L (1.4-1.5) % Potassium 3.9 (3.5-5.1) Temperature 37.0 C POC O2 Flow Rate 35 % Vent Mode CPAP Tidal Volume cc PEEP 8.0 cmH2O Pressure Support 20 Sodium (137-145) mmol/L Chloride (98-107) mmol/L Carbon Dioxide (22-30) mmol/L Anion Gap (5-15) MEQ/L BUN (7-17) mg/dL Creatinine (0.52-1.04) mg/dL Estimated GFR ML/MIN Glucose (74-106) mg/dL Calcium (8.4-10.2) mg/dL Magnesium (1.6-2.3) mg/dL Total Bilirubin (0.2-1.3) mg/dL AST (14-36) U/L ALT (0-35) U/L Alkaline Phosphatase (38-126) U/L Serum Total Protein (6.3-8.2) g/dL Albumin (3.5-5.0) g/dL Radiology Exams: Radiology Procedures Category Date Time Status CHEST 1 VIEW (PORTABLE) Stat Exams 07/16/20 07:44 Completed CHEST WITHOUT CONTRAST [CT] Stat Exams 07/16/20 07:59 Completed HEAD WITHOUT CONTRAST [CT] Stat Exams 07/16/20 07:59 Completed Portable Chest [CHEST 1 VIEW (PORTABLE)] DAILY Exams 07/15/20 06:00 Completed Multi-Disciplinary Progress Notes: Multi-Disciplinary Progress Notes 07/16/20 12:16 Pharmacy Note by Brody Venegas [facility] TPN Consult Date: 07/16/20 TPN Day #: 6 Patient Name: CHITO DOUGLASS HT: 61 ACTUAL WT: 101.7 KG Age: 69 Patient Current Labs: Sodium 138 Potassium 3.8 Chloride 111 Glucose 144 Magnesium 1.9 Calcium 9.3 Sr CR 1.5 CR CL = 36 ML/MIN HOSPITAL CENTRAL LINE TPN FORMULATION a. Hospital Formulation: (triple mix) [facility] CENTRAL LINE TRIPLE MIX 2053 ML b. Dextrose 9.8% + Amino Acid 3.3% + Intralipid 3.9% PER 2000 ML c. Total KCals = 1745 KCAL per bag d. Total Volume = 2053 ml e. Carbohydrates = 200 gm; Protein = 68 gm; Fat = 80 gm f. Electrolytes/ premixed bag Sodium 64 meq Potassium 47 meq Calcium 8 meq Magnesium 16 meq Chloride 92 meq Acetate 78 meq Sulfate 16 meq Phosphorous 20 mMole 1. CENTRAL LINE - TPN RATE: Day 6:TPN RATE 70 ML/HR Total Volume to be delivered /24 hr: ____1680 ML Total Calories to be delivered/24 hr: 1400 KCAL 2. Additions to TPN Bag for today (Date____07/16/20 ) A. Sodium chloride 30 MEQ B. Potassium chloride 30 MEQ C. MVI 10 ml D. Trace Metals 1 mg E. Other: HUMULIN R 80 UNITS ii. Total Electrolytes per BAG/ 24HRS 1. Sodium 94 MEQ____75 2. Potassium 77 MEQ____61.5 3. Calcium 8 MEQ____6.4 4. Magnesium 16 MEQ___12.8 5. Chloride 137 MEQ____109.6 6. Acetate 78 MEQ____62 7. Sulfate 16 MEQ____12.8 8. Phosphorous 20 MMOLE____16 Initialized on 07/16/20 12:16 - END OF NOTE 07/16/20 11:03 Nutrition Note by Nadege Mosquera F/u Note: Pt remains NPO. TPN decreased to 70 mls/hour providing 1400 kcals; note MD trying to wean pt off vent & TPN. Labs 07/16= BUN 39, Cr 1.50, glu 144, alb 2.5 +fluid balance 752 mls. admission weight 96.4kg; current weight 102.8 kg. Current feeding meeting 78% of pts needs. goal of tolerance to feeding met and ongoing; goal of decreasing glu met with new goal of glu wnl. Will con't to monitor and f/u prn. RADHA Boss Initialized on 07/16/20 11:03 - END OF NOTE Assessment/Plan (1) Ventilator dependence Current Visit: Yes Status: Acute Assessment & Plan: Will rest the patient today and attempt starting weaning parameters in am tomorrow Code(s): Z99.11 - DEPENDENCE ON RESPIRATOR [VENTILATOR] STATUS (2) Intra-abdominal fluid Current Visit: Yes Status: Acute Assessment & Plan: repaired perforated viscus, NG draining well, no BS noted on exam, Code(s): R18.8 - OTHER ASCITES
--- NOTE | 2020-07-16 16:32 | PCM.NOTE ---
Date and Time: 07/12/20 7469 Subjective Assessment: Pt. self extubated yesterday afternoon and was left without tube she was responding to questions and doing fair, am labs and abg indicated the patient would need reintubation, which was done this am - Review of Systems Constitutional: No Symptoms Eyes: No Symptoms Ears, Nose, & Throat: No Symptoms Respiratory: No Symptoms Cardiac: No Chest Pain, No Edema, No Syncope Abdominal/Gastrointestinal: No Abdominal Pain, No Nausea, No Vomiting, No Diarrhea Genitourinary Symptoms: Other (urine output has improved and stable with blood pressure maintained above 120 with levophed), No Dysuria Musculoskeletal: No Back Pain, No Neck Pain Skin: No Rash Neurological: No Dizziness, No Focal Weakness, No Sensory Changes Psychological: No Symptoms Endocrine: No Symptoms Hematologic/Lymphatic: No Symptoms Immunological/Allergic: No Symptoms Objective Exam General Appearance: no apparent distress Neurologic Exam: other (intubated and sedated) Skin Exam: normal color, warm, dry Wound Assessment: Skin/Wound Assessment Wound/Incision Assessment Start: 07/10/20 05:04 Text: Status: Active Freq: Q4H Protocol: Document 07/16/20 15:56 (Rec: 07/16/20 15:59 [id number]) Wound/Incision Assessment Anterior Abdomen Wound Assessment Shift Assessment Wound Type Incision Wound Stage Non Pressure Wound Dressing Status Dry & Intact Drainage Amount None Drainage Odor None/Absent General Appearance Well Approximated,Asymptomatic ,[place] Intact,Clean/Dry Primary Dressing [place] bandaid Comment midline abdominal dressing dry and intact. Right Anterior Lateral Abdomen Drain Type JEIMY drain Drainage Description Serous Odor None/Absent Comment JEIMY#1 Right Anterior Distal Abdomen Drain Type JEIMY drain Drainage Description Serous Odor None/Absent Comment JEIMY # 2 Wound Photo Photo Taken No Ears, Nose, Throat Exam: normal ENT inspection Neck Exam: normal inspection Respiratory Exam: diminished breath sounds Cardiovascular Exam: regular rate/rhythm Gastrointestinal/Abdomen Exam: soft, distention OBJECTIVE DATA Vital Signs: Vital Signs - 24 hr Temp Pulse Resp BP BP BP Pulse Ox 07/16/20 15:56 99.7 F 77 16 135/45 160/56 97 07/16/20 15:00 77 16 112/50 150/57 97 07/16/20 14:43 72 16 97 07/16/20 14:00 66 12 149/50 112/50 145/57 95 07/16/20 13:00 72 12 136/52 145/59 95 07/16/20 11:59 99 F 72 17 148/60 95 07/16/20 11:00 76 34 H 137/60 95 07/16/20 10:42 75 28 H 97 07/16/20 09:50 70 25 H 134/55 134/56 96 07/16/20 09:00 98.9 F 69 33 H 126/56 128/48 100 07/16/20 08:00 99.5 F 82 16 126/78 100 07/16/20 07:32 82 07/16/20 07:00 71 16 126/78 100 07/16/20 06:45 78 16 100 07/16/20 06:00 71 16 110/87 138/88 100 07/16/20 05:00 68 16 143/55 137/47 100 07/16/20 04:00 99.5 F 69 16 126/56 138/50 100 07/16/20 03:00 64 16 141/54 100 07/16/20 02:56 62 16 99 07/16/20 01:52 66 16 137/51 139/53 135/50 99 07/16/20 01:00 66 16 126/56 135/50 98 07/16/20 00:01 73 07/16/20 00:00 99.9 F 71 16 125/56 137/52 99 07/15/20 23:30 74 16 98 07/15/20 23:00 73 16 132/57 136/51 98 07/15/20 22:00 70 16 135/51 132/59 135/51 98 07/15/20 21:00 63 16 123/48 99 07/15/20 20:00 99.0 F 66 16 139/54 126/50 99 07/15/20 19:04 65 16 99 07/15/20 18:50 66 16 118/47 99 07/15/20 18:00 68 16 115/49 125/47 110/47 99 07/15/20 17:00 71 16 125/61 99 Oxygen-Last 24 hours Oxygen Flowrate (L/min)-RT 35 Oxygen Flowrate (L/min)-RT 35 Oxygen Flowrate (L/min)-RT 35 Oxygen Flowrate (L/min)-RT 35 Oxygen Flowrate (L/min)-RT 35 Pain Assessment - Last Documented Pain Intensity 0 Pain Scale Used FLACC Intake and Output: Intake & Output 07/14/20 07/15/20 07/16/20 07/17/20 11:59 11:59 11:59 11:59 Intake Total 1707 4729 3232 Output Total 2160 3590 2480 Balance -453 4327 002 Weight 100 kg 101.7 kg 102.8 kg Lab Results: Accuchecks Date 07/16/20 Date 07/16/20 Date 07/15/20 Time 06:00 Time 06:00 Time 17:45 Accucheck Value: 180 Accucheck Value: 131 Accucheck Value: 164 Accucheck Value: 262 Lab Results-Last 24 Hours 07/16/20 07/16/20 07/16/20 Range/Units 05:30 05:38 05:38 Puncture Site ART LINE pCO2 32 L (35-45) mmHg pO2 106 H (75-100) mmHg Base Excess -3.4 L (-2.0-2.0) O2 Saturation 94.2 (94-100) g/dF ABG pH 7.41 (7.35-7.45) ABG HCO3 20.3 L (22-28) ABG O2 Sat (Measured) 99.3 (95-100) % Mele Test NO A-a Gradient 104 a/A Ratio 0.50 Hemoglobin 9.0 Carboxyhemoglobin 4.4 (0.0-6.9) % THgb Methemoglobin 0.7 L (1.4-1.5) % Potassium 4.0 3.8 (3.5-5.1) Temperature 37.0 C POC O2 Flow Rate 35 % Vent Mode A/C Tidal Volume 550 cc PEEP 6.0 cmH2O Pressure Support Sodium 138 (137-145) mmol/L Chloride 111 H (98-107) mmol/L Carbon Dioxide 19 L (22-30) mmol/L Anion Gap 10.9 (5-15) MEQ/L BUN 39 H (7-17) mg/dL Creatinine 1.50 H (0.52-1.04) mg/dL Estimated GFR 36.7 ML/MIN Glucose 144 H (74-106) mg/dL Calcium 9.3 (8.4-10.2) mg/dL Magnesium 1.9 (1.6-2.3) mg/dL Total Bilirubin 0.60 (0.2-1.3) mg/dL AST 20 (14-36) U/L ALT 11 (0-35) U/L Alkaline Phosphatase 136 H (38-126) U/L Serum Total Protein 6.1 L (6.3-8.2) g/dL Albumin 2.5 L (3.5-5.0) g/dL 07/16/20 Range/Units 10:00 Puncture Site ART LINE pCO2 42 (35-45) mmHg pO2 69 L (75-100) mmHg Base Excess -5.5 L (-2.0-2.0) O2 Saturation 93.1 L (94-100) g/dF ABG pH 7.30 L (7.35-7.45) ABG HCO3 20.7 L (22-28) ABG O2 Sat (Measured) 95.3 (95-100) % Mele Test NOT APPLICABLE A-a Gradient 128 a/A Ratio 0.35 Hemoglobin 9.3 Carboxyhemoglobin 1.3 (0.0-6.9) % THgb Methemoglobin 1.0 L (1.4-1.5) % Potassium 3.9 (3.5-5.1) Temperature 37.0 C POC O2 Flow Rate 35 % Vent Mode CPAP Tidal Volume cc PEEP 8.0 cmH2O Pressure Support 20 Sodium (137-145) mmol/L Chloride (98-107) mmol/L Carbon Dioxide (22-30) mmol/L Anion Gap (5-15) MEQ/L BUN (7-17) mg/dL Creatinine (0.52-1.04) mg/dL Estimated GFR ML/MIN Glucose (74-106) mg/dL Calcium (8.4-10.2) mg/dL Magnesium (1.6-2.3) mg/dL Total Bilirubin (0.2-1.3) mg/dL AST (14-36) U/L ALT (0-35) U/L Alkaline Phosphatase (38-126) U/L Serum Total Protein (6.3-8.2) g/dL Albumin (3.5-5.0) g/dL Radiology Exams: Radiology Procedures Category Date Time Status CHEST 1 VIEW (PORTABLE) Stat Exams 07/16/20 07:44 Completed CHEST WITHOUT CONTRAST [CT] Stat Exams 07/16/20 07:59 Completed HEAD WITHOUT CONTRAST [CT] Stat Exams 07/16/20 07:59 Completed Portable Chest [CHEST 1 VIEW (PORTABLE)] DAILY Exams 07/15/20 06:00 Completed Multi-Disciplinary Progress Notes: Multi-Disciplinary Progress Notes 07/16/20 12:16 Pharmacy Note by Brody Venegas Pharmacy TPN Consult Date: 07/16/20 TPN Day #: 6 Patient Name: CHITO DOUGLASS HT: 61 ACTUAL WT: 101.7 KG Age: 69 Patient Current Labs: Sodium 138 Potassium 3.8 Chloride 111 Glucose 144 Magnesium 1.9 Calcium 9.3 Sr CR 1.5 CR CL = 36 ML/MIN HOSPITAL CENTRAL LINE TPN FORMULATION a. Hospital Formulation: (triple mix) [facility] CENTRAL LINE TRIPLE MIX 2053 ML b. Dextrose 9.8% + Amino Acid 3.3% + Intralipid 3.9% PER 2000 ML c. Total KCals = 1745 KCAL per bag d. Total Volume = 2053 ml e. Carbohydrates = 200 gm; Protein = 68 gm; Fat = 80 gm f. Electrolytes/ premixed bag Sodium 64 meq Potassium 47 meq Calcium 8 meq Magnesium 16 meq Chloride 92 meq Acetate 78 meq Sulfate 16 meq Phosphorous 20 mMole 1. CENTRAL LINE - TPN RATE: Day 6:TPN RATE 70 ML/HR Total Volume to be delivered /24 hr: ____1680 ML Total Calories to be delivered/24 hr: 1400 KCAL 2. Additions to TPN Bag for today (Date____07/16/20 ) A. Sodium chloride 30 MEQ B. Potassium chloride 30 MEQ C. MVI 10 ml D. Trace Metals 1 mg E. Other: HUMULIN R 80 UNITS ii. Total Electrolytes per BAG/ 24HRS 1. Sodium 94 MEQ____75 2. Potassium 77 MEQ____61.5 3. Calcium 8 MEQ____6.4 4. Magnesium 16 MEQ___12.8 5. Chloride 137 MEQ____109.6 6. Acetate 78 MEQ____62 7. Sulfate 16 MEQ____12.8 8. Phosphorous 20 MMOLE____16 Initialized on 07/16/20 12:16 - END OF NOTE 07/16/20 11:03 Nutrition Note by Nadege Mosquera F/u Note: Pt remains NPO. TPN decreased to 70 mls/hour providing 1400 kcals; note MD trying to wean pt off vent & TPN. Labs 07/16= BUN 39, Cr 1.50, glu 144, alb 2.5 +fluid balance 752 mls. admission weight 96.4kg; current weight 102.8 kg. Current feeding meeting 78% of pts needs. goal of tolerance to feeding met and ongoing; goal of decreasing glu met with new goal of glu wnl. Will con't to monitor and f/u prn. RADHA Boss Initialized on 07/16/20 11:03 - END OF NOTE Assessment/Plan (1) Ventilator dependence Current Visit: Yes Status: Acute Assessment & Plan: maintaining on ventilator, started TPN this am will continue this adjusting insulin to maintain good bs control. Pt. is weaning off and on of pressor support, will continue to work with this. Code(s): Z99.11 - DEPENDENCE ON RESPIRATOR [VENTILATOR] STATUS (2) Intra-abdominal fluid Current Visit: Yes Status: Acute Assessment & Plan: repaired viscus stable, NG and drains appear to be doing fine Code(s): R18.8 - OTHER ASCITES
--- NOTE | 2020-07-16 16:34 | PCM.NOTE ---
Date and Time: 07/13/20 1632 Subjective Assessment: No changes noted increased pulmonary congestion on cxr - Review of Systems Constitutional: No Fever, No Chills Eyes: No Symptoms Ears, Nose, & Throat: No Symptoms Respiratory: No Cough, No Short Of Breath Cardiac: No Chest Pain, No Edema, No Syncope Abdominal/Gastrointestinal: No Abdominal Pain, No Nausea, No Vomiting, No Diarrhea Genitourinary Symptoms: No Dysuria Musculoskeletal: No Back Pain, No Neck Pain Skin: No Rash Neurological: No Dizziness, No Focal Weakness, No Sensory Changes Psychological: No Symptoms Endocrine: No Symptoms Hematologic/Lymphatic: No Symptoms Immunological/Allergic: No Symptoms Objective Exam General Appearance: no apparent distress Wound Assessment: Skin/Wound Assessment Wound/Incision Assessment Start: 07/10/20 05:04 Text: Status: Active Freq: Q4H Protocol: Document 07/16/20 15:56 MISSY (Rec: 07/16/20 15:59 MISSY [id number]) Wound/Incision Assessment Anterior Abdomen Wound Assessment Shift Assessment Wound Type Incision Wound Stage Non Pressure Wound Dressing Status Dry & Intact Drainage Amount None Drainage Odor None/Absent General Appearance Well Approximated,Asymptomatic ,[place] Intact,Clean/Dry Primary Dressing [place] bandaid Comment midline abdominal dressing dry and intact. Right Anterior Lateral Abdomen Drain Type JEIMY drain Drainage Description Serous Odor None/Absent Comment JEIMY#1 Right Anterior Distal Abdomen Drain Type JEIMY drain Drainage Description Serous Odor None/Absent Comment JEIMY # 2 Wound Photo Photo Taken No Eye Exam: eyes nml inspection Ears, Nose, Throat Exam: normal ENT inspection Neck Exam: normal inspection Lymphatic Exam: No adenopathy Respiratory Exam: diminished breath sounds Cardiovascular Exam: regular rate/rhythm OBJECTIVE DATA Vital Signs: Vital Signs - 24 hr Temp Pulse Resp BP BP BP Pulse Ox 07/16/20 15:56 99.7 F 77 16 135/45 160/56 97 07/16/20 15:00 77 16 112/50 150/57 97 07/16/20 14:43 72 16 97 07/16/20 14:00 66 12 149/50 112/50 145/57 95 07/16/20 13:00 72 12 136/52 145/59 95 07/16/20 11:59 99 F 72 17 148/60 95 07/16/20 11:00 76 34 H 137/60 95 07/16/20 10:42 75 28 H 97 07/16/20 09:50 70 25 H 134/55 134/56 96 07/16/20 09:00 98.9 F 69 33 H 126/56 128/48 100 07/16/20 08:00 99.5 F 82 16 126/78 100 07/16/20 07:32 82 07/16/20 07:00 71 16 126/78 100 07/16/20 06:45 78 16 100 07/16/20 06:00 71 16 110/87 138/88 100 07/16/20 05:00 68 16 143/55 137/47 100 07/16/20 04:00 99.5 F 69 16 126/56 138/50 100 07/16/20 03:00 64 16 141/54 100 07/16/20 02:56 62 16 99 07/16/20 01:52 66 16 137/51 139/53 135/50 99 07/16/20 01:00 66 16 126/56 135/50 98 07/16/20 00:01 73 07/16/20 00:00 99.9 F 71 16 125/56 137/52 99 07/15/20 23:30 74 16 98 07/15/20 23:00 73 16 132/57 136/51 98 07/15/20 22:00 70 16 135/51 132/59 135/51 98 07/15/20 21:00 63 16 123/48 99 07/15/20 20:00 99.0 F 66 16 139/54 126/50 99 07/15/20 19:04 65 16 99 07/15/20 18:50 66 16 118/47 99 07/15/20 18:00 68 16 115/49 125/47 110/47 99 07/15/20 17:00 71 16 125/61 99 Oxygen-Last 24 hours Oxygen Flowrate (L/min)-RT 35 Oxygen Flowrate (L/min)-RT 35 Oxygen Flowrate (L/min)-RT 35 Oxygen Flowrate (L/min)-RT 35 Oxygen Flowrate (L/min)-RT 35 Pain Assessment - Last Documented Pain Intensity 0 Pain Scale [facility] Intake and Output: Intake & Output 07/14/20 07/15/20 07/16/20 07/17/20 11:59 11:59 11:59 11:59 Intake Total 1707 4729 3232 Output Total 2160 3590 2480 Balance -453 6199 122 Weight 100 kg 101.7 kg 102.8 kg Lab Results: Accuchecks Date 07/16/20 Date 07/16/20 Date 07/15/20 Time 06:00 Time 06:00 Time 17:45 Accucheck Value: 180 Accucheck Value: 131 Accucheck Value: 164 Accucheck Value: 262 Lab Results-Last 24 Hours 07/16/20 07/16/20 07/16/20 Range/Units 05:30 05:38 05:38 Puncture Site ART LINE pCO2 32 L (35-45) mmHg pO2 106 H (75-100) mmHg Base Excess -3.4 L (-2.0-2.0) O2 Saturation 94.2 (94-100) g/dF ABG pH 7.41 (7.35-7.45) ABG HCO3 20.3 L (22-28) ABG O2 Sat (Measured) 99.3 (95-100) % Mele Test NO A-a Gradient 104 a/A Ratio 0.50 Hemoglobin 9.0 Carboxyhemoglobin 4.4 (0.0-6.9) % THgb Methemoglobin 0.7 L (1.4-1.5) % Potassium 4.0 3.8 (3.5-5.1) Temperature 37.0 C POC O2 Flow Rate 35 % Vent Mode A/C Tidal Volume 550 cc PEEP 6.0 cmH2O Pressure Support Sodium 138 (137-145) mmol/L Chloride 111 H (98-107) mmol/L Carbon Dioxide 19 L (22-30) mmol/L Anion Gap 10.9 (5-15) MEQ/L BUN 39 H (7-17) mg/dL Creatinine 1.50 H (0.52-1.04) mg/dL Estimated GFR 36.7 ML/MIN Glucose 144 H (74-106) mg/dL Calcium 9.3 (8.4-10.2) mg/dL Magnesium 1.9 (1.6-2.3) mg/dL Total Bilirubin 0.60 (0.2-1.3) mg/dL AST 20 (14-36) U/L ALT 11 (0-35) U/L Alkaline Phosphatase 136 H (38-126) U/L Serum Total Protein 6.1 L (6.3-8.2) g/dL Albumin 2.5 L (3.5-5.0) g/dL 07/16/20 Range/Units 10:00 Puncture Site ART LINE pCO2 42 (35-45) mmHg pO2 69 L (75-100) mmHg Base Excess -5.5 L (-2.0-2.0) O2 Saturation 93.1 L (94-100) g/dF ABG pH 7.30 L (7.35-7.45) ABG HCO3 20.7 L (22-28) ABG O2 Sat (Measured) 95.3 (95-100) % Mele Test NOT APPLICABLE A-a Gradient 128 a/A Ratio 0.35 Hemoglobin 9.3 Carboxyhemoglobin 1.3 (0.0-6.9) % THgb Methemoglobin 1.0 L (1.4-1.5) % Potassium 3.9 (3.5-5.1) Temperature 37.0 C POC O2 Flow Rate 35 % Vent Mode CPAP Tidal Volume cc PEEP 8.0 cmH2O Pressure Support 20 Sodium (137-145) mmol/L Chloride (98-107) mmol/L Carbon Dioxide (22-30) mmol/L Anion Gap (5-15) MEQ/L BUN (7-17) mg/dL Creatinine (0.52-1.04) mg/dL Estimated GFR ML/MIN Glucose (74-106) mg/dL Calcium (8.4-10.2) mg/dL Magnesium (1.6-2.3) mg/dL Total Bilirubin (0.2-1.3) mg/dL AST (14-36) U/L ALT (0-35) U/L Alkaline Phosphatase (38-126) U/L Serum Total Protein (6.3-8.2) g/dL Albumin (3.5-5.0) g/dL Radiology Exams: Radiology Procedures Category Date Time Status CHEST 1 VIEW (PORTABLE) Stat Exams 07/16/20 07:44 Completed CHEST WITHOUT CONTRAST [CT] Stat Exams 07/16/20 07:59 Completed HEAD WITHOUT CONTRAST [CT] Stat Exams 07/16/20 07:59 Completed Portable Chest [CHEST 1 VIEW (PORTABLE)] DAILY Exams 07/15/20 06:00 Completed Multi-Disciplinary Progress Notes: Multi-Disciplinary Progress Notes 07/16/20 12:16 Pharmacy Note by Brody Venegas Pharmacy TPN Consult Date: 07/16/20 TPN Day #: 6 Patient Name: CHITO DOUGLASS HT: 61 ACTUAL WT: 101.7 KG Age: 69 Patient Current Labs: Sodium 138 Potassium 3.8 Chloride 111 Glucose 144 Magnesium 1.9 Calcium 9.3 Sr CR 1.5 CR CL = 36 ML/MIN HOSPITAL CENTRAL LINE TPN FORMULATION a. Hospital Formulation: (triple mix) [facility] CENTRAL LINE TRIPLE MIX 2053 ML b. Dextrose 9.8% + Amino Acid 3.3% + Intralipid 3.9% PER 2000 ML c. Total KCals = 1745 KCAL per bag d. Total Volume = 2053 ml e. Carbohydrates = 200 gm; Protein = 68 gm; Fat = 80 gm f. Electrolytes/ premixed bag Sodium 64 meq Potassium 47 meq Calcium 8 meq Magnesium 16 meq Chloride 92 meq Acetate 78 meq Sulfate 16 meq Phosphorous 20 mMole 1. CENTRAL LINE - TPN RATE: Day 6:TPN RATE 70 ML/HR Total Volume to be delivered /24 hr: ____1680 ML Total Calories to be delivered/24 hr: 1400 KCAL 2. Additions to TPN Bag for today (Date____07/16/20 ) A. Sodium chloride 30 MEQ B. Potassium chloride 30 MEQ C. MVI 10 ml D. Trace Metals 1 mg E. Other: HUMULIN R 80 UNITS ii. Total Electrolytes per BAG/ 24HRS 1. Sodium 94 MEQ____75 2. Potassium 77 MEQ____61.5 3. Calcium 8 MEQ____6.4 4. Magnesium 16 MEQ___12.8 5. Chloride 137 MEQ____109.6 6. Acetate 78 MEQ____62 7. Sulfate 16 MEQ____12.8 8. Phosphorous 20 MMOLE____16 Initialized on 07/16/20 12:16 - END OF NOTE 07/16/20 11:03 Nutrition Note by Nadege Mosquera F/u Note: Pt remains NPO. TPN decreased to 70 mls/hour providing 1400 kcals; note MD trying to wean pt off vent & TPN. Labs 07/16= BUN 39, Cr 1.50, glu 144, alb 2.5 +fluid balance 752 mls. admission weight 96.4kg; current weight 102.8 kg. Current feeding meeting 78% of pts needs. goal of tolerance to feeding met and ongoing; goal of decreasing glu met with new goal of glu wnl. Will con't to monitor and f/u prn. RADHA Boss Initialized on 07/16/20 11:03 - END OF NOTE Assessment/Plan (1) Ventilator dependence Current Visit: Yes Status: Acute Assessment & Plan: worsening of cxr doses of bumex initiated and now scheduled 1mg every 12 hours, will work with RT on further weaning of the patient Code(s): Z99.11 - DEPENDENCE ON RESPIRATOR [VENTILATOR] STATUS (2) Intra-abdominal fluid Current Visit: Yes Status: Acute Code(s): R18.8 - OTHER ASCITES
--- NOTE | 2020-07-16 16:36 | PCM.NOTE ---
Date and Time: 07/14/20 1634 Subjective Assessment: No changes, off pressors now and bp and urine holding well - Review of Systems Constitutional: No Symptoms Cardiac: No Symptoms Abdominal/Gastrointestinal: No Symptoms Genitourinary Symptoms: No Symptoms Musculoskeletal: No Symptoms Skin: No Symptoms Objective Exam General Appearance: no apparent distress Wound Assessment: Skin/Wound Assessment Wound/Incision Assessment Start: 07/10/20 05:04 Text: Status: Active Freq: Q4H Protocol: Document 07/16/20 15:56 MISSY (Rec: 07/16/20 15:59 MISSY [id number]) Wound/Incision Assessment Anterior Abdomen Wound Assessment Shift Assessment Wound Type Incision Wound Stage Non Pressure Wound Dressing Status Dry & Intact Drainage Amount None Drainage Odor None/Absent General Appearance Well Approximated,Asymptomatic ,[place] Intact,Clean/Dry Primary Dressing [place] bandaid Comment midline abdominal dressing dry and intact. Right Anterior Lateral Abdomen Drain Type JEIMY drain Drainage Description Serous Odor None/Absent Comment JEIMY#1 Right Anterior Distal Abdomen Drain Type JEIMY drain Drainage Description Serous Odor None/Absent Comment JEIMY # 2 Wound Photo Photo Taken No Ears, Nose, Throat Exam: normal ENT inspection Neck Exam: normal inspection Lymphatic Exam: No adenopathy Respiratory Exam: diminished breath sounds Cardiovascular Exam: regular rate/rhythm OBJECTIVE DATA Vital Signs: Vital Signs - 24 hr Temp Pulse Resp BP BP BP Pulse Ox 07/16/20 15:56 99.7 F 77 16 135/45 160/56 97 07/16/20 15:00 77 16 112/50 150/57 97 07/16/20 14:43 72 16 97 07/16/20 14:00 66 12 149/50 112/50 145/57 95 07/16/20 13:00 72 12 136/52 145/59 95 07/16/20 11:59 99 F 72 17 148/60 95 07/16/20 11:00 76 34 H 137/60 95 07/16/20 10:42 75 28 H 97 07/16/20 09:50 70 25 H 134/55 134/56 96 07/16/20 09:00 98.9 F 69 33 H 126/56 128/48 100 07/16/20 08:00 99.5 F 82 16 126/78 100 07/16/20 07:32 82 07/16/20 07:00 71 16 126/78 100 08/28/20 06:45 78 16 100 07/16/20 06:00 71 16 110/87 138/88 100 07/16/20 05:00 68 16 143/55 137/47 100 07/16/20 04:00 99.5 F 69 16 126/56 138/50 100 07/16/20 03:00 64 16 141/54 100 07/16/20 02:56 62 16 99 07/16/20 01:52 66 16 137/51 139/53 135/50 99 07/16/20 01:00 66 16 126/56 135/50 98 07/16/20 00:01 73 07/16/20 00:00 99.9 F 71 16 125/56 137/52 99 07/15/20 23:30 74 16 98 07/15/20 23:00 73 16 132/57 136/51 98 07/15/20 22:00 70 16 135/51 132/59 135/51 98 07/15/20 21:00 63 16 123/48 99 07/15/20 20:00 99.0 F 66 16 139/54 126/50 99 07/15/20 19:04 65 16 99 07/15/20 18:50 66 16 118/47 99 07/15/20 18:00 68 16 115/49 125/47 110/47 99 07/15/20 17:00 71 16 125/61 99 Oxygen-Last 24 hours Oxygen Flowrate (L/min)-RT 35 Oxygen Flowrate (L/min)-RT 35 Oxygen Flowrate (L/min)-RT 35 Oxygen Flowrate (L/min)-RT 35 Oxygen Flowrate (L/min)-RT 35 Pain Assessment - Last Documented Pain Intensity 0 Pain Scale Used FLACC Intake and Output: Intake & Output 07/14/20 07/15/20 07/16/20 07/17/20 11:59 11:59 11:59 11:59 Intake Total 1705 1344 3232 Output Total 6183 8400 6540 Balance -453 2702 242 Weight 100 kg 101.7 kg 102.8 kg Lab Results: Accuchecks Date 07/16/20 Date 07/16/20 Date 07/15/20 Time 06:00 Time 06:00 Time 17:45 Accucheck Value: 180 Accucheck Value: 131 Accucheck Value: 164 Accucheck Value: 262 Lab Results-Last 24 Hours 07/16/20 07/16/20 07/16/20 Range/Units 05:30 05:38 05:38 Puncture Site ART LINE pCO2 32 L (35-45) mmHg pO2 106 H (75-100) mmHg Base Excess -3.4 L (-2.0-2.0) O2 Saturation 94.2 (94-100) g/dF ABG pH 7.41 (7.35-7.45) ABG HCO3 20.3 L (22-28) ABG O2 Sat (Measured) 99.3 (95-100) % Mele Test NO A-a Gradient 104 a/A Ratio 0.50 Hemoglobin 9.0 Carboxyhemoglobin 4.4 (0.0-6.9) % THgb Methemoglobin 0.7 L (1.4-1.5) % Potassium 4.0 3.8 (3.5-5.1) Temperature 37.0 C POC O2 Flow Rate 35 % Vent Mode A/C Tidal Volume 550 cc PEEP 6.0 cmH2O Pressure Support Sodium 138 (137-145) mmol/L Chloride 111 H (98-107) mmol/L Carbon Dioxide 19 L (22-30) mmol/L Anion Gap 10.9 (5-15) MEQ/L BUN 39 H (7-17) mg/dL Creatinine 1.50 H (0.52-1.04) mg/dL Estimated GFR 36.7 ML/MIN Glucose 144 H (74-106) mg/dL Calcium 9.3 (8.4-10.2) mg/dL Magnesium 1.9 (1.6-2.3) mg/dL Total Bilirubin 0.60 (0.2-1.3) mg/dL AST 20 (14-36) U/L ALT 11 (0-35) U/L Alkaline Phosphatase 136 H (38-126) U/L Serum Total Protein 6.1 L (6.3-8.2) g/dL Albumin 2.5 L (3.5-5.0) g/dL 07/16/20 Range/Units 10:00 Puncture Site ART LINE pCO2 42 (35-45) mmHg pO2 69 L (75-100) mmHg Base Excess -5.5 L (-2.0-2.0) O2 Saturation 93.1 L (94-100) g/dF ABG pH 7.30 L (7.35-7.45) ABG HCO3 20.7 L (22-28) ABG O2 Sat (Measured) 95.3 (95-100) % Mele Test NOT APPLICABLE A-a Gradient 128 a/A Ratio 0.35 Hemoglobin 9.3 Carboxyhemoglobin 1.3 (0.0-6.9) % THgb Methemoglobin 1.0 L (1.4-1.5) % Potassium 3.9 (3.5-5.1) Temperature 37.0 C POC O2 Flow Rate 35 % Vent Mode CPAP Tidal Volume cc PEEP 8.0 cmH2O Pressure Support 20 Sodium (137-145) mmol/L Chloride (98-107) mmol/L Carbon Dioxide (22-30) mmol/L Anion Gap (5-15) MEQ/L BUN (7-17) mg/dL Creatinine (0.52-1.04) mg/dL Estimated GFR ML/MIN Glucose (74-106) mg/dL Calcium (8.4-10.2) mg/dL Magnesium (1.6-2.3) mg/dL Total Bilirubin (0.2-1.3) mg/dL AST (14-36) U/L ALT (0-35) U/L Alkaline Phosphatase (38-126) U/L Serum Total Protein (6.3-8.2) g/dL Albumin (3.5-5.0) g/dL Radiology Exams: Radiology Procedures Category Date Time Status CHEST 1 VIEW (PORTABLE) Stat Exams 07/16/20 07:44 Completed CHEST WITHOUT CONTRAST [CT] Stat Exams 07/16/20 07:59 Completed HEAD WITHOUT CONTRAST [CT] Stat Exams 07/16/20 07:59 Completed Portable Chest [CHEST 1 VIEW (PORTABLE)] DAILY Exams 07/15/20 06:00 Completed Multi-Disciplinary Progress Notes: Multi-Disciplinary Progress Notes 07/16/20 12:16 Pharmacy Note by Brody Venegas Pharmacy TPN Consult Date: 07/16/20 TPN Day #: 6 Patient Name: CHITO DOUGLASS HT: 61 ACTUAL WT: 101.7 KG Age: 69 Patient Current Labs: Sodium 138 Potassium 3.8 Chloride 111 Glucose 144 Magnesium 1.9 Calcium 9.3 Sr CR 1.5 CR CL = 36 ML/MIN HOSPITAL CENTRAL LINE TPN FORMULATION a. Hospital Formulation: (triple mix) [facility] CENTRAL LINE TRIPLE MIX 3 ML b. Dextrose 9.8% + Amino Acid 3.3% + Intralipid 3.9% PER 2000 ML c. Total KCals = 1745 KCAL per bag d. Total Volume = 2053 ml e. Carbohydrates = 200 gm; Protein = 68 gm; Fat = 80 gm f. Electrolytes/ premixed bag Sodium 64 meq Potassium 47 meq Calcium 8 meq Magnesium 16 meq Chloride 92 meq Acetate 78 meq Sulfate 16 meq Phosphorous 20 mMole 1. CENTRAL LINE - TPN RATE: Day 6:TPN RATE 70 ML/HR Total Volume to be delivered /24 hr: ____1680 ML Total Calories to be delivered/24 hr: 1400 KCAL 2. Additions to TPN Bag for today (Date____07/16/20 ) A. Sodium chloride 30 MEQ B. Potassium chloride 30 MEQ C. MVI 10 ml D. Trace Metals 1 mg E. Other: HUMULIN R 80 UNITS ii. Total Electrolytes per BAG/ 24HRS 1. Sodium 94 MEQ____75 2. Potassium 77 MEQ____61.5 3. Calcium 8 MEQ____6.4 4. Magnesium 16 MEQ___12.8 5. Chloride 137 MEQ____109.6 6. Acetate 78 MEQ____62 7. Sulfate 16 MEQ____12.8 8. Phosphorous 20 MMOLE____16 Initialized on 07/16/20 12:16 - END OF NOTE 07/16/20 11:03 Nutrition Note by Nadege Mosquera F/u Note: Pt remains NPO. TPN decreased to 70 mls/hour providing 1400 kcals; note MD trying to wean pt off vent & TPN. Labs 07/16= BUN 39, Cr 1.50, glu 144, alb 2.5 +fluid balance 752 mls. admission weight 96.4kg; current weight 102.8 kg. Current feeding meeting 78% of pts needs. goal of tolerance to feeding met and ongoing; goal of decreasing glu met with new goal of glu wnl. Will con't to monitor and f/u prn. RADHA Boss Initialized on 07/16/20 11:03 - END OF NOTE Assessment/Plan (1) Ventilator dependence Current Visit: Yes Status: Acute Assessment & Plan: slowly weaning, improvement in cxr noted continue to wean off ventilator, bp and urine output remain stable, TPN persisting with incremental adjustments. Code(s): Z99.11 - DEPENDENCE ON RESPIRATOR [VENTILATOR] STATUS (2) Intra-abdominal fluid Current Visit: Yes Status: Acute Code(s): R18.8 - OTHER ASCITES
--- NOTE | 2020-07-16 16:42 | PCM.NOTE ---
Date and Time: 07/15/20 1636 Very little change in patient, labs and breathing parameters doing well, weaned off versed now, will continue to work and see if patient may be extubated today, chest x-ray again improved from yesterday. Subjective Assessment: Very little changes noted in patient but all lab and xray and breathing parameters are improving - Review of Systems Constitutional: No Fever, No Chills Eyes: No Symptoms Ears, Nose, & Throat: No Symptoms Respiratory: No Cough, No Short Of Breath Cardiac: No Chest Pain, No Edema, No Syncope Abdominal/Gastrointestinal: No Abdominal Pain, No Nausea, No Vomiting, No Diarrhea Genitourinary Symptoms: No Dysuria Musculoskeletal: No Back Pain, No Neck Pain Skin: No Rash Neurological: No Dizziness, No Focal Weakness, No Sensory Changes Psychological: No Symptoms Endocrine: No Symptoms Hematologic/Lymphatic: No Symptoms Immunological/Allergic: No Symptoms Objective Exam General Appearance: no apparent distress Skin Exam: normal color, warm, dry Wound Assessment: Skin/Wound Assessment Wound/Incision Assessment Start: 07/10/20 05:04 Text: Status: Active Freq: Q4H Protocol: Document 07/16/20 15:56 MISSY (Rec: 07/16/20 15:59 [id number]) Wound/Incision Assessment Anterior Abdomen Wound Assessment Shift Assessment Wound Type Incision Wound Stage Non Pressure Wound Dressing Status Dry & Intact Drainage Amount None Drainage Odor None/Absent General Appearance Well Approximated,Asymptomatic ,[place] Intact,Clean/Dry Primary Dressing [place] bandaid Comment midline abdominal dressing dry and intact. Right Anterior Lateral Abdomen Drain Type JEIMY drain Drainage Description Serous Odor None/Absent Comment JEIMY#1 Right Anterior Distal Abdomen Drain Type JEIMY drain Drainage Description Serous Odor None/Absent Comment JEIMY # 2 Wound Photo Photo Taken No Eye Exam: eyes nml inspection Ears, Nose, Throat Exam: moist mucous membranes Neck Exam: normal inspection Lymphatic Exam: No adenopathy Respiratory Exam: diminished breath sounds Cardiovascular Exam: regular rate/rhythm OBJECTIVE DATA Vital Signs: Vital Signs - 24 hr Temp Pulse Resp BP BP BP Pulse Ox 07/16/20 15:56 99.7 F 77 16 135/45 160/56 97 07/16/20 15:00 77 16 112/50 150/57 97 07/16/20 14:43 72 16 97 07/16/20 14:00 66 12 149/50 112/50 145/57 95 07/16/20 13:00 72 12 136/52 145/59 95 07/16/20 11:59 99 F 72 17 148/60 95 07/16/20 11:00 76 34 H 137/60 95 07/16/20 10:42 75 28 H 97 07/16/20 09:50 70 25 H 134/55 134/56 96 07/16/20 09:00 98.9 F 69 33 H 126/56 128/48 100 07/16/20 08:00 99.5 F 82 16 126/78 100 07/16/20 07:32 82 07/16/20 07:00 71 16 126/78 100 07/16/20 06:45 78 16 100 07/16/20 06:00 71 16 110/87 138/88 100 07/16/20 05:00 68 16 143/55 137/47 100 07/16/20 04:00 99.5 F 69 16 126/56 138/50 100 07/16/20 03:00 64 16 141/54 100 07/16/20 02:56 62 16 99 07/16/20 01:52 66 16 137/51 139/53 135/50 99 07/16/20 01:00 66 16 126/56 135/50 98 07/16/20 00:01 73 07/16/20 00:00 99.9 F 71 16 125/56 137/52 99 07/15/20 23:30 74 16 98 07/15/20 23:00 73 16 132/57 136/51 98 07/15/20 22:00 70 16 135/51 132/59 135/51 98 07/15/20 21:00 63 16 123/48 99 07/15/20 20:00 99.0 F 66 16 139/54 126/50 99 07/15/20 19:04 65 16 99 07/15/20 18:50 66 16 118/47 99 07/15/20 18:00 68 16 115/49 125/47 110/47 99 07/15/20 17:00 71 16 125/61 99 Oxygen-Last 24 hours Oxygen Flowrate (L/min)-RT 35 Oxygen Flowrate (L/min)-RT 35 Oxygen Flowrate (L/min)-RT 35 Oxygen Flowrate (L/min)-RT 35 Oxygen Flowrate (L/min)-RT 35 Pain Assessment - Last Documented Pain Intensity 0 Pain Scale Used [facility] Intake and Output: Intake & Output 07/14/20 07/15/20 07/16/20 07/17/20 11:59 11:59 11:59 11:59 Intake Total 170 4734 3232 Output Total 2160 3590 2480 Balance -453 8699 752 Weight 100 kg 101.7 kg 102.8 kg Lab Results: Accuchecks Date 07/16/20 Date 07/16/20 Date 07/15/20 Time 06:00 Time 06:00 Time 17:45 Accucheck Value: 180 Accucheck Value: 131 Accucheck Value: 164 Accucheck Value: 262 Lab Results-Last 24 Hours 07/16/20 07/16/20 07/16/20 Range/Units 05:30 05:38 05:38 Puncture Site ART LINE pCO2 32 L (35-45) mmHg pO2 106 H (75-100) mmHg Base Excess -3.4 L (-2.0-2.0) O2 Saturation 94.2 (94-100) g/dF ABG pH 7.41 (7.35-7.45) ABG HCO3 20.3 L (22-28) ABG O2 Sat (Measured) 99.3 (95-100) % Mele Test NO A-a Gradient 104 a/A Ratio 0.50 Hemoglobin 9.0 Carboxyhemoglobin 4.4 (0.0-6.9) % THgb Methemoglobin 0.7 L (1.4-1.5) % Potassium 4.0 3.8 (3.5-5.1) Temperature 37.0 C POC O2 Flow Rate 35 % Vent Mode A/C Tidal Volume 550 cc PEEP 6.0 cmH2O Pressure Support Sodium 138 (137-145) mmol/L Chloride 111 H (98-107) mmol/L Carbon Dioxide 19 L (22-30) mmol/L Anion Gap 10.9 (5-15) MEQ/L BUN 39 H (7-17) mg/dL Creatinine 1.50 H (0.52-1.04) mg/dL Estimated GFR 36.7 ML/MIN Glucose 144 H (74-106) mg/dL Calcium 9.3 (8.4-10.2) mg/dL Magnesium 1.9 (1.6-2.3) mg/dL Total Bilirubin 0.60 (0.2-1.3) mg/dL AST 20 (14-36) U/L ALT 11 (0-35) U/L Alkaline Phosphatase 136 H (38-126) U/L Serum Total Protein 6.1 L (6.3-8.2) g/dL Albumin 2.5 L (3.5-5.0) g/dL 07/16/20 Range/Units 10:00 Puncture Site ART LINE pCO2 42 (35-45) mmHg pO2 69 L (75-100) mmHg Base Excess -5.5 L (-2.0-2.0) O2 Saturation 93.1 L (94-100) g/dF ABG pH 7.30 L (7.35-7.45) ABG HCO3 20.7 L (22-28) ABG O2 Sat (Measured) 95.3 (95-100) % Mele Test NOT APPLICABLE A-a Gradient 128 a/A Ratio 0.35 Hemoglobin 9.3 Carboxyhemoglobin 1.3 (0.0-6.9) % THgb Methemoglobin 1.0 L (1.4-1.5) % Potassium 3.9 (3.5-5.1) Temperature 37.0 C POC O2 Flow Rate 35 % Vent Mode CPAP Tidal Volume cc PEEP 8.0 cmH2O Pressure Support 20 Sodium (137-145) mmol/L Chloride (98-107) mmol/L Carbon Dioxide (22-30) mmol/L Anion Gap (5-15) MEQ/L BUN (7-17) mg/dL Creatinine (0.52-1.04) mg/dL Estimated GFR ML/MIN Glucose (74-106) mg/dL Calcium (8.4-10.2) mg/dL Magnesium (1.6-2.3) mg/dL Total Bilirubin (0.2-1.3) mg/dL AST (14-36) U/L ALT (0-35) U/L Alkaline Phosphatase (38-126) U/L Serum Total Protein (6.3-8.2) g/dL Albumin (3.5-5.0) g/dL Radiology Exams: Radiology Procedures Category Date Time Status CHEST 1 VIEW (PORTABLE) Stat Exams 07/16/20 07:44 Completed CHEST WITHOUT CONTRAST [CT] Stat Exams 07/16/20 07:59 Completed HEAD WITHOUT CONTRAST [CT] Stat Exams 07/16/20 07:59 Completed Portable Chest [CHEST 1 VIEW (PORTABLE)] DAILY Exams 07/15/20 06:00 Completed Multi-Disciplinary Progress Notes: Multi-Disciplinary Progress Notes 07/16/20 12:16 Pharmacy Note by Brody Venegas Pharmacy TPN Consult Date: 07/16/20 TPN Day #: 6 Patient Name: CHITO DOUGLASS HT: 61 ACTUAL WT: 101.7 KG Age: 69 Patient Current Labs: Sodium 138 Potassium 3.8 Chloride 111 Glucose 144 Magnesium 1.9 Calcium 9.3 Sr CR 1.5 CR CL = 36 ML/MIN HOSPITAL CENTRAL LINE TPN FORMULATION a. Hospital Formulation: (triple mix) [facility] CENTRAL LINE TRIPLE MIX 2053 ML b. Dextrose 9.8% + Amino Acid 3.3% + Intralipid 3.9% PER 2000 ML c. Total KCals = 1745 KCAL per bag d. Total Volume = 2053 ml e. Carbohydrates = 200 gm; Protein = 68 gm; Fat = 80 gm f. Electrolytes/ premixed bag Sodium 64 meq Potassium 47 meq Calcium 8 meq Magnesium 16 meq Chloride 92 meq Acetate 78 meq Sulfate 16 meq Phosphorous 20 mMole 1. CENTRAL LINE - TPN RATE: Day 6:TPN RATE 70 ML/HR Total Volume to be delivered /24 hr: ____1680 ML Total Calories to be delivered/24 hr: 1400 KCAL 2. Additions to TPN Bag for today (Date____07/16/20 ) A. Sodium chloride 30 MEQ B. Potassium chloride 30 MEQ C. MVI 10 ml D. Trace Metals 1 mg E. Other: HUMULIN R 80 UNITS ii. Total Electrolytes per BAG/ 24HRS 1. Sodium 94 MEQ____75 2. Potassium 77 MEQ____61.5 3. Calcium 8 MEQ____6.4 4. Magnesium 16 MEQ___12.8 5. Chloride 137 MEQ____109.6 6. Acetate 78 MEQ____62 7. Sulfate 16 MEQ____12.8 8. Phosphorous 20 MMOLE____16 Initialized on 07/16/20 12:16 - END OF NOTE 07/16/20 11:03 Nutrition Note by Nadege Mosquera F/u Note: Pt remains NPO. TPN decreased to 70 mls/hour providing 1400 kcals; note MD trying to wean pt off vent & TPN. Labs 07/16= BUN 39, Cr 1.50, glu 144, alb 2.5 +fluid balance 752 mls. admission weight 96.4kg; current weight 102.8 kg. Current feeding meeting 78% of pts needs. goal of tolerance to feeding met and ongoing; goal of decreasing glu met with new goal of glu wnl. Will con't to monitor and f/u prn. RADHA Boss Initialized on 07/16/20 11:03 - END OF NOTE Assessment/Plan (1) Ventilator dependence Current Visit: Yes Status: Acute Assessment & Plan: will work pt to attempt extubation after a trial of t-tube later today, cxr looks improved again today. Code(s): Z99.11 - DEPENDENCE ON RESPIRATOR [VENTILATOR] STATUS (2) Intra-abdominal fluid Current Visit: Yes Status: Acute Code(s): R18.8 - OTHER ASCITES
--- NOTE | 2020-07-16 16:45 | PCM.NOTE ---
Date and Time: 07/16/20 1642 Subjective Assessment: Pt. failed t-tube yesterday. chest x-ray is worse today, still no pressors needed for bp and maintains good urine output - Review of Systems Constitutional: No Fever, No Chills Eyes: No Symptoms Ears, Nose, & Throat: No Symptoms Respiratory: No Cough, No Short Of Breath Cardiac: No Chest Pain, No Edema, No Syncope Abdominal/Gastrointestinal: No Abdominal Pain, No Nausea, No Vomiting, No Diarrhea Genitourinary Symptoms: No Dysuria Musculoskeletal: No Back Pain, No Neck Pain Skin: No Rash Neurological: No Dizziness, No Focal Weakness, No Sensory Changes Psychological: No Symptoms Endocrine: No Symptoms Hematologic/Lymphatic: No Symptoms Immunological/Allergic: No Symptoms Objective Exam General Appearance: no apparent distress Skin Exam: normal color, warm Wound Assessment: Skin/Wound Assessment Wound/Incision Assessment Start: 07/10/20 05:04 Text: Status: Active Freq: Q4H Protocol: Document 07/16/20 15:56 MISSY (Rec: 07/16/20 15:59 [id number]) Wound/Incision Assessment Anterior Abdomen Wound Assessment Shift Assessment Wound Type Incision Wound Stage Non Pressure Wound Dressing Status Dry & Intact Drainage Amount None Drainage Odor None/Absent General Appearance Well Approximated,Asymptomatic ,Edgar Intact,Clean/Dry Primary Dressing [place] bandaid Comment midline abdominal dressing dry and intact. Right Anterior Lateral Abdomen Drain Type JEIMY drain Drainage Description Serous Odor None/Absent Comment JEIMY#1 Right Anterior Distal Abdomen Drain Type JEIMY drain Drainage Description Serous Odor None/Absent Comment JEIMY # 2 Wound Photo Photo Taken No Eye Exam: eyes nml inspection Neck Exam: normal inspection Respiratory Exam: diminished breath sounds, crackles/rales Cardiovascular Exam: regular rate/rhythm OBJECTIVE DATA Vital Signs: Vital Signs - 24 hr Temp Pulse Resp BP BP BP Pulse Ox 07/16/20 15:56 99.7 F 77 16 135/45 160/56 97 07/16/20 15:00 77 16 112/50 150/57 97 07/16/20 14:43 72 16 97 07/16/20 14:00 66 12 149/50 112/50 145/57 95 07/16/20 13:00 72 12 136/52 145/59 95 07/16/20 11:59 99 F 72 17 148/60 95 07/16/20 11:00 76 34 H 137/60 95 07/16/20 10:42 75 28 H 97 07/16/20 09:50 70 25 H 134/55 134/56 96 07/16/20 09:00 98.9 F 69 33 H 126/56 128/48 100 07/16/20 08:00 99.5 F 82 16 126/78 100 07/16/20 07:32 82 07/16/20 07:00 71 16 126/78 100 07/16/20 06:45 78 16 100 07/16/20 06:00 71 16 110/87 138/88 100 07/16/20 05:00 68 16 143/55 137/47 100 07/16/20 04:00 99.5 F 69 16 126/56 138/50 100 07/16/20 03:00 64 16 141/54 100 07/16/20 02:56 62 16 99 07/16/20 01:52 66 16 137/51 139/53 135/50 99 07/16/20 01:00 66 16 126/56 135/50 98 07/16/20 00:01 73 07/16/20 00:00 99.9 F 71 16 125/56 137/52 99 07/15/20 23:30 74 16 98 07/15/20 23:00 73 16 132/57 136/51 98 07/15/20 22:00 70 16 135/51 132/59 135/51 98 07/15/20 21:00 63 16 123/48 99 07/15/20 20:00 99.0 F 66 16 139/54 126/50 99 07/15/20 19:04 65 16 99 07/15/20 18:50 66 16 118/47 99 07/15/20 18:00 68 16 115/49 125/47 110/47 99 07/15/20 17:00 71 16 125/61 99 Oxygen-Last 24 hours Oxygen Flowrate (L/min)-RT 35 Oxygen Flowrate (L/min)-RT 35 Oxygen Flowrate (L/min)-RT 35 Oxygen Flowrate (L/min)-RT 35 Oxygen Flowrate (L/min)-RT 35 Pain Assessment - Last Documented Pain Intensity 0 Pain Scale Used FLACC Intake and Output: Intake & Output 07/14/20 07/15/20 07/16/20 07/17/20 11:59 11:59 11:59 11:59 Intake Total 3174 8521 3239 Output Total 0100 0948 8690 Balance -453 0150 752 Weight 100 kg 101.7 kg 102.8 kg Lab Results: Accuchecks Date 07/16/20 Date 07/16/20 Date 07/15/20 Time 06:00 Time 06:00 Time 17:45 Accucheck Value: 180 Accucheck Value: 131 Accucheck Value: 164 Accucheck Value: 262 Lab Results-Last 24 Hours 07/16/20 07/16/20 07/16/20 Range/Units 05:30 05:38 05:38 Puncture Site ART LINE pCO2 32 L (35-45) mmHg pO2 106 H (75-100) mmHg Base Excess -3.4 L (-2.0-2.0) O2 Saturation 94.2 (94-100) g/dF ABG pH 7.41 (7.35-7.45) ABG HCO3 20.3 L (22-28) ABG O2 Sat (Measured) 99.3 (95-100) % Mele Test NO A-a Gradient 104 a/A Ratio 0.50 Hemoglobin 9.0 Carboxyhemoglobin 4.4 (0.0-6.9) % THgb Methemoglobin 0.7 L (1.4-1.5) % Potassium 4.0 3.8 (3.5-5.1) Temperature 37.0 C POC O2 Flow Rate 35 % Vent Mode A/C Tidal Volume 550 cc PEEP 6.0 cmH2O Pressure Support Sodium 138 (137-145) mmol/L Chloride 111 H (98-107) mmol/L Carbon Dioxide 19 L (22-30) mmol/L Anion Gap 10.9 (5-15) MEQ/L BUN 39 H (7-17) mg/dL Creatinine 1.50 H (0.52-1.04) mg/dL Estimated GFR 36.7 ML/MIN Glucose 144 H (74-106) mg/dL Calcium 9.3 (8.4-10.2) mg/dL Magnesium 1.9 (1.6-2.3) mg/dL Total Bilirubin 0.60 (0.2-1.3) mg/dL AST 20 (14-36) U/L ALT 11 (0-35) U/L Alkaline Phosphatase 136 H (38-126) U/L Serum Total Protein 6.1 L (6.3-8.2) g/dL Albumin 2.5 L (3.5-5.0) g/dL 07/16/20 Range/Units 10:00 Puncture Site ART LINE pCO2 42 (35-45) mmHg pO2 69 L (75-100) mmHg Base Excess -5.5 L (-2.0-2.0) O2 Saturation 93.1 L (94-100) g/dF ABG pH 7.30 L (7.35-7.45) ABG HCO3 20.7 L (22-28) ABG O2 Sat (Measured) 95.3 (95-100) % Mele Test NOT APPLICABLE A-a Gradient 128 a/A Ratio 0.35 Hemoglobin 9.3 Carboxyhemoglobin 1.3 (0.0-6.9) % THgb Methemoglobin 1.0 L (1.4-1.5) % Potassium 3.9 (3.5-5.1) Temperature 37.0 C POC O2 Flow Rate 35 % Vent Mode CPAP Tidal Volume cc PEEP 8.0 cmH2O Pressure Support 20 Sodium (137-145) mmol/L Chloride (98-107) mmol/L Carbon Dioxide (22-30) mmol/L Anion Gap (5-15) MEQ/L BUN (7-17) mg/dL Creatinine (0.52-1.04) mg/dL Estimated GFR ML/MIN Glucose (74-106) mg/dL Calcium (8.4-10.2) mg/dL Magnesium (1.6-2.3) mg/dL Total Bilirubin (0.2-1.3) mg/dL AST (14-36) U/L ALT (0-35) U/L Alkaline Phosphatase (38-126) U/L Serum Total Protein (6.3-8.2) g/dL Albumin (3.5-5.0) g/dL Radiology Exams: Radiology Procedures Category Date Time Status CHEST 1 VIEW (PORTABLE) Stat Exams 07/16/20 07:44 Completed CHEST WITHOUT CONTRAST [CT] Stat Exams 07/16/20 07:59 Completed HEAD WITHOUT CONTRAST [CT] Stat Exams 07/16/20 07:59 Completed Portable Chest [CHEST 1 VIEW (PORTABLE)] DAILY Exams 07/15/20 06:00 Completed Multi-Disciplinary Progress Notes: Multi-Disciplinary Progress Notes 08/28/20 12:16 Pharmacy Note by Bro[facility]eg[facility] TPN Consult Date: 07/16/20 TPN Day #: 6 Patient Name: CHITO DOUGLASS HT: 61 ACTUAL WT: 101.7 KG Age: 69 Patient Current Labs: Sodium 138 Potassium 3.8 Chloride 111 Glucose 144 Magnesium 1.9 Calcium 9.3 Sr CR 1.5 CR CL = 36 ML/MIN HOSPITAL CENTRAL LINE TPN FORMULATION a. Hospital Formulation: (triple mix) [facility] CENTRAL LINE TRIPLE MIX 2053 ML b. Dextrose 9.8% + Amino Acid 3.3% + Intralipid 3.9% PER 2000 ML c. Total KCals = 1745 KCAL per bag d. Total Volume = 2053 ml e. Carbohydrates = 200 gm; Protein = 68 gm; Fat = 80 gm f. Electrolytes/ premixed bag Sodium 64 meq Potassium 47 meq Calcium 8 meq Magnesium 16 meq Chloride 92 meq Acetate 78 meq Sulfate 16 meq Phosphorous 20 mMole 1. CENTRAL LINE - TPN RATE: Day 6:TPN RATE 70 ML/HR Total Volume to be delivered /24 hr: ____1680 ML Total Calories to be delivered/24 hr: 1400 KCAL 2. Additions to TPN Bag for today (Date____07/16/20 ) A. Sodium chloride 30 MEQ B. Potassium chloride 30 MEQ C. MVI 10 ml D. Trace Metals 1 mg E. Other: HUMULIN R 80 UNITS ii. Total Electrolytes per BAG/ 24HRS 1. Sodium 94 MEQ____75 2. Potassium 77 MEQ____61.5 3. Calcium 8 MEQ____6.4 4. Magnesium 16 MEQ___12.8 5. Chloride 137 MEQ____109.6 6. Acetate 78 MEQ____62 7. Sulfate 16 MEQ____12.8 8. Phosphorous 20 MMOLE____16 Initialized on 07/16/20 12:16 - END OF NOTE 07/16/20 11:03 Nutrition Note by Nadege Mosquera F/u Note: Pt remains NPO. TPN decreased to 70 mls/hour providing 1400 kcals; note MD trying to wean pt off vent & TPN. Labs 07/16= BUN 39, Cr 1.50, glu 144, alb 2.5 +fluid balance 752 mls. admission weight 96.4kg; current weight 102.8 kg. Current feeding meeting 78% of pts needs. goal of tolerance to feeding met and ongoing; goal of decreasing glu met with new goal of glu wnl. Will con't to monitor and f/u prn. RADHA Boss Initialized on 07/16/20 11:03 - END OF NOTE Assessment/Plan (1) Ventilator dependence Current Visit: Yes Status: Acute Assessment & Plan: Failed t-tube prior to extubation yesterday, chest x-ray has worsened I believe the patient will need bronch, Pulmonary has requested CT of head and chest prior to transfer, as of this evening the patient is on a waiting list for transfer. Code(s): Z99.11 - DEPENDENCE ON RESPIRATOR [VENTILATOR] STATUS (2) Intra-abdominal fluid Current Visit: Yes Status: Acute Code(s): R18.8 - OTHER ASCITES
[2020-07-16 17:58] VITALS: BP 152/55; PULSE 74
== END 2020-07-16 19:00 | disposition home or self-care (01) | DRG 380 ==
LOC: ED 21:27 → ICU 07-10 04:19
PROVIDERS: ADMIT Surgery; ATTEND Surgery
DX: K26.5 Chronic or unspecified duodenal ulcer with perforation (principal); J95.821 Acute postprocedural respiratory failure; R65.21 Severe sepsis with septic shock; E87.2 Acidosis; N17.9 Acute kidney failure, unspecified; R18.8 Other ascites; Z99.11 Dependence on respirator [ventilator] status; N73.6 Female pelvic peritoneal adhesions (postinfective); E11.65 Type 2 diabetes mellitus with hyperglycemia; I10 Essential (primary) hypertension; Z79.01 Long term (current) use of anticoagulants; Z79.899 Other long term (current) drug therapy; Z86.73 Personal history of transient ischemic attack (TIA), and cerebral infarction without residual deficits
CPT/HCPCS: 31500; 36000; 36415; 36430; 36600; 43840; 44005; 70450; 71045; 71250; 74176; 76942; 80048; 80053; 80076; 81001; 82375; 82803; 82962; 83605; 83690; 83735; 85014; 85018; 85025; 85027; 85610; 85730; 86850; 86900; 86901; 86922; 87040; 87070; 87077; 87086; 87186; 93005; 94002; 94003; 94640; 94762; 94770; 96360; 96365; 96374; 99291; P9016; P9612; U0003; 36556; 36620; 94760; 99140; 99285; J0330; J0456; J0696; J1170; J1650; J1815; J1817; J2250; J2370; J2405; J2543; J2704; J3010; J3475; J3480; L0625; A9270-GY

== ENCOUNTER 2021-11-27 22:25 | Observation (INO) | payer MEDICARE ==
--- NOTE | 2021-11-27 22:28 | ERPHSYRPT ---
- History of Present Illness Time Seen by Provider: 11/27/21 22:28 Source: patient, EMS Exam Limitations: no limitations Physician History: This is a 71-year-old obese white female retirement patient at [facility] whose primary care physician is Dr. Chicas and she presents with cough and shortness of breath for 1 week. She had a recent negative COVID-19 test. Patient has a history of CHF, diabetes, hypertension, chronic angina and CVA in the past. Patient is on Plavix daily. Patient was brought into the emergency department by EMS service. They provided her with nitroglycerin because of systolic blood pressure over 200 upon arrival. Patient denies any chest pain. Patient also received oxygen supplementation via nasal cannula and 125 mg of intravenous Solu-Medrol. Patient arrives with a systolic blood pressure in the 180s, heart rate in the low 100s and 2 L nasal cannula oxygen supplementation oxygenation level of 94%. Patient states she is breathing better now. Timing/Duration: week(s) (1), intermittent, worse Severity of Dyspnea-Max: moderate Severity of Dyspnea-Current: mild (Mild to moderate) Possible Cause: occasional episodes Modifying Factors: Improves With: coughing Associated Symptoms: cough, weakness, No chest pain/discomfort Allergies/Adverse Reactions: lisinopril Allergy (Severe, Verified 07/09/20 21:52) Swelling codeine Allergy (Intermediate, Verified 07/09/20 21:52) Nausea and Vomiting allergies validated with patient morphine Allergy (Intermediate, Verified 07/09/20 21:52) Nausea and Vomiting oxycodone [Oxycodone] Allergy (Intermediate, Verified 07/09/20 21:52) Nausea and Vomiting Home Medications: Clopidogrel Bisulfate 75 mg [PLAVIX 75 MG Tablet] 75 mg PO DAILY 08/22/13 [History] Furosemide 20 mg [Lasix 20 mg] 20 mg PO DAILY 08/22/13 [History] Insulin Glargine [Lantus Insulin] 40 unit SQ HS 08/22/13 [History] Loratadine 10 mg PO DAILY 02/18/14 [History] Potassium Chloride 10 Meq Tab* [Klor Con 10 MEQ] 10 meq PO BID 06/23/15 [History] Linagliptin [Tradjenta] 5 mg PO DAILY 03/19/17 [History] Metformin HCl 500 mg [Glucophage 500 MG] 500 mg PO BID 03/19/17 [History] Amlodipine Besylate 5 mg [Norvasc 5 mg] 10 mg PO DAILY 06/13/17 [History] Alendronate Sodium 70 mg [Fosamax 70 MG] 1 ea PO WEEKLY 06/17/20 [History] Aspirin 81 gm Chew [Baby Aspirin 81 mg Chew] 1 ea DAILY 06/17/20 [History] Gabapentin 300 mg PO QID 06/17/20 [History] Melatonin 5 ea PO HS 06/17/20 [History] Carvedilol 3.125 mg [Coreg 3.125 MG] 1 tab PO BID 07/10/20 [History] Sucralfate 1 gm [Carafate 1 GM] 1 tab PO QID 07/10/20 [History] Hx Tetanus, Diphtheria Vaccination/Date Given: Yes Hx Influenza Vaccination/Date Given: Yes Hx Pneumococcal Vaccination/Date Given: No Travel Risk - International Travel Have you traveled outside of the country in past 3 weeks: No - Coronavirus Screening Are you exhibiting any of the following symptoms?: Yes Symptoms: Cough: New Onset, Shortness of Breath Close contact with a COVID-19 positive Pt in past 14-21 Days: No - Review of Systems Constitutional: Weakness Eyes: No Symptoms Ears, Nose, & Throat: No Symptoms Respiratory: Cough, Dyspnea, Wheezing Cardiac: No Symptoms, No Chest Pain Abdominal/Gastrointestinal: No Symptoms, No Abdominal Pain, No Nausea, No Vomiting Genitourinary Symptoms: No Symptoms Musculoskeletal: No Symptoms Skin: No Symptoms Neurological: No Symptoms Psychological: No Symptoms Endocrine: No Symptoms Hematologic/Lymphatic: No Symptoms Immunological/Allergic: No Symptoms All Other Systems: Reviewed and Negative - Past Medical History Pertinent Past Medical History: Yes Neurological History: Stroke ENT History: Cataracts, Other Cardiac History: Angina, Hypertension Respiratory History: No Pertinent History Endocrine Medical History: Diabetes Type II Musculoskeletal History: Other GI Medical History: Gallbladder Disease History: Other Psycho-Social History: No Pertinent History Female Reproductive Disorders: No Pertinent History Other Medical History: wears glasses, full set of dentures (not at bedside), incontinence, left arm flaccid and contracted, left hand contracture. BLE cellulitis. - Past Surgical History Past Surgical History: Yes Neuro Surgical History: No Pertinent History Cardiac: No Pertinent History Respiratory: No Pertinent History Gastrointestinal: Cholecystectomy Genitourinary: No Pertinent History Musculoskeletal: No Pertinent History Female Surgical History: Section Other Surgical History: left shoulder and wrist surg. - LEFT HIP PER FX - Social History Smoking Status: Former smoker Exposure to second hand smoke: Yes Alcohol Use: None Drug Use: none Patient Lives Alone: Yes Significant Family History: hypertension - Nursing Vital Signs Nursing Vital Signs: Initial Vital Signs Temperature 99 F 11/27/21 22:28 Pulse Rate 106 H 11/27/21 22:28 Respiratory Rate 18 11/27/21 22:28 Blood Pressure 181/81 11/27/21 22:28 O2 Sat by Pulse Oximetry 94 L 11/27/21 22:28 Pain Scale Pain Intensity 0 - Physical Exam General Appearance: mild distress, alert, anxiety, obese Eye Exam: PERRL/EOMI, eyes nml inspection Ears, Nose, Throat Exam: hearing grossly normal, normal ENT inspection, p haryngeal erythema (Mild) Neck Exam: normal inspection, non-tender, supple, full range of motion Respiratory Exam: lungs clear, wheezing (Mild bilateral), No chest tenderness, No respiratory distress Cardiovascular/Chest Exam: tachycardia Abdominal/Gastrointestinal Exam: soft, normal bowel sounds, No tenderness Rectal Exam: not done Extremity Exam: non-tender, normal range of motion, normal inspection, normal capillary refill, pelvis stable Neurologic Exam: alert, oriented x 3, cooperative, supervisor precision optical elements II-XII nml as tested, nor mal mood/affect, sensation nml Skin Exam: normal color, warm, dry Lymphatic Exam: No adenopathy SpO2 Interpretation: borderline oxygenation O2 Delivery: Nasal Cannula - Course Nursing assessment & vital signs reviewed: Yes EKG Interpreted by Me: RATE (104), Sinus Tach, NORMAL AXIS, NORMAL INTERVALS, NORMAL QRS, NORMAL ST-T, Other (No acute ischemic changes on today's EKG. When compared to EKG dated 07/10/2020, there is new mild sinus tachycardia present.) Ordered Tests: Active Orders 24 hr Category Date Time Status [employer] Inspecting Dispatcher STAT Care 11/27/21 22:51 Active EKG-ER Only STAT Care 11/27/21 22:50 Active IV Insertion STAT Care 11/27/21 22:50 Active Pulse Oximetry (ED) STAT Care 11/27/21 22:50 Active CHEST 1 VIEW (PORTABLE) Stat Exams 11/27/21 22:51 Taken BLOOD CULTURE Stat Lab 11/27/21 23:10 Received CBC W DIFF Stat Lab 11/27/21 23:10 Completed CMP Stat Lab 11/27/21 23:10 Completed D-DIMER QUANTITATIVE Stat Lab 11/27/21 23:10 Completed INFLUENZA A+B CHANTE Stat Lab 11/27/21 23:10 Completed Lactic Acid Stat Lab 11/27/21 22:50 Completed MAGNESIUM Stat Lab 11/27/21 23:10 Completed NT PRO BNP Stat Lab 11/27/21 23:10 Completed PROTIME WITH INR Stat Lab 11/27/21 23:10 Completed TROPONIN Q3H Lab 11/27/21 23:10 Completed TROPONIN Q3H Lab 11/28/21 02:00 Ordered TROPONIN Q3H Lab 11/28/21 05:00 Ordered TROPONIN Q3H Lab 11/28/21 08:00 Ordered TROPONIN Q3H Lab 11/28/21 11:00 Ordered Transfer Order Routine Transfer 11/28/21 Ordered Medication Summary Discontinued Medications Generic Name Dose Route Start Last Admin Trade Name Freq PRN Reason Stop Dose Admin Enoxaparin Sodium 80 mg 11/28/21 00:45 Enoxaparin Sodium 80 Mg/0.8 Ml Syringe SQ 11/28/21 00:46 STAT ONE Furosemide 40 mg 11/28/21 00:45 Furosemide 40 Mg/4 Ml Vial IV 11/28/21 00:46 STAT ONE Metoprolol Tartrate 5 mg 11/27/21 22:54 11/27/21 23:00 Metoprolol Tartrate 5 Mg/5 Ml Injection IV 11/27/21 22:55 5 mg STAT ONE Administration Metoprolol Tartrate Confirm 11/27/21 23:00 Metoprolol Tartrate 5 Mg/5 Ml Injection Administered 11/27/21 23:01 Dose 5 mg IV .[employer] Sleep ONE Lab/Rad Data: Laboratory Result Diagrams 11/27/21 23:10 11/27/21 23:10 Laboratory Results 11/28/21 11/27/21 11/27/21 Range/Units 00:10 23:10 23:10 WBC (4.0-10.5) K/mm3 RBC (4.1-5.4) M/mm3 Hgb (12.0-16.0) gm/dl Hct (35-47) % MCV (78-100) fl MCH (26-32) pg MCHC (32-36) g/dl RDW (11.5-14.0) % Plt Count (150-450) K/mm3 MPV (7.5-11.0) fl Gran % (36.0-66.0) % Eos # (Auto) (0-0.5) Absolute Lymphs (auto) (1.0-4.6) Absolute Monos (auto) (0.0-1.3) Lymphocytes % (24.0-44.0) % Monocytes % (0.0-12.0) % Eosinophils % (0.00-5.0) % Basophils % (0.0-0.4) % Absolute Granulocytes (1.4-6.9) Basophils # (0-0.4) PT (9.4-12.5) SECONDS INR (0.8-3.0) D-Dimer (215-500) ng/mL Sodium (137-145) mmol/L Potassium (3.5-5.1) mmol/L Chloride (98-107) mmol/L Carbon Dioxide (22-30) mmol/L Anion Gap (5-15) MEQ/L BUN (7-17) mg/dL Creatinine (0.52-1.04) mg/dL Estimated GFR ML/MIN Glucose (74-106) mg/dL Lactic Acid 1.4 (0.4-2.0) Calcium (8.4-10.2) mg/dL Magnesium (1.6-2.3) mg/dL Total Bilirubin (0.2-1.3) mg/dL AST (14-36) U/L ALT (0-35) U/L Alkaline Phosphatase (38-126) U/L Troponin I < 0.012 (0.000-0.034) ng/mL NT-Pro-B Natriuret Pep (0-900) pg/mL Serum Total Protein (6.3-8.2) g/dL Albumin (3.5-5.0) g/dL Influenza Type A Ag (NEGATIVE) Influenza Type B Ag (NEGATIVE) Group A Strep Antibody NOT DETECTED (NEGATIVE) 11/27/21 11/27/21 11/27/21 Range/Units 23:10 23:10 23:10 WBC (4.0-10.5) K/mm3 RBC (4.1-5.4) M/mm3 Hgb (12.0-16.0) gm/dl Hct (35-47) % MCV (78-100) fl MCH (26-32) pg MCHC (32-36) g/dl RDW (11.5-14.0) % Plt Count (150-450) K/mm3 MPV (7.5-11.0) fl Gran % (36.0-66.0) % Eos # (Auto) (0-0.5) Absolute Lymphs (auto) (1.0-4.6) Absolute Monos (auto) (0.0-1.3) Lymphocytes % (24.0-44.0) % Monocytes % (0.0-12.0) % Eosinophils % (0.00-5.0) % Basophils % (0.0-0.4) % Absolute Granulocytes (1.4-6.9) Basophils # (0-0.4) PT 12.6 H (9.4-12.5) SECONDS INR 1.07 (0.8-3.0) D-Dimer 1738 H* (215-500) ng/mL Sodium 134 L (137-145) mmol/L Potassium 4.4 (3.5-5.1) mmol/L Chloride 98 (98-107) mmol/L Carbon Dioxide 30 (22-30) mmol/L Anion Gap 11.3 (5-15) MEQ/L BUN 26 H (7-17) mg/dL Creatinine 1.77 H (0.52-1.04) mg/dL Estimated GFR 30.1 ML/MIN Glucose 309 H (74-106) mg/dL Lactic Acid (0.4-2.0) Calcium 8.7 (8.4-10.2) mg/dL Magnesium 1.4 L (1.6-2.3) mg/dL Total Bilirubin 0.80 (0.2-1.3) mg/dL AST 15 (14-36) U/L ALT 12 (0-35) U/L Alkaline Phosphatase 125 (38-126) U/L Troponin I (0.000-0.034) ng/mL NT-Pro-B Natriuret Pep 1670 H (0-900) pg/mL Serum Total Protein 6.8 (6.3-8.2) g/dL Albumin 3.3 L (3.5-5.0) g/dL Influenza Type A Ag NEGATIVE (NEGATIVE) Influenza Type B Ag NEGATIVE (NEGATIVE) Group A Strep Antibody (NEGATIVE) 11/27/21 Range/Units 23:10 WBC 10.3 (4.0-10.5) K/mm3 RBC 4.24 (4.1-5.4) M/mm3 Hgb 12.1 (12.0-16.0) gm/dl Hct 38.5 (35-47) % MCV 90.8 (78-100) fl MCH 28.5 (26-32) pg MCHC 31.4 L (32-36) g/dl RDW 13.3 (11.5-14.0) % Plt Count 184 (150-450) K/mm3 MPV 10.7 (7.5-11.0) fl Gran % 71.2 H (36.0-66.0) % Eos # (Auto) 0.11 (0-0.5) Absolute Lymphs (auto) 2.27 (1.0-4.6) Absolute Monos (auto) 0.58 (0.0-1.3) Lymphocytes % 22.0 L (24.0-44.0) % Monocytes % 5.6 (0.0-12.0) % Eosinophils % 1.1 (0.00-5.0) % Basophils % 0.1 (0.0-0.4) % Absolute Granulocytes 7.33 H (1.4-6.9) Basophils # 0.01 (0-0.4) PT (9.4-12.5) SECONDS INR (0.8-3.0) D-Dimer (215-500) ng/mL Sodium (137-145) mmol/L Potassium (3.5-5.1) mmol/L Chloride (98-107) mmol/L Carbon Dioxide (22-30) mmol/L Anion Gap (5-15) MEQ/L BUN (7-17) mg/dL Creatinine (0.52-1.04) mg/dL Estimated GFR ML/MIN Glucose (74-106) mg/dL Lactic Acid (0.4-2.0) Calcium (8.4-10.2) mg/dL Magnesium (1.6-2.3) mg/dL Total Bilirubin (0.2-1.3) mg/dL AST (14-36) U/L ALT (0-35) U/L Alkaline Phosphatase (38-126) U/L Troponin I (0.000-0.034) ng/mL NT-Pro-B Natriuret Pep (0-900) pg/mL Serum Total Protein (6.3-8.2) g/dL Albumin (3.5-5.0) g/dL Influenza Type A Ag (NEGATIVE) Influenza Type B Ag (NEGATIVE) Group A Strep Antibody (NEGATIVE) - Progress Progress: improved, re-examined Air Movement: good Progress Note: 11/28/21 01:00 Chest x-ray shows no acute cardiopulmonary process. 11/28/21 01:00 Medical decision making: This patient has hypertension, evidence of congestive heart failure exacerbation, and an elevated D-dimer. She also has renal insufficiency. We cannot perform a CTA of the chest because of her poor renal function. We will be able to do a VQ perfusion scan of the lungs later today. I spoke with Dr. Gómez Cornejo. We will anticoagulate her with Lovenox. We will continue Lovenox every 12 subcutaneously and continue with every 12 hours Lasix. Patient will be on a telemetry bed. Blood Culture(s) Obtained: Yes Antibiotics given: No Discussed with Dr.: Reid Counseled pt/family regarding: lab results, diagnosis, rad results - Departure Departure Disposition: Observation Clinical Impression: CHF (congestive heart failure), SOB (shortness of breath), HTN (hypertension), Elevated d-dimer Condition: Fair Critical Care Time: No Referrals: TRU VILLAFUERTE MD [COURTESY STAFF] - Follow up/PCP as directed Instructions: Heart Failure
[2021-11-27] MEDS ORDERED: LOPRESSOR 5 MG/5 ML INJECTION IV ONE ×2 (22:54→23:00)
[2021-11-27 23:59] LABS: Absolute Neutrophil Ct (ANC) 7.33 (1.4-6.9); Basophil (Absolute #) 0.01 (0-0.4); Eosinophil % 1.1 % (0.00-5.0); Eosinophil (Absolute #) 0.11 (0-0.5); Hematocrit 38.5 % (35-47); Hemoglobin 12.1 gm/dl (12.0-16.0); Lymphocyte (Absolute #) 2.27 (1.0-4.6); Mean Cell Volume 90.8 fl (78-100); Mean Corpuscular Hemoglobin 28.5 pg (26-32); Mean Corpuscular Hgb Concent. 31.4 g/dl (32-36); Mean Platelet Volume 10.7 fl (7.5-11.0); Monocyte (Absolute #) 0.58 (0.0-1.3); Monocytes % 5.6 % (0.0-12.0); Neutrophil % 71.2 % (36.0-66.0); Platelet Count 184 K/mm3 (150-450); Red Blood Count 4.24 M/mm3 (4.1-5.4); Red Cell Distribution Width 13.3 % (11.5-14.0); White Blood Count 10.3 K/mm3 (4.0-10.5)
[2021-11-28 00:07] LABS: INR 1.07 (0.8-3.0); PROTIME 12.6 SECONDS (9.4-12.5)
[2021-11-28 00:20] LABS: ALBUMIN 3.3 g/dL (3.5-5.0); ANION GAP 11.3 MEQ/L (5-15); BILIRUBIN,TOTAL 0.8 mg/dL (0.2-1.3); Calcium 8.7 mg/dL (8.4-10.2); Creatinine 1 1.77 mg/dL (0.52-1.04); EST GLOMERULAR FILTRATION RATE 30.1 ML/MIN; MAGNESIUM 1.4 mg/dL (1.6-2.3); Potassium 4.4 mmol/L (3.5-5.1); Total Protein 6.8 g/dL (6.3-8.2)
[2021-11-28] MEDS ORDERED: ENOXAPARIN SODIUM SQ ONE ×2 (00:45→01:13)
[2021-11-28] MEDS ORDERED: Lasix 40 MG/4 ML IV ONE (00:45)
[2021-11-28 00:51] LABS: INFLUENZA A NEGATIVE (NEGATIVE); INFLUENZA B NEGATIVE (NEGATIVE)
[2021-11-28] MEDS ORDERED: Lasix 40 MG/4 ML ONE (01:13)
[2021-11-28 02:19] LABS: Appearance CLEAR (CLEAR); Bacteria NONE SEEN /HPF (NEGATIVE); Bilirubin NEGATIVE (NEGATIVE); Blood SMALL Ery/ul (0-5); Glucose >=500 mg/dL (NEGATIVE); Ketones TRACE (NEGATIVE); Leukocyte Esterase NEGATIVE (NEGATIVE); Mucus SLIGHT /HPF (NEGATIVE); Nitrite NEGATIVE (NEGATIVE); Protein,Urine Dip >=500 (Negative); RBC 0-2 /HPF (0-2); Specific Gravity 1.011 (1.005-1.025); Urobilinogen NEGATIVE mg/dL (0-1)
[2021-11-28 02:24] LABS: INFLUENZA A NEGATIVE (NEGATIVE); INFLUENZA B NEGATIVE (NEGATIVE); RESPIRATORY SYNCTIAL VIRUS NEGATIVE (Negative); SARS-CoV-2 Xpert Express NEGATIVE (NEGATIVE)
[2021-11-28] MEDS ORDERED: TYLENOL 325 MG PO PRN (03:43)
[2021-11-28] MEDS ORDERED: Zofran 4 MG/2 ML VIAL IV PRN (03:43)
[2021-11-28 05:59] LABS: Absolute Neutrophil Ct (ANC) 11.47 (1.4-6.9); Basophil (Absolute #) 0.02 (0-0.4); Eosinophil (Absolute #) 0 (0-0.5); Hematocrit 39.1 % (35-47); Hemoglobin 12.5 gm/dl (12.0-16.0); Lymphocyte (Absolute #) 1.52 (1.0-4.6); Lymphocytes % 11.5 % (24.0-44.0); Mean Cell Volume 89.7 fl (78-100); Mean Corpuscular Hemoglobin 28.7 pg (26-32); Mean Platelet Volume 10.5 fl (7.5-11.0); Monocyte (Absolute #) 0.26 (0.0-1.3); Neutrophil % 86.3 % (36.0-66.0); Platelet Count 183 K/mm3 (150-450); Red Blood Count 4.36 M/mm3 (4.1-5.4); Red Cell Distribution Width 13.2 % (11.5-14.0); White Blood Count 13.3 K/mm3 (4.0-10.5)
[2021-11-28 06:11] LABS: ALBUMIN 3.7 g/dL (3.5-5.0); ANION GAP 14.7 MEQ/L (5-15); BILIRUBIN,TOTAL 0.8 mg/dL (0.2-1.3); Calcium 8.9 mg/dL (8.4-10.2); Creatinine 1 1.95 mg/dL (0.52-1.04); Potassium 4.7 mmol/L (3.5-5.1); Total Protein 7.6 g/dL (6.3-8.2)
[2021-11-28] MEDS ORDERED: TRANDATE 20 MG/4 ML SYRINGE IV PRN (06:32)
[2021-11-28] MEDS: HUMULIN R SQ PRN ×3 (08:18→21:30)
[2021-11-28] MEDS: Coreg 3.125 MG PO SCH ×2 (08:20→21:26)
[2021-11-28] MEDS: NORVASC 5 MG PO SCH ×2 (08:20→08:27)
--- NOTE | 2021-11-28 08:57 | XRAY ---
Indication: Cough. Short of breath. Comparison: July 16, 2020. Portable apical lordotic underinflated and clear. A few incidental tiny calcified granulomas. Heart not enlarged. Bony thorax intact again with osteopenia, degenerative changes, and partially visualized left humerus orthopedic hardware. Impression: Nonacute underinflated chest with chronic features.
--- NOTE | 2021-11-28 09:05 | PCM.HP ---
History of Present Illness - Chief Complaint Chief Complaint: CHF History of Present Illness: is a 71 year old female pt of Dr. Chicas, resident of [facility] x 1 yr with PMHx morbid obesity, CHF, DM, HTN, chronic renal failure, chronic angina, and hx CVA (22 yrs ago, with L sided deficit) who was admitted through ER with CHF exacerbation, renal insufficiency, and elevated d- dimer. She was unable to have a CTA chest so will have VQ scan today. CXR was nonacute . She says she had cough and increased SOB x 1 week. EMS found her BP to be 200 systolic and gave her nitro and 125mg solumedrol en route. No chest pain. In the ER, her BP was 180s systolic, and on 2L NC her O2 sat was 94%. She says 3 nights ago her temp was elevated to 103. She has had a nonproductive cough. Has had dysuria for the past 1 year (UA neg in ER). Denies LE edema. Has been tolerating po. Unsure if she's had an echo and when. - Review of Systems Constitutional: Fever Respiratory: Cough, Short Of Breath Genitourinary Symptoms: Dysuria All Other Systems: Reviewed and Negative Medications & Allergies Home Medications: Home Medication List Insulin Glargine [Lantus Insulin] 20 unit SQ HS 08/22/13 [History Confirmed 11/28/21] Metformin HCl 500 mg [Glucophage 500 MG] 500 mg PO BID 03/19/17 [History Confirmed 11/28/21] Gabapentin 600 mg PO QID 06/17/20 [History Confirmed 11/28/21] Bisacodyl [Dulcolax] 10 mg RC DAILY PRN 11/28/21 [History Confirmed 11/28/21] Omeprazole 20 mg PO DAILY 11/28/21 [History Confirmed 11/28/21] Prednisolone Acetate/Pf [Prednisolone Acet 1% Eye Drop] 1 drop OP QID 11/28/21 [History Confirmed 11/28/21] Sodium Chloride [Zaki-128] 1 drop OP HS 11/28/21 [History Confirmed 11/28/21] Tramadol HCl 50 mg [Ultram 50 mg] 50 mg PO Q6H PRN 11/28/21 [History Confirmed 11/28/21] Allergies/Adverse Reactions: Allergies Allergy/AdvReac Type Severity Reaction Status Date / Time lisinopril Allergy Severe Swelling Verified 11/28/21 04:05 codeine Allergy Intermediate Nausea and Verified 11/28/21 04:05 Vomiting morphine Allergy Intermediate Nausea and Verified 11/28/21 04:05 Vomiting oxycodone [Oxycodone] Allergy Intermediate Nausea and Verified 11/28/21 04:05 Vomiting - Past Medical History Past Medical History: Yes Neurological History: Stroke ENT History: Cataracts, Other Cardiac History: Angina, Hypertension Respiratory History: No Pertinent History Endocrine Medical History: Diabetes Type II Musculoskelatal History: Other GI Medical History: Gallbladder Disease History: Other Pyscho-Social History: No Pertinent History Reproductive Disorders: No Pertinent History Comment: wears glasses, full set of dentures (not at bedside), incontinence, left arm flaccid and contracted, left hand contracture. BLE cellulitis. - Female History Are you now?: No - Past Surgical History Past Surgical History: Yes Neuro Surgical History: No Pertinent History Cardiac History: No Pertinent History Respiratory Surgery: No Pertinent History GI Surgical History: Cholecystectomy Genitourinary Surgical Hx: No Pertinent History Musculskeletal Surgical Hx: No Pertinent History Female Surgical History: Section Other Surgical History: left shoulder and wrist surg. - LEFT HIP PER FX - Social History Smoking Status: Former smoker Exposure to second hand smoke: Yes Alcohol: None Drug Use: none Significant Family History: hypertension - Physical Exam Vital Signs: Vital Signs - 24 hr Temp Pulse Resp BP Pulse Ox 11/28/21 08:29 91 L 11/28/21 08:00 97.5 F 93 H 22 181/89 95 11/28/21 04:28 91 H 20 95 11/28/21 03:42 98 F 96 H 20 184/84 95 11/28/21 03:22 99 F 94 H 186/110 95 11/28/21 02:08 94 H 186/110 95 11/28/21 01:05 86 176/97 93 L 11/28/21 00:00 86 13 188/92 11/27/21 23:08 82 174/92 95 11/27/21 22:50 94 L 11/27/21 22:28 99 F 106 H 18 181/81 94 L General Appearance: no apparent distress, obese Neurologic Exam: alert, cooperative, No disoriented Eye Exam: eyes nml inspection Ears, Nose, Throat Exam: moist mucous membranes Neck Exam: normal inspection, non-tender, No lymphadenopathy Respiratory Exam: lungs clear, diminished breath sounds (good air exchange), No crackles/rales, No rhonchi, No wheezing Cardiovascular Exam: regular rate/rhythm, normal heart sounds, murmur (III/ sys murmur) Gastrointestinal/Abdomen Exam: soft, normal bowel sounds, No tenderness, No distention, No mass, No guarding, No rebound Extremity Exam: normal inspection, No pedal edema, No swelling Skin Exam: normal color, warm, dry, No rash Results - Labs Lab/Micro Results: Lab Results-Last 24 Hours 11/27/21 11/27/21 11/27/21 Range/Units 23:10 23:10 23:10 WBC 10.3 (4.0-10.5) K/mm3 RBC 4.24 (4.1-5.4) M/mm3 Hgb 12.1 (12.0-16.0) gm/dl Hct 38.5 (35-47) % MCV 90.8 (78-100) fl MCH 28.5 (26-32) pg MCHC 31.4 L (32-36) g/dl RDW 13.3 (11.5-14.0) % Plt Count 184 (150-450) K/mm3 MPV 10.7 (7.5-11.0) fl Gran % 71.2 H (36.0-66.0) % Eos # (Auto) 0.11 (0-0.5) Absolute Lymphs (auto) 2.27 (1.0-4.6) Absolute Monos (auto) 0.58 (0.0-1.3) Lymphocytes % 22.0 L (24.0-44.0) % Monocytes % 5.6 (0.0-12.0) % Eosinophils % 1.1 (0.00-5.0) % Basophils % 0.1 (0.0-0.4) % Absolute Granulocytes 7.33 H (1.4-6.9) Basophils # 0.01 (0-0.4) PT 12.6 H (9.4-12.5) SECONDS INR 1.07 (0.8-3.0) D-Dimer 1738 H* (215-500) ng/mL Sodium 134 L (137-145) mmol/L Potassium 4.4 (3.5-5.1) mmol/L Chloride 98 (98-107) mmol/L Carbon Dioxide 30 (22-30) mmol/L Anion Gap 11.3 (5-15) MEQ/L BUN 26 H (7-17) mg/dL Creatinine 1.77 H (0.52-1.04) mg/dL Estimated GFR 30.1 ML/MIN Glucose 309 H (74-106) mg/dL POC Glucometer (74 to 106) mg/dL Lactic Acid (0.4-2.0) Calcium 8.7 (8.4-10.2) mg/dL Magnesium 1.4 L (1.6-2.3) mg/dL Total Bilirubin 0.80 (0.2-1.3) mg/dL AST 15 (14-36) U/L ALT 12 (0-35) U/L Alkaline Phosphatase 125 (38-126) U/L Troponin I (0.000-0.034) ng/mL NT-Pro-B Natriuret Pep 1670 H (0-900) pg/mL Serum Total Protein 6.8 (6.3-8.2) g/dL Albumin 3.3 L (3.5-5.0) g/dL Urine Color (YELLOW) Urine Appearance (CLEAR) Urine pH (5-6) Ur Specific [place] (1.005-1.025) Urine Protein (Negative) Urine Ketones (NEGATIVE) Urine Blood (0-5) Keith/ul Urine Nitrite (NEGATIVE) Urine Bilirubin (NEGATIVE) Urine Urobilinogen (0-1) mg/dL Ur Leukocyte Esterase (NEGATIVE) Urine WBC (Auto) (0-5) /HPF Urine RBC (Auto) (0-2) /HPF U Epithel Cells (Auto) (FEW) /HPF Urine Bacteria (Auto) (NEGATIVE) /HPF Urine Mucus (Auto) (NEGATIVE) /HPF Urine Culture Reflexed (NO) Urine Glucose (NEGATIVE) mg/dL Influenza Type A Ag (NEGATIVE) Influenza Type B Ag (NEGATIVE) RSV (PCR) (Negative) SARS-CoV-2 (PCR) (NEGATIVE) Group A Strep Antibody (NEGATIVE) 11/27/21 11/27/21 11/27/21 Range/Units 23:10 23:10 23:10 WBC (4.0-10.5) K/mm3 RBC (4.1-5.4) M/mm3 Hgb (12.0-16.0) gm/dl Hct (35-47) % MCV (78-100) fl MCH (26-32) pg MCHC (32-36) g/dl RDW (11.5-14.0) % Plt Count (150-450) K/mm3 MPV (7.5-11.0) fl Gran % (36.0-66.0) % Eos # (Auto) (0-0.5) Absolute Lymphs (auto) (1.0-4.6) Absolute Monos (auto) (0.0-1.3) Lymphocytes % (24.0-44.0) % Monocytes % (0.0-12.0) % Eosinophils % (0.00-5.0) % Basophils % (0.0-0.4) % Absolute Granulocytes (1.4-6.9) Basophils # (0-0.4) PT (9.4-12.5) SECONDS INR (0.8-3.0) D-Dimer (215-500) ng/mL Sodium (137-145) mmol/L Potassium (3.5-5.1) mmol/L Chloride (98-107) mmol/L Carbon Dioxide (22-30) mmol/L Anion Gap (5-15) MEQ/L BUN (7-17) mg/dL Creatinine (0.52-1.04) mg/dL Estimated GFR ML/MIN Glucose (74-106) mg/dL POC Glucometer (74 to 106) mg/dL Lactic Acid (0.4-2.0) Calcium (8.4-10.2) mg/dL Magnesium (1.6-2.3) mg/dL Total Bilirubin (0.2-1.3) mg/dL AST (14-36) U/L ALT (0-35) U/L Alkaline Phosphatase (38-126) U/L Troponin I < 0.012 (0.000-0.034) ng/mL NT-Pro-B Natriuret Pep (0-900) pg/mL Serum Total Protein (6.3-8.2) g/dL Albumin (3.5-5.0) g/dL Urine Color (YELLOW) Urine Appearance (CLEAR) Urine pH (5-6) Ur Specific [place] (1.005-1.025) Urine Protein (Negative) Urine Ketones (NEGATIVE) Urine Blood (0-5) Keith/ul Urine Nitrite (NEGATIVE) Urine Bilirubin (NEGATIVE) Urine Urobilinogen (0-1) mg/dL Ur Leukocyte Esterase (NEGATIVE) Urine WBC (Auto) (0-5) /HPF Urine RBC (Auto) (0-2) /HPF U Epithel Cells (Auto) (FEW) /HPF Urine Bacteria (Auto) (NEGATIVE) /HPF Urine Mucus (Auto) (NEGATIVE) /HPF Urine Culture Reflexed (NO) Urine Glucose (NEGATIVE) mg/dL Influenza Type A Ag NEGATIVE (NEGATIVE) Influenza Type B Ag NEGATIVE (NEGATIVE) RSV (PCR) (Negative) SARS-CoV-2 (PCR) (NEGATIVE) Group A Strep Antibody NOT DETECTED (NEGATIVE) 11/28/21 11/28/21 11/28/21 Range/Units 00:10 01:45 01:45 WBC (4.0-10.5) K/mm3 RBC (4.1-5.4) M/mm3 Hgb (12.0-16.0) gm/dl Hct (35-47) % MCV (78-100) fl MCH (26-32) pg MCHC (32-36) g/dl RDW (11.5-14.0) % Plt Count (150-450) K/mm3 MPV (7.5-11.0) fl Gran % (36.0-66.0) % Eos # (Auto) (0-0.5) Absolute Lymphs (auto) (1.0-4.6) Absolute Monos (auto) (0.0-1.3) Lymphocytes % (24.0-44.0) % Monocytes % (0.0-12.0) % Eosinophils % (0.00-5.0) % Basophils % (0.0-0.4) % Absolute Granulocytes (1.4-6.9) Basophils # (0-0.4) PT (9.4-12.5) SECONDS INR (0.8-3.0) D-Dimer (215-500) ng/mL Sodium (137-145) mmol/L Potassium (3.5-5.1) mmol/L Chloride (98-107) mmol/L Carbon Dioxide (22-30) mmol/L Anion Gap (5-15) MEQ/L BUN (7-17) mg/dL Creatinine (0.52-1.04) mg/dL Estimated GFR ML/MIN Glucose (74-106) mg/dL POC Glucometer (74 to 106) mg/dL Lactic Acid 1.4 (0.4-2.0) Calcium (8.4-10.2) mg/dL Magnesium (1.6-2.3) mg/dL Total Bilirubin (0.2-1.3) mg/dL AST (14-36) U/L ALT (0-35) U/L Alkaline Phosphatase (38-126) U/L Troponin I (0.000-0.034) ng/mL NT-Pro-B Natriuret Pep (0-900) pg/mL Serum Total Protein (6.3-8.2) g/dL Albumin (3.5-5.0) g/dL Urine Color YELLOW (YELLOW) Urine Appearance CLEAR (CLEAR) Urine pH 6.0 (5-6) Ur Specific [place] 1.011 (1.005-1.025) Urine Protein >=500 (Negative) Urine Ketones TRACE (NEGATIVE) Urine Blood SMALL (0-5) Keith/ul Urine Nitrite NEGATIVE (NEGATIVE) Urine Bilirubin NEGATIVE (NEGATIVE) Urine Urobilinogen NEGATIVE (0-1) mg/dL Ur Leukocyte Esterase NEGATIVE (NEGATIVE) Urine WBC (Auto) NONE (0-5) /HPF Urine RBC (Auto) 0-2 (0-2) /HPF U Epithel Cells (Auto) NONE (FEW) /HPF Urine Bacteria (Auto) NONE SEEN (NEGATIVE) /HPF Urine Mucus (Auto) SLIGHT (NEGATIVE) /HPF Urine Culture Reflexed ORDERED SEPARATELY (NO) Urine Glucose >=500 (NEGATIVE) mg/dL Influenza Type A Ag NEGATIVE (NEGATIVE) Influenza Type B Ag NEGATIVE (NEGATIVE) RSV (PCR) NEGATIVE (Negative) SARS-CoV-2 (PCR) NEGATIVE (NEGATIVE) Group A Strep Antibody (NEGATIVE) 11/28/21 11/28/21 11/28/21 Range/Units 02:29 05:50 05:50 WBC 13.3 H (4.0-10.5) K/mm3 RBC 4.36 (4.1-5.4) M/mm3 Hgb 12.5 (12.0-16.0) gm/dl Hct 39.1 (35-47) % MCV 89.7 (78-100) fl MCH 28.7 (26-32) pg MCHC 32.0 (32-36) g/dl RDW 13.2 (11.5-14.0) % Plt Count 183 (150-450) K/mm3 MPV 10.5 (7.5-11.0) fl Gran % 86.3 H (36.0-66.0) % Eos # (Auto) 0 (0-0.5) Absolute Lymphs (auto) 1.52 (1.0-4.6) Absolute Monos (auto) 0.26 (0.0-1.3) Lymphocytes % 11.5 L (24.0-44.0) % Monocytes % 2.0 (0.0-12.0) % Eosinophils % 0.0 (0.00-5.0) % Basophils % 0.2 (0.0-0.4) % Absolute Granulocytes 11.47 H (1.4-6.9) Basophils # 0.02 (0-0.4) PT (9.4-12.5) SECONDS INR (0.8-3.0) D-Dimer (215-500) ng/mL Sodium (137-145) mmol/L Potassium (3.5-5.1) mmol/L Chloride (98-107) mmol/L Carbon Dioxide (22-30) mmol/L Anion Gap (5-15) MEQ/L BUN (7-17) mg/dL Creatinine (0.52-1.04) mg/dL Estimated GFR ML/MIN Glucose (74-106) mg/dL POC Glucometer (74 to 106) mg/dL Lactic Acid (0.4-2.0) Calcium (8.4-10.2) mg/dL Magnesium (1.6-2.3) mg/dL Total Bilirubin (0.2-1.3) mg/dL AST (14-36) U/L ALT (0-35) U/L Alkaline Phosphatase (38-126) U/L Troponin I 0.014 < 0.012 (0.000-0.034) ng/mL NT-Pro-B Natriuret Pep (0-900) pg/mL Serum Total Protein (6.3-8.2) g/dL Albumin (3.5-5.0) g/dL Urine Color (YELLOW) Urine Appearance (CLEAR) Urine pH (5-6) Ur Specific [place] (1.005-1.025) Urine Protein (Negative) Urine Ketones (NEGATIVE) Urine Blood (0-5) Keith/ul Urine Nitrite (NEGATIVE) Urine Bilirubin (NEGATIVE) Urine Urobilinogen (0-1) mg/dL Ur Leukocyte Esterase (NEGATIVE) Urine WBC (Auto) (0-5) /HPF Urine RBC (Auto) (0-2) /HPF U Epithel Cells (Auto) (FEW) /HPF Urine Bacteria (Auto) (NEGATIVE) /HPF Urine Mucus (Auto) (NEGATIVE) /HPF Urine Culture Reflexed (NO) Urine Glucose (NEGATIVE) mg/dL Influenza Type A Ag (NEGATIVE) Influenza Type B Ag (NEGATIVE) RSV (PCR) (Negative) SARS-CoV-2 (PCR) (NEGATIVE) Group A Strep Antibody (NEGATIVE) 11/28/21 11/28/21 Range/Units 05:50 07:24 WBC (4.0-10.5) K/mm3 RBC (4.1-5.4) M/mm3 Hgb (12.0-16.0) gm/dl Hct (35-47) % MCV (78-100) fl MCH (26-32) pg MCHC (32-36) g/dl RDW (11.5-14.0) % Plt Count (150-450) K/mm3 MPV (7.5-11.0) fl Gran % (36.0-66.0) % Eos # (Auto) (0-0.5) Absolute Lymphs (auto) (1.0-4.6) Absolute Monos (auto) (0.0-1.3) Lymphocytes % (24.0-44.0) % Monocytes % (0.0-12.0) % Eosinophils % (0.00-5.0) % Basophils % (0.0-0.4) % Absolute Granulocytes (1.4-6.9) Basophils # (0-0.4) PT (9.4-12.5) SECONDS INR (0.8-3.0) D-Dimer (215-500) ng/mL Sodium 133 L (137-145) mmol/L Potassium 4.7 (3.5-5.1) mmol/L Chloride 96 L (98-107) mmol/L Carbon Dioxide 27 (22-30) mmol/L Anion Gap 14.7 (5-15) MEQ/L BUN 31 H (7-17) mg/dL Creatinine 1.95 H (0.52-1.04) mg/dL Estimated GFR 27.0 ML/MIN Glucose 448 H (74-106) mg/dL POC Glucometer 474 H (74 to 106) mg/dL Lactic Acid (0.4-2.0) Calcium 8.9 (8.4-10.2) mg/dL Magnesium (1.6-2.3) mg/dL Total Bilirubin 0.80 (0.2-1.3) mg/dL AST 18 (14-36) U/L ALT 15 (0-35) U/L Alkaline Phosphatase 134 H (38-126) U/L Troponin I (0.000-0.034) ng/mL NT-Pro-B Natriuret Pep 1960 H (0-900) pg/mL Serum Total Protein 7.6 (6.3-8.2) g/dL Albumin 3.7 (3.5-5.0) g/dL Urine Color (YELLOW) Urine Appearance (CLEAR) Urine pH (5-6) Ur Specific [place] (1.005-1.025) Urine Protein (Negative) Urine Ketones (NEGATIVE) Urine Blood (0-5) Keith/ul Urine Nitrite (NEGATIVE) Urine Bilirubin (NEGATIVE) Urine Urobilinogen (0-1) mg/dL Ur Leukocyte Esterase (NEGATIVE) Urine WBC (Auto) (0-5) /HPF Urine RBC (Auto) (0-2) /HPF U Epithel Cells (Auto) (FEW) /HPF Urine Bacteria (Auto) (NEGATIVE) /HPF Urine Mucus (Auto) (NEGATIVE) /HPF Urine Culture Reflexed (NO) Urine Glucose (NEGATIVE) mg/dL Influenza Type A Ag (NEGATIVE) Influenza Type B Ag (NEGATIVE) RSV (PCR) (Negative) SARS-CoV-2 (PCR) (NEGATIVE) Group A Strep Antibody (NEGATIVE) Accuchecks Date 11/28/21 Time 07:25 - Radiology Impressions Radiology Exams & Impressions: Radiology Procedures Category Date Time Status CHEST 1 VIEW (PORTABLE) Stat Exams 11/27/21 22:51 Completed PULMONARY PERF VENTILATION [NUCMED] Stat Exams 11/28/21 03:43 Ordered - Other Procedures and Tests Respiratory Therapy 11/28/21 06:59 Oxygen Nasal Cannula 4 lpm Assessment/Plan (1) CHF exacerbation Current Visit: Yes Status: Acute Qualifiers: Heart failure type: unspecified Qualified Code(s): I50.9 - Heart failure, unspecified Assessment & Plan: echo pending today. She actually has only cough for a symptom - she got 1 dose 40mg IV lasix in ER, and I have not ordered any more due to decreased renal function since admission. Code(s): I50.9 - HEART FAILURE, UNSPECIFIED (2) Dysuria Current Visit: Yes Status: Chronic Assessment & Plan: UA looks fine. Cx pending. May be aseptic cystitis. Code(s): R30.0 - DYSURIA (3) Elevated d-dimer Current Visit: Yes Status: Acute Assessment & Plan: VQ scan today. On lovenox 80mg SQ BID. Code(s): R79.89 - OTHER SPECIFIED ABNORMAL FINDINGS OF BLOOD CHEMISTRY (4) Hypertension Current Visit: Yes Status: Chronic Qualifiers: Hypertension type: primary hypertension Qualified Code(s): I10 - Essential (primary) hypertension Assessment & Plan: refused amlodipine this morning. Code(s): I10 - ESSENTIAL (PRIMARY) HYPERTENSION (5) [id number] kidney injury Current Visit: No Status: Acute Qualifiers: Acute renal failure type: unspecified Chronic kidney disease stage: stage 4 (severe) Qualified Code(s): N17.9 - Acute kidney failure, unspecified; N18.4 - Chronic kidney disease, stage 4 (severe) Code(s): N17.9 - ACUTE KIDNEY FAILURE, UNSPECIFIED; N18.9 - CHRONIC KIDNEY DISEASE, UNSPECIFIED (6) Coronary artery disease Current Visit: No Status: Chronic Qualifiers: [place] vs. transplanted heart: [place] heart Associated angina: with stable angina Code(s): I25.10 - ATHSCL HEART DISEASE OF [place] CORONARY ARTERY W/O ANG PCTRS (7) Essential hypertension Current Visit: No Status: Chronic Code(s): I10 - ESSENTIAL (PRIMARY) HYPERTENSION (8) Uncontrolled type 2 diabetes mellitus Current Visit: No Status: Chronic Qualifiers: Glycemic state: with hyperglycemia Qualified Code(s): E11.65 - Type 2 diabetes mellitus with hyperglycemia Assessment & Plan: Pt insisting on regular sugar this morning although BS is >400. Code(s): E11.65 - TYPE 2 DIABETES MELLITUS WITH HYPERGLYCEMIA
[2021-11-28] MEDS ORDERED: Dulcolax 10 MG SUPP RC PRN (09:55)
[2021-11-28] MEDS ORDERED: NON-FORMULARY ITEM (Omeprazole [Omeprazole] 20 MG Capsule.Dr) PO SCH (10:00)
[2021-11-28] MEDS ORDERED: NON-FORMULARY ITEM (Prednisolone Acetate/Pf [Prednisolone Acet 1% Eye Drop] 5 ML Drops.Sus OP SCH (10:00)
[2021-11-28] MEDS ORDERED: solu-MEDROL 60 MG, Sterile H2O 10 ml 2 ML IV SCH ×2 (10:00)
[2021-11-28] MEDS ORDERED: ENOXAPARIN SODIUM SQ SCH (10:00)
[2021-11-28] MEDS ORDERED: MEDICATION INTERVENTION MC SCH (10:15)
--- NOTE | 2021-11-28 11:36 | XRAY ---
Indication: Chest pain. Elevated d-dimer. Comparison: None Patient received 5.5 mCi technetium 99 MAA for the perfusion portion of the exam. Patient inhaled 36 mCi aerosolized technetium 99 DTPA for the ventilation portion of the exam. Multiple planar images obtained. Perfusion images demonstrates homogeneous radiopharmaceutical activity bilaterally without focal lobar/segmental perfusion defect. Ventilation images also demonstrates homogeneous radiopharmaceutical activity bilaterally. Small amount of GI radiopharmaceutical activity from incidental ingestion. Impression: Nuclear medicine ventilation perfusion scan is normal.
[2021-11-28] MEDS: NEURONTIN 300 MG PO SCH ×4 (11:44→21:26)
[2021-11-28] MEDS: Protonix 40MG Tablet PO SCH (11:44)
[2021-11-28] MEDS: solu-MEDROL IV SCH ×2 (11:44→21:26)
[2021-11-28 15:35] LABS: 027 TOX PROD PRESUMPTIVE NEGATIVE (NEGATIVE); TOXIGENIC C. DIFF ORG NEGATIVE (NEGATIVE)
[2021-11-28] MEDS: ULTRAM 50 MG PO SCH ×3 (16:34→23:21)
[2021-11-28] MEDS: PRED-FORTE 1% OPHTHALMIC OP SCH ×3 (16:37→21:26)
[2021-11-28] MEDS ORDERED: SODIUM CHLORIDE OP SCH (22:00)
[2021-11-28] MEDS ORDERED: [UNRECOGNIZED DRUG - OTHER] OP SCH (22:00)
[2021-11-28] MEDS ORDERED: Lantus Insulin SQ SCH (22:00)
[2021-11-29] MEDS: ULTRAM 50 MG PO SCH ×2 (02:26→11:07)
[2021-11-29 06:00] LABS: Absolute Neutrophil Ct (ANC) 8.59 (1.4-6.9); Basophil (Absolute #) 0.01 (0-0.4); Eosinophil (Absolute #) 0 (0-0.5); Hematocrit 33.6 % (35-47); Hemoglobin 10.7 gm/dl (12.0-16.0); Lymphocyte (Absolute #) 1.95 (1.0-4.6); Lymphocytes % 17.9 % (24.0-44.0); Mean Cell Volume 88.9 fl (78-100); Mean Corpuscular Hemoglobin 28.3 pg (26-32); Mean Corpuscular Hgb Concent. 31.8 g/dl (32-36); Mean Platelet Volume 11.5 fl (7.5-11.0); Monocyte (Absolute #) 0.35 (0.0-1.3); Monocytes % 3.2 % (0.0-12.0); Neutrophil % 78.8 % (36.0-66.0); Platelet Count 200 K/mm3 (150-450); Red Blood Count 3.78 M/mm3 (4.1-5.4); White Blood Count 10.9 K/mm3 (4.0-10.5)
[2021-11-29 07:04] LABS: ANION GAP 10.4 MEQ/L (5-15); Calcium 8.3 mg/dL (8.4-10.2); Creatinine 1 2.22 mg/dL (0.52-1.04); EST GLOMERULAR FILTRATION RATE 23.2 ML/MIN; Potassium 4.2 mmol/L (3.5-5.1)
--- NOTE | 2021-11-29 07:59 | ECHO ---
Transthoracic echocardiographic examination and color Doppler was done on 11/28/2021. INDICATION: Murmur. IMPRESSION: 1) NO REGIONAL WALL MOTION ABNORMALITY. ESTIMATED GLOBAL LEFT VENTRICULAR EJECTION FRACTION OF AROUND 55 TO 60%. 2) TRACE TRICUSPID REGURGITATION. RIGHT VENTRICULAR SYSTOLIC PRESSURE OF 32 MM OF MERCURY. 3) LEFT VENTRICLE DIASTOLIC DYSFUNCTION. 4) LEFT VENTRICULAR HYPERTROPHY. The left ventricle is visualized and demonstrated adequate motion of all the segments. Estimated global left ventricular ejection fraction around 55 to 60%. There is mild left ventricular hypertrophy. The mitral valve is seen and this opens adequately. No significant mitral regurgitation is seen. Tissue Doppler study of the lateral mitral annulus suggestive of left ventricle diastolic dysfunction. The aortic valve opens adequately. There is no significant gradient across the left ventricular outflow tract. The transpulmonary gradient is about 14 mm of Mercury. There is trace tricuspid regurgitation. The right ventricular systolic pressure of 34 mm of Mercury.
[2021-11-29] MEDS: HUMULIN R SQ PRN ×3 (08:52→15:53)
[2021-11-29] MEDS: solu-MEDROL IV SCH (08:53)
[2021-11-29] MEDS: Protonix 40MG Tablet PO SCH (08:54)
[2021-11-29] MEDS: NEURONTIN 300 MG PO SCH ×3 (08:54→16:31)
[2021-11-29] MEDS: Coreg 3.125 MG PO SCH (08:54)
[2021-11-29] MEDS: NORVASC 5 MG PO SCH (08:55)
--- NOTE | 2021-11-29 09:07 | PCM.NOTE ---
Date and Time: 11/29/21 09 Subjective Assessment: Pt is feeling much better. VQ scan was negative yesterday. She would like to return to [facility]. - Review of Systems Constitutional: No Fever Abdominal/Gastrointestinal: No Vomiting Objective Exam General Appearance: no apparent distress, alert Neurologic Exam: oriented x 3, cooperative, other (L sided hemiplegia as usual) Skin Exam: normal color, warm, dry, No rash Neck Exam: normal inspection Respiratory Exam: normal breath sounds, lungs clear, No crackles/rales, No rhonchi, No wheezing Cardiovascular Exam: regular rate/rhythm, normal heart sounds, No murmur Gastrointestinal/Abdomen Exam: soft, normal bowel sounds, No tenderness, No distention, No mass, No guarding, No rebound Extremity Exam: other Back Exam: normal inspection, No rash OBJECTIVE DATA Vital Signs: Vital Signs - 24 hr Temp Pulse Resp BP Pulse Ox 11/29/21 07:22 92 L 11/29/21 04:00 97.0 F 68 16 132/63 93 L 11/28/21 23:36 97.9 F 75 20 155/68 93 L 11/28/21 19:26 97.3 F 84 17 138/78 91 L 11/28/21 19:15 91 L 11/28/21 17:00 97.7 F 78 20 181/83 89 L 11/28/21 13:00 98.2 F 96 H 19 136/77 90 L 11/28/21 09:45 92 L Pain Assessment - Last Documented Pain Intensity 0 Intake and Output: Intake & Output 11/26/21 11/27/21 11/28/21 11/29/21 11:59 11:59 11:59 11:59 Intake Total 420 780 Output Total 1450 Balance -1030 780 Weight 82.1 kg 82.5 kg Lab Results: Lab Results-Last 24 Hours 11/28/21 11/28/21 11/28/21 Range/Units 08:30 11:58 13:00 WBC (4.0-10.5) K/mm3 RBC (4.1-5.4) M/mm3 Hgb (12.0-16.0) gm/dl Hct (35-47) % MCV (78-100) fl MCH (26-32) pg MCHC (32-36) g/dl RDW (11.5-14.0) % Plt Count (150-450) K/mm3 MPV (7.5-11.0) fl Gran % (36.0-66.0) % Eos # (Auto) (0-0.5) Absolute Lymphs (auto) (1.0-4.6) Absolute Monos (auto) (0.0-1.3) Lymphocytes % (24.0-44.0) % Monocytes % (0.0-12.0) % Eosinophils % (0.00-5.0) % Basophils % (0.0-0.4) % Absolute Granulocytes (1.4-6.9) Basophils # (0-0.4) Sodium (137-145) mmol/L Potassium (3.5-5.1) mmol/L Chloride (98-107) mmol/L Carbon Dioxide (22-30) mmol/L Anion Gap (5-15) MEQ/L BUN (7-17) mg/dL Creatinine (0.52-1.04) mg/dL Estimated GFR ML/MIN Glucose (74-106) mg/dL POC Glucometer 461 H (74 to 106) mg/dL Calcium (8.4-10.2) mg/dL Troponin I < 0.012 (0.000-0.034) ng/mL C. difficile Screen NEGATIVE (NEGATIVE) C.difficile 027-NAP1-B1 PRESUMPTIVE NEGATIVE (NEGATIVE) 11/28/21 11/28/21 11/29/21 Range/Units 17:17 21:27 05:15 WBC 10.9 H (4.0-10.5) K/mm3 RBC 3.78 L (4.1-5.4) M/mm3 Hgb 10.7 L (12.0-16.0) gm/dl Hct 33.6 L (35-47) % MCV 88.9 (78-100) fl MCH 28.3 (26-32) pg MCHC 31.8 L (32-36) g/dl RDW 13.0 (11.5-14.0) % Plt Count 200 (150-450) K/mm3 MPV 11.5 H (7.5-11.0) fl Gran % 78.8 H (36.0-66.0) % Eos # (Auto) 0 (0-0.5) Absolute Lymphs (auto) 1.95 (1.0-4.6) Absolute Monos (auto) 0.35 (0.0-1.3) Lymphocytes % 17.9 L (24.0-44.0) % Monocytes % 3.2 (0.0-12.0) % Eosinophils % 0.0 (0.00-5.0) % Basophils % 0.1 (0.0-0.4) % Absolute Granulocytes 8.59 H (1.4-6.9) Basophils # 0.01 (0-0.4) Sodium (137-145) mmol/L Potassium (3.5-5.1) mmol/L Chloride (98-107) mmol/L Carbon Dioxide (22-30) mmol/L Anion Gap (5-15) MEQ/L BUN (7-17) mg/dL Creatinine (0.52-1.04) mg/dL Estimated GFR ML/MIN Glucose (74-106) mg/dL POC Glucometer 450 H 451 H (74 to 106) mg/dL Calcium (8.4-10.2) mg/dL Troponin I (0.000-0.034) ng/mL C. difficile Screen (NEGATIVE) C.difficile 027-NAP1-B1 (NEGATIVE) 11/29/21 11/29/21 Range/Units 05:15 08:03 WBC (4.0-10.5) K/mm3 RBC (4.1-5.4) M/mm3 Hgb (12.0-16.0) gm/dl Hct (35-47) % MCV (78-100) fl MCH (26-32) pg MCHC (32-36) g/dl RDW (11.5-14.0) % Plt Count (150-450) K/mm3 MPV (7.5-11.0) fl Gran % (36.0-66.0) % Eos # (Auto) (0-0.5) Absolute Lymphs (auto) (1.0-4.6) Absolute Monos (auto) (0.0-1.3) Lymphocytes % (24.0-44.0) % Monocytes % (0.0-12.0) % Eosinophils % (0.00-5.0) % Basophils % (0.0-0.4) % Absolute Granulocytes (1.4-6.9) Basophils # (0-0.4) Sodium 132 L (137-145) mmol/L Potassium 4.2 (3.5-5.1) mmol/L Chloride 94 L (98-107) mmol/L Carbon Dioxide 31 H (22-30) mmol/L Anion Gap 10.4 (5-15) MEQ/L BUN 54 H (7-17) mg/dL Creatinine 2.22 H (0.52-1.04) mg/dL Estimated GFR 23.2 ML/MIN Glucose 312 H (74-106) mg/dL POC Glucometer 336 H (74 to 106) mg/dL Calcium 8.3 L (8.4-10.2) mg/dL Troponin I (0.000-0.034) ng/mL C. difficile Screen (NEGATIVE) C.difficile 027-NAP1-B1 (NEGATIVE) Radiology Exams: Radiology Procedures Category Date Time Status CHEST 1 VIEW (PORTABLE) Stat Exams 11/27/21 22:51 Completed ECHO W/2D AND DOPPLER [US] Routine Exams 11/28/21 11:07 Draft PULMONARY PERF VENTILATION [NUCMED] Stat Exams 11/28/21 03:43 Completed Assessment/Plan (1) Qgeak-hn-kyaitkq kidney injury Current Visit: No Status: Acute Qualifiers: Acute renal failure type: unspecified Chronic kidney disease stage: stage 4 (severe) Qualified Code(s): N17.9 - Acute kidney failure, unspecified; N18.4 - Chronic kidney disease, stage 4 (severe) Assessment & Plan: Renal function is much worse than usual with eGFR now in the 20s - usually in the 40s. Will restart IV fluids and recheck BMP at 4 pm today. Code(s): N17.9 - ACUTE KIDNEY FAILURE, UNSPECIFIED; N18.9 - CHRONIC KIDNEY DISEASE, UNSPECIFIED (2) CHF exacerbation Current Visit: Yes Status: Resolved Qualifiers: Heart failure type: unspecified Qualified Code(s): I50.9 - Heart failure, unspecified Code(s): I50.9 - HEART FAILURE, UNSPECIFIED (3) Dysuria Current Visit: Yes Status: Chronic Code(s): R30.0 - DYSURIA (4) Elevated d-dimer Current Visit: Yes Status: Acute Assessment & Plan: VQ scan neg. Code(s): R79.89 - OTHER SPECIFIED ABNORMAL FINDINGS OF BLOOD CHEMISTRY (5) Hypertension Current Visit: Yes Status: Chronic Qualifiers: Hypertension type: primary hypertension Qualified Code(s): I10 - Essential (primary) hypertension Assessment & Plan: Had last elevated BP to >180 systolic at 1700 yesterday - since then 130s-150s systolic. Code(s): I10 - ESSENTIAL (PRIMARY) HYPERTENSION (6) Coronary artery disease Current Visit: No Status: Chronic Qualifiers: [place] vs. transplanted heart: [place] heart Associated angina: with stable angina Code(s): I25.10 - ATHSCL HEART DISEASE OF [place] CORONARY ARTERY W/O ANG PCTRS (7) Essential hypertension Current Visit: No Status: Chronic Code(s): I10 - ESSENTIAL (PRIMARY) HYPERTENSION (8) Uncontrolled type 2 diabetes mellitus Current Visit: No Status: Chronic Qualifiers: Glycemic state: with hyperglycemia Qualified Code(s): E11.65 - Type 2 diabetes mellitus with hyperglycemia Code(s): E11.65 - TYPE 2 DIABETES MELLITUS WITH HYPERGLYCEMIA
[2021-11-29] MEDS ORDERED: Sodium Chloride 0.9% W/ 20 mEq KCl/LITER 1,000 ML IV SCH (09:15)
[2021-11-29 09:37] VITALS: O2SAT 93
[2021-11-29] MEDS ORDERED: ENOXAPARIN SODIUM SQ SCH ×2 (10:00)
[2021-11-29] MEDS: PRED-FORTE 1% OPHTHALMIC OP SCH ×3 (10:53→16:31)
[2021-11-29] MEDS ORDERED: Sodium Chloride 0.9% 1000 ML 1,000 ML IV SCH (11:00)
--- NOTE | 2021-11-29 13:24 | PCM.DS ---
Discharge Summary Date of Admission: 11/28/21 03:08 Admitting Physician: INEZ MATHEWS Primary Care Provider: EDITH CHAN Allergies Allergies lisinopril Allergy (Severe, Verified 11/28/21 04:05) Swelling codeine Allergy (Intermediate, Verified 11/28/21 04:05) Nausea and Vomiting allergies validated with patient morphine Allergy (Intermediate, Verified 11/28/21 04:05) Nausea and Vomiting oxycodone [Oxycodone] Allergy (Intermediate, Verified 11/28/21 04:05) Nausea and Vomiting Hospital Summary - Hospital Course Hospital Course: is a 71 year old female pt of Dr. Chicas[facility] with PMHx morbid obesity, CHF, DM, HTN, chronic renal failure, chronic angina, and hx CVA (22 yrs ago, with L sided deficit) who was admitted through ER with CHF exacerbation, renal insufficiency, and elevated d- dimer. VQ scan done the next day was negative. She is feeling much better today and will be discharged to [facility]. - Vitals & Intake/Output Vital Signs: Vital Signs Temperature 97.8 F 11/29/21 12:00 Pulse Rate 71 11/29/21 12:00 Respiratory Rate 18 11/29/21 12:00 Blood Pressure 129/60 11/29/21 12:00 O2 Sat by Pulse Oximetry 93 L 11/29/21 12:00 Intake & Output: Intake & Output 11/27/21 11/28/21 11/29/21 11/30/21 11:59 11:59 11:59 11:59 Intake Total 420 1020 Output Total 1450 Balance -1030 1020 Weight 82.1 kg 82.5 kg - Lab Result Diagrams: 11/29/21 05:15 11/29/21 05:15 Lab Results-Last 24 Hrs: Lab Results-Last 24 Hours 11/28/21 11/28/21 11/28/21 Range/Units 13:00 17:17 21:27 WBC (4.0-10.5) K/mm3 RBC (4.1-5.4) M/mm3 Hgb (12.0-16.0) gm/dl Hct (35-47) % MCV (78-100) fl MCH (26-32) pg MCHC (32-36) g/dl RDW (11.5-14.0) % Plt Count (150-450) K/mm3 MPV (7.5-11.0) fl Gran % (36.0-66.0) % Eos # (Auto) (0-0.5) Absolute Lymphs (auto) (1.0-4.6) Absolute Monos (auto) (0.0-1.3) Lymphocytes % (24.0-44.0) % Monocytes % (0.0-12.0) % Eosinophils % (0.00-5.0) % Basophils % (0.0-0.4) % Absolute Granulocytes (1.4-6.9) Basophils # (0-0.4) Sodium (137-145) mmol/L Potassium (3.5-5.1) mmol/L Chloride (98-107) mmol/L Carbon Dioxide (22-30) mmol/L Anion Gap (5-15) MEQ/L BUN (7-17) mg/dL Creatinine (0.52-1.04) mg/dL Estimated GFR ML/MIN Glucose (74-106) mg/dL POC Glucometer 450 H 451 H (74 to 106) mg/dL Calcium (8.4-10.2) mg/dL C. difficile Screen NEGATIVE (NEGATIVE) C.difficile 027-NAP1-B1 PRESUMPTIVE NEGATIVE (NEGATIVE) 11/29/21 11/29/21 11/29/21 Range/Units 05:15 05:15 08:03 WBC 10.9 H (4.0-10.5) K/mm3 RBC 3.78 L (4.1-5.4) M/mm3 Hgb 10.7 L (12.0-16.0) gm/dl Hct 33.6 L (35-47) % MCV 88.9 (78-100) fl MCH 28.3 (26-32) pg MCHC 31.8 L (32-36) g/dl RDW 13.0 (11.5-14.0) % Plt Count 200 (150-450) K/mm3 MPV 11.5 H (7.5-11.0) fl Gran % 78.8 H (36.0-66.0) % Eos # (Auto) 0 (0-0.5) Absolute Lymphs (auto) 1.95 (1.0-4.6) Absolute Monos (auto) 0.35 (0.0-1.3) Lymphocytes % 17.9 L (24.0-44.0) % Monocytes % 3.2 (0.0-12.0) % Eosinophils % 0.0 (0.00-5.0) % Basophils % 0.1 (0.0-0.4) % Absolute Granulocytes 8.59 H (1.4-6.9) Basophils # 0.01 (0-0.4) Sodium 132 L (137-145) mmol/L Potassium 4.2 (3.5-5.1) mmol/L Chloride 94 L (98-107) mmol/L Carbon Dioxide 31 H (22-30) mmol/L Anion Gap 10.4 (5-15) MEQ/L BUN 54 H (7-17) mg/dL Creatinine 2.22 H (0.52-1.04) mg/dL Estimated GFR 23.2 ML/MIN Glucose 312 H (74-106) mg/dL POC Glucometer 336 H (74 to 106) mg/dL Calcium 8.3 L (8.4-10.2) mg/dL C. difficile Screen (NEGATIVE) C.difficile 027-NAP1-B1 (NEGATIVE) 11/29/21 Range/Units 11:47 WBC (4.0-10.5) K/mm3 RBC (4.1-5.4) M/mm3 Hgb (12.0-16.0) gm/dl Hct (35-47) % MCV (78-100) fl MCH (26-32) pg MCHC (32-36) g/dl RDW (11.5-14.0) % Plt Count (150-450) K/mm3 MPV (7.5-11.0) fl Gran % (36.0-66.0) % Eos # (Auto) (0-0.5) Absolute Lymphs (auto) (1.0-4.6) Absolute Monos (auto) (0.0-1.3) Lymphocytes % (24.0-44.0) % Monocytes % (0.0-12.0) % Eosinophils % (0.00-5.0) % Basophils % (0.0-0.4) % Absolute Granulocytes (1.4-6.9) Basophils # (0-0.4) Sodium (137-145) mmol/L Potassium (3.5-5.1) mmol/L Chloride (98-107) mmol/L Carbon Dioxide (22-30) mmol/L Anion Gap (5-15) MEQ/L BUN (7-17) mg/dL Creatinine (0.52-1.04) mg/dL Estimated GFR ML/MIN Glucose (74-106) mg/dL POC Glucometer 423 H (74 to 106) mg/dL Calcium (8.4-10.2) mg/dL C. difficile Screen (NEGATIVE) C.difficile 027-NAP1-B1 (NEGATIVE) Micro Results-Entire Visit: Microbiology 11/28/21 01:45 Urine Culture - Final Urine, Catheterized NO GROWTH 11/27/21 23:10 Blood Culture - Preliminary Blood NO GROWTH TO DATE 11/27/21 23:10 Blood Culture - Preliminary Blood NO GROWTH TO DATE Accuchecks Date 11/28/21 Time 22:11 - Radiology Exams Ordered Rad Exams-Entire Visit: Radiology Procedures Category Date Time Status CHEST 1 VIEW (PORTABLE) Stat Exams 11/27/21 22:51 Completed ECHO W/2D AND DOPPLER [US] Routine Exams 11/28/21 11:07 Draft PULMONARY PERF VENTILATION [NUCMED] Stat Exams 11/28/21 03:43 Completed - Procedures and Test Procedures and Tests throughout Hospitalization: Therapy Orders & Screens 11/28/21 03:43 EKG REPEAT IN AM Comment: Oxygen Nasal Cannula 2 lpm Comment: Respiratory Therapy Consult ROUTINE Comment: Reason For Exam: 11/28/21 06:59 Oxygen Nasal Cannula 4 lpm Comment: Diagnosis: CHF Respiratory Therapy Assessment DAILY Comment: Diagnosis: CHF Discharge Exam General Appearance: no apparent distress, obese Neurologic Exam: alert, oriented x 3, cooperative, normal mood/affect Eye Exam: eyes nml inspection Ears, Nose, Throat Exam: moist mucous membranes Neck Exam: normal inspection Respiratory Exam: normal breath sounds, lungs clear, No crackles/rales, No rhonchi, No wheezing Cardiovascular Exam: regular rate/rhythm, normal heart sounds, No murmur Gastrointestinal/Abdomen Exam: soft, normal bowel sounds, No tenderness, No distention, No mass, No guarding, No rebound Extremity Exam: normal inspection, No pedal edema, No swelling Skin Exam: normal color, warm, dry, No rash Final Diagnosis/Problem List - Final Discharge Diagnosis/Problem (1) Enxhs-nb-ejudgry kidney injury Current Visit: No Status: Acute Assessment & Plan: Her eGFR was in the 40s in 2019, but apparently has been in the 20s more recently (lab results I saw were from Aug 2021, with eGFR about 26). Code(s): N17.9 - ACUTE KIDNEY FAILURE, UNSPECIFIED; N18.9 - CHRONIC KIDNEY DISEASE, UNSPECIFIED (2) CHF exacerbation Current Visit: Yes Status: Resolved Assessment & Plan: This was her admit diagnosis, however on examination her symptoms seemed more consistent with COPD exacerbation and she was started on IV steroids. Pt states she doesn't have COPD and was never a smoker. Will send home on prednisone po. Code(s): I50.9 - HEART FAILURE, UNSPECIFIED (3) Wheezing Current Visit: Yes Status: Acute Assessment & Plan: Prednisone po. Could be due to viral illness. Code(s): R06.2 - WHEEZING (4) Hypertension Current Visit: Yes Status: Chronic Assessment & Plan: Her BP was in the 180s systolic on admission, so coreg was added. It was persistently over 180 systolic so amlodipine was added. These certainly may need adjusted after she is re-admitted to [facility]. One month rx of each was sent with pt. Code(s): I10 - ESSENTIAL (PRIMARY) HYPERTENSION (5) Elevated d-dimer Current Visit: Yes Status: Acute Assessment & Plan: VQ scan was neg. Code(s): R79.89 - OTHER SPECIFIED ABNORMAL FINDINGS OF BLOOD CHEMISTRY (6) Dysuria Current Visit: Yes Status: Chronic Assessment & Plan: May be chronic aseptic cystitis. Code(s): R30.0 - DYSURIA (7) Coronary artery disease Current Visit: No Status: Chronic Code(s): I25.10 - ATHSCL HEART DISEASE OF [place] CORONARY ARTERY W/O ANG PCTRS (8) Uncontrolled type 2 diabetes mellitus Current Visit: No Status: Chronic Code(s): E11.65 - TYPE 2 DIABETES MELLITUS WITH HYPERGLYCEMIA - Discharge Disposition: [facility] TO [facility] Condition: Stable Prescriptions: New Carvedilol 3.125 mg [Coreg 3.125 MG] 3.125 mg PO BID #60 tablet Prednisone 20 mg [Deltasone 20 mg] 20 mg PO DAILY #17 tablet Amlodipine Besylate 5 mg [Norvasc 5 mg] 5 mg PO QAM #30 tablet Continue Insulin Glargine [Lantus Insulin] 20 unit SQ HS Metformin HCl 500 mg [Glucophage 500 MG] 500 mg PO BID Gabapentin 600 mg PO QID Prednisolone Acetate/Pf [Prednisolone Acet 1% Eye Drop] 1 drop OP QID Omeprazole 20 mg PO DAILY Sodium Chloride [Zaki-128] 1 drop OP HS Tramadol HCl 50 mg [Ultram 50 mg] 50 mg PO Q6H PRN PRN Reason: Pain Bisacodyl [Dulcolax] 10 mg RC DAILY PRN PRN Reason: Constipation Follow up with: EDITH CHAN MD [Primary Care Provider] -
[2021-11-29 16:08] VITALS: BP 139/61; PULSE 67
[2021-11-29 16:38] LABS: ANION GAP 13.4 MEQ/L (5-15); Calcium 8.2 mg/dL (8.4-10.2); Creatinine 1 2.4 mg/dL (0.52-1.04); EST GLOMERULAR FILTRATION RATE 21.2 ML/MIN; Potassium 4.9 mmol/L (3.5-5.1)
== END 2021-11-29 18:05 ==
LOC: ED 22:25 → MED SURG 11-28 03:08
PROVIDERS: ADMIT Family Medicine; ATTEND Family Medicine
DX: N17.9 Acute kidney failure, unspecified (principal); N18.4 Chronic kidney disease, stage 4 (severe); I50.9 Heart failure, unspecified; I11.0 Hypertensive heart disease with heart failure; R06.2 Wheezing; R79.89 Other specified abnormal findings of blood chemistry; R30.0 Dysuria; I25.10 Atherosclerotic heart disease of native coronary artery without angina pectoris; E11.65 Type 2 diabetes mellitus with hyperglycemia; E66.9 Obesity, unspecified; Z79.01 Long term (current) use of anticoagulants; Z79.899 Other long term (current) drug therapy; Z86.73 Personal history of transient ischemic attack (TIA), and cerebral infarction without residual deficits; Z20.828 Contact with and (suspected) exposure to other viral communicable diseases
CPT/HCPCS: 0241U; 36000; 36415; 51702; 71045; 78582; 80048; 80053; 81001; 82947; 83605; 83735; 83880; 84484; 85025; 85379; 85610; 87040; 87086; 87400; 87493; 87651; 93005; 93041; 93306; 94760; 94762; 96372; 96374; 96375; 99285; A9540; A9567; G0378; J1650; J1815; J1940; J2930; A9270-GY